=== PATIENT | female | born 1960 | race Caucasian/White ===

== ENCOUNTER → 2016-05-17 | Outpatient (REF) | payer OTHER | LOC: M SFHCWAGY 09:39 | PROVIDERS: ATTEND Nurse Practitioner Women's Health | DX: Z12.4 Encounter for screening for malignant neoplasm of cervix (principal) ==

== ENCOUNTER → 2016-05-17 | Outpatient (CLI) | payer OTHER ==
--- NOTE | 2016-05-17 10:35 | REPMRS ---
Patient History The patient states she had a clinical breast exam in Patient is postmenopausal. Family history of colorectal cancer in father at age 50 or over and breast cancer in paternal aunt at age 50 or over. Digital Woman Screen Mammo: May 17, 2016 - Exam #: [id number] Bilateral CC and MLO view(s) were taken. Technologist: Cara Luong, Technologist Prior study comparison: November 07, 2013, digital woman screen mammo performed at [facility]. August 11, 2011, digital woman screen mammo performed at [facility]. February 06, 2009, bilateral bilat screen digital mammo performed at [facility] to [facility]. FINDINGS: There are scattered fibroglandular densities. There has been no change in the appearance of the mammogram from the prior studies. There is a mild amount of scattered fibroglandular density which is fairly symmetric. There is no interval development of dominant mass, architectural distortion, or clustered microcalcification suggestive of malignancy. ASSESSMENT: BI-RADS/ACR category 1 mammogram. Negative. Recommendation Routine screening mammogram in 1 year (for women over age 40). This mammogram was interpreted with the aid of an FDA-approved computer-aided dectection system. Electronically Signed By: Félix Mas MD 05/17/16 1037
== END ==
LOC: M WHC 09:24
PROVIDERS: ATTEND Nurse Practitioner Women's Health
DX: Z12.31 Encounter for screening mammogram for malignant neoplasm of breast (principal); Z78.0 Asymptomatic menopausal state; Z80.0 Family history of malignant neoplasm of digestive organs

== ENCOUNTER → 2016-07-02 | Outpatient (CLI) | payer OTHER ==
[~2016-07-02] VITALS: Ht 162.6 cm; Wt 88.5 kg
[~2016-07-02] MED LIST: ACET650T2 PO; ACYC400T PO; ALBU17IN INH; ASPI1TAB PO; ATOR1TAB19 PO; CALC600T21 PO; DICL1GEL3 TD; FISH100049 PO; FLUT22IN INH; LIDOCAINE 2% INJ 100 MG/5 ML SDV (FOR ANES.) As Ordered ONE; LISI-538 PO; MAGN400C2 PO; METO50TA2 PO; MOBI7.5T10 PO; MULT1CHW39 PO; NS 1,000 ML IV SCH; OSTETAB3 PO; PROBCAP4 PO; PROPOFOL 200 MG/20 ML VIAL As Ordered ONE; PROPOFOL 500 MG/50 ML VIAL As Ordered ONE; VITA100054 PO; VITA500C24 PO
--- NOTE | 2016-07-02 12:22 | ROOR ---
Patient Name: Jolanta Fair Procedure Date: 07/02/2016 12:06 PM Date of : 1960 Age: 56 Room: [facility] Gender: Female Note Status: Finalized Procedure: Colonoscopy Indications: High risk colon cancer surveillance: Personal history of colonic polyps, Last colonoscopy: October 2013, Family history of colon cancer in a first-degree relative, (Father <60) Providers: Matthew PATTEN MD Referring MD: Harry Correa MD Requesting Provider: Medicines: Monitored Anesthesia Care Complications: No immediate complications. Procedure: Pre-Anesthesia Assessment: - The heart rate, respiratory rate, oxygen saturations, blood pressure, adequacy of pulmonary ventilation, and response to care were monitored throughout the procedure. The Colonoscope was introduced through the anus and advanced to the cecum, identified by appendiceal orifice and ileocecal valve. The colonoscopy was performed without difficulty. The patient tolerated the procedure well. The quality of the bowel preparation was excellent. Findings: The perianal and digital rectal examinations were normal. (Exam: Complete, Prep: Good or Excellent.) Internal hemorrhoids were found during retroflexion. The hemorrhoids were medium-sized. The entire examined colon appeared normal on direct and retroflexion views. Impression: - Small Internal hemorrhoids. - The entire examined colon is normal on direct and retroflexion views. - No specimens collected. Recommendation: - Repeat colonoscopy in 5 years for screening purposes. Matthew Patten MD Matthew PATTEN MD 07/02/2016 12:22:15 PM This report has been signed electronically. Number of Addenda: 0 Note Initiated On: 07/02/2016 12:06 PM Estimated Blood Loss: Estimated blood loss: none.
[2016-07-02 12:40] VITALS: BP 123/59
== END | disposition home or self-care (01) ==
LOC: M OPP 09:24
PROVIDERS: ATTEND Internal Medicine Gastroenterology
DX: Z12.11 Encounter for screening for malignant neoplasm of colon (principal); K64.8 Other hemorrhoids; Z86.010 Personal history of colon polyps; Z80.0 Family history of malignant neoplasm of digestive organs; I10 Essential (primary) hypertension; E78.5 Hyperlipidemia, unspecified; R00.8 Other abnormalities of heart beat; M19.90 Unspecified osteoarthritis, unspecified site; Z78.0 Asymptomatic menopausal state; J45.909 Unspecified asthma, uncomplicated; R06.83 Snoring; Z88.0 Allergy status to penicillin; Z79.82 Long term (current) use of aspirin; Z79.899 Other long term (current) drug therapy

== ENCOUNTER → 2017-09-19 | Outpatient (REF) | payer OTHER ==
[2017-09-19 13:09] LABS: ALBUMIN 3.6 GM/DL (3.2-5.2); ALBUMIN/GLOBULIN RATIO 0.92 (1.00-1.93); ALKALINE PHOSPHATASE 70 U/L (45-117); ALT/SGPT 33 U/L (12-78); ANION GAP 7 MEQ/L (8-16); AST/SGOT 18 U/L (7-37); BILIRUBIN,TOTAL 0.6 MG/DL (0.2-1.0); BLOOD UREA NITROGEN 20 MG/DL (7-18); CALCIUM LEVEL 8.5 MG/DL (8.5-10.1); CARBON DIOXIDE LEVEL 28 MEQ/L (21-32); CHLORIDE LEVEL 103 MEQ/L (98-107); CHOLESTEROL LEVEL 216 MG/DL (<200); FREE T4 0.95 NG/DL (0.76-1.46); GLOMERULAR FILTRATION RATE > 60.0 (>51); GLUCOSE, FASTING 94 MG/DL (70-100); HDL CHOLESTEROL 50 MG/DL (>40); LDL CHOLESTEROL 123.2 MG/DL (<100); NON-HDL-C 166 MG/DL; POTASSIUM SERUM 4.7 MEQ/L (3.5-5.1); SODIUM LEVEL 138 MEQ/L (136-145); TOTAL PROTEIN 7.5 GM/DL (6.4-8.2); TRIGLYCERIDES LEVEL 214 MG/DL (<150)
== END ==
LOC: M SFHCADAM 09:17
DX: E04.0 Nontoxic diffuse goiter (principal); E78.00 Pure hypercholesterolemia, unspecified; I10 Essential (primary) hypertension
CPT/HCPCS: 84443

== ENCOUNTER → 2018-02-13 | Outpatient (REF) | payer OTHER ==
[2018-02-13 13:43] LABS: TOTAL 25(OH) VITAMIN D 32.1 NG/ML (30.0-100.0)
== END ==
LOC: M SFHCADAM 10:50
DX: E55.9 Vitamin D deficiency, unspecified (principal)

== ENCOUNTER → 2018-02-22 | Outpatient (REF) | payer OTHER ==
[2018-02-22 19:39] LABS: HEMATOCRIT 43.6 % (36.0-47.0); HEMOGLOBIN 14.1 g/dl (12.0-15.5); MEAN CORPUSCULAR HEMOGLOBIN 31.3 pg (27.0-33.0); MEAN CORPUSCULAR HGB CONC 32.3 g/dl (32.0-36.5); MEAN CORPUSCULAR VOLUME 96.7 fl (80.0-96.0); PLATELET COUNT, AUTOMATED 285 10^3/uL (150-450); RED BLOOD COUNT 4.51 10^6/uL (4.00-5.40); RED CELL DISTRIBUTION WIDTH 12.7 % (11.5-14.5); WHITE BLOOD COUNT 7.2 10^3/uL (4.0-10.0)
[2018-02-22 19:42] LABS: RHEUMATOID FACTOR QUANT < 10.0 IU/ML (<15.0)
[2018-02-22 20:05] LABS: ERYTHROCYTE SEDIMENTATION RATE 6 mm/hr (0-30)
[2018-02-25 00:29] LABS: ANA (HEP2) Negative (.)
[2018-02-25 00:29] LABS: CYCLIC CITRULLINATED PEPTIDE 8 units (0-19)
== END ==
LOC: M SFHCADAM 15:00
DX: M06.4 Inflammatory polyarthropathy (principal); F32.9 Major depressive disorder, single episode, unspecified

== ENCOUNTER → 2018-08-16 | Outpatient (CLI) | payer OTHER ==
[~2018-08-16] MED LIST changes: -ACET650T2 PO; +ACET650T3 PO; -ASPI1TAB PO; +ASPI81TA26 PO; -CALC600T21 PO; +CALC600T60 PO; -LIDOCAINE 2% INJ 100 MG/5 ML SDV (FOR ANES.) As Ordered ONE; -METO50TA2 PO; +METO50TA7 PO; +MOBI4TAB PO; -MOBI7.5T10 PO; -MULT1CHW39 PO; +MULT200T7 PO; -NS 1,000 ML IV SCH; -PROPOFOL 200 MG/20 ML VIAL As Ordered ONE; -PROPOFOL 500 MG/50 ML VIAL As Ordered ONE
--- NOTE | 2018-08-16 14:09 | REPMRS ---
Patient History The patient states she had a clinical breast exam in 08/2018. Family history of colorectal cancer at age 50 or over in father, breast cancer at age 50 or over in paternal aunt. 3D TOMOSYNTHESIS WAS PERFORMED. Digital Woman Screen Mammo: August 16, 2018 - Exam #: [id number] Bilateral CC and MLO view(s) were taken. Technologist: Adele Urrutia, Technologist Prior study comparison: May 17, 2016, digital woman screen mammo performed at [facility] [employer] [facility]. November 07, 2013, digital woman screen mammo performed at [facility] [employer] [facility] [employer] [facility]. FINDINGS: There are scattered fibroglandular densities. There has been no change in the appearance of the mammogram from the prior studies. There is a mild amount of residual fibroglandular tissue which is fairly symmetric. There is no interval development of dominant mass, architectural distortion, or clustered microcalcification suggestive of malignancy. Assessment: BI-RADS/ACR category 1 mammogram. Negative Mammogram. Recommendation Routine screening mammogram in 1 year (for women over age 40). This mammogram was interpreted with the aid of an FDA-approved computer-aided dectection system. Electronically Signed By: Corona Chiang MD 08/16/18 [id number]
== END ==
LOC: M WHC 13:27
PROVIDERS: ATTEND Nurse Practitioner Women's Health
DX: Z12.31 Encounter for screening mammogram for malignant neoplasm of breast (principal); Z80.0 Family history of malignant neoplasm of digestive organs

== ENCOUNTER → 2019-01-16 | Outpatient (CLI) | payer OTHER ==
--- NOTE | 2019-01-16 15:30 | REP ---
Left knee five views : There is no fracture or dislocation. Mineralization and joint spaces are normal. There are no calcifications or foreign bodies. Impression: Negative left knee . Electronically Signed by Corona Syed MD 01/16/2019 03:21 P
== END ==
LOC: M ADAMS 15:01
PROVIDERS: ATTEND Family Medicine
DX: M25.562 Pain in left knee (principal)

== ENCOUNTER → 2019-01-16 | Outpatient (REF) | payer OTHER ==
[2019-01-16 19:40] LABS: HEMOGLOBIN 14.3 g/dl (12.0-15.5); MEAN CORPUSCULAR HEMOGLOBIN 31.1 pg (27.0-33.0); MEAN CORPUSCULAR HGB CONC 31.8 g/dl (32.0-36.5); MEAN CORPUSCULAR VOLUME 97.8 fl (80.0-96.0); PLATELET COUNT, AUTOMATED 295 10^3/uL (150-450); WHITE BLOOD COUNT 6.7 10^3/uL (4.0-10.0)
[2019-01-16 19:45] LABS: ALBUMIN 3.6 GM/DL (3.2-5.2); ALT/SGPT 60 U/L (12-78); BILIRUBIN,TOTAL 0.3 MG/DL (0.2-1.0); BLOOD UREA NITROGEN 20 MG/DL (7-18); CARBON DIOXIDE LEVEL 31 MEQ/L (21-32); CHLORIDE LEVEL 102 MEQ/L (98-107); CHOLESTEROL LEVEL 184 MG/DL (<200); CREATININE FOR GFR 0.57 MG/DL (0.55-1.30); GLOMERULAR FILTRATION RATE > 60.0 (>51); GLUCOSE, FASTING 144 MG/DL (70-100); HDL CHOLESTEROL 42 MG/DL (>40); LDL CHOLESTEROL 68 MG/DL (<100); NON-HDL-C 142 MG/DL; POTASSIUM SERUM 4.4 MEQ/L (3.5-5.1); SODIUM LEVEL 139 MEQ/L (136-145); TOTAL PROTEIN 7.2 GM/DL (6.4-8.2); TRIGLYCERIDES LEVEL 371 MG/DL (<150)
[2019-01-16 19:50] LABS: FOLATE 21.1 NG/ML (>5.4); TOTAL 25(OH) VITAMIN D 28.2 NG/ML (30.0-100.0)
== END ==
LOC: M SFHCADAM 14:56
PROVIDERS: ATTEND Family Medicine
DX: F32.9 Major depressive disorder, single episode, unspecified (principal); E78.5 Hyperlipidemia, unspecified; E55.9 Vitamin D deficiency, unspecified; R61 Generalized hyperhidrosis

== ENCOUNTER → 2019-04-26 | Outpatient (REF) | payer OTHER ==
[2019-04-26 13:10] LABS: HEMOGLOBIN A1c 7.2 %
[2019-04-26 13:17] LABS: BLOOD UREA NITROGEN 19 MG/DL (7-18); CALCIUM LEVEL 8.6 MG/DL (8.5-10.1); CARBON DIOXIDE LEVEL 25 MEQ/L (21-32); CHLORIDE LEVEL 103 MEQ/L (98-107); GLOMERULAR FILTRATION RATE > 60.0 (>51); GLUCOSE, FASTING 233 MG/DL (70-100); SODIUM LEVEL 137 MEQ/L (136-145)
== END ==
LOC: M SFHCADAM 09:00
PROVIDERS: ATTEND Family Medicine
DX: R73.03 Prediabetes (principal)

== ENCOUNTER → 2019-06-06 | Outpatient (REF) | payer OTHER ==
[2019-06-06 16:27] LABS: HEMATOCRIT 45.8 % (36.0-47.0); HEMOGLOBIN 14.6 g/dl (12.0-15.5); MEAN CORPUSCULAR HGB CONC 31.9 g/dl (32.0-36.5); MEAN CORPUSCULAR VOLUME 97.2 fl (80.0-96.0); PLATELET COUNT, AUTOMATED 326 10^3/uL (150-450); RED BLOOD COUNT 4.71 10^6/uL (4.00-5.40); WHITE BLOOD COUNT 6.9 10^3/uL (4.0-10.0)
[2019-06-06 16:33] LABS: ALBUMIN 3.9 GM/DL (3.2-5.2); ALT/SGPT 46 U/L (12-78); BILIRUBIN,TOTAL 0.6 MG/DL (0.2-1.0); BLOOD UREA NITROGEN 15 MG/DL (7-18); CALCIUM LEVEL 9.3 MG/DL (8.5-10.1); CARBON DIOXIDE LEVEL 31 MEQ/L (21-32); CHLORIDE LEVEL 104 MEQ/L (98-107); CREATININE FOR GFR 0.65 MG/DL (0.55-1.30); GLOMERULAR FILTRATION RATE > 60.0 (>51); GLUCOSE, FASTING 102 MG/DL (70-100); POTASSIUM SERUM 4.6 MEQ/L (3.5-5.1); SODIUM LEVEL 140 MEQ/L (136-145); TOTAL PROTEIN 7.4 GM/DL (6.4-8.2)
== END ==
LOC: M SFHCADAM 12:07
PROVIDERS: ATTEND Family Medicine
DX: R10.9 Unspecified abdominal pain (principal)

== ENCOUNTER → 2019-06-18 | Outpatient (CLI) | payer OTHER ==
--- NOTE | 2019-06-19 08:18 | REP ---
Clinical: Pelvic pain. Technique: Transabdominal pelvic ultrasound followed by transvaginal examination for better evaluation of the endometrium and adnexa. Findings: Fluid-filled bladder appears normal and measures approximately 8.4 x 11.7 x 3.8 cm. Heterogeneous anteverted uterus measures 9.6 x 2.8 x 4.3 cm. Endometrial complex measures 1.2 mm thickness. A 12 x 8 x 8 mm posterior intramural fibroid cannot be excluded. Ovaries are not identified. No adnexal mass or fluid. Impression: Possible small 12 mm posterior intramural fibroid. Limited examination. Ovaries not visualized. Electronically Signed by Rock Landeros MD 06/19/2019 08:10 A
== END ==
LOC: M RAD 12:19
PROVIDERS: ATTEND Family Medicine
DX: R93.89 Abnormal findings on diagnostic imaging of other specified body structures (principal); R10.2 Pelvic and perineal pain

== ENCOUNTER → 2019-07-31 | Outpatient (CLI) | payer OTHER ==
--- NOTE | 2019-08-01 04:53 | REP ---
Clinical: Left flank pain. Technique: Real time holt scale and color evaluation using curved array transducer. Findings: Bilateral kidneys are normal in contour, size, echogenicity without hydronephrosis, nephrolithiasis, cystic or renal mass lesion. No perinephric fluid collection. Right kidney measures 10.8 x 6.3 x 4.4 cm. Left kidney measures 12.2 x 5.5 x 5.9 cm. Bladder is incompletely distended but grossly normal in appearance. Left ureteral jet noted. Impression: Normal renal ultrasound. No hydronephrosis or nephrolithiasis. Electronically Signed by Rock Landeros MD 08/01/2019 04:44 A
== END ==
LOC: M RAD 12:52
PROVIDERS: ATTEND Family Medicine
DX: R10.9 Unspecified abdominal pain (principal)

== ENCOUNTER → 2019-08-20 | Outpatient (CLI) | payer OTHER ==
--- NOTE | 2019-08-20 11:17 | REPMRS ---
Patient History The patient states she had a clinical breast exam in August 2019.Family history of colorectal cancer at age 50 or over in father, breast cancer at age 50 or over in paternal aunt. Digital Woman Screen Mammo: August 20, 2019 - Exam #: [id number] Bilateral CC and MLO view(s) were taken. Technologist: Vira Garcia, Technologist Prior study comparison: August 16, 2018, bilateral digital woman screen [place] [facility] May 17, 2016, digital woman screen mamm[place] [facility]. November 07, 2013, digital woman screen mammo [place] [facility] FINDINGS: There are scattered fibroglandular densities. The Volpara volumetric breast density category is:B. There has been no change in the appearance of the mammogram from the prior studies. There is a mild amount of scattered fibroglandular density which is fairly symmetric. There is no interval development of dominant mass, architectural distortion, or grouped microcalcification suggestive of malignancy. 3-D tomosynthesis shows no additional findings. Assessment: BI-RADS/ACR category 1 mammogram. Negative Mammogram. Recommendation Routine screening mammogram of both breasts in 1 year (for women over age 40). This patient's Lifetime Breast Cancer Risk is estimated at 12.9 %. This mammogram was interpreted with the aid of an FDA-approved computer-aided dectection system. Electronically Signed By: Félix Mas MD 08/20/19 [id number]
--- NOTE | 2019-08-22 14:21 | DEXA ---
AP SPINE L1 - L4 1.137 -0.5 0.6 LT FEMUR TOTAL 0.989 -0.1 0.7 LT NECK 0.868 -1.2 -0.1 RT FEMUR TOTAL 0.995 -0.1 0.7 RT NECK 0.919 -0.9 0.3 TOTAL BODY TOTAL OTHER COMMENTS: Normal bone densitometry of the spine. Normal bone densitometry of the right hip. There is low bone density of the left hip. FOLLOW-UP: Recommendation for the next bone density exam: 2 years. LAUREN
== END ==
LOC: M WHC 08:49
PROVIDERS: ATTEND Nurse Practitioner Women's Health
DX: Z12.31 Encounter for screening mammogram for malignant neoplasm of breast (principal); Z78.0 Asymptomatic menopausal state; Z13.820 Encounter for screening for osteoporosis; Z80.0 Family history of malignant neoplasm of digestive organs; Z80.3 Family history of malignant neoplasm of breast; M85.852 Other specified disorders of bone density and structure, left thigh

== ENCOUNTER → 2019-08-20 | Outpatient (REF) | payer OTHER | LOC: M SFHCWAGY 17:53 | PROVIDERS: ATTEND Nurse Practitioner Women's Health | DX: Z12.4 Encounter for screening for malignant neoplasm of cervix (principal) ==

== ENCOUNTER → 2019-09-06 | Outpatient (REF) | payer OTHER ==
[2019-09-06 14:58] LABS: HEMOGLOBIN A1c 6.9 %
[2019-09-06 15:02] LABS: ALBUMIN 3.6 GM/DL (3.2-5.2); ALT/SGPT 44 U/L (12-78); BILIRUBIN,TOTAL 0.5 MG/DL (0.2-1.0); BLOOD UREA NITROGEN 21 MG/DL (7-18); CALCIUM LEVEL 8.6 MG/DL (8.5-10.1); CARBON DIOXIDE LEVEL 28 MEQ/L (21-32); CHLORIDE LEVEL 104 MEQ/L (98-107); CHOLESTEROL LEVEL 189 MG/DL (<200); CHOLESTEROL RISK RATIO 4.725 (<5); CREATININE FOR GFR 0.76 MG/DL (0.55-1.30); FREE T4 0.91 NG/DL (0.76-1.46); GLOMERULAR FILTRATION RATE > 60.0 (>51); GLUCOSE, FASTING 120 MG/DL (70-100); HDL CHOLESTEROL 40 MG/DL (>40); LDL CHOLESTEROL 112 MG/DL (<100); NON-HDL-C 149 MG/DL; POTASSIUM SERUM 4.8 MEQ/L (3.5-5.1); SODIUM LEVEL 137 MEQ/L (136-145); TOTAL 25(OH) VITAMIN D 51.9 NG/ML (30.0-100.0); TOTAL PROTEIN 7.1 GM/DL (6.4-8.2); TRIGLYCERIDES LEVEL 185 MG/DL (<150)
[2019-09-06 15:17] LABS: MALB URINE SIEMENS 13.2 MG/L; MAU/CREAT RATIO 9.7 MCG/MG (0.0-30.0)
== END ==
LOC: M SFHCADAM 08:55
PROVIDERS: ATTEND Family Medicine
DX: E11.9 Type 2 diabetes mellitus without complications (principal); E04.0 Nontoxic diffuse goiter; E78.5 Hyperlipidemia, unspecified; E55.9 Vitamin D deficiency, unspecified

== ENCOUNTER → 2019-10-18 | Outpatient (CLI) | payer OTHER ==
--- NOTE | 2019-10-19 02:50 | REPPI ---
SHOULDER: REASON: Shoulder contusion. COMPARISON: No priors. FINDINGS: Three views of the right shoulder were performed. The acromioclavicular and glenohumeral relationships are within normal limits. There is no acute fracture or destructive osseous lesions. Mild degenerative change is seen involving the acromioclavicular joint. There is a unicameral cyst in the humeral head. Electronically Signed by Parish Quezada DO 10/19/2019 09:13 A
== END ==
LOC: M PLAIMG 14:15
PROVIDERS: ATTEND Physician Assistant Medical
DX: M85.421 Solitary bone cyst, right humerus (principal)

== ENCOUNTER → 2020-04-08 | Outpatient (REF) | payer MEDICAID, OTHER ==
[~2020-04-08] MED LIST changes: -LISI-538 PO; +LISI20TA33 PO
[2020-04-08 16:36] LABS: HEMOGLOBIN 15.6 g/dl (12.0-15.5); MEAN CORPUSCULAR HEMOGLOBIN 30.1 pg (27.0-33.0); MEAN CORPUSCULAR HGB CONC 31.8 g/dl (32.0-36.5); MEAN CORPUSCULAR VOLUME 94.4 fl (80.0-96.0); PLATELET COUNT, AUTOMATED 301 10^3/uL (150-450); RED BLOOD COUNT 5.19 10^6/uL (4.00-5.40); WHITE BLOOD COUNT 6.8 10^3/uL (4.0-10.0)
[2020-04-08 16:52] LABS: HEMOGLOBIN A1c 9.4 %
[2020-04-08 17:10] LABS: ALBUMIN 4.1 GM/DL (3.2-5.2); ALT/SGPT 66 U/L (12-78); BILIRUBIN,TOTAL 0.6 MG/DL (0.2-1.0); BLOOD UREA NITROGEN 17 MG/DL (7-18); CALCIUM LEVEL 9.8 MG/DL (8.5-10.1); CARBON DIOXIDE LEVEL 30 MEQ/L (21-32); CHLORIDE LEVEL 98 MEQ/L (98-107); CHOLESTEROL LEVEL 207 MG/DL (<200); CHOLESTEROL RISK RATIO 4.813 (<5); CREATININE FOR GFR 0.79 MG/DL (0.55-1.30); FREE T4 1.04 NG/DL (0.76-1.46); GLOMERULAR FILTRATION RATE > 60.0 (>51); GLUCOSE, FASTING 194 MG/DL (70-100); HDL CHOLESTEROL 43 MG/DL (>40); LDL CHOLESTEROL 103 MG/DL (<100); NON-HDL-C 164 MG/DL; POTASSIUM SERUM 5.2 MEQ/L (3.5-5.1); SODIUM LEVEL 134 MEQ/L (136-145); TOTAL PROTEIN 8.1 GM/DL (6.4-8.2); TRIGLYCERIDES LEVEL 303 MG/DL (<150)
== END ==
LOC: M SFHCADAM 11:30
PROVIDERS: ATTEND Family Medicine
DX: G47.33 Obstructive sleep apnea (adult) (pediatric) (principal); E11.9 Type 2 diabetes mellitus without complications; E04.0 Nontoxic diffuse goiter; E78.5 Hyperlipidemia, unspecified

== ENCOUNTER → 2020-05-02 | Outpatient (CLI) | payer OTHER ==
[~2020-05-02] MED LIST changes: +GASTROGRAFIN SOLUTION 30ML (Q9963) As Ordered ONE; +ISOVUE-370 76% 100ML VIAL As Ordered ONE
--- NOTE | 2020-05-04 18:14 | REP ---
INDICATION: DYSPHAGIA, GOITER, FULLNESS. COMPARISON: 01/20/2010 TECHNIQUE: Axial contrast-enhanced images of the abdomen using oral and 100 cc Isovue 370 intravenous contrast material with coronal and sagittal reformations. . This CT examination was performed using the following dose reduction techniques: Automated exposure control, adjustment of mA and/or kv according to the patient's size, and use of iterative reconstruction technique. FINDINGS: Marked diffuse hepatosteatosis is appreciated without focal hepatic lesion. Spleen, pancreas, gallbladder, bilateral adrenal glands and kidneys are normal. Small hiatal hernia noted. Remainder of the visualized enteric system is unremarkable. No ascites. No free air. No adenopathy. Abdominal aorta through the bifurcations common iliac arteries appears normal. Musculoskeletal structures are intact. Lung bases are clear. IMPRESSION: 1. Diffuse hepatosteatosis. 2. Small hiatal hernia. <Electronically signed by Rock Landeros > 05/04/20 0816
--- NOTE | 2020-05-04 18:20 | REP ---
INDICATION: DYSPHAGIA, GOITER, FULLNESS COMPARISON: None. TECHNIQUE: Axial contrast-enhanced images from the skull base to the thoracic inlet with coronal and sagittal reformations using 100 cc Isovue 370 intravenous contrast material. This CT examination was performed using the following dose reduction techniques: Automated exposure control, adjustment of mA and/or kv according to the patient's size, and use of iterative reconstruction technique. FINDINGS: The naso, hector and hypopharynx, larynx and subglottic trachea are normal in appearance. Parapharyngeal and retropharyngeal soft tissues are normal. The salivary and thyroid glands are normal in size and density. Small lymph nodes less than 1 cm in size are present in the internal jugular chains, posterior triangles, submandibular and submental areas. The lung apices are clear. The visualized sinuses are clear. Vascular structures are essentially symmetric and normal. IMPRESSION: Normal contrast-enhanced neck CT. No evidence for mass or acute pathology. <Electronically signed by Rock Landeros > 05/04/20 0938
== END ==
LOC: M RAD 15:19
PROVIDERS: ATTEND Family Medicine
DX: R13.10 Dysphagia, unspecified (principal); K76.0 Fatty (change of) liver, not elsewhere classified; K44.9 Diaphragmatic hernia without obstruction or gangrene
CPT/HCPCS: 70491; 74160; Q9963; Q9967

== ENCOUNTER → 2020-06-12 | Outpatient (CLI) | payer OTHER ==
[~2020-06-12] MED LIST changes: -GASTROGRAFIN SOLUTION 30ML (Q9963) As Ordered ONE; -ISOVUE-370 76% 100ML VIAL As Ordered ONE
--- NOTE | 2020-06-12 10:55 | REP ---
INDICATION: EARLY SATIETY, NAUSEA/VOMITING, EPIGASTRIC PAIN. COMPARISON: None. TECHNIQUE/RADIOTRACER AND DOSE: Following the intravenous administration of 1.05 mCi technetium 99 M sulfur colloid in 2 scrambled eggs and 6 oz of water, multiple images of the upper abdomen are performed in the anterior and posterior projections. FINDINGS: The gastric activity is measured. At the end of 90 minutes 40% of the ingested activity has emptied from the stomach. This yields T1/2 of 111 minutes. A normal T1/2 is 90 minutes. Therefore there is mildly delayed gastric emptying. IMPRESSION: Mildly delayed gastric emptying as discussed above. <Electronically signed by Corona Chiang > 06/12/20 [id number]
== END ==
LOC: M RAD 08:13
PROVIDERS: ATTEND Physician Assistant Medical
DX: R68.81 Early satiety (principal); R11.2 Nausea with vomiting, unspecified; R10.13 Epigastric pain
CPT/HCPCS: 78264; A9541

== ENCOUNTER → 2020-06-25 | Outpatient (CLI) | payer OTHER ==
[~2020-06-25] MED LIST changes: +DULO1CAP5 PO; +FLUO40CA PO; +GABA-282 PO; +GAVICHW3 PO; +HYDR-643 PO; +METF500T13 PO; +PANT40TA29 PO; +ROPI2TAB3 PO; +TRAZ-257 PO; +TRUL10IN SC; +TUMS500C PO; +VENTAER INH
== END ==
LOC: M LABSMTC 11:08
PROVIDERS: ATTEND Anesthesiology
DX: Z01.812 Encounter for preprocedural laboratory examination (principal); Z20.822 Contact with and (suspected) exposure to COVID-19

== ENCOUNTER 2020-06-30 07:01 | Day surgery (SDC) | payer OTHER ==
[~2020-06-30] VITALS: Ht 162.6 cm; Wt 109.3 kg
[~2020-06-30 07:01] MED LIST changes: +NS 1,000 ML IV ONE
--- NOTE | 2020-06-30 08:03 | ROOR ---
Patient Name: Jolanta Fair Procedure Date: 06/30/2020 7:50 AM Date of : 1960 Age: 60 Room: [facility] Gender: Female Note Status: Finalized Procedure: Upper GI endoscopy Indications: Epigastric abdominal pain, Heartburn, Gastroparesis Providers: Matthew PATTEN MD Referring MD: Harry Correa MD Requesting Provider: Medicines: Monitored Anesthesia Care Complications: No immediate complications. Procedure: Pre-Anesthesia Assessment: - The heart rate, respiratory rate, oxygen saturations, blood pressure, adequacy of pulmonary ventilation, and response to care were monitored throughout the procedure. The Endoscope was introduced through the mouth, and advanced to the second part of duodenum. The upper GI endoscopy was accomplished without difficulty. The patient tolerated the procedure well. Findings: The esophagus was normal. The stomach was normal. (compliant/large volume) The examined duodenum was normal. Impression: - Normal esophagus. - Normal stomach. - Normal examined duodenum. - No specimens collected. Recommendation: - Gastroparesis diet: - Eat smaller, more frequent meals throughout the day. - Low fat diet. - Liquid/soft foods are tolerated better than solid foods. - Low fiber/well cooked vegetables are tolerated better than high fiber/fibrous foods/raw vegetables. - Avoid medications that inhibit gastric/intestinal motility such as narcotic medications. Procedure Code(s): --- Professional --- 94361, Esophagogastroduodenoscopy, flexible, transoral; diagnostic, including collection of specimen(s) by brushing or washing, when performed (separate procedure) Diagnosis Code(s): --- Professional --- K31.84, Gastroparesis R12, Heartburn R10.13, Epigastric pain CPT copyright 2019 [employer]. All rights reserved. The codes documented in this report are preliminary and upon certified medical records coder review may be revised to meet current compliance requirements. Matthew Patten MD Matthew PATTEN MD 06/30/2020 8:03:44 AM Electronically signed by Matthew PATTEN MD Number of Addenda: 0 Note Initiated On: 06/30/2020 7:50 AM Estimated Blood Loss: Estimated blood loss: none.
[2020-06-30] MEDS ORDERED: fentaNYL 100 MCG/2 ML INJECTION (J3010) As Ordered ONE (08:35)
[2020-06-30] MEDS ORDERED: propofoL 200 MG/20 ML VIAL As Ordered ONE (08:35)
[2020-06-30] MEDS ORDERED: LIDOCAINE 2% 100MG/5ML SDV (FOR ANES.) As Ordered ONE (08:35)
[2020-06-30 08:40] VITALS: BP 115/56
== END 2020-06-30 09:02 | disposition home or self-care (01) ==
LOC: M OPP 07:01
PROVIDERS: ATTEND Internal Medicine Gastroenterology
DX: R10.13 Epigastric pain (principal); K31.84 Gastroparesis; I10 Essential (primary) hypertension; E78.5 Hyperlipidemia, unspecified; E11.9 Type 2 diabetes mellitus without complications; M19.90 Unspecified osteoarthritis, unspecified site; F41.9 Anxiety disorder, unspecified; F32.9 Major depressive disorder, single episode, unspecified; F43.10 Post-traumatic stress disorder, unspecified; J45.909 Unspecified asthma, uncomplicated; G25.81 Restless legs syndrome; G62.9 Polyneuropathy, unspecified; Z88.0 Allergy status to penicillin; Z79.82 Long term (current) use of aspirin; Z79.84 Long term (current) use of oral hypoglycemic drugs; Z79.899 Other long term (current) drug therapy; Z83.3 Family history of diabetes mellitus; Z80.0 Family history of malignant neoplasm of digestive organs; Z80.52 Family history of malignant neoplasm of bladder; Z82.49 Family history of ischemic heart disease and other diseases of the circulatory system; Z82.3 Family history of stroke; Z80.3 Family history of malignant neoplasm of breast
CPT/HCPCS: 43235; J3010

== ENCOUNTER → 2020-10-27 | Outpatient (REF) | payer OTHER ==
[~2020-10-27] MED LIST changes: +ACYC1TAB PO; -ACYC400T PO; -NS 1,000 ML IV ONE
[2020-10-27 13:32] LABS: HEMOGLOBIN A1c 9.8 %
[2020-10-27 13:39] LABS: ALBUMIN 3.8 GM/DL (3.2-5.2); ALT/SGPT 77 U/L (12-78); BILIRUBIN,TOTAL 0.6 MG/DL (0.2-1.0); BLOOD UREA NITROGEN 20 MG/DL (7-18); CALCIUM LEVEL 9.4 MG/DL (8.5-10.1); CARBON DIOXIDE LEVEL 28 MEQ/L (21-32); CHLORIDE LEVEL 99 MEQ/L (98-107); CHOLESTEROL LEVEL 184 MG/DL (<200); CHOLESTEROL RISK RATIO 4.842 (<5); GLOMERULAR FILTRATION RATE > 60.0 (>51); GLUCOSE, FASTING 203 MG/DL (70-100); HDL CHOLESTEROL 38 MG/DL (>40); LDL CHOLESTEROL 84 MG/DL (<100); NON-HDL-C 146 MG/DL; POTASSIUM SERUM 5.2 MEQ/L (3.5-5.1); SODIUM LEVEL 135 MEQ/L (136-145); TOTAL PROTEIN 7.4 GM/DL (6.4-8.2); TRIGLYCERIDES LEVEL 310 MG/DL (<150)
== END ==
LOC: M SFHCADAM 10:24
PROVIDERS: ATTEND Family Medicine
DX: E78.5 Hyperlipidemia, unspecified (principal); E11.9 Type 2 diabetes mellitus without complications

== ENCOUNTER 2020-11-01 10:54 | Emergency (ER) | payer OTHER ==
[~2020-11-01] VITALS: Ht 162.6 cm; Wt 106.8 kg
[2020-11-01] MEDS ORDERED: ACETAMINOPHEN 500 MG TAB PO ONE (11:50)
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
[2020-11-01 12:58] VITALS: BP 141/82
== END 2020-11-01 12:59 | disposition home or self-care (01) ==
LOC: M ED 10:54
DX: S00.83XA Contusion of other part of head, initial encounter (principal); R22.0 Localized swelling, mass and lump, head; Y04.8XXA Assault by other bodily force, initial encounter; Y07.499 Other family member, perpetrator of maltreatment and neglect; Y92.018 Other place in single-family (private) house as the place of occurrence of the external cause; E11.9 Type 2 diabetes mellitus without complications; I10 Essential (primary) hypertension; J45.909 Unspecified asthma, uncomplicated; Z79.899 Other long term (current) drug therapy; Z79.82 Long term (current) use of aspirin; Z79.84 Long term (current) use of oral hypoglycemic drugs; Z88.0 Allergy status to penicillin

== ENCOUNTER → 2020-12-04 | Outpatient (REF) | payer OTHER ==
[2020-12-04 11:29] LABS: BASO % 0.4 % (0.0-1.0); EOS # 0.2 10^3/uL (0.0-0.5); EOS % 2.5 % (0.0-3.0); HEMATOCRIT 43.6 % (36.0-47.0); HEMOGLOBIN 14.1 g/dl (12.0-15.5); LYMPH # 2.5 10^3/uL (1.5-5.0); LYMPH % 33.1 % (24.0-44.0); MEAN CORPUSCULAR HEMOGLOBIN 31.4 pg (27.0-33.0); MEAN CORPUSCULAR HGB CONC 32.3 g/dl (32.0-36.5); MEAN CORPUSCULAR VOLUME 97.1 fl (80.0-96.0); MONO # 0.6 10^3/uL (0.0-0.8); NEUTROPHILS # 4.2 10^3/uL (1.5-8.5); NEUTROPHILS % 55.5 % (36.0-66.0); PLATELET COUNT, AUTOMATED 310 10^3/uL (150-450); RED BLOOD COUNT 4.49 10^6/uL (4.00-5.40); WHITE BLOOD COUNT 7.5 10^3/uL (4.0-10.0)
[2020-12-04 11:41] LABS: ALT/SGPT 68 U/L (12-78); BLOOD UREA NITROGEN 21 MG/DL (7-18); CALCIUM LEVEL 8.9 MG/DL (8.5-10.1); CARBON DIOXIDE LEVEL 26 MEQ/L (21-32); CHLORIDE LEVEL 106 MEQ/L (98-107); CREATININE FOR GFR 0.66 MG/DL (0.55-1.30); GLOMERULAR FILTRATION RATE > 60.0 (>51); GLUCOSE, FASTING 170 MG/DL (70-100); POTASSIUM SERUM 4.4 MEQ/L (3.5-5.1); SODIUM LEVEL 138 MEQ/L (136-145)
[2020-12-04 11:42] LABS: ALBUMIN 3.5 GM/DL (3.2-5.2); BILIRUBIN,TOTAL 0.5 MG/DL (0.2-1.0); C REACTIVE PROTEIN QUANTITATIV 0.74 MG/DL (0.00-0.30); RHEUMATOID FACTOR QUANT < 10.0 IU/ML (<15.0)
[2020-12-04 12:07] LABS: ERYTHROCYTE SEDIMENTATION RATE 15 mm/hr (0-30)
== END ==
LOC: M SFHCRHEU 08:55
PROVIDERS: ATTEND Internal Medicine Rheumatology
DX: M35.3 Polymyalgia rheumatica (principal)

== ENCOUNTER → 2021-01-13 | Outpatient (CLI) | payer OTHER ==
--- NOTE | 2021-01-13 14:19 | REP ---
INDICATION: POLYMYALGIA COMPARISON: None. TECHNIQUE: AP, lateral, and swimmers views. FINDINGS: Alignment and kyphosis is maintained. Vertebral bodies intact. No acute fracture / compression injury or subluxation. Moderate multilevel degenerative changes include endplate sclerosis, osteophytosis, and minimal disc space narrowing. Paravertebral soft tissues are normal. IMPRESSION: Moderate multilevel degenerative spondylosis. <Electronically signed by Rock Landeros > 01/13/21 [id number]
--- NOTE | 2021-01-13 14:20 | REP ---
INDICATION: POLYMYALGIA COMPARISON: None. TECHNIQUE: AP, lateral, flexion/extension, bilateral oblique, and coned-down views. FINDINGS: Alignment and lordosis is maintained. The vertebral bodies including transverse process and spinous processes are intact and normal. There is no evidence for acute fracture / compression injury or subluxation. No evidence for spondylolysis or spondylolisthesis. Moderate multilevel degenerative changes include endplate sclerosis, marginal spurring and hypertrophic facet changes. Minimal disc space narrowing is also identified at L5-S1 and to a lesser extent L2-3. IMPRESSION: Moderate multilevel degenerative spondylosis. <Electronically signed by Rock Landeros > 01/13/21 2551
--- NOTE | 2021-01-13 14:21 | REP ---
INDICATION: POLYMYALGIA. COMPARISON: None. TECHNIQUE: AP, lateral, flexion/extension, open mouth and bilateral oblique views of the cervical spine FINDINGS: Alignment and lordosis maintained without acute fracture/compression injury or subluxation. Osteopenia and advanced multilevel degenerative changes include endplate sclerosis, marginal spurring and disc space narrowing. Findings most pronounced at C5-6. IMPRESSION: Advanced multilevel degenerative spondylosis. <Electronically signed by Rock Landeros > 01/13/21 2613
--- NOTE | 2021-01-13 14:22 | REP ---
INDICATION: POLYMYALGIA. COMPARISON: None. TECHNIQUE: Four views of the sacroiliac joints FINDINGS: Bilateral sacroiliac joints are symmetric and demonstrate age-related periarticular sclerosis. Small spurs along the inferior margin are suggested. IMPRESSION: Symmetric age-related changes to the bilateral sacroiliac joints. <Electronically signed by Rock Landeros > 01/13/21 [id number]
--- NOTE | 2021-01-13 14:24 | REP ---
INDICATION: POLYMYALGIA COMPARISON: None. TECHNIQUE: AP, lateral, bilateral oblique views right and left hand. FINDINGS: Right hand demonstrates moderate osteoarthritic degenerative changes including subchondral sclerosis, joint space narrowing, and marginal osteophytosis primarily involving the 1st metacarpophalangeal and 1st through 5th interphalangeal joints. No acute fracture or dislocation.. Left hand demonstrates moderate to advanced osteoarthritic degenerative changes including subchondral sclerosis, joint space narrowing, and osteophytosis primarily involving the 1st through 3rd interphalangeal joints. No acute fracture or dislocation. IMPRESSION: Osteoarthritic degenerative changes. <Electronically signed by Rock Landeros > 01/13/21 [id number]
--- NOTE | 2021-01-13 14:26 | REP ---
INDICATION: POLYMYALGIA COMPARISON: None. TECHNIQUE: AP, lateral, bilateral oblique views right and left foot. FINDINGS: Right foot demonstrates moderate osteoarthritic degenerative changes primarily involving the tarsometatarsal and interphalangeal joints. No evidence for acute fracture or dislocation. Lateral view demonstrates moderate calcaneal heel spur. Left foot demonstrates moderate osteoarthritic degenerative changes primarily involving the tarsometatarsal and interphalangeal joints as well as the 1st metatarsophalangeal joint. No acute fracture or dislocation. Lateral view demonstrates moderate calcaneal heel spur. IMPRESSION: Moderate arthritic degenerative changes. No acute fracture or dislocation. <Electronically signed by Rock Landeros > 01/13/21 [id number]
== END ==
LOC: M ADAMS 13:18
PROVIDERS: ATTEND Internal Medicine Rheumatology
DX: M35.3 Polymyalgia rheumatica (principal); M43.03 Spondylolysis, cervicothoracic region; M85.80 Other specified disorders of bone density and structure, unspecified site; M19.041 Primary osteoarthritis, right hand; M19.042 Primary osteoarthritis, left hand; M19.071 Primary osteoarthritis, right ankle and foot; M19.072 Primary osteoarthritis, left ankle and foot

== ENCOUNTER → 2021-02-02 | Outpatient (CLI) | payer OTHER ==
[2021-02-02 10:58] LABS: HEMOGLOBIN A1c 9.5 %
[2021-02-02 11:00] LABS: BLOOD UREA NITROGEN 21 MG/DL (7-18); CALCIUM LEVEL 8.9 MG/DL (8.8-10.2); CARBON DIOXIDE LEVEL 27 MEQ/L (21-32); CHLORIDE LEVEL 102 MEQ/L (98-107); CREATININE FOR GFR 0.65 MG/DL (0.55-1.30); GLOMERULAR FILTRATION RATE > 60.0 (>45); GLUCOSE, FASTING 239 MG/DL (70-100); POTASSIUM SERUM 4.3 MEQ/L (3.5-5.1); SODIUM LEVEL 137 MEQ/L (136-145)
== END ==
LOC: M WUC 09:00
PROVIDERS: ATTEND Family Medicine
DX: E11.9 Type 2 diabetes mellitus without complications (principal)

== ENCOUNTER 2021-02-20 09:08 | Inpatient (IN) | payer OTHER ==
[~2021-02-20] VITALS: Ht 162.6 cm; Wt 102.8 kg
[2021-02-20] MEDS: ACYCLOVIR 200 MG CAPSULE PO SCH (09:00)
--- OUTSIDE RECORDS SUMMARY | 2021-02-20 09:20 | CCD ---
Author Author [facility] Organization [facility] Address Unknown Phone Unavailable Care Team Providers Care Telephone Order Supervisor Name Role Phone Harry Correa Unavailable PROBLEMS Type Condition ICD9-CM Code [id number] Code Onset Dates Condition S tatus W/U Status Risk SNOMED Code Notes Problem Essential (primary) hypertension I10 Active conf irmed 20857157 Problem Other asthma J45.998 Active confirmed 302780 001 Problem Vitamin D deficiency, unspecified E55.9 Active con firmed 00145658 Problem Major depressive disorder, single episode, unspecified F32.9 Active confirmed 56040576 Problem Breast cancer screening by mammogram Z12.31 Act [place] confirmed 341922335 Problem Postmenopausal status Z78.0 Active confirmed 59489484 Problem Adjustment disorder with depressed mood F43.21 Active confirmed 98970989 Problem Asthma, unspecified, unspecified status 493.90 Active confirmed 28565314 Problem 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 Active confirmed 498185058 Problem Primary osteoarthritis, right hand M19.041 Activ e confirmed 5084858100145892 Problem Post traumatic stress disorder F43.10 Active confir med 40903935 Problem Post traumatic stress disorder (PTSD) F43.10 Ac tive confirmed 79512027 Problem Routine gynecological examination Z01.419 Active confirmed 104772797 Problem Borderline personality disorder F60.3 Active confi rmed 01432652 Problem Esophageal dysphagia R13.10 Active confirmed 08520843 Problem Restless leg syndrome G25.81 Active confirmed 34937864 Problem Acquired hyperlipoproteinemia E78.5 Active confirm ed 1684571 Problem Polymyalgia M35.3 Active confirmed 63036069 Problem Goiter diffuse, 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 Active confirmed 943715035 Problem Encounter for immunization Z23 Active confirmed 218124056 Problem Herpesviral infection of urogenital system, unspecified A60.00 Active confirmed 33217964 Problem Paresthesia of both feet R20.2 Active confirmed 884423787 Problem Type 2 diabetes mellitus wit hout complication, without long-term current use of insulin E11.9 Active confirmed 303214054 Problem ELISABETH (obstructive sleep apnea) G47.33 Active confirm ed 30594019 Problem Goiter E04.9 Active confirmed 2141422 Problem Primary osteoarthritis involving multiple joints M 89.49 Active confirmed 934335418 ALLERGIES Allergen (clinical drug ingredient) Drug/Non Drug Allergy do cumented on EMR Reaction Allergy Type Onset Date Status gabapentin Gabapentin([facility] Code:[address]-78) no benefit Drug Allergy Active lisinopril Lisinopril cough Drug Allergy Active dulaglutide Trulicity([facility] Code:[address]-35) intractable nausea Drug Allergy Active penicillin G Penicillin G Sodium([facility] Code:[address]-11) rash D rug Allergy Active metformin Metformin GI Drug Allergy Active ENCOUNTERS from 1961 to 2021-02-05 Encounter Location Date Provider Diagnosis [facility] [address] [place] [address] Jan, Harry Correa Type 2 diabetes mellitus without complic ation, without long-term current use of insulin E11.9 IMMUNIZATIONS Vaccine Route Administration Date Status Influenza 18 yrs & older Flublok IM Intramuscular Feb 04, 2021 Administered Influenza 18 yrs & older Flublok IM Intramuscular May 08, 2020 Administered Influenza 18 yrs & older Flublok IM Intramuscular Jan 16, 2019 Administered Influenza 18 yrs & older Flublok IM Intramuscular Feb 22, 2018 Administered Influenza 6mo & up Fluzone IM Intramuscular Jan 23, 2014 Admi nistered Influenza 6mo & up Fluzone IM Intramuscular Feb 28, 2013 Admi nistered SOCIAL HISTORY Tobacco Use: Social History Observation Description Date Details (start date - stop date) Never Smoker Sex Assigned At : Social History Observation Description Sex Assigned At Unknown Audit Question Answer Notes Total Score: 1 Interpretation: Alcohol Education Language: Question Answer Notes Languages spoken: Tongan Sexual Hx: Question Answer Notes Had sex in the last 12 months (vaginal, oral, or anal)? No LMP: post menopause Have you ever had an STD? Yes Other? No Herpes? Yes Syphilis? No GC? No Chlamydia? No Drug and Alcohol Question Answer Notes Total Score: 0 Interpretation: No problems reported Alcohol Screening: Question Answer Notes Did you have a drink containing alcohol in the past year? Ye s Points 1 Interpretation Negative How often did you have six or more drinks on one occas ion in the past year? Never (0 points) How many drinks did you have on a typica l day when you were drinking in the past year? 1 or 2 (0 points) How often did you have a drink containing alcohol in t he past year? Monthly or less (1 point) BMI Care Goal Follow-Up Question Answer Notes Above Normal BMI Follow-Up Giving encouragement to exercise Tobacco Use: Question Answer Notes Are you a: never smoker never smoker REASON FOR REFERRAL No Information VITAL SIGNS No information MEDICATIONS Medication SIG (Take, Route, Frequency, Duration) Notes Start Da te End Date Status OneTouch Verio - as directed In Vitro Daily for 30 days Sep, Active hydrOXYzine HCl 10 MG TAKE 1 TABLET BY MOUTH THREE TIMES DAILY NEEDED Oral for 30 Active Blood Glucose System Tono - as directed Daily E11.9 for 30 days Sep, Active Vitamin D (Ergocalciferol) 1.25 MG (92691 UT) TAKE 1 C APSULE BY MOUTH ONCE A WEEK Oral for 28 Not-Taking FreeStyle Lancets - as directed Daily E11.9 for 30 Days Sep, Active Acyclovir 400 MG TAKE 1 TABLET BY MOUTH TWICE DAILY for 30 Days Active Lancets - as directed _ Daily for 30 days Sep, Active rOPINIRole HCl 2 MG 1 tablet 1 to 3 hours before bedtime Orally Once a day for 30 days Not-Taking Fluticasone Propionate 50 MCG/ACT 1 spray in each nost ril Nasally Once a day for 30 day(s) August, Active Irbesartan 150 MG 1 tablet Orally Once a day for 30 Days 2 7 Jan, 2021 Active Diclofenac Sodium 3 % 1 application Externally Twice a day for 30 Day s Unknown Pepcid AC 10 MG 1 tablet as needed Orally Daily Not-Taking metFORMIN HCl 500 MG 1 tab Oral bid Active Naproxen Sodium 550 MG 1 tablet with food or milk a s needed Orally every 12 hrs for 30 Days Nov, Active Trazodone HCl 100 MG TAKE 1 TABLET BY MOUTH AT BEDTIME Oral for 30 Active Atorvastatin Calcium 10 MG 1 tablet Oral Daily for 30 days Active hydroCHLOROthiazide 12.5 MG 1 capsule in the morning O rally Once a day for 30 day(s) Jan, Active Arnuity Ellipta 100 MCG/ACT 1 puff Inhalation Once a day for 90 day(s) Nov, Active Albuterol Sulfate HFA 108 (90 Base) MCG/ACT INHALE 2 P UFFS BY MOUTH EVERY 4 HOURS NEEDED Inhalation for 25 Active FreeStyle Test - as directed In Vitro Daily E11.9 for 30 Days Sep, Active Pantoprazole Sodium 40 MG 1 tablet Orally bid Mar, Active Glimepiride 1 MG 1 tab Orally bid Oct, Active BD Pen Needle Micro U/F 32G X 6 MM as directed subling ually before bedtime for 90 day(s) Jan, Active Fluoxetine HCl 40 MG TAKE 1 CAPSULE BY MOUTH ONCE DAILY Oral for 30 Not-Taking Semglee 100 UNIT/ML 10 units Subcutaneous before bedtime for 30 Days Jan, Active Gabapentin 100 MG 3 capsules Orally bid for 30 Not-Taking DULoxetine HCl 30 MG TAKE 1 CAPSULE BY MOUTH ONCE DAILY Oral for 30 Not-Taking Metoprolol Tartrate 50 MG TAKE 1 TABLET BY MOUTH TWICE DAILY FOR 30 DAYS Oral Active Gabapentin 300 MG 1 capsule Orally tid for 30 Days Apr, Not-Taking PROCEDURES No Information RESULTS No Results [facility] MEDICAL (GENERAL) HISTORY Type Description Date Medical History hypertension Medical History hyperlipidemia Medical History metabolic syndrome Medical History Type 2 DM--dx 07/29--had + OG TT in past, in remission until 2019; intolerant of higher doses metformin Medical History asthma Medical History restless leg syndrome Medical History Herpes Type 2 Medical History Osteoarthritis Medical History Vit D defic Medical History euthyroid goiter Medical History numbness in feet, had NCS in past (not available), NCS repeated 10/26: moderate tibial nerve compression across forelegs and mild-moderate bilateral plantar nerve compression; no sustained response to gabapentin or duloxetine; insurance will not cover Lyrica Medical History OCD/PTSD, saw counsellor 2017 Medical History fatty liver CT 05/01 Surgical History cardiac cath - normal 09/2002 Surgical History colonoscopy (adenomatous polyp 2013) 5/ 006, 10/24/13 & 07/02/16 Surgical History C section x 3 Surgical History left foot tendon 11/28/15 Hospitalization History No Hospitalization history informati on Goals Section No Information Health Concerns No Information MEDICAL EQUIPMENT No Information MENTAL STATUS No Information FUNCTIONAL STATUS No Information ASSESSMENTS Encounter Date Diagnosis Assessment Notes Treatment Notes Treatm ent Clinical Notes Jan, Type 2 diabetes mellitus wit hout complication, without long-term current use of insulin (ICD-10 - E11.9) PLAN OF TREATMENT Medication Medication Name Sig Start Date Stop Date Semglee 100 UNIT/ML 10 units Subcutaneous before bedtime for 30 Days Jan, Metoprolol Tartrate 50 MG TAKE 1 TABLET BY MOUTH TWICE DAILY FOR 30 DAYS Oral metFORMIN HCl 500 MG 1 tab Oral bid Glimepiride 1 MG 1 tab Orally bid Oct, Irbesartan 150 MG 1 tablet Orally Once a day for 30 Days Jan, BD Pen Needle Micro U/F 32G X 6 MM as directed subling ually before bedtime for 90 day(s) Jan, hydroCHLOROthiazide 12.5 MG 1 capsule in the morning O rally Once a day for 30 day(s) Jan, Next Appt Details Provider Name:Eileen Zavaleta, 2021-02-19 10:00:00 AM, [address] [place] [address], , [place], [address], Provider Name:Becky Barry, 12:00:00 AM, [address] [place] [address], , [place], [address], Provider Name:Harry Correa, 2021-02 11:45:00 AM, [address], , [place], [address], Insurance Providers Payer Name Payer Address Payer Phone Insured Name Patient Relati onship to Insured Coverage Start Date Coverage End Date [place] ([place] MEDICAID MANAGED CARE) CORPORATE CLAIMS DEPT [address] [facility] [address] CARINA RAY self
--- OUTSIDE RECORDS SUMMARY | 2021-02-20 09:20 | CCD ---
Author Author [facility] Organization [facility] Address Unknown Phone Unavailable Care Team Providers Care Gasoline Dragline Operator Name Role Phone Harry Correa Unavailable PROBLEMS Type Condition ICD9-CM Code [id number] Code Onset Dates Condition S tatus W/U Status Risk SNOMED Code Notes Problem Essential (primary) hypertension I10 Active conf irmed 20681275 Problem Other asthma J45.998 Active confirmed 205420 001 Problem Vitamin D deficiency, unspecified E55.9 Active con firmed 34990630 Problem Major depressive disorder, single episode, unspecified F32.9 Active confirmed 84659374 Problem Breast cancer screening by mammogram Z12.31 Act [place] confirmed 670148749 Problem Postmenopausal status Z78.0 Active confirmed 53334138 Problem Adjustment disorder with depressed mood F43.21 Active confirmed 03745255 Problem Asthma, unspecified, unspecified status 493.90 Active confirmed 82888125 Problem 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 Active confirmed 762608687 Problem Primary osteoarthritis, right hand M19.041 Activ e confirmed 4678153431952722 Problem Post traumatic stress disorder F43.10 Active confir med 68012522 Problem Post traumatic stress disorder (PTSD) F43.10 Ac tive confirmed 57369986 Problem Routine gynecological examination Z01.419 Active confirmed 883175442 Problem Borderline personality disorder F60.3 Active confi rmed 07609650 Problem Esophageal dysphagia R13.10 Active confirmed 35119739 Problem Restless leg syndrome G25.81 Active confirmed 86883546 Problem Acquired hyperlipoproteinemia E78.5 Active confirm ed 2440189 Problem Polymyalgia M35.3 Active confirmed 31450625 Problem Goiter diffuse, 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 Active confirmed 485974385 Problem Encounter for immunization Z23 Active confirmed 899103342 Problem Herpesviral infection of urogenital system, unspecified 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 Active confirmed 00862248 Problem Paresthesia of both feet R20.2 Active confirmed 427620451 Problem Type 2 diabetes mellitus wit hout complication, without long-term current use of insulin E11.9 Active confirmed 673000526 Problem ELISABETH (obstructive sleep apnea) G47.33 Active confirm ed 04195090 Problem Goiter E04.9 Active confirmed 5904610 Problem Primary osteoarthritis involving multiple joints M 89.49 Active confirmed 982180860 ALLERGIES Allergen (clinical drug ingredient) Drug/Non Drug Allergy do cumented on EMR Reaction Allergy Type Onset Date Status gabapentin Gabapentin([facility] Code:[address]-15) no benefit Drug Allergy Active lisinopril Lisinopril cough Drug Allergy Active dulaglutide Trulicity([facility] Code:[address]-83) intractable nausea Drug Allergy Active penicillin G Penicillin G Sodium([facility] Code:[address]-43) rash D rug Allergy Active metformin Metformin GI Drug Allergy Active ENCOUNTERS from 1961 to 2021-02-05 Encounter Location Date Provider Diagnosis [facility] [address] [place] [address] Jan, Harry Correa Essential (primary) hypertension I10 IMMUNIZATIONS Vaccine Route Administration Date Status Influenza [...] Education Language: Question Answer Notes Languages spoken: Gibraltarian Sexual Hx: Question Answer Notes Had sex [...] Sep, Active Vitamin D (Ergocalciferol) 1.25 MG (50634 UT) TAKE 1 C APSULE BY MOUTH [...] Information RESULTS No Results REASON FOR VISIT needs new scripts MEDICAL (GENERAL) HISTORY Type Description Date Medical [...] 09/2002 Surgical History colonoscopy (adenomatous polyp 2013) / 006, 10/24/13 & 07/02/16 Surgical History C section x 3 Surgical History left foot tendon 11/28/15 Hospitalization History No Hospitalization history informati on Goals Section No Information Health Concerns No Information MEDICAL EQUIPMENT No Information MENTAL STATUS No Information FUNCTIONAL STATUS No Information ASSESSMENTS Encounter Date Diagnosis Assessment Notes Treatment Notes Treatm ent Clinical Notes Jan, Essential (primary) hypertension (ICD-10 - I10) PLAN OF TREATMENT Medication Medication Name Sig [...] Details Provider Name:Eileen Zavaleta, 2021-02-19 10:00:00 AM, [address] [place] [address], , [place], [address], Provider Name:Becky Barry, 12:00:00 AM, [address] [place] [address], , [place], [address], Provider Name:Harry Correa, 2021-02 11:45:00 AM, [address] [facility] , , [place], [address], Insurance Providers Payer Name Payer Address Payer Phone Insured Name Patient Relati onship to Insured Coverage Start Date Coverage End Date [place] ([place] MEDICAID MANAGED CARE) CORPORATE CLAIMS DEPT [address] [facility] [address] CARINA RAY self
--- OUTSIDE RECORDS SUMMARY | 2021-02-20 09:20 | CCD ---
Author Author [facility] Organization [facility] Address Unknown Phone Unavailable Care Team Providers Care Intensive Care Nurse Name Role Phone Harry Correa Unavailable PROBLEMS Type Condition ICD9-CM Code FDH85-AO Code Onset Dates Condition S tatus W/U Status Risk SNOMED Code Notes Problem Essential (primary) hypertension I10 Active conf irmed 33462269 Problem Other asthma J45.998 Active confirmed 142152 001 Problem Vitamin D deficiency, unspecified E55.9 Active con firmed 13093568 Problem Major depressive disorder, single episode, unspecified F32.9 Active confirmed 14777239 Problem Breast cancer screening by mammogram Z12.31 Act [place] confirmed 046641270 Problem Postmenopausal status Z78.0 Active confirmed 72473019 Problem Adjustment disorder with depressed mood F43.21 Active confirmed 13822865 Problem Asthma, unspecified, unspecified status 493.90 Active confirmed 44139042 Problem 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 Active confirmed 608546746 Problem Primary osteoarthritis, right hand M19.041 Activ e confirmed 4623339642397690 Problem Post traumatic stress disorder F43.10 Active confir med 28022730 Problem Post traumatic stress disorder (PTSD) F43.10 Ac tive confirmed 62434410 Problem Routine gynecological examination Z01.419 Active confirmed 086204004 Problem Borderline personality disorder F60.3 Active confi rmed 99549038 Problem Esophageal dysphagia R13.10 Active confirmed 01018691 Problem Restless leg syndrome G25.81 Active confirmed 97420223 Problem Acquired hyperlipoproteinemia E78.5 Active confirm ed 8564519 Problem Polymyalgia M35.3 Active confirmed 67499417 Problem Goiter diffuse, 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 Active confirmed 116205021 Problem Encounter for immunization Z23 Active confirmed 116715533 Problem Herpesviral infection of urogenital system, unspecified A60.00 Active confirmed 43394764 Problem Paresthesia of both feet R20.2 Active confirmed 646699799 Problem Type 2 diabetes mellitus wit hout complication, without long-term current use of insulin E11.9 Active confirmed 147095147 Problem ELISABETH (obstructive sleep apnea) G47.33 Active confirm ed 02366938 Problem Goiter E04.9 Active confirmed 5765005 Problem Primary osteoarthritis involving multiple joints M 89.49 Active confirmed 936712448 ALLERGIES Allergen (clinical drug ingredient) Drug/Non Drug Allergy do cumented on EMR Reaction Allergy Type Onset Date Status gabapentin Gabapentin([facility] Code:[address]-56) no benefit Drug Allergy Active lisinopril Lisinopril cough Drug Allergy Active dulaglutide Trulicity([facility] Code:[address]-73) intractable nausea Drug Allergy Active penicillin G Penicillin G Sodium([facility] Code:[address]-06) rash D rug Allergy Active metformin Metformin GI Drug Allergy Active ENCOUNTERS from 1960 to 2021-02-12 Encounter Location Date Provider Diagnosis [facility] [address] [place] [address] Jan, Harry Correa Encounter for immunization Z23 ; Type 2 diabetes mellitus without complication, without long-term current use of insulin E11.9 ; Paresthesia of both feet R20.2 ; Essential (primary) hypertension I10 ; Restless leg syndrome G25.81 ; Acquired hyperlipoproteinemia E78.5 ; Other specified cough R05.8 and Adverse effect of jgeeeubqpif-aabkqkvwge-nbkdil inhibitors, initial encounter T46.4X5A IMMUNIZATIONS Vaccine Route Administration Date Status Influenza [...] Education Language: Question Answer Notes Languages spoken: Kyrgyz Sexual Hx: Question Answer Notes Had sex [...] never smoker never smoker REASON FOR REFERRAL from 1961 to 2021-02-[address] Champagne, pt of his; abnl N CS, has compressed nerves in feet Diagnosis 1 Paresthesia of both feet (R2 0.2) Referral Organization [facility] Apolinar Referring Provider First Name Harry Referring Provider Last Name Madeline Referring Provider Specialty Family Medicine Referred Provider [facility] Rasheeda desir Referred Provider Specialty Orthopedic Surgery Referral Priority Routine General Notes Sayda Gauthier 02/04/2021 4 :25:15 PM > faxed VITAL SIGNS Weight 236 lbs Jan, Height 64 in Jan, BMI 40.50 kg/m2 Jan, Heart Rate 91 /min Jan, Respiratory Rate 18 /min Jan, Temperature 96.6 degrees Fahrenheit Jan, Oximetry 95 Jan, Blood pressure systolic 168 mm Hg Jan, Blood pressure diastolic 90 mm Hg Jan, MEDICATIONS Medication SIG (Take, Route, Frequency, Duration) Notes Start Da te End Date Status OneTouch Verio - as directed In Vitro Daily for 30 days Sep, Active hydrOXYzine HCl 10 MG TAKE 1 TABLET BY MOUTH THREE TIMES DAILY NEEDED Oral for 30 Active Blood Glucose System Tono - as directed Daily E11.9 for 30 days Sep, Active Vitamin D (Ergocalciferol) 1.25 MG (27182 UT) TAKE 1 C APSULE BY MOUTH [...] tid for 30 Days Apr, Not-Taking PROCEDURES from 1960 to 2021-02-12 Procedure Date Ordered Result Body Site Imm: Flublok Quadrivalent 18 years & older 0.5mL IM Influenza 29-01-27 N/A RESULTS No Results REASON FOR VISIT 03 MONTHS FOLLOW UP MEDICAL (GENERAL) HISTORY Type Description Date Medical [...] 09/2002 Surgical History colonoscopy (adenomatous polyp 2013) 08/10 006, 10/24/13 & 07/02/16 Surgical History C section x 3 Surgical History left foot tendon 11/28/15 Hospitalization History No Hospitalization history informati on Goals Section No Information Health Concerns No Information MEDICAL EQUIPMENT No Information MENTAL STATUS No Information FUNCTIONAL STATUS No Information ASSESSMENTS Encounter Date Diagnosis Assessment Notes Treatment Notes Treatm ent Clinical Notes Jan, Encounter for immunization (ICD-10 - Z23) Jan, Type 2 diabetes mellitus wit hout complication, without long-term current use of insulin (ICD-10 - E11.9) poor control. Today finally consents to starting insulin. Has appt CCM in 2 weeks. Risks reviewed, again Jan, Paresthesia of both feet (ICD-10 - R20.2) Jan, Essential (primary) hypertension (ICD-10 - I10) Jan, Restless leg syndrome (ICD-10 - G25.81) Jan, Acquired hyperlipoproteinemia (ICD-10 - E78.5) Jan, Other specified cough (ICD-10 - R05.8) Jan, Adverse effect of angiotensi c-ykxvwiogwz-cedmxm inhibitors, initial encounter (ICD-10 - T46.4X5A) PLAN OF TREATMENT Medication Medication Name Sig [...] Once a day for 30 day(s) Jan, Treatment Notes Assessment Notes Clinical Notes Type 2 diabetes mellitus without complic ation, without long-term current use of insulin poor control. Today finally consents to starting insulin. Has appt CCM in 2 weeks. Risks reviewed, again Referrals Referral Date Details Dr Champagne, pt of his; abnl N CS, has compressed nerves in feet, [facility] Next Appt Details 4 Weeks Reason: Provider Name:Eileen Zavaleta, 2021-02-19 10:00:00 AM, [address] [place] [address], , [place], [address], Provider Name:Becky Barry, 12:00:00 AM, [address] [place] [address], , [place], [address], Provider Name:Harry Correa, 2021-02 11:45:00 AM, [address] [address], , [place], [address], Insurance Providers Payer Name Payer Address Payer Phone Insured Name Patient Relati onship to Insured Coverage Start Date Coverage End Date [place] ([place] MEDICAID MANAGED CARE) CORPORATE CLAIMS DEPT [address] [facility] [phone] CARINA RAY self
--- OUTSIDE RECORDS SUMMARY | 2021-02-20 09:21 | CCD ---
Author Author [facility] Organization [facility] Address Unknown Phone Unavailable Care Team Providers Care Cement Mason Apprentice Name Role Phone DINORAH VAZQUEZ MD Unavailable Unavailable DINORAH VAZQUEZ MD Unavailable Unavailable DINORAH VAZQUEZ MD Unavailable Unavailable DINORAH VAZQUEZ MD Unavailable Unavailable DINORAH VAZQUEZ MD Unavailable Unavailable DINORAH VAZQUEZ MD Unavailable Unavailable DINORAH VAZQUEZ MD Unavailable Unavailable DINORAH VAZQUEZ MD Unavailable Unavailable DINORAH VAZQUEZ MD Unavailable Unavailable DINORAH VAZQUEZ MD Unavailable Unavailable DINORAH VAZQUEZ MD Unavailable Unavailable DINORAH VAZQUEZ MD Unavailable Unavailable DINORAH VAZQUEZ MD Unavailable Unavailable DINORAH VAZQUEZ MD Unavailable Unavailable DINORAH VAZQUEZ MD Unavailable Unavailable DINORAH VAZQUEZ MD Unavailable Unavailable DINORAH VAZQUEZ MD Unavailable Unavailable DINORAH VAZQUEZ MD Unavailable Unavailable DINORAH VAZQUEZ MD Unavailable Unavailable DINORAH VAZQUEZ MD Unavailable Unavailable DINORAH VAZQUEZ MD Unavailable Unavailable DINORAH VAZQUEZ MD Unavailable Unavailable DINORAH VAZQUEZ MD Unavailable Unavailable DINORAH VAZQUEZ MD Unavailable Unavailable DINORAH VAZQUEZ MD Unavailable Unavailable DINORAH VAZQUEZ MD Unavailable Unavailable DINORAH VAZQUEZ MD Unavailable Unavailable DINORAH VAZQUEZ MD Unavailable Unavailable DINORAH VAZQUEZ MD Unavailable Unavailable DINORAH VAZQUEZ MD Unavailable Unavailable DINORAH VAZQUEZ MD Unavailable Unavailable DINORAH VAZQUEZ MD Unavailable Unavailable DINORAH VAZQUEZ MD Unavailable Unavailable DINORAH VAZQUEZ MD Unavailable Unavailable DINORAH VAZQUEZ MD Unavailable Unavailable DINORAH VAZQUEZ MD Unavailable Unavailable DINORAH VAZQUEZ MD Unavailable Unavailable DINORAH VAZQUEZ MD Unavailable Unavailable DINORAH VAZQUEZ MD Unavailable Unavailable DINORAH VAZQUEZ MD Unavailable Unavailable DINORAH VAZQUEZ MD Unavailable Unavailable DINORAH VAZQUEZ MD Unavailable Unavailable DINORAH VAZQUEZ MD Unavailable Unavailable DINORAH VAZQUEZ MD Unavailable Unavailable DINORAH VAZQUEZ MD Unavailable Unavailable DINORAH VAZQUEZ MD Unavailable Unavailable DINORAH VAZQUEZ MD Unavailable Unavailable DINORAH VAZQUEZ MD Unavailable Unavailable DINORAH VAZQUEZ MD Unavailable Unavailable DINORAH VAZQUEZ MD Unavailable Unavailable DINORAH VAZQUEZ MD Unavailable Unavailable DINORAH VAZQUEZ MD Unavailable Unavailable DINORAH VAZQUEZ MD Unavailable Unavailable DINORAH VAZQUEZ MD Unavailable Unavailable DINORAH VAZQUEZ MD Unavailable Unavailable DINORAH VAZQUEZ MD Unavailable Unavailable DINORAH VAZQUEZ MD Unavailable Unavailable DINORAH VAZQUEZ MD Unavailable Unavailable DINORAH VAZQUEZ MD Unavailable Unavailable DINORAH VAZQUEZ MD Unavailable Unavailable DINORAH VAZQUEZ MD Unavailable Unavailable DINORAH VAZQUEZ MD Unavailable Unavailable DINORAH VAZQUEZ MD Unavailable Unavailable DINORAH VAZQUEZ MD Unavailable Unavailable DINORAH VAZQUEZ MD Unavailable Unavailable DINORAH VAZQUEZ MD Unavailable Unavailable DINORAH VAZQUEZ MD Unavailable Unavailable DINORAH VAZQUEZ MD Unavailable Unavailable DINORAH VAZQUEZ MD Unavailable Unavailable DINORAH VAZQUEZ MD Unavailable Unavailable DINORAH VAZQUEZ MD Unavailable Unavailable DINORAH VAZQUEZ MD Unavailable Unavailable DINORAH VAZQUEZ MD Unavailable Unavailable GEORGEDINORAH MD Unavailable Unavailable GEORGEDINORAH MD Unavailable Unavailable GEORGEDINORAH MD Unavailable Unavailable GOERGEDINORAH MD Unavailable Unavailable Charlebois, A Bailee RPA C Unavailable Unavailable Charlebois, A Bailee RPA C Unavailable Unavailable Charlebois, A Bailee RPA C Unavailable Unavailable Charlebois, A Bailee RPA C Unavailable Unavailable Charlebois, A Bailee RPA C Unavailable Unavailable Charlebois, A Bailee RPA C Unavailable Unavailable Charlebois, A Bailee RPA C Unavailable Unavailable Charlebois, A Bailee RPA C Unavailable Unavailable Charlebois, A Bailee RPA C Unavailable Unavailable Charlebois, A Bailee RPA C Unavailable Unavailable Charlebois, A Bailee RPA C Unavailable Unavailable Charlebois, A Bailee RPA C Unavailable Unavailable Charlebois, A Bailee RPA C Unavailable Unavailable Charlebois, A Bailee RPA C Unavailable Unavailable Charlebois, A Bailee RPA C Unavailable Unavailable Charlebois, A Bailee RPA C Unavailable Unavailable Charlebois, A Bailee RPA C Unavailable Unavailable Charlebois, A Bailee RPA C Unavailable Unavailable Charlebois, A Bailee RPA C Unavailable Unavailable Charlebois, A Bailee RPA C Unavailable Unavailable Charlebois, A Bailee RPA C Unavailable Unavailable Charlebois, A Bailee RPA C Unavailable Unavailable Charlebois, A Bailee RPA C Unavailable Unavailable Charlebois, A Bailee RPA C Unavailable Unavailable Charlebois, A Bailee RPA C Unavailable Unavailable Charlebois, A Bailee RPA C Unavailable Unavailable Charlebois, A Bailee RPA C Unavailable Unavailable Charlebois, A Bailee RPA C Unavailable Unavailable Charlebois, A Bailee RPA C Unavailable Unavailable Charlebois, A Bailee RPA C Unavailable Unavailable Charlebois, A Bailee RPA C Unavailable Unavailable Charlebois, A Bailee RPA C Unavailable Unavailable Charlebois, A Bailee RPA C Unavailable Unavailable WetterHarry lorenzana MD Unavailable Unavailable WetterHarry lorenzana MD Unavailable Unavailable WetterHarry lorenzana MD Unavailable Unavailable WetterHarry lorenzana MD Unavailable Unavailable WetterHarry lorenzana MD Unavailable Unavailable WetterHarry lorenzana MD Unavailable Unavailable WetterHarry lorenzana MD Unavailable Unavailable Wetterhahn, Harry GAMINO Unavailable Unavailable Wetterhahn, Harry GAMINO Unavailable Unavailable Wetterhahn, Harry GAMINO Unavailable Unavailable Wetterhahn, Harry GAMINO Unavailable Unavailable Wetterhahn, Harry GAMINO Unavailable Unavailable Wetterhahn, Harry GAMINO Unavailable Unavailable Wetterhahn, Harry GAMINO Unavailable Unavailable Wetterhahn, Harry GAMINO Unavailable Unavailable Wetterhahn, Harry GAMINO Unavailable Unavailable Wetterhahn, Harry GAMINO Unavailable Unavailable Wetterhahn, Harry GAMINO Unavailable Unavailable Wetterhahn, Harry GAMINO Unavailable Unavailable Wetterhahn, Harry GAMINO Unavailable Unavailable Wetterhahn, Harry GAMINO Unavailable Unavailable Wetterhahn, Harry GAMINO Unavailable Unavailable Wetterhahn, Harry GAMINO Unavailable Unavailable Wetterhahn, Harry GAMINO Unavailable Unavailable Wetterhahn, Harry GAMINO Unavailable Unavailable Wetterhahn, Harry GAMINO Unavailable Unavailable Wetterhahn, Harry GAMINO Unavailable Unavailable Wetterhahn, Harry GAMINO Unavailable Unavailable WetterhahnHarry MD Unavailable Unavailable WetterhahnHarry MD Unavailable Unavailable WetterhahnHarry MD Unavailable Unavailable Wetterhahn, Harry GAMINO Unavailable Unavailable Wetterhahn, Harry GAMINO Unavailable Unavailable Wetterhahn, Harry GAMINO Unavailable Unavailable Wetterhahn, Harry GAMINO Unavailable Unavailable Wetterhahn, Harry GAMINO Unavailable Unavailable Wetterhahn, Harry GAMINO Unavailable Unavailable Wetterhahn, Harry GAMINO Unavailable Unavailable Wetterhahn, Harry GAMINO Unavailable Unavailable Wetterhahn, Harry GAMINO Unavailable Unavailable Wetterhahn, Harry GAMINO Unavailable Unavailable WetterhahnHarry MD Unavailable Unavailable WetterhahnHarry MD Unavailable Unavailable WetterhahnHarry MD Unavailable Unavailable WetterhahnHarry MD Unavailable Unavailable Wetterhahn, Harry GAMINO Unavailable Unavailable Wetterhahn, Harry GAMINO Unavailable Unavailable Wetterhahn, Harry GAMINO Unavailable Unavailable WetterhahnHarry MD Unavailable Unavailable WetterhahnHarry MD Unavailable Unavailable WetterhahnHarry MD Unavailable Unavailable Wetterhahn, Harry GAMINO Unavailable Unavailable Wetterhahn, Harry GAMINO Unavailable Unavailable Wetterhahn, Harry GAMINO Unavailable Unavailable Wetterhahn, Harry GAMINO Unavailable Unavailable WetterhahnHarry MD Unavailable Unavailable WetterhahnHarry MD Unavailable Unavailable WetterhahnHarry MD Unavailable Unavailable WetterhahnHarry MD Unavailable Unavailable WetterhahnHarry MD Unavailable Unavailable WetterhahnHarry MD Unavailable Unavailable WetterhahnHarry MD Unavailable Unavailable WetterhahnHarry MD Unavailable Unavailable WetterhahnHarry MD Unavailable Unavailable WetterhahnHarry MD Unavailable Unavailable WetterhahnHarry MD Unavailable Unavailable WetterhahnHarry MD Unavailable Unavailable WetterhahnHarry MD Unavailable Unavailable WetterhahnHarry MD Unavailable Unavailable WetterhahnHarry MD Unavailable Unavailable WetterhahnHarry MD Unavailable Unavailable WetterHarry lorenzana MD Unavailable Unavailable Re-disclosure Warning The records that you are about to access may contain information from federally-assisted alcohol or drug abuse programs. If such information is present, then the following federally mandated warning applies: This information has been disclosed to you from records protected by federal confidentiality rules (42 CFR part 2). The federal rules prohibit you from making any further disclosure of this information unless further disclosure is expressly permitted by the written consent of the person to whom it pertains or as otherwise permitted by 42 CFR part 2. A general authorization for the release of medical or other information is NOT sufficient for this purpose. The Federal rules restrict any use of the information to criminally investigate or prosecute any alcohol or drug abuse patient.The records that you are about to access may contain highly sensitive health information, the redisclosure of which is protected by Article 27-F of the [facility] Public Health law. If you continue you may have access to information: Regarding HIV / AIDS; Provided by facilities licensed or operated by the [facility] Office of Mental Health; or Provided by the [facility] Office for People With Developmental Disabilities. If such information is present, then the following [facility] mandated warning applies: This information has been disclosed to you from confidential records which are protected by state law. State law prohibits you from making any further disclosure of this information without the specific written consent of the person to whom it pertains, or as otherwise permitted by law. Any unauthorized further disclosure in violation of state law may result in a fine or correction sentence or both. A general authorization for the release of medical or other information is NOT sufficient authorization for further disc losure. Family History Family Member Name Family Member Gender Family Member Status Date o f Status Description Data Source(s) Unknown Male Problem MEDENT ([facility] Unknown Unknown Problem MEDENT ([facility], ) Encounters Encounter Providers Location Date Indications Data Source(s ) Recurring Patient Attender: DINORAH GEORGE MDReferrer: Harry gutierrez MD 02/05/2021 01:16:31 PM EDT [facility] [address] [facility] [address] 02/04/2021 12:00:00 AM EDT eCW1 ([facility]) [place] [address] [facility] [address] 02/04/2021 12:00:00 AM EDT eCW1 ([facility]) [place] [address] [facility] [place] [address] 02/04/2021 12:00:00 AM EDT eCW1 ([facility]) [place] [address] [facility] [address] 01/19/2021 12:00:00 AM EDT eCW1 ([facility]) [place] [address] [facility] [address] 12/04/2020 12:00:00 AM EDT eCW1 ([facility]) [place] [address] [facility] [place] [address] 11/21/2020 12:00:00 AM EDT eCW1 ([facility]) [place] [address] [facility] [place] [address] 11/05/2020 12:00:00 AM EDT eCW1 ([facility]) [place] [address] [facility] [place] [address] 11/04/2020 12:00:00 AM EDT eCW1 ([facility]) [place] [address] [facility] [place] [address] 10/30/2020 12:00:00 AM EDT eCW1 ([facility]) [place] [address] [facility] [place] [address] 10/28/2020 12:00:00 AM EDT eCW1 ([facility]) [place] [address] [facility] [place] [address] 10/21/2020 12:00:00 AM EDT eCW1 ([facility]) [place] [address] [facility] [address] 09/24/2020 12:00:00 AM EDT eCW1 ([facility]) [place] [address] [facility] [address] 09/24/2020 12:00:00 AM EDT eCW1 ([facility]) Outpatient Attender: Bailee Tobin/[place]/A ngel/[place]l 09/04/2020 10:30:00 AM EDT [facility] ([facility]) [place] [address] [facility] [address] 08/26/2020 12:00:00 AM EDT eCW1 ([facility]) [place] [address] [facility] [address] 08/21/2020 12:00:00 AM EDT eCW1 ([facility]) [place] [address] [facility] [address] 05/27/2020 12:00:00 AM EST [facility]CW1 [facility] Outpatient Attender: Bailee Wells RPA C Crista/[place]/A ngel/Reindl 05/22/2020 01:00:00 PM EST [facility] ([facility]) [place] [address] [facility] [address] 05/08/2020 12:00:00 AM EST eCW1 ([facility]) Unknown [address] [facility] [address] 04/14/2020 12:00:00 AM EST eCW1 ([facility]) [place] [address] [facility] [address] 04/08/2020 12:00:00 AM EST eCW1 ([facility]) [place] [address] [facility] [address] 03/31/2020 12:00:00 AM EST eCW1 ([facility]) [place] [address] [facility] [address] 03/28/2020 12:00:00 AM EST eCW1 ([facility]) Unknown [address] [facility] [address] 03/20/2020 12:00:00 AM EST eCW1 ([facility]) Unknown [address] [facility] [address] 03/20/2020 12:00:00 AM EST eCW1 ([facility]) Unknown [address] [facility] [address] 01/28/2020 12:00:00 AM EDT eCW1 ([facility]) Immunizations Vaccine Date Status Description Data Source(s) influenza, recombinant, quadrIvalent,injectable, prese rvative free 02/04/2021 11:51:00 AM EDT completed eCW1 ([facility]) influenza, recombinant, quadrIvalent,injectable, prese rvative free 02/04/2021 11:51:00 AM EDT completed eCW1 ([facility]) influenza, recombinant, quadrIvalent,injectable, prese rvative free 02/04/2021 11:51:00 AM EDT completed eCW1 ([facility]) COVID-19 VACCINE Pfizer 07/09/2020 12:00:00 AM EDT completed [facility] Vaccine Series Complete: YESThis Data wa s Submitted to [facility] Via [employer]. COVID-19 VACCINE Pfizer 06/18/2020 12:00:00 AM EST completed [facility]IS Vaccine Series Complete: NOThis Data was Submitted to [facility] [employer]. influenza, recombinant, quadrIvalent,injectable, prese rvative free 05/08/2020 11:12:00 AM EST completed eCW1 ([facility]) influenza, recombinant, quadrIvalent,injectable, prese rvative free 05/08/2020 11:12:00 AM EST completed eCW1 ([facility]) influenza, recombinant, quadrIvalent,injectable, prese rvative free 05/08/2020 11:12:00 AM EST completed eCW1 ([facility]) influenza, recombinant, quadrIvalent,injectable, prese rvative free 05/08/2020 11:12:00 AM EST completed eCW1 ([facility]) influenza, recombinant, quadrIvalent,injectable, prese rvative free 05/08/2020 11:12:00 AM EST completed eCW1 ([facility]) influenza, recombinant, quadrIvalent,injectable, prese rvative free 05/08/2020 11:12:00 AM EST completed eCW1 ([facility]) influenza, recombinant, quadrIvalent,injectable, prese rvative free 05/08/2020 11:12:00 AM EST completed eCW1 ([facility]) influenza, recombinant, quadrIvalent,injectable, prese rvative free 05/08/2020 11:12:00 AM EST completed eCW1 ([facility]) influenza, recombinant, quadrIvalent,injectable, prese rvative free 05/08/2020 11:12:00 AM EST completed eCW1 ([facility]) influenza, recombinant, quadrIvalent,injectable, prese rvative free 05/08/2020 11:12:00 AM EST completed eCW1 ([facility]) influenza, recombinant, quadrIvalent,injectable, prese rvative free 05/08/2020 11:12:00 AM EST completed eCW1 ([facility]) influenza, recombinant, quadrIvalent,injectable, prese rvative free 05/08/2020 11:12:00 AM EST completed eCW1 ([facility]) influenza, recombinant, quadrIvalent,injectable, prese rvative free 05/08/2020 11:12:00 AM EST completed eCW1 ([facility]) influenza, recombinant, quadrIvalent,injectable, prese rvative free 05/08/2020 11:12:00 AM EST completed eCW1 ([facility]) influenza, recombinant, quadrIvalent,injectable, prese rvative free 05/08/2020 11:12:00 AM EST completed eCW1 ([facility]) influenza, recombinant, quadrIvalent,injectable, prese rvative free 05/08/2020 11:12:00 AM EST completed eCW1 ([facility]) influenza, recombinant, quadrIvalent,injectable, prese rvative free 05/08/2020 11:12:00 AM EST completed eCW1 ([facility]) Medications Medication Brand Name Start Date Product Form Dose Route Admi nistrative Instructions Pharmacy Instructions Status Indications Reaction Description Data Source(s) Semglee 100 UNIT/ML Semglee 100 UNIT/ML 02/04/2021 12:00:00 AM EDT active Semglee 100 UNIT/ML eCW1 ([facility]) BD Pen Needle Micro U/F 32G X 6 MM BD Pen Needle Micro U/F 3 2G X 6 MM 02/04/2021 12:00:00 AM EDT active BD Pen N eedle Micro U/F 32G X 6 MM eCW1 (Counts Include [facility]) irbesartan 150 MG Oral Tablet Irbesartan 150 MG Irbesartan 1 50 MG 02/04/2021 12:00:00 AM EDT 1.0 {tablet} active Ir besartan 150 MG eCW1 (Counts Include [facility]) BD Pen Needle Micro U/F 32G X 6 MM BD Pen Needle Micro U/F 3 2G X 6 MM 02/04/2021 12:00:00 AM EDT active BD Pen N eedle Micro U/F 32G X 6 MM eCW1 (Counts Include [facility]) irbesartan 150 MG Oral Tablet Irbesartan 150 MG Irbesartan 1 50 MG 02/04/2021 12:00:00 AM EDT 1.0 {tablet} active Ir besartan 150 MG eCW1 (Counts Include [facility]) Semglee 100 UNIT/ML Semglee 100 UNIT/ML 02/04/2021 12:00:00 AM EDT active Semglee 100 UNIT/ML eCW1 ([facility]) BD Pen Needle Micro U/F 32G X 6 MM BD Pen Needle Micro U/F 3 2G X 6 MM 02/04/2021 12:00:00 AM EDT active BD Pen N eedle Micro U/F 32G X 6 MM eCW1 (Counts Include [facility]) Semglee 100 UNIT/ML Semglee 100 UNIT/ML 02/04/2021 12:00:00 AM EDT active Semglee 100 UNIT/ML eCW1 ([facility]) Hydrochlorothiazide 12.5 MG Oral Capsule hydroCHLOROth iazide 12.5 MG hydroCHLOROthiazide 12.5 MG 02/04/2021 12:00:00 AM EDT 1.0 {capsule_in_the_morning} active hydroCH LOROthiazide 12.5 MG eCW1 (Counts Include [facility]) irbesartan 150 MG Oral Tablet Irbesartan 150 MG Irbesartan 1 50 MG 02/04/2021 12:00:00 AM EDT 1.0 {tablet} active Ir besartan 150 MG eCW1 (Counts Include [facility]) Hydrochlorothiazide 12.5 MG Oral Capsule hydroCHLOROth iazide 12.5 MG hydroCHLOROthiazide 12.5 MG 02/04/2021 12:00:00 AM EDT 1.0 {capsule_in_the_morning} active hydroCH LOROthiazide 12.5 MG eCW1 (Counts Include [facility]) Hydrochlorothiazide 12.5 MG Oral Capsule hydroCHLOROth iazide 12.5 MG hydroCHLOROthiazide 12.5 MG 02/04/2021 12:00:00 AM EDT 1.0 {capsule_in_the_morning} active hydroCH LOROthiazide 12.5 MG eCW1 (Counts Include [facility]) Naproxen sodium 550 MG Oral Tablet Naproxen Sodium 550 MG Naproxen Sodium 550 MG 12/04/2020 12:00:00 AM EDT active Naproxen Sodium 550 MG eCW1 (Counts Include [facility]) Naproxen sodium 550 MG Oral Tablet Naproxen Sodium 550 MG Naproxen Sodium 550 MG 12/04/2020 12:00:00 AM EDT active Naproxen Sodium 550 MG eCW1 (Counts Include [facility]) Naproxen sodium 550 MG Oral Tablet Naproxen Sodium 550 MG Naproxen Sodium 550 MG 12/04/2020 12:00:00 AM EDT active Naproxen Sodium 550 MG eCW1 (Counts Include [facility]) Naproxen sodium 550 MG Oral Tablet Naproxen Sodium 550 MG Naproxen Sodium 550 MG 12/04/2020 12:00:00 AM EDT active Naproxen Sodium 550 MG eCW1 (Counts Include [facility]) Naproxen sodium 550 MG Oral Tablet Naproxen Sodium 550 MG Naproxen Sodium 550 MG 12/04/2020 12:00:00 AM EDT active Naproxen Sodium 550 MG eCW1 (Counts Include [facility]) 30 ACTUAT fluticasone furoate 0.1 MG/ACT UAT Dry Powder Inhaler [Arnuity] Arnuity Ellipta 100 MCG/ACT Arnuity Ellipta 100 MCG/ACT 11/25/2020 12:00:00 AM EDT 1.0 {puff} active Arnuity Ellipta 100 M CG/ACT eCW1 (Counts Include [facility]) 30 ACTUAT fluticasone furoate 0.1 MG/ACT UAT Dry Powder Inhaler [Arnuity] Arnuity Ellipta 100 MCG/ACT Arnuity Ellipta 100 MCG/ACT 11/25/2020 12:00:00 AM EDT 1.0 {puff} active Arnuity Ellipta 100 M CG/ACT eCW1 (Counts Include [facility]) 30 ACTUAT fluticasone furoate 0.1 MG/ACT UAT Dry Powder Inhaler [Arnuity] Arnuity Ellipta 100 MCG/ACT Arnuity Ellipta 100 MCG/ACT 11/25/2020 12:00:00 AM EDT 1.0 {puff} active Arnuity Ellipta 100 M CG/ACT eCW1 (Counts Include [facility]) 30 ACTUAT fluticasone furoate 0.1 MG/ACT UAT Dry Powder Inhaler [Arnuity] Arnuity Ellipta 100 MCG/ACT Arnuity Ellipta 100 MCG/ACT 11/25/2020 12:00:00 AM EDT 1.0 {puff} active Arnuity Ellipta 100 M CG/ACT eCW1 (Counts Include [facility]) 30 ACTUAT fluticasone furoate 0.1 MG/ACT UAT Dry Powder Inhaler [Arnuity] Arnuity Ellipta 100 MCG/ACT Arnuity Ellipta 100 MCG/ACT 11/25/2020 12:00:00 AM EDT 1.0 {puff} active Arnuity Ellipta 100 M CG/ACT eCW1 (Counts Include [address] [facility]) 30 ACTUAT fluticasone furoate 0.1 MG/ACT UAT Dry Powder Inhaler [Arnuity] Arnuity Ellipta 100 MCG/ACT Arnuity Ellipta 100 MCG/ACT 11/25/2020 12:00:00 AM EDT 1.0 {puff} active Arnuity Ellipta 100 M CG/ACT eCW1 (Counts Include [address] [facility]) 30 ACTUAT fluticasone furoate 0.1 MG/ACT UAT Dry Powder Inhaler [Arnuity] Arnuity Ellipta 100 MCG/ACT Arnuity Ellipta 100 MCG/ACT 11/25/2020 12:00:00 AM EDT 1.0 {puff} active Arnuity Ellipta 100 M CG/ACT eCW1 (Counts Include [facility]) glimepiride 1 MG Oral Tablet Glimepiride 1 MG Glimepiride 1 MG 10/30/2020 12:00:00 AM EDT active Glimepir deepika 1 MG eCW1 (Counts Include [facility]) glimepiride 1 MG Oral Tablet Glimepiride 1 MG Glimepiride 1 MG 10/30/2020 12:00:00 AM EDT active Glimepir deepika 1 MG eCW1 (Counts Include [facility]) glimepiride 1 MG Oral Tablet Glimepiride 1 MG Glimepiride 1 MG 10/30/2020 12:00:00 AM EDT active Glimepir deepika 1 MG eCW1 (Counts Include [facility]) glimepiride 1 MG Oral Tablet Glimepiride 1 MG Glimepiride 1 MG 10/30/2020 12:00:00 AM EDT active Glimepir deepika 1 MG eCW1 (Counts Include [facility]) glimepiride 1 MG Oral Tablet Glimepiride 1 MG Glimepiride 1 MG 10/30/2020 12:00:00 AM EDT active Glimepir deepika 1 MG eCW1 (Counts Include [facility]) glimepiride 1 MG Oral Tablet Glimepiride 1 MG Glimepiride 1 MG 10/30/2020 12:00:00 AM EDT active Glimepir deepika 1 MG eCW1 (Counts Include [facility]) glimepiride 1 MG Oral Tablet Glimepiride 1 MG Glimepiride 1 MG 10/30/2020 12:00:00 AM EDT active Glimepir deepika 1 MG eCW1 (Counts Include [facility]) glimepiride 1 MG Oral Tablet Glimepiride 1 MG Glimepiride 1 MG 10/30/2020 12:00:00 AM EDT active Glimepir deepika 1 MG eCW1 (Counts Include [facility]) glimepiride 1 MG Oral Tablet Glimepiride 1 MG Glimepiride 1 MG 10/30/2020 12:00:00 AM EDT active Glimepir deepika 1 MG eCW1 (Counts Include [facility]) FreeStyle Lancets - FreeStyle Lancets - 09/25/2020 12:00:00 AM EDT active FreeStyle Lancets - eCW1 ([facility]) Blood Glucose System Tono - Blood Glucose System Tono - 2020 12:00:00 AM EDT active Blood Glucose Sys tem Tono - eCW1 (Counts Include [address] [facility] At [facility]) FreeStyle Test - FreeStyle Test - 09/25/2020 12:00:00 AM EDT active FreeStyle Test - eCW1 ([facility]) FreeStyle Test - FreeStyle Test - 09/25/2020 12:00:00 AM EDT active FreeStyle Test - eCW1 ([facility]) FreeStyle Test - FreeStyle Test - 09/25/2020 12:00:00 AM EDT active FreeStyle Test - eCW1 ([facility]) Blood Glucose System Tono - Blood Glucose System Tono - 2020 12:00:00 AM EDT active Blood Glucose Sys tem Tono - eCW1 (Counts Include [address] [facility]) FreeStyle Test - FreeStyle Test - 09/25/2020 12:00:00 AM EDT active FreeStyle Test - eCW1 ([facility]) FreeStyle Test - FreeStyle Test - 09/25/2020 12:00:00 AM EDT active FreeStyle Test - eCW1 ([facility]) FreeStyle Test - FreeStyle Test - 09/25/2020 12:00:00 AM EDT active FreeStyle Test - eCW1 ([facility]) FreeStyle Lancets - FreeStyle Lancets - 09/25/2020 12:00:00 AM EDT active FreeStyle Lancets - eCW1 ([facility]) Blood Glucose System Tono - Blood Glucose System Tono - 2020 12:00:00 AM EDT active Blood Glucose Sys tem Tono - eCW1 (Counts Include [address] [facility]) FreeStyle Lancets - FreeStyle Lancets - 09/25/2020 12:00:00 AM EDT active FreeStyle Lancets - eCW1 ([facility]) Blood Glucose System Tono - Blood Glucose System Tono - 2020 12:00:00 AM EDT active Blood Glucose Sys tem Tono - eCW1 (Counts Include [address] [facility] At [facility]) Blood Glucose System Tono - Blood Glucose System Tono - 2020 12:00:00 AM EDT active Blood Glucose Sys tem Tono - eCW1 (Counts Include [address] [facility]) FreeStyle Test - FreeStyle Test - 09/25/2020 12:00:00 AM EDT active FreeStyle Test - eCW1 ([facility]) FreeStyle Test - FreeStyle Test - 09/25/2020 12:00:00 AM EDT active FreeStyle Test - eCW1 ([facility]) FreeStyle Lancets - FreeStyle Lancets - 09/25/2020 12:00:00 AM EDT active FreeStyle Lancets - eCW1 ([facility]) FreeStyle Lancets - FreeStyle Lancets - 09/25/2020 12:00:00 AM EDT active FreeStyle Lancets - eCW1 ([facility]) FreeStyle Lancets - FreeStyle Lancets - 09/25/2020 12:00:00 AM EDT active FreeStyle Lancets - eCW1 ([facility]) Blood Glucose System Tono - Blood Glucose System Tono - 2020 12:00:00 AM EDT active Blood Glucose Sys tem Tono - eCW1 (Counts Include [address] [facility]) FreeStyle Test - FreeStyle Test - 09/25/2020 12:00:00 AM EDT active FreeStyle Test - eCW1 ([facility]) FreeStyle Lancets - FreeStyle Lancets - 09/25/2020 12:00:00 AM EDT active FreeStyle Lancets - eCW1 ([facility]) FreeStyle Lancets - FreeStyle Lancets - 09/25/2020 12:00:00 AM EDT active FreeStyle Lancets - eCW1 ([facility]) Blood Glucose System Tono - Blood Glucose System Tono - 2020 12:00:00 AM EDT active Blood Glucose Sys tem Tono - eCW1 (Counts Include [address] [facility]) FreeStyle Lancets - FreeStyle Lancets - 09/25/2020 12:00:00 AM EDT active FreeStyle Lancets - eCW1 ([facility]) Blood Glucose System Tono - Blood Glucose System Tono - 2020 12:00:00 AM EDT active Blood Glucose Sys tem Tono - eCW1 (Counts Include [address] [facility]) Blood Glucose System Tono - Blood Glucose System Tono - 2020 12:00:00 AM EDT active Blood Glucose Sys tem Tono - eCW1 (Counts Include [address] [facility]) FreeStyle Lancets - FreeStyle Lancets - 09/25/2020 12:00:00 AM EDT active FreeStyle Lancets - eCW1 ([facility]) Blood Glucose System Tono - Blood Glucose System Tono - 2020 12:00:00 AM EDT active Blood Glucose Sys tem Tono - eCW1 (Counts Include [address] [facility]) FreeStyle Lancets - FreeStyle Lancets - 09/25/2020 12:00:00 AM EDT active FreeStyle Lancets - eCW1 ([facility]) FreeStyle Test - FreeStyle Test - 09/25/2020 12:00:00 AM EDT active FreeStyle Test - eCW1 ([facility]) Blood Glucose System Tono - Blood Glucose System Tono - 2020 12:00:00 AM EDT active Blood Glucose Sys tem Tono - eCW1 (Counts Include [address] [facility]) FreeStyle Lancets - FreeStyle Lancets - 09/25/2020 12:00:00 AM EDT active FreeStyle Lancets - eCW1 ([facility]) Blood Glucose System Tono - Blood Glucose System Tono - 2020 12:00:00 AM EDT active Blood Glucose Sys tem Tono - eCW1 (Counts Include [address] [facility]) FreeStyle Test - FreeStyle Test - 09/25/2020 12:00:00 AM EDT active FreeStyle Test - eCW1 ([facility]) FreeStyle Test - FreeStyle Test - 09/25/2020 12:00:00 AM EDT active FreeStyle Test - eCW1 ([facility]) Lancets - Lancets - 09/24/2020 12:00:00 AM EDT act [place] Lancets - eCW1 (Counts Include [address] [facility]) Lancets - Lancets - 09/24/2020 12:00:00 AM EDT act [place] Lancets - eCW1 (Counts Include [address] [facility]) Lancets - Lancets - 09/24/2020 12:00:00 AM EDT act [place] Lancets - eCW1 (Counts Include [address] [facility]) OneTouch Verio - OneTouch Verio - 09/24/2020 12:00:00 AM EDT active OneTouch Verio - eCW1 ([facility]) OneTouch Verio - OneTouch Verio - 09/24/2020 12:00:00 AM EDT active OneTouch Verio - eCW1 ([facility]) OneTouch Verio - OneTouch Verio - 09/24/2020 12:00:00 AM EDT active OneTouch Verio - eCW1 ([facility]) OneTouch Verio - OneTouch Verio - 09/24/2020 12:00:00 AM EDT active OneTouch Verio - eCW1 ([facility]) Lancets - Lancets - 09/24/2020 12:00:00 AM EDT act [place] Lancets - eCW1 (Counts Include [address] [facility]) Lancets - Lancets - 09/24/2020 12:00:00 AM EDT act [place] Lancets - eCW1 (Counts Include [address] [facility]) Lancets - Lancets - 09/24/2020 12:00:00 AM EDT act [place] Lancets - eCW1 (Counts Include [address] [facility]) OneTouch Verio - OneTouch Verio - 09/24/2020 12:00:00 AM EDT active OneTouch Verio - eCW1 ([facility]) OneTouch Verio - OneTouch Verio - 09/24/2020 12:00:00 AM EDT active OneTouch Verio - eCW1 ([facility]) Lancets - Lancets - 09/24/2020 12:00:00 AM EDT act [place] Lancets - eCW1 (Counts Include [address] [facility]) OneTouch Verio - OneTouch Verio - 09/24/2020 12:00:00 AM EDT active OneTouch Verio - eCW1 ([facility]) OneTouch Verio - OneTouch Verio - 09/24/2020 12:00:00 AM EDT active OneTouch Verio - eCW1 ([facility]) Lancets - Lancets - 09/24/2020 12:00:00 AM EDT act [place] Lancets - eCW1 (Counts Include [address] [facility]) OneTouch Verio - OneTouch Verio - 09/24/2020 12:00:00 AM EDT active OneTouch Verio - eCW1 ([facility]) Lancets - Lancets - 09/24/2020 12:00:00 AM EDT act [place] Lancets - eCW1 (Counts Include [address] [facility]) OneTouch Verio - OneTouch Verio - 09/24/2020 12:00:00 AM EDT active OneTouch Verio - eCW1 ([facility]) Lancets - Lancets - 09/24/2020 12:00:00 AM EDT act [place] Lancets - eCW1 (Counts Include [address] [facility]) Lancets - Lancets - 09/24/2020 12:00:00 AM EDT act [place] Lancets - eCW1 (Counts Include [address] [facility]) Lancets - Lancets - 09/24/2020 12:00:00 AM EDT act [place] Lancets - eCW1 (Counts Include [address] [facility]) Lancets - Lancets - 09/24/2020 12:00:00 AM EDT act [place] Lancets - eCW1 (Counts Include [address] [facility]) OneTouch Verio - OneTouch Verio - 09/24/2020 12:00:00 AM EDT active OneTouch Verio - eCW1 ([facility]) OneTouch Verio - OneTouch Verio - 09/24/2020 12:00:00 AM EDT active OneTouch Verio - eCW1 ([facility]) OneTouch Verio - OneTouch Verio - 09/24/2020 12:00:00 AM EDT active OneTouch Verio - eCW1 ([facility]) Ondansetron 4 MG Oral Tablet [Zofran] Zofran 09/04/2020 12:00:00 AM EDT active [facility] Fluticasone Propionate 50 MCG/ACT Fluticasone Propionate 50 MCG/ACT 08/21/2020 12:00:00 AM EDT 1.0 {spray_in_each_nostril} acti ve Fluticasone Propionate 50 MCG/ACT eCW1 (Counts Include [address] [facility]eds At [facility]) Fluticasone Propionate 50 MCG/ACT Fluticasone Propionate 50 MCG/ACT 08/21/2020 12:00:00 AM EDT 1.0 {spray_in_each_nostril} acti ve Fluticasone Propionate 50 MCG/ACT eCW1 (Counts Include [address] [facility] At [facility]) Fluticasone Propionate 50 MCG/ACT Fluticasone Propionate 50 MCG/ACT 08/21/2020 12:00:00 AM EDT 1.0 {spray_in_each_nostril} acti ve Fluticasone Propionate 50 MCG/ACT eCW1 (Counts Include [address] [facility]eds At [facility]) Fluticasone Propionate 50 MCG/ACT Fluticasone Propionate 50 MCG/ACT 08/21/2020 12:00:00 AM EDT 1.0 {spray_in_each_nostril} acti ve Fluticasone Propionate 50 MCG/ACT eCW1 (Counts Include [address] [facility] At [facility]) Fluticasone Propionate 50 MCG/ACT Fluticasone Propionate 50 MCG/ACT 08/21/2020 12:00:00 AM EDT 1.0 {spray_in_each_nostril} acti ve Fluticasone Propionate 50 MCG/ACT eCW1 (Counts Include 234 [facility] At [facility]) Fluticasone Propionate 50 MCG/ACT Fluticasone Propionate 50 MCG/ACT 08/21/2020 12:00:00 AM EDT 1.0 {spray_in_each_nostril} acti ve Fluticasone Propionate 50 MCG/ACT eCW1 (Counts Include 234 [facility]eds At [facility]) Fluticasone Propionate 50 MCG/ACT Fluticasone Propionate 50 MCG/ACT 08/21/2020 12:00:00 AM EDT 1.0 {spray_in_each_nostril} acti ve Fluticasone Propionate 50 MCG/ACT eCW1 (Counts Include 234 [facility] At [facility]) Fluticasone Propionate 50 MCG/ACT Fluticasone Propionate 50 MCG/ACT 08/21/2020 12:00:00 AM EDT 1.0 {spray_in_each_nostril} acti ve Fluticasone Propionate 50 MCG/ACT eCW1 (Counts Include [address] [facility]) Fluticasone Propionate 50 MCG/ACT Fluticasone Propionate 50 MCG/ACT 08/21/2020 12:00:00 AM EDT 1.0 {spray_in_each_nostril} acti ve Fluticasone Propionate 50 MCG/ACT eCW1 (Counts Include [address] [facility]) Fluticasone Propionate 50 MCG/ACT Fluticasone Propionate 50 MCG/ACT 08/21/2020 12:00:00 AM EDT 1.0 {spray_in_each_nostril} acti ve Fluticasone Propionate 50 MCG/ACT eCW1 (Counts Include 234 [facility]) Fluticasone Propionate 50 MCG/ACT Fluticasone Propionate 50 MCG/ACT 08/21/2020 12:00:00 AM EDT 1.0 {spray_in_each_nostril} acti ve Fluticasone Propionate 50 MCG/ACT eCW1 (Counts Include 234 [facility]eds At [facility]) Fluticasone Propionate 50 MCG/ACT Fluticasone Propionate 50 MCG/ACT 08/21/2020 12:00:00 AM EDT 1.0 {spray_in_each_nostril} acti ve Fluticasone Propionate 50 MCG/ACT eCW1 (Counts Include 234 [facility] At [facility]) Fluticasone Propionate 50 MCG/ACT Fluticasone Propionate 50 MCG/ACT 08/21/2020 12:00:00 AM EDT 1.0 {spray_in_each_nostril} acti ve Fluticasone Propionate 50 MCG/ACT eCW1 (Counts Include 234 [facility] At [facility]) Fluticasone Propionate 50 MCG/ACT Fluticasone Propionate 50 MCG/ACT 08/21/2020 12:00:00 AM EDT 1.0 {spray_in_each_nostril} acti ve Fluticasone Propionate 50 MCG/ACT eCW1 (Counts Include 234 [facility]eds At [facility]) Fluticasone Propionate 50 MCG/ACT Fluticasone Propionate 50 MCG/ACT 08/21/2020 12:00:00 AM EDT 1.0 {spray_in_each_nostril} acti ve Fluticasone Propionate 50 MCG/ACT eCW1 (Counts Include 234 [facility]eds At [facility]) gabapentin 300 MG Oral Capsule Gabapentin 300 MG Gabapentin 300 MG 05/08/2020 12:00:00 AM EST 1.0 {capsule} active G abapentin 300 MG eCW1 (Counts Include 234 Beds At [facility]) gabapentin 300 MG Oral Capsule Gabapentin 300 MG Gabapentin 300 MG 05/08/2020 12:00:00 AM EST 1.0 {capsule} active G abapentin 300 MG eCW1 (Counts Include 234 [facility]eds At [facility]) gabapentin 300 MG Oral Capsule Gabapentin 300 MG Gabapentin 300 MG 05/08/2020 12:00:00 AM EST 1.0 {capsule} active G abapentin 300 MG eCW1 (Counts Include 234 [facility]eds At [facility]) 0.5 ML dulaglutide 3 MG/ML Auto-Injector [Trulicity] T rulicity 1.5 MG/0.5ML Trulicity 1.5 MG/0.5ML 05/08/2020 12:00:00 AM EST active Trulicity 1.5 MG/0.5ML eCW1 (Counts Include 234 Beds At [facility]) gabapentin 300 MG Oral Capsule Gabapentin 300 MG Gabapentin 300 MG 05/08/2020 12:00:00 AM EST 1.0 {capsule} active G abapentin 300 MG eCW1 (Counts Include 234 Beds At [facility]) gabapentin 300 MG Oral Capsule Gabapentin 300 MG Gabapentin 300 MG 05/08/2020 12:00:00 AM EST 1.0 {capsule} suspended Gabapentin 300 MG eCW1 (Counts Include 234 Beds At [facility]) 0.5 ML dulaglutide 3 MG/ML Auto-Injector [Trulicity] T rulicity 1.5 MG/0.5ML Trulicity 1.5 MG/0.5ML 05/08/2020 12:00:00 AM EST active Trulicity 1.5 MG/0.5ML eCW1 (Counts Include 234 [facility]eds At [facility]) gabapentin 300 MG Oral Capsule Gabapentin 300 MG Gabapentin 300 MG 05/08/2020 12:00:00 AM EST 1.0 {capsule} active G abapentin 300 MG eCW1 (Counts Include 234 Beds At [facility]) gabapentin 300 MG Oral Capsule Gabapentin 300 MG Gabapentin 300 MG 05/08/2020 12:00:00 AM EST 1.0 {capsule} suspended Gabapentin 300 MG eCW1 (Counts Include 234 Beds At [facility]) gabapentin 300 MG Oral Capsule Gabapentin 300 MG Gabapentin 300 MG 05/08/2020 12:00:00 AM EST 1.0 {capsule} suspended Gabapentin 300 MG eCW1 (Counts Include 234 Beds At [facility]) gabapentin 300 MG Oral Capsule Gabapentin 300 MG Gabapentin 300 MG 05/08/2020 12:00:00 AM EST 1.0 {capsule} suspended Gabapentin 300 MG eCW1 (Counts Include 234 [facility]eds At [facility]) Trulicity 3 MG/0.5ML Trulicity 3 MG/0.5ML 05/08/2020 12:00:00 AM EST active Trulicity 3 MG/0.5ML eCW1 ([facility]) 0.5 ML dulaglutide 3 MG/ML Auto-Injector [Trulicity] T rulicity 1.5 MG/0.5ML Trulicity 1.5 MG/0.5ML 05/08/2020 12:00:00 AM EST active Trulicity 1.5 MG/0.5ML eCW1 (Counts Include 234 Beds At [facility]) gabapentin 300 MG Oral Capsule Gabapentin 300 MG Gabapentin 300 MG 05/08/2020 12:00:00 AM EST 1.0 {capsule} suspended Gabapentin 300 MG eCW1 (Counts Include 234 Beds At [facility]) 0.5 ML dulaglutide 3 MG/ML Auto-Injector [Trulicity] T rulicity 1.5 MG/0.5ML Trulicity 1.5 MG/0.5ML 05/08/2020 12:00:00 AM EST active Trulicity 1.5 MG/0.5ML eCW1 (Counts Include [address] [facility]eds At [facility]) 0.5 ML dulaglutide 3 MG/ML Auto-Injector [Trulicity] T rulicity 1.5 MG/0.5ML Trulicity 1.5 MG/0.5ML 05/08/2020 12:00:00 AM EST active Trulicity 1.5 MG/0.5ML eCW1 (Counts Include 234 [facility]eds At [facility]) gabapentin 300 MG Oral Capsule Gabapentin 300 MG Gabapentin 300 MG 05/08/2020 12:00:00 AM EST 1.0 {capsule} suspended Gabapentin 300 MG eCW1 (Counts Include 234 [facility]eds At [facility]) gabapentin 300 MG Oral Capsule Gabapentin 300 MG Gabapentin 300 MG 05/08/2020 12:00:00 AM EST 1.0 {capsule} suspended Gabapentin 300 MG eCW1 (Counts Include [address] [facility]eds At [facility]) gabapentin 300 MG Oral Capsule Gabapentin 300 MG Gabapentin 300 MG 05/08/2020 12:00:00 AM EST 1.0 {capsule} active G abapentin 300 MG eCW1 (Counts Include 234 [facility]eds At [facility]) gabapentin 300 MG Oral Capsule Gabapentin 300 MG Gabapentin 300 MG 05/08/2020 12:00:00 AM EST 1.0 {capsule} suspended Gabapentin 300 MG eCW1 (Counts Include 234 [facility]eds At [facility]) gabapentin 300 MG Oral Capsule Gabapentin 300 MG Gabapentin 300 MG 05/08/2020 12:00:00 AM EST 1.0 {capsule} active G abapentin 300 MG eCW1 (Counts Include 234 Beds At [facility]) gabapentin 300 MG Oral Capsule Gabapentin 300 MG Gabapentin 300 MG 05/08/2020 12:00:00 AM EST 1.0 {capsule} active G abapentin 300 MG eCW1 (Counts Include 234 [facility]eds At [facility]) 0.5 ML dulaglutide 3 MG/ML Auto-Injector [Trulicity] T rulicity 1.5 MG/0.5ML Trulicity 1.5 MG/0.5ML 05/08/2020 12:00:00 AM EST active Trulicity 1.5 MG/0.5ML eCW1 (Counts Include 234 [facility]eds At [facility]) gabapentin 300 MG Oral Capsule Gabapentin 300 MG Gabapentin 300 MG 05/08/2020 12:00:00 AM EST 1.0 {capsule} suspended Gabapentin 300 MG eCW1 (Counts Include 234 [facility]eds At [facility]) 0.5 ML dulaglutide 3 MG/ML Auto-Injector [Trulicity] T rulicity 1.5 MG/0.5ML Trulicity 1.5 MG/0.5ML 05/08/2020 12:00:00 AM EST active Trulicity 1.5 MG/0.5ML eCW1 (Counts Include 234 [facility]eds At [facility]) Diclofenac Sodium 0.03 MG/MG Topical Gel Diclofenac So dium 3 % Diclofenac Sodium 3 % 04/08/2020 12:00:00 AM EST 1.0 {application} active Diclofenac Sodium 3 % eCW1 (Counts Include 234 [facility]eds At [facility]) pantoprazole 40 MG Delayed Release Oral Tablet Pantopr azole Sodium 40 MG Pantoprazole Sodium 40 MG 04/08/2020 12:00:00 AM EST 1.0 {tablet} active Pantoprazole Sodium 40 MG eCW1 ( Counts Include 234 Beds At [facility]) pantoprazole 40 MG Delayed Release Oral Tablet Pantopr azole Sodium 40 MG Pantoprazole Sodium 40 MG 04/08/2020 12:00:00 AM EST 1.0 {tablet} active Pantoprazole Sodium 40 MG eCW1 ( Counts Include 234 Beds At [facility]) pantoprazole 40 MG Delayed Release Oral Tablet Pantopr azole Sodium 40 MG Pantoprazole Sodium 40 MG 04/08/2020 12:00:00 AM EST 1.0 {tablet} active Pantoprazole Sodium 40 MG eCW1 ( Counts Include 234 Beds At [facility]) pantoprazole 40 MG Delayed Release Oral Tablet Pantopr azole Sodium 40 MG Pantoprazole Sodium 40 MG 04/08/2020 12:00:00 AM EST 1.0 {tablet} active Pantoprazole Sodium 40 MG eCW1 ( Counts Include 234 Beds At [facility]) pantoprazole 40 MG Delayed Release Oral Tablet Pantopr azole Sodium 40 MG Pantoprazole Sodium 40 MG 04/08/2020 12:00:00 AM EST 1.0 {tablet} active Pantoprazole Sodium 40 MG eCW1 ( Counts Include 234 Beds At [facility]) pantoprazole 40 MG Delayed Release Oral Tablet Pantopr azole Sodium 40 MG Pantoprazole Sodium 40 MG 04/08/2020 12:00:00 AM EST 1.0 {tablet} active Pantoprazole Sodium 40 MG eCW1 ( Counts Include 234 Beds At [facility]) pantoprazole 40 MG Delayed Release Oral Tablet Pantopr azole Sodium 40 MG Pantoprazole Sodium 40 MG 04/08/2020 12:00:00 AM EST 1.0 {tablet} active Pantoprazole Sodium 40 MG eCW1 ( Counts Include 234 Beds At [facility]) pantoprazole 40 MG Delayed Release Oral Tablet Pantopr azole Sodium 40 MG Pantoprazole Sodium 40 MG 04/08/2020 12:00:00 AM EST 1.0 {tablet} active Pantoprazole Sodium 40 MG eCW1 ( Counts Include 234 Beds At [facility]) pantoprazole 40 MG Delayed Release Oral Tablet Pantopr azole Sodium 40 MG Pantoprazole Sodium 40 MG 04/08/2020 12:00:00 AM EST 1.0 {tablet} active Pantoprazole Sodium 40 MG eCW1 ( Counts Include 234 Beds At [facility]) pantoprazole 40 MG Delayed Release Oral Tablet Pantopr azole Sodium 40 MG Pantoprazole Sodium 40 MG 04/08/2020 12:00:00 AM EST 1.0 {tablet} active Pantoprazole Sodium 40 MG eCW1 ( Counts Include 234 Beds At [facility]) pantoprazole 40 MG Delayed Release Oral Tablet Pantopr azole Sodium 40 MG Pantoprazole Sodium 40 MG 04/08/2020 12:00:00 AM EST 1.0 {tablet} active Pantoprazole Sodium 40 MG eCW1 ( Counts Include 234 Beds At [facility]) pantoprazole 40 MG Delayed Release Oral Tablet Pantopr azole Sodium 40 MG Pantoprazole Sodium 40 MG 04/08/2020 12:00:00 AM EST 1.0 {tablet} active Pantoprazole Sodium 40 MG eCW1 ( Counts Include 234 Beds At [facility]) pantoprazole 40 MG Delayed Release Oral Tablet Pantopr azole Sodium 40 MG Pantoprazole Sodium 40 MG 04/08/2020 12:00:00 AM EST 1.0 {tablet} active Pantoprazole Sodium 40 MG eCW1 ( Counts Include 234 [facility]eds At [facility]) Diclofenac Sodium 0.03 MG/MG Topical Gel Diclofenac So dium 3 % Diclofenac Sodium 3 % 04/08/2020 12:00:00 AM EST 1.0 {application} active Diclofenac Sodium 3 % eCW1 (Counts Include 234 Beds At [facility]) pantoprazole 40 MG Delayed Release Oral Tablet Pantopr azole Sodium 40 MG Pantoprazole Sodium 40 MG 04/08/2020 12:00:00 AM EST 1.0 {tablet} active Pantoprazole Sodium 40 MG eCW1 ( Counts Include 234 Beds At [facility]) pantoprazole 40 MG Delayed Release Oral Tablet Pantopr azole Sodium 40 MG Pantoprazole Sodium 40 MG 04/08/2020 12:00:00 AM EST 1.0 {tablet} active Pantoprazole Sodium 40 MG eCW1 ( Counts Include 234 Beds At [facility]) pantoprazole 40 MG Delayed Release Oral Tablet Pantopr azole Sodium 40 MG Pantoprazole Sodium 40 MG 04/08/2020 12:00:00 AM EST 1.0 {tablet} active Pantoprazole Sodium 40 MG eCW1 ( Counts Include 234 Beds At [facility]) pantoprazole 40 MG Delayed Release Oral Tablet Pantopr azole Sodium 40 MG Pantoprazole Sodium 40 MG 04/08/2020 12:00:00 AM EST 1.0 {tablet} active Pantoprazole Sodium 40 MG eCW1 ( Counts Include 234 Beds At [facility]) pantoprazole 40 MG Delayed Release Oral Tablet Pantopr azole Sodium 40 MG Pantoprazole Sodium 40 MG 04/08/2020 12:00:00 AM EST 1.0 {tablet} active Pantoprazole Sodium 40 MG eCW1 ( Counts Include 234 Beds At [facility]) pantoprazole 40 MG Delayed Release Oral Tablet Pantopr azole Sodium 40 MG Pantoprazole Sodium 40 MG 04/08/2020 12:00:00 AM EST 1.0 {tablet} active Pantoprazole Sodium 40 MG eCW1 ( Counts Include [facility]) Insurance Providers Payer name Policy type / Coverage type Policy ID Covered libertarian ID Covered libertarian's relationship to whipple Policy Whipple Plan Information [facility] Comm Plan Medicaid F [id number] SELF [id number] Medicaid [facility] S D [id number] SELF [id number] Medicaid [facility] [employer] S D [id number] SELF [id number] MISHA [id number] SP [id number] [place] Medicaid F [id number] SELF [id number] [place] Medicaid F [id number] SELF [id number] [place] Medicaid F [id number] SELF [id number] Misha Purchase Plan F [id number] SELF [id number] ANSI-Not a Secondary Insurance [id number] ANSI-Not a Secondary Insurance [id number] ANSI-Not a Secondary Insurance [id number] ANSI-Not a Secondary Insurance [id number] ANSI-Not a Secondary Insurance [id number] ANSI-Not a Secondary Insurance [id number] ANSI-Not a Secondary Insurance [id number] ANSI-Commercial [id number] ANSI-Commercial [id number] ANSI-Commercial [id number] ANSI-Commercial [id number] ANSI-Commercial [id number] ANSI-Commercial [id number] ANSI-Commercial [id number] ANSI-Commercial [id number] ANSI-Commercial [id number] ANSI-Commercial [id number] ANSI-Commercial [id number] ANSI-Commercial [id number] ANSI-Commercial [id number] ANSI-Commercial [id number] ANSI-Commercial [id number] ANSI-Commercial [id number] ANSI-Commercial [id number] ANSI-Commercial [id number] ANSI-Commercial [id number] [facility] [place] Medicaid [id number] Self [id number] [facility]HA CARE MEDICAID [facility] [id number] S [id number] MEDICAID [id number] SP [id number] SELF PAY ONLY [facility]ABLE [facility] O [id number] S [id number] SELF PAY ONLY [id number] SP [id number] SELF PAY UNAVAILABLE SP [facility] [id number] SP [id number] Misha Medicaid [id number] SELF 7 [id number] [place] [id number] SP [id number] MISHA [id number] SP [id number] [place] [id number] S [id number] [place] [id number] SP [id number] ANSI-Not a Secondary Insurance [id number] ANSI-Not a Secondary Insurance [id number] ANSI-Not a Secondary Insurance [id number] Problems, Conditions, and Diagnoses Code Display Name Description Problem Type Effective Dates Data Source(s) Z23 [id number] Encounter for immunization Problem 12:00:00 AM EDT eCW1 ([facility]) M89.49 [id number] Primary osteoarthritis involving multiple joints Problem 12/04/2020 12:00:00 AM EDT eCW1 ([facility]) M35.3 [id number] Polymyalgia Problem 12/04/2020 12:00:00 AM E DT eCW1 ([facility]) E04.9 [id number] Goiter Problem 04/08/2020 12:00:00 AM ES T eCW1 ([facility]) Surgeries/Procedures Procedure Description Date Indications Data Source(s) Imm: Flublok Quadrivalent 18 years & older 0.5mL IM Influenz a 02/04/2021 12:00:00 AM EDT eCW1 ([facility]) Endoscopy Upper GI Complex Diagnostic 06/30/2020 12:00 :00 AM EDT MEDENT ([facility], ) Immunization: Flublok Quadrivalent (18 years & older) 0.5mL IM (Influenza) 05/08/2020 12:00:00 AM EST eCW1 ([facility]) Results ID Date Data Source RHEUMATOID FACTOR QUANT 12/04/2020 12:00:00 AM EDT eCW1 ([facility]) Name Value Range Interpretation Code Description Data Emeli rce(s) Supporting Document(s) < 10.0 <15.0 RHEUMATOID FACTOR QUANT eCW1 ( [facility]) ID Date Data Source ERYTHROCYTE SEDIMENTATION RATE 12/04/2020 12:00:00 AM EDT eC W1 ([facility]) Name Value Range Interpretation Code Description Data Emeli rce(s) Supporting Document(s) 15 0-30 ERYTHROCYTE SEDIMENTATION RATE eCW1 ([facility]) ID Date Data Source C REACTIVE PROTEIN QUANTITATIV (At [facility]) 12/04/2020 12:00 :00 AM EDT eCW1 ([facility]) Name Value Range Interpretation Code Description Data Emeli rce(s) Supporting Document(s) 0.74 0.00-0.30 C REACTIVE PROTEIN QUANTI TATIV eCW1 ([facility]) ID Date Data Source Comprehensive Metabolic Profile (CMP) 12/04/2020 12:00:00 AM EDT eCW1 ([facility]) Name Value Range Interpretation Code Description Data Emeli rce(s) Supporting Document(s) 170 70-100 GLUCOSE, FASTING eCW1 ([facility]) 21 7-18 BLOOD UREA NITROGEN eCW1 ([facility]) 0.66 0.55-1.30 CREATININE FOR GFR eCW1 ([facility]) > 60.0 >51 GLOMERULAR FILTRATION RATE eCW 1 ([facility]) 106 98-107 CHLORIDE LEVEL eCW1 ([facility]) 4.4 3.5-5.1 POTASSIUM SERUM eCW1 ([facility]) 26 21-32 CARBON DIOXIDE LEVEL eCW1 ([facility]) 138 136-145 SODIUM LEVEL eCW1 ([facility]) 8.9 8.5-10.1 CALCIUM LEVEL eCW1 ([facility]) 68 12-78 ALT/SGPT eCW1 ([facility]) 42 7-37 AST/SGOT eCW1 ([facility]) 0.5 0.2-1.0 BILIRUBIN,TOTAL eCW1 ([facility]) 61 45-117 ALKALINE PHOSPHATASE eCW1 ([facility]) 7.0 6.4-8.2 TOTAL PROTEIN eCW1 ([facility]) 1.0 1.2-2.2 ALBUMIN/GLOBULIN RATIO eCW1 ([facility]) 3.5 3.2-5.2 ALBUMIN eCW1 ([facility]) ID Date Data Source CBC with Differential 12/04/2020 12:00:00 AM EDT eCW1 ([facility]) Name Value Range Interpretation Code Description Data Emeli rce(s) Supporting Document(s) 7.5 4.0-10.0 WHITE BLOOD COUNT eCW1 ([facility]) 43.6 36.0-47.0 HEMATOCRIT eCW1 ([facility]) 4.49 4.00-5.40 RED BLOOD COUNT eCW1 ([facility]) 14.1 12.0-15.5 HEMOGLOBIN eCW1 ([facility]) 97.1 80.0-96.0 MEAN CORPUSCULAR VOLUME e CW1 ([facility]) 31.4 27.0-33.0 MEAN CORPUSCULAR HEMOGLOB IN eCW1 ([facility]) 32.3 32.0-36.5 MEAN CORPUSCULAR HGB CONC eCW1 ([facility]) 310 150-450 PLATELET COUNT, AUTOMATED eCW1 ([facility]) 55.5 36.0-66.0 NEUTROPHILS % eCW1 ([facility]) 12.2 11.5-14.5 RED CELL DISTRIBUTION WID TH eCW1 ([facility]) 33.1 24.0-44.0 LYMPH % eCW1 ([facility]) 2.5 0.0-3.0 EOS % eCW1 ([facility]) 8.0 2.0-8.0 MONO % eCW1 ([facility]) 0.4 0.0-1.0 BASO % eCW1 ([facility]) 4.2 1.5-8.5 NEUTROPHILS # eCW1 ([facility]) 2.5 1.5-5.0 LYMPH # eCW1 ([facility]) 0.2 0.0-0.5 EOS # eCW1 ([facility]) 0.0 0.0-0.2 BASO # eCW1 ([facility]) 0.6 0.0-0.8 MONO # eCW1 ([facility]) ID Date Data Source [id number] 06/25/2020 10:30:00 AM EDT [facility] Name Value Range Interpretation Code Description Data Emeli rce(s) Supporting Document(s) SARS coronavirus 2 RNA Not Detected [facility] This lab was ordered by [facility] and reported by [facility]. ID Date Data Source LIPID PANEL (CARDIAC RISK) 04/08/2020 12:00:00 AM EST eCW1 ( [facility]) Name Value Range Interpretation Code Description Data Emeli rce(s) Supporting Document(s) Triglyceride [Mass/volume] in Serum or Plasma by calculation 303 <150 TRIGLYCERIDES LEVEL [facility] (Counts [facility]) Cholesterol [Moles/volume] in Serum or Plasma 207 <200 CHOLESTEROL LEVEL [facility] ([facility]s [facility]) 4.813 <5 CHOLESTEROL RISK RATIO eCW1 ([facility]) 164 NON-HDL-C eCW1 ([facility]) Cholesterol in LDL [Mass/volume] in Serum or Plasma by calculation 103 <100 LDL CHOLESTEROL eCW1 ([facility]) Cholesterol in HDL [Moles/volume] in Serum or Plasma 43 >40 HDL CHOLESTEROL eCW1 ([facility]) ID Date Data Source [id number] 04/08/2020 12:00:00 AM EST eCW1 ([facility]) Name Value Range Interpretation Code Description Data Emeli rce(s) Supporting Document(s) Hemoglobin A1c/Hemoglobin.total in Blood 9.4 HEMOGLOBIN A1c eCW1 ([facility]) ID Date Data Source FREE T4 & TSH PANEL 04/08/2020 12:00:00 AM EST eCW1 ([facility]) Name Value Range Interpretation Code Description Data Emeli rce(s) Supporting Document(s) 1.04 0.76-1.46 eCW1 ([facility]) 2.320 0.358-3.740 eCW1 ([facility]) ID Date Data Source CBC - Complete Blood Count 04/08/2020 12:00:00 AM EST eCW1 ( Counts Include [facility]) Name Value Range Interpretation Code Description Data Emeli rce(s) Supporting Document(s) 6.8 4.0-10.0 WHITE BLOOD COUNT eCW1 ([facility]) 94.4 80.0-96.0 MEAN CORPUSCULAR VOLUME e CW1 (Counts [facility]) 15.6 12.0-15.5 HEMOGLOBIN eCW1 ([facility]) 5.19 4.00-5.40 RED BLOOD COUNT eCW1 ([facility]) 49.0 36.0-47.0 HEMATOCRIT eCW1 ([facility]) 30.1 27.0-33.0 MEAN CORPUSCULAR HEMOGLOB IN eCW1 (Counts Include [facility]) 31.8 32.0-36.5 MEAN CORPUSCULAR HGB CONC eCW1 (Counts Include [facility]) 12.1 11.5-14.5 RED CELL DISTRIBUTION WID TH eCW1 (Counts Include [facility]) 301 150-450 PLATELET COUNT, AUTOMATED eCW1 (Counts [facility]) Procedure Social History Code Duration Value Status Description Data Source(s ) Smoking 02/04/2021 12:00:00 AM EDT Never Smoker completed Never S moker eCW1 ([facility]) Smoking 02/04/2021 12:00:00 AM EDT Never Smoker completed Never S moker eCW1 ([facility]) Smoking 02/04/2021 12:00:00 AM EDT Never Smoker completed Never S moker eCW1 ([facility]) Smoking 12/04/2020 12:00:00 AM EDT Never Smoker completed Never S moker eCW1 ([facility]) Smoking 12/04/2020 12:00:00 AM EDT Never Smoker completed Never S moker eCW1 (Count[facility]) Smoking 10/30/2020 12:00:00 AM EDT Never Smoker completed Never S moker eCW1 (Counts Include [facility]) Smoking 10/30/2020 12:00:00 AM EDT Never Smoker completed Never S moker eCW1 (Counts [facility]) Smoking 10/30/2020 12:00:00 AM EDT Never Smoker completed Never S moker eCW1 (Counts Include [facility]) Smoking 10/30/2020 12:00:00 AM EDT Never Smoker completed Never S moker eCW1 (Counts Include [facility]) Smoking 05/08/2020 12:00:00 AM EST Never Smoker completed Never S moker eCW1 (Counts Include [facility]) Smoking 05/08/2020 12:00:00 AM EST Never Smoker completed Never S moker eCW1 (Counts Include [facility]) Smoking 05/08/2020 12:00:00 AM EST Never Smoker completed Never S moker eCW1 (Counts Include [facility]) Smoking 05/08/2020 12:00:00 AM EST Never Smoker completed Never S moker eCW1 (Counts Include [facility]) Smoking 05/08/2020 12:00:00 AM EST Never Smoker completed Never S moker eCW1 (Counts Include [facility]) Smoking 05/08/2020 12:00:00 AM EST Never Smoker completed Never S moker eCW1 (Counts Include [facility]) Smoking 05/08/2020 12:00:00 AM EST Never Smoker completed Never S moker eCW1 (Counts Include [facility]) Smoking 05/08/2020 12:00:00 AM EST Never Smoker completed Never S moker eCW1 (Counts Include [facility]) Smoking 04/08/2020 12:00:00 AM EST Never Smoker completed Never S moker eCW1 (Counts Include [facility]) Smoking 04/08/2020 12:00:00 AM EST Never Smoker completed Never S moker eCW1 (Counts Include [facility]) Vital Signs ID Date Data Source UNK Name Value Range Interpretation Code Description Data Source(s) Body height 64 [in_i] 64 [in_i] eCW1 ([facility]) Body weight 236 [lb_av] 236 [lb_av] eCW1 ([facility]) Diastolic blood pressure 90 mm[Hg] 90 mm[Hg] eCW1 ([facility]) Body mass index (BMI) [Ratio] 40.50 kg/m2 40.50 kg/m2 eCW1 ([facility]) Heart rate 91 /min 91 /min eCW1 ([facility]) Respiratory rate 18 /min 18 /min eCW1 ([facility]) Body temperature 96.6 [degF] 96.6 [degF] eCW1 ( Counts Include [facility]) Systolic blood pressure 168 mm[Hg] 168 mm[Hg] e CW1 (Counts Include [facility]) Body weight 234.4 [lb_av] 234.4 [lb_av] eCW1 ([facility]) Body weight 106.32 kg 106.32 kg eCW1 ([facility]) Body height 64 [in_i] 64 [in_i] eCW1 ([facility]) Body mass index (BMI) [Ratio] 40.23 kg/m2 40.23 kg/m2 eCW1 ([facility]) Heart rate 87 /min 87 /min eCW1 ([facility]) Respiratory rate 18 /min 18 /min eCW1 ([facility]) Body temperature 98.0 [degF] 98.0 [degF] eCW1 ( Counts Include [facility]) Systolic blood pressure 142 mm[Hg] 142 mm[Hg] e CW1 (Counts Include [facility]) Diastolic blood pressure 78 mm[Hg] 78 mm[Hg] eCW1 (Counts Include [facility]) Body weight 234 [lb_av] 234 [lb_av] eCW1 ([facility]) Body height 64 [in_i] 64 [in_i] eCW1 ([facility]) Body mass index (BMI) [Ratio] 40.16 kg/m2 40.16 kg/m2 eCW1 ([facility] Include [facility]) Heart rate 129 /min 129 /min eCW1 ([facility]) Respiratory rate 18 /min 18 /min eCW1 ([facility]) Body temperature 97.1 [degF] 97.1 [degF] eCW1 ( Counts Include [facility]) Systolic blood pressure 144 mm[Hg] 144 mm[Hg] e CW1 (Counts Include [facility]) Diastolic blood pressure 82 mm[Hg] 82 mm[Hg] eCW1 (Counts Include [facility]) Systolic blood pressure 112 mm[Hg] 112 mm[Hg] M EDENT ([facility], ) Diastolic blood pressure 72 mm[Hg] 72 mm[Hg] MEDENT ([facility], ) Body height 64 [in_i] 64 [in_i] [facility] 5'4" Body weight 236.00 [lb_av] 236.00 [lb_av] MEDEN T ([facility], ) Body mass index (BMI) [Ratio] 40.5 kg/m2 40.5 k g/m2 [facility] ([facility], ) [place] body weight 120 [lb_av] 120 [lb_av] MEDEN T ([facility], ) Body weight 107.050 kg 107.050 kg [facility] ([facility], ) Body surface area Derived from formula 2.10 m2 2.10 m2 [facility] Systolic blood pressure 122 mm[Hg] 122 mm[Hg] M EDENT ([facility]) Diastolic blood pressure 78 mm[Hg] 78 mm[Hg] [facility] ([facility]) Body height 64 [in_i] 64 [in_i] [facility] ([facility]) 5'4" Body weight 243.00 [lb_av] 243.00 [lb_av] MEDEN T ([facility]) Body mass index (BMI) [Ratio] 41.7 kg/m2 41.7 k g/m2 [facility] ([facility]) [place] body weight 120 [lb_av] 120 [lb_av] MEDEN T ([facility]) Body weight 110.225 kg 110.225 kg [facility] ([facility]) Body surface area Derived from formula 2.13 m2 2.13 m2 [facility] ([facility]) Body weight 246 [lb_av] 246 [lb_av] eCW1 ([facility]) Body height 64 [in_i] 64 [in_i] eCW1 ([facility]) Body mass index (BMI) [Ratio] 42.22 kg/m2 42.22 kg/m2 eCW1 ([facility]) Heart rate 90 /min 90 /min eCW1 ([facility]) Respiratory rate 18 /min 18 /min eCW1 ([facility]) Body temperature 96.3 [degF] 96.3 [degF] eCW1 ( Counts Include [facility]) Systolic blood pressure 138 mm[Hg] 138 mm[Hg] e CW1 (Counts Include [facility]) Diastolic blood pressure 76 mm[Hg] 76 mm[Hg] eCW1 (Counts Include [facility]) Heart rate 114 /min 114 /min eCW1 ([facility]) Body weight 244.4 [lb_av] 244.4 [lb_av] eCW1 ([facility]) Respiratory rate 18 /min 18 /min eCW1 ([facility]) Body height 64 [in_i] 64 [in_i] eCW1 ([facility]) Body mass index (BMI) [Ratio] 41.95 kg/m2 41.95 kg/m2 eCW1 ([facility]) Body temperature 97.9 [degF] 97.9 [degF] eCW1 ( Counts Include [facility]) Systolic blood pressure 142 mm[Hg] 142 mm[Hg] e CW1 (Count[facility]) Diastolic blood pressure 82 mm[Hg] 82 mm[Hg] eCW1 ([facility]) Patient Treatment Plan of Care Planned Activity Planned Date Details Description Data Source (s) Semglee 100 UNIT/ML 02/04/2021 12:00:00 AM EDT eCW1 ([facility]) BD Pen Needle Micro U/F 32G X 6 MM 02/04/2021 12:00:00 AM EDT eCW1 ([facility]) Hydrochlorothiazide 12.5 MG Oral Capsule 02/04/2021 12:00:00 AM EDT eCW1 (Counts Include [facility]) irbesartan 150 MG Oral Tablet 02/04/2021 12:00:00 AM EDT eCW1 (Counts Include [facility]) Semglee 100 UNIT/ML 02/04/2021 12:00:00 AM EDT eCW1 (Count[facility]) BD Pen Needle Micro U/F 32G X 6 MM 02/04/2021 12:00:00 AM EDT eCW1 (Counts Include [facility]) Hydrochlorothiazide 12.5 MG Oral Capsule 02/04/2021 12:00:00 AM EDT eCW1 (Counts Include [facility]) irbesartan 150 MG Oral Tablet 02/04/2021 12:00:00 AM EDT eCW1 (Counts Include [facility]) Semglee 100 UNIT/ML 02/04/2021 12:00:00 AM EDT eCW1 (Counts Include [facility]) BD Pen Needle Micro U/F 32G X 6 MM 02/04/2021 12:00:00 AM EDT eCW1 (Counts Include [facility]) Hydrochlorothiazide 12.5 MG Oral Capsule 02/04/2021 12:00:00 AM EDT eCW1 (Counts Include [facility]) irbesartan 150 MG Oral Tablet 02/04/2021 12:00:00 AM EDT eCW1 (Counts Include [facility]) Naproxen sodium 550 MG Oral Tablet 12/04/2020 12:00:00 AM EDT eCW1 (Counts Include [facility]) Naproxen sodium 550 MG Oral Tablet 12/04/2020 12:00:00 AM EDT eCW1 ([facility]) 30 ACTUAT fluticasone furoate 0.1 MG/ACTUAT Dry Powder Inhaler [Arnuity] 11/25/2020 12:00:00 AM EDT eCW1 ([facility]) 30 ACTUAT fluticasone furoate 0.1 MG/ACTUAT Dry Powder Inhaler [Arnuity] 11/25/2020 12:00:00 AM EDT eCW1 ([facility]) glimepiride 1 MG Oral Tablet 10/30/2020 12:00:00 AM EDT eCW1 (Counts Include [facility]) glimepiride 1 MG Oral Tablet 10/30/2020 12:00:00 AM EDT eCW1 (Counts Include [facility]) glimepiride 1 MG Oral Tablet 10/30/2020 12:00:00 AM EDT eCW1 (Counts Include [facility]) FreeStyle Lancets - 09/25/2020 12:00:00 AM EDT eCW1 (Counts Include [facility]) FreeStyle Test - 09/25/2020 12:00:00 AM EDT eCW1 (Counts Include [facility]) Blood Glucose System Tono - 09/25/2020 12:00:00 AM EDT eCW1 (Counts Include [facility]) FreeStyle Lancets - 09/25/2020 12:00:00 AM EDT eCW1 (Counts Include [facility]) FreeStyle Test - 09/25/2020 12:00:00 AM EDT eCW1 (Counts Include [facility]) Blood Glucose System Tono - 09/25/2020 12:00:00 AM EDT eCW1 (Counts Include [facility]) FreeStyle Lancets - 09/25/2020 12:00:00 AM EDT eCW1 (Counts Include [facility]) FreeStyle Test - 09/25/2020 12:00:00 AM EDT eCW1 (Counts Include [facility]) Blood Glucose System Tono - 09/25/2020 12:00:00 AM EDT eCW1 (Counts Include [facility]) Lancets - 09/24/2020 12:00:00 AM EDT e CW1 (Counts Include [facility]) [facility] - 09/24/2020 12:00:00 AM EDT eCW1 (Counts Include [facility]) Lancets - 09/24/2020 12:00:00 AM EDT e CW1 (Counts Include [facility]) [facility] - 09/24/2020 12:00:00 AM EDT eCW1 (Counts Include [facility]) [facility] - 09/24/2020 12:00:00 AM EDT eCW1 (Counts Include [facility]) Lancets - 09/24/2020 12:00:00 AM EDT e CW1 (Counts Include [facility]) [facility] - 09/24/2020 12:00:00 AM EDT eCW1 (Counts Include [facility]) Lancets - 09/24/2020 12:00:00 AM EDT e CW1 (Counts Include [facility]) Fluticasone Propionate 50 MCG/ACT 08/21/2020 12:00:00 AM EDT eCW1 (Count[facility]) Fluticasone Propionate 50 MCG/ACT 08/21/2020 12:00:00 AM EDT eCW1 (Counts Include [facility]) Fluticasone Propionate 50 MCG/ACT 08/21/2020 12:00:00 AM EDT eCW1 (Counts Include 234 Beds At The [facility]) Fluticasone Propionate 50 MCG/ACT 08/21/2020 12:00:00 AM EDT eCW1 (Counts Include 234 Beds At The [facility]) Fluticasone Propionate 50 MCG/ACT 08/21/2020 12:00:00 AM EDT eCW1 (Counts Include 234 Beds At The [facility]) Fluticasone Propionate 50 MCG/ACT 08/21/2020 12:00:00 AM EDT eCW1 (Counts Include 234 Beds At The [facility]) gabapentin 300 MG Oral Capsule 05/08/2020 12:00:00 AM EST eCW1 (Counts Include 234 Beds At The [facility]) 0.5 ML dulaglutide 3 MG/ML Auto-Injector [Trulicity] 021 12:00:00 AM EST eCW1 ([facility]) gabapentin 300 MG Oral Capsule 05/08/2020 12:00:00 AM EST eCW1 (Counts Include 234 Beds At The [facility]) gabapentin 300 MG Oral Capsule 05/08/2020 12:00:00 AM EST eCW1 (Counts Include 234 Beds At The [facility]) 0.5 ML dulaglutide 3 MG/ML Auto-Injector [Trulicity] 021 12:00:00 AM EST eCW1 ([facility]) gabapentin 300 MG Oral Capsule 05/08/2020 12:00:00 AM EST eCW1 (Counts Include 234 Beds At The [facility]) 0.5 ML dulaglutide 3 MG/ML Auto-Injector [Trulicity] 021 12:00:00 AM EST eCW1 ([facility]) gabapentin 300 MG Oral Capsule 05/08/2020 12:00:00 AM EST eCW1 ([facility]) 0.5 ML dulaglutide 3 MG/ML Auto-Injector [Trulicity] 021 12:00:00 AM EST eCW1 ([facility]) gabapentin 300 MG Oral Capsule 05/08/2020 12:00:00 AM EST eCW1 (Counts Include [facility] At [facility]) 0.5 ML dulaglutide 3 MG/ML Auto-Injector [Trulicity] 021 12:00:00 AM EST eCW1 ([facility]) Trulicity 3 MG/0.5ML 05/08/2020 12:00:00 AM EST eCW1 (Counts Include [facility] At [facility]) gabapentin 300 MG Oral Capsule 05/08/2020 12:00:00 AM EST eCW1 (Counts Include [facility] At [facility]) 0.5 ML dulaglutide 3 MG/ML Auto-Injector [Trulicity] 12:00:00 AM EST eCW1 ([facility]) gabapentin 300 MG Oral Capsule 05/08/2020 12:00:00 AM EST eCW1 (Counts Include [facility] At [facility]) 0.5 ML dulaglutide 3 MG/ML Auto-Injector [Trulicity] 12:00:00 AM EST eCW1 ([facility]) pantoprazole 40 MG Delayed Release Oral Tablet 04/08/2020 12:00:00 AM EST eCW1 (Counts Include [facility] At [facility]) Diclofenac Sodium 0.03 MG/MG Topical Gel 04/08/2020 12:00:00 AM EST eCW1 (Counts Include [facility] At [facility]) pantoprazole 40 MG Delayed Release Oral Tablet 04/08/2020 12:00:00 AM EST eCW1 (Counts Include [facility] At [facility]) Diclofenac Sodium 0.03 MG/MG Topical Gel 04/08/2020 12:00:00 AM EST eCW1 ([facility] Include [facility])
--- OUTSIDE RECORDS SUMMARY | 2021-02-20 09:21 | CCD ---
Author Author [facility] Organization [facility] Address Unknown Phone Unavailable Care Team Providers Care Ware Dresser Name Role Phone Harry Correa Unavailable PROBLEMS Type Condition ICD9-CM Code JHR56-RN Code Onset Dates Condition S tatus W/U Status Risk SNOMED Code Notes Problem Other asthma J45.998 Active confirmed 597581 001 Problem Major depressive disorder, single episode, unspecified F32.9 Active confirmed 53186153 Problem Essential (primary) hypertension I10 Active conf irmed 76374930 Problem Breast cancer screening by mammogram Z12.31 Act [place] confirmed 515813539 Problem Postmenopausal status Z78.0 Active confirmed 28902798 Problem Asthma, unspecified, unspecified status 493.90 Active confirmed 29557429 Problem Paresthesia of both feet R20.2 Active confirmed 254144204 Problem 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 Active confirmed 215605472 Problem Adjustment disorder with depressed mood F43.21 Active confirmed 83639649 Problem Post traumatic stress disorder (PTSD) F43.10 Ac tive confirmed 43054463 Problem Primary osteoarthritis, right hand M19.041 Activ e confirmed [id number] Problem Borderline personality disorder F60.3 Active confi rmed 23516657 Problem Post traumatic stress disorder F43.10 Active confir med 43717026 Problem Routine gynecological examination Z01.419 Active confirmed 764252683 Problem Esophageal dysphagia R13.10 Active confirmed 12923776 Problem Restless leg syndrome G25.81 Active confirmed 04956666 Problem Primary osteoarthritis involving multiple joints M 89.49 Active confirmed 276633131 Problem Herpesviral infection of urogenital system, unspecified A60.00 Active confirmed 50593732 Problem Polymyalgia M35.3 Active confirmed 86551976 Problem Vitamin D deficiency, unspecified E55.9 Active con firmed 60764463 Problem Goiter diffuse, 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 Active confirmed 189093298 Problem Acquired hyperlipoproteinemia E78.5 Active confirm ed 1094023 Problem Type 2 diabetes mellitus wit hout complication, without long-term current use of insulin E11.9 Active confirmed 573924850 Problem ELISABETH (obstructive sleep apnea) G47.33 Active confirm ed 95293814 Problem Goiter E04.9 Active confirmed 1424042 ALLERGIES Allergen (clinical drug ingredient) Drug/Non Drug Allergy do cumented on EMR Reaction Allergy Type Onset Date Status Trulicity intractable nausea Non Drug Allergy Active penicillin G Penicillin G Sodium([facility] Code:[address]-70) rash D rug Allergy Active metformin (at higher doses) GI Non Drug Allergy Active ENCOUNTERS from 1960 to 2021-01-22 Encounter Location Date Provider Diagnosis [facility] [address] [place] [address] Jan, 2021 Harry Correa IMMUNIZATIONS Vaccine Route Administration Date Status Influenza [...] Education Language: Question Answer Notes Languages spoken: Croatian Sexual Hx: Question Answer Notes Had sex [...] Notes Start Da te End Date Status metFORMIN HCl 500 MG 1 tab Oral bid Active Pantoprazole Sodium 40 MG 1 tablet Orally bid Mar, Active Blood Glucose System Tono - as directed Daily E11.9 for 30 days Sep, Active Lancets - as directed _ Daily for 30 days Sep, Active OneTouch Verio - as directed In Vitro Daily for 30 days Sep, Active Fluticasone Propionate 50 MCG/ACT 1 spray in each nost ril Nasally Once a day for 30 day(s) August, Active FreeStyle Lancets - as directed Daily E11.9 for 30 Days Sep, Active Pepcid AC 10 MG 1 tablet as needed Orally Daily Not-Taking Naproxen Sodium 550 MG 1 tablet with food or milk a s needed Orally every 12 hrs for 30 Days Nov, Active Lisinopril 20 MG TAKE 1 TABLET BY MOUTH ONCE DAILY Oral for 30 days Active Arnuity Ellipta 100 MCG/ACT 1 puff Inhalation Once a day for 90 day(s) Nov, Active DULoxetine HCl 30 MG TAKE 1 CAPSULE BY MOUTH ONCE DAILY Oral for 30 Not-Taking Glimepiride 1 MG 1 tab Orally bid for 30 day(s) Oct, Active Acyclovir 400 MG TAKE 1 TABLET BY MOUTH TWICE DAILY for 30 Days Active Fluoxetine HCl 40 MG TAKE 1 CAPSULE BY MOUTH ONCE DAILY Oral for 30 Not-Taking Atorvastatin Calcium 10 MG 1 tablet Oral Daily for 30 days Active FreeStyle Test - as directed In Vitro Daily E11.9 for 30 Days Sep, Active Diclofenac Sodium 3 % 1 application Externally Twice a day for 30 Day s Unknown Trazodone HCl 100 MG TAKE 1 TABLET BY MOUTH AT BEDTIME Oral for 30 Active Metoprolol Tartrate 50 MG TAKE 1 TABLET BY MOUTH TWICE DAILY FOR 30 DAYS Oral for 30 Active Albuterol Sulfate HFA 108 (90 Base) MCG/ACT INHALE 2 P UFFS BY MOUTH EVERY 4 HOURS NEEDED Inhalation for 25 Active Gabapentin 300 MG 1 capsule Orally tid for 30 Days Apr, Not-Taking Vitamin D (Ergocalciferol) 1.25 MG (40911 UT) TAKE 1 C APSULE BY MOUTH ONCE A WEEK Oral for 28 Not-Taking Gabapentin 100 MG 3 capsules Orally bid for 30 Not-Taking hydrOXYzine HCl 10 MG TAKE 1 TABLET BY MOUTH THREE TIMES DAILY NEEDED Oral for 30 Active rOPINIRole HCl 2 MG 1 tablet 1 to 3 hours before bedtime Orally Once a day for 30 days Not-Taking PROCEDURES No Information RESULTS No Results REASON FOR VISIT referral MEDICAL (GENERAL) HISTORY Type Description Date Medical [...] feet, had NCS in past (not available), responded to gabapentin, NCS repeated 10/26: moderate tibial nerve compression across forelegs and mild-moderate bilateral plantar nerve compression Medical History OCD/PTSD, saw counsellor 2017 Medical [...] No Information FUNCTIONAL STATUS No Information ASSESSMENTS No Information PLAN OF TREATMENT Medication Medication Name Sig Start Date Stop Date Naproxen Sodium 550 MG 1 tablet with food or milk a s needed Orally every 12 hrs for 30 Days Nov, Next Appt Details Provider Name:Harry Correa, 2021-01 09:45:00 AM, [address] [facility], , [place], [address], Provider Name:Becky Barry, 12:00:00 AM, [address] [place] [address], , [place], [address], Insurance Providers Payer Name Payer Address Payer Phone Insured Name Patient Relati onship to Insured Coverage Start Date Coverage End Date [place] (NON MEDICAID MANAGED CARE) CORPORATE CLAIMS DEPT [address] [facility] [address] CARINA RAY self
--- OUTSIDE RECORDS SUMMARY | 2021-02-20 09:21 | CCD ---
Author Author [facility] Organization [facility] Address Unknown Phone Unavailable Care Team Providers Care Planer Operator / Grader Name Role Phone Becky Barry Unavailable PROBLEMS Type Condition ICD9-CM Code SIM18-SM Code Onset Dates Condition S tatus W/U Status Risk SNOMED Code Notes Problem Other asthma J45.998 Active confirmed 721911 001 Problem Major depressive disorder, single episode, unspecified F32.9 Active confirmed 60369478 Problem Essential (primary) hypertension I10 Active conf irmed 24758787 Problem Breast cancer screening by mammogram Z12.31 Act [place] confirmed 585257542 Problem Postmenopausal status Z78.0 Active confirmed 33915023 Problem Asthma, unspecified, unspecified status 493.90 Active confirmed 47260036 Problem Paresthesia of both feet R20.2 Active confirmed 674409827 Problem 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 Active confirmed 685767280 Problem Adjustment disorder with depressed mood F43.21 Active confirmed 81057859 Problem Post traumatic stress disorder (PTSD) F43.10 Ac tive confirmed 09929885 Problem Primary osteoarthritis, right hand M19.041 Activ e confirmed [id number] Problem Borderline personality disorder F60.3 Active confi rmed 38514736 Problem Post traumatic stress disorder F43.10 Active confir med 67597006 Problem Routine gynecological examination Z01.419 Active confirmed 659393785 Problem Esophageal dysphagia R13.10 Active confirmed 98710381 Problem Restless leg syndrome G25.81 Active confirmed 83401003 Problem Primary osteoarthritis involving multiple joints M 89.49 Active confirmed 958191334 Problem Herpesviral infection of urogenital system, unspecified A60.00 Active confirmed 79387259 Problem Polymyalgia M35.3 Active confirmed 51005616 Problem Vitamin D deficiency, unspecified E55.9 Active con firmed 19061498 Problem Goiter diffuse, 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 Active confirmed 379945979 Problem Acquired hyperlipoproteinemia E78.5 Active confirm ed 2452014 Problem Type 2 diabetes mellitus wit hout complication, without long-term current use of insulin E11.9 Active confirmed 117037282 Problem ELISABETH (obstructive sleep apnea) G47.33 Active confirm ed 15931413 Problem Goiter E04.9 Active confirmed 8475799 ALLERGIES Allergen (clinical drug ingredient) Drug/Non Drug Allergy do cumented on EMR Reaction Allergy Type Onset Date Status Trulicity intractable nausea Non Drug Allergy Active penicillin G Penicillin G Sodium([facility] Code:[address]-52) rash D rug Allergy Active metformin (at higher doses) GI Non Drug Allergy Active ENCOUNTERS from 1960 to 2020-12-05 Encounter Location Date Provider Diagnosis [facility] Rheumatology [address] [place] [address] [place] [address] Nov, Becky Barry Polymyalgia M35.3 and Primar y osteoarthritis involving multiple joints M89.49 IMMUNIZATIONS Vaccine Route Administration Date Status Influenza [...] Education Language: Question Answer Notes Languages spoken: Czech Sexual Hx: Question Answer Notes Had sex [...] REASON FOR REFERRAL No Information VITAL SIGNS Weight 234.4 lbs Nov, Weight-kg 106.32 kg Nov, Height 64 in Nov, BMI 40.23 kg/m2 Nov, Heart Rate 87 /min Nov, Respiratory Rate 18 /min Nov, Temperature 98.0 degrees Fahrenheit Nov, Oximetry 96% Nov, Blood pressure systolic 142 mm Hg Nov, Blood pressure diastolic 78 mm Hg Nov, MEDICATIONS Medication SIG (Take, Route, Frequency, Duration) [...] Apr, Not-Taking Vitamin D (Ergocalciferol) 1.25 MG (06690 UT) TAKE 1 C APSULE BY MOUTH [...] 30 days Not-Taking PROCEDURES No Information RESULTS Component Value Reference Range CBC with Differential Reviewed date:12/04/2020 14:00:01 Interpretation: Performing Lab:[facility], [facility] [address] [address] , ,[facility] WHITE BLOOD COUNT 7.5 4.0-10.0 RED BLOOD COUNT 4.49 4.00-5.40 HEMOGLOBIN 14.1 12.0-15.5 HEMATOCRIT 43.6 36.0-47.0 MEAN CORPUSCULAR VOLUME 97.1 80.0-96.0 MEAN CORPUSCULAR HEMOGLOBIN 31.4 27.0-33.0 MEAN CORPUSCULAR HGB CONC 32.3 32.0-36.5 RED CELL DISTRIBUTION WIDTH 12.2 11.5-14.5 PLATELET COUNT, AUTOMATED 310 150-450 NEUTROPHILS % 55.5 36.0-66.0 LYMPH % 33.1 24.0-44.0 MONO % 8.0 2.0-8.0 EOS % 2.5 0.0-3.0 BASO % 0.4 0.0-1.0 NEUTROPHILS # 4.2 1.5-8.5 LYMPH # 2.5 1.5-5.0 MONO # 0.6 0.0-0.8 EOS # 0.2 0.0-0.5 BASO # 0.0 0.0-0.2 Comprehensive Metabolic Profile (CMP) Reviewed date:12/04/2020 14:00:01 Interpretation: Performing Lab:[facility] [address] [facility] [address] , ,[place] [address] GLUCOSE, FASTING 170 70-100 BLOOD UREA NITROGEN 21 7-18 CREATININE FOR GFR 0.66 0.55-1.30 GLOMERULAR FILTRATION RATE > 60.0 >51 SODIUM LEVEL 138 136-145 POTASSIUM SERUM 4.4 3.5-5.1 CHLORIDE LEVEL 106 98-107 CARBON DIOXIDE LEVEL 26 21-32 CALCIUM LEVEL 8.9 8.5-10.1 AST/SGOT 42 7-37 ALT/SGPT 68 12-78 ALKALINE PHOSPHATASE 61 45-117 BILIRUBIN,TOTAL 0.5 0.2-1.0 TOTAL PROTEIN 7.0 6.4-8.2 ALBUMIN 3.5 3.2-5.2 ALBUMIN/GLOBULIN RATIO 1.0 1.2-2.2 C REACTIVE PROTEIN QUANTITATIV (At [facility]) Reviewed date:12/04/2020 14:00:01 Interpretation: Performing Lab:[facility] [address] [facility] [address] , ,[place] [address] C REACTIVE PROTEIN QUANTITATIV 0.74 0.00-0.30 ERYTHROCYTE SEDIMENTATION RATE Reviewed date:12/04/2020 14:00:01 Interpretation: Performing Lab:[facility] [address] [facility] [address] , ,[place] [address] ERYTHROCYTE SEDIMENTATION RATE 15 0-30 RHEUMATOID FACTOR QUANT Reviewed date:12/04/2020 14:00:01 Interpretation: Performing Lab:[facility] [address] [facility] [address] , ,[place] [address] RHEUMATOID FACTOR QUANT < 10.0 <15.0 REASON FOR VISIT Patient is here for a new patient appointment. She has never seen rheumatology b efore. States that she was referred for generalized joint pain. MEDICAL (GENERAL) HISTORY Type Description Date Medical [...] Notes Treatment Notes Treatm ent Clinical Notes Nov, Polymyalgia (ICD-10 - M35.3) hands mainly DIP, PIP and MCP, left shoulder pain radiation down the arm , left knee , left ankle ( h/o surgery for posterior tibial tendon tear ) , left elbow No evidence of inflammatory arthritis on exam Extensive evidence of osteoarthritis Daughter with history of psoriatic arthritis Hence we will do detailed evaluation with labs and x-rays Start naproxen 550 mg twice daily as needed Avoid all other NSAIDs with naproxen Return in 2-month Nov, Primary osteoarthritis involving multipl e joints (ICD-10 - M89.49) Heberden's and Anderson's nodes X-rays ordered to evaluate for erosive OA Continue follow-up with orthopedics at [facility] Nov, Other PATIENT INSTRUCTIONS : Labs today here Xrays ordered start naproxen 550 mg twice a day as needed with food and plenty of water avoid other NSAIDs with it , can take tylenol return in 6- 8 weeks More than 50% of the 55 minute visit was spent in patient education, counseling, and coordination of care. I reviewed her symptoms, imaging findings, laboratory results, physical findings, and treatment to date. I have answered patient's questions, and they stated satisfaction regarding the treatment plan and recommendations. PLAN OF TREATMENT Medication Medication Name Sig Start Date Stop Date Naproxen Sodium 550 MG 1 tablet with food or milk a s needed Orally every 12 hrs for 30 Days Nov, Treatment Notes Assessment Notes Clinical Notes Polymyalgia hands mainly DIP, PI P and MCP, left shoulder pain radiation down the arm , left knee , left ankle ( h/o surgery for posterior tibial tendon tear ) , left elbowNo evidence of inflammatory arthritis on examExtensive evidence of osteoarthritisDaughter with history of psoriatic arthritisHence we will do detailed evaluation with labs and x-raysStart naproxen 550 mg twice daily as neededAvoid all other NSAIDs with naproxenReturn in 2-month Primary osteoarthritis involving multiple joints Heberden's and Anderson's nodesX-rays ordered to evaluate for erosive OAContinue follow-up with orthopedics at [facility] Treatment Notes Test Name Order Date CYCLIC CITRULLINATED PEPTIDE 2020-12-04 HLA-B27 2020-12-04 FRANNY TITER & PATTERN 2020-12-04 [facility] SI Joints 2020-12-04 [facility] Spine, Thoracic 3 VIEWS 2020-12-04 [facility] Hand, complete 2020-12-04 [facility] Spine, Lumbosacral w/flex-ext 2020-12-04 [facility] Foot, complete 2020-12-04 [facility] SPINE CERVICAL W/AP/FLEX/EXT 2020-12-04 Next Appt Details 6 Weeks Reason:F/U POLYMYALGIA Provider Name:Harry Correa, 2021-01 02:15:00 PM, [address] , , [place], [address], Provider Name:Becky Barry, 12:00:00 AM, [address] [place] [address], , [place], [address], Follow Up:6 WeeksF/U POLYMYALGIA Insurance Providers Payer Name Payer Address Payer Phone Insured Name Patient Relati onship to Insured Coverage Start Date Coverage End Date [place] (NON MEDICAID MANAGED CARE) CORPORATE CLAIMS DEPT [address] [facility] [phone] CARINA RAY self
--- OUTSIDE RECORDS SUMMARY | 2021-02-20 09:21 | CCD ---
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 Active confirmed 073008573 Problem Herpesviral infection of urogenital system, unspecified A60.00 Active confirmed 81693458 Problem Asthma, unspecified, unspecified status 493.90 Active confirmed 18428811 Problem Paresthesia of both feet R20.2 Active confirmed 535222839 Problem 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 Active confirmed 581642721 Problem Adjustment disorder with depressed mood F43.21 Active confirmed 21030466 Problem Post traumatic stress disorder F43.10 Active confir med 48870869 Problem Other asthma J45.998 Active confirmed 704548 001 Problem Primary osteoarthritis, right hand M19.041 Activ e confirmed 9731405175926693 Problem Routine gynecological examination Z01.419 Active confirmed 683506991 Problem Postmenopausal status Z78.0 Active confirmed 22724183 Problem Breast cancer screening by mammogram Z12.31 Act [place] confirmed 562021566 Problem ELISABETH (obstructive sleep apnea) G47.33 Active confirm ed 45007853 Problem Borderline personality disorder F60.3 Active confi rmed 56558050 Problem Major depressive disorder, single episode, unspecified F32.9 Active confirmed 66478400 Problem Goiter E04.9 Active confirmed 0133169 Problem Post traumatic stress disorder (PTSD) F43.10 Ac tive confirmed 69376224 Problem Essential (primary) hypertension I10 Active conf irmed 66349141 Problem Vitamin D deficiency, unspecified E55.9 Active con firmed 26658036 Problem Esophageal dysphagia R13.10 Active confirmed 51330336 Problem Restless leg syndrome G25.81 Active confirmed 78039860 Problem Acquired hyperlipoproteinemia E78.5 Active confirm ed 6329060 Problem Type 2 diabetes mellitus wit hout complication, without long-term current use of insulin E11.9 Active confirmed 890265435 ALLERGIES Allergen (clinical drug ingredient) Drug/Non Drug Allergy do cumented on EMR Reaction Allergy Type Onset Date Status Trulicity intractable nausea Non Drug Allergy Active penicillin G Penicillin G Sodium([facility] Code:[address]-14) rash D rug Allergy Active metformin (at higher doses) GI Non Drug Allergy Active ENCOUNTERS from 1960 to 2020-11-27 Encounter Location Date Provider Diagnosis [facility] [address] [place] [address] Nov, 2020 Harry Correa IMMUNIZATIONS Vaccine Route Administration Date [...] Education Language: Question Answer Notes Languages spoken: Armenian Sexual Hx: Question Answer Notes Had sex [...] Notes Start Da te End Date Status Atorvastatin Calcium 10 MG 1 tablet Oral Daily for 30 days Active Fluticasone Propionate 50 MCG/ACT 1 spray in each nost ril Nasally Once a day for 30 day(s) August, Active Lisinopril 20 MG TAKE 1 TABLET BY MOUTH ONCE DAILY Oral for 30 days Active Diclofenac Sodium 3 % 1 application Externally Twice a day for 30 Day s Active OneTouch Verio - as directed In Vitro Daily for 30 days Sep, Active Lancets - as directed _ Daily for 30 days Sep, Active Acyclovir 400 MG TAKE 1 TABLET BY MOUTH TWICE DAILY for 30 Days Active FreeStyle Test - as directed In Vitro Daily E11.9 for 30 Days Sep, Active Pantoprazole Sodium 40 MG 1 tablet Orally Once a day for 30 day( s) Mar, Active hydrOXYzine HCl 10 MG TAKE 1 TABLET BY MOUTH THREE TIMES DAILY NEEDED Oral for 30 Active Gabapentin 300 MG 1 capsule Orally tid for 30 Days Apr, Not-Taking Fluoxetine HCl 40 MG TAKE 1 CAPSULE BY MOUTH ONCE DAILY Oral for 30 Not-Taking Blood Glucose System Tono - as directed Daily E11.9 for 30 days Sep, Active Vitamin D (Ergocalciferol) 1.25 MG (20181 UT) TAKE 1 C APSULE BY MOUTH ONCE A WEEK Oral for 28 Not-Taking Glimepiride 1 MG 1 tab Orally bid for 30 day(s) Oct, Active FreeStyle Lancets - as directed Daily E11.9 for 30 Days Sep, Active metFORMIN HCl 500 MG 1 tab Oral bid Active rOPINIRole HCl 2 MG 1 tablet 1 to 3 hours before bedtime Orally Once a day for 30 days Not-Taking Metoprolol Tartrate 50 MG TAKE 1 TABLET BY MOUTH TWICE DAILY FOR 30 DAYS Oral for 30 Active Pepcid AC 10 MG 1 tablet as needed Orally Daily Not-Taking Gabapentin 100 MG 3 capsules Orally bid for 30 Not-Taking Flovent HFA 220 MCG/ACT 1 puff Inhalation Twice a day as needed for 30 Days Jan, Active DULoxetine HCl 30 MG TAKE 1 CAPSULE BY MOUTH ONCE DAILY Oral for 30 Not-Taking Albuterol Sulfate HFA 108 (90 Base) MCG/ACT INHALE 2 P UFFS BY MOUTH EVERY 4 HOURS NEEDED Inhalation for 25 Active Arnuity Ellipta 100 MCG/ACT 1 puff Inhalation Once a day for 90 day(s) Nov, Active PROCEDURES No Information RESULTS No Results REASON FOR VISIT PA Flovent HFA 220mcg/act MEDICAL (GENERAL) HISTORY Type Description Date Medical [...] Medication Name Sig Start Date Stop Date Albuterol Sulfate HFA 108 (90 Base) MCG/ACT INHALE 2 P UFFS BY MOUTH EVERY 4 HOURS NEEDED Inhalation for 25 Arnuity Ellipta 100 MCG/ACT 1 puff Inhalation Once a day for 90 day(s) Nov, Flovent HFA 220 MCG/ACT 1 puff Inhalation Twice a day as nee ded for 30 Days Jan, Next Appt Details Provider Name:Becky Barry, 07:15:00 AM, [address] [place] [address], , [place], [address], Provider Name:Harry Correa, 2021-10 -22 02:15:00 PM, [address], , [place], [address], Insurance Providers Payer Name Payer Address Payer Phone Insured Name Patient Relati onship to Insured Coverage Start Date Coverage End Date [place] (NON MEDICAID MANAGED CARE) CORPORATE CLAIMS DEPT [address] [facility] [phone] CARINA RAY self
--- OUTSIDE RECORDS SUMMARY | 2021-02-20 09:21 | CCD ---
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 Active confirmed 746608126 Problem Herpesviral infection of urogenital system, unspecified A60.00 Active confirmed 14647159 Problem Asthma, unspecified, unspecified status 493.90 Active confirmed 90042552 Problem Paresthesia of both feet R20.2 Active confirmed 145919123 Problem 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 Active confirmed 195362835 Problem Adjustment disorder with depressed mood F43.21 Active confirmed 00626553 Problem Post traumatic stress disorder F43.10 Active confir med 00142660 Problem Other asthma J45.998 Active confirmed 018263 001 Problem Primary osteoarthritis, right hand M19.041 Activ e confirmed [id number] Problem Routine gynecological examination Z01.419 Active confirmed 209754641 Problem Postmenopausal status Z78.0 Active confirmed 51806300 Problem Breast cancer screening by mammogram Z12.31 Act [place] confirmed 639964091 Problem ELISABETH (obstructive sleep apnea) G47.33 Active confirm ed 50012961 Problem Borderline personality disorder F60.3 Active confi rmed 58525747 Problem Major depressive disorder, single episode, unspecified F32.9 Active confirmed 98877009 Problem Goiter E04.9 Active confirmed 9515889 Problem Post traumatic stress disorder (PTSD) F43.10 Ac tive confirmed 06653599 Problem Essential (primary) hypertension I10 Active conf irmed 92338764 Problem Vitamin D deficiency, unspecified E55.9 Active con firmed 83224869 Problem Esophageal dysphagia R13.10 Active confirmed 26214033 Problem Restless leg syndrome G25.81 Active confirmed 91407889 Problem Acquired hyperlipoproteinemia E78.5 Active confirm ed 5322550 Problem Type 2 diabetes mellitus wit hout complication, without long-term current use of insulin E11.9 Active confirmed 992419788 ALLERGIES Allergen (clinical drug ingredient) Drug/Non Drug Allergy do cumented on EMR Reaction Allergy Type Onset Date Status Trulicity intractable nausea Non Drug Allergy Active penicillin G Penicillin G Sodium([facility] Code:[address]-75) rash D rug Allergy Active metformin (at higher doses) GI Non Drug Allergy Active ENCOUNTERS from 1961 to 2020-11-26 Encounter Location Date Provider Diagnosis [facility] [address] [place] [id number] Oct, Harry Correa Type 2 diabetes mellitus without complic ation, without long-term current use of insulin E11.9 ; Paresthesia of both feet R20.2 ; Essential (primary) hypertension I10 ; Restless leg syndrome G25.81 and Acquired hyperlipoproteinemia E78.5 IMMUNIZATIONS Vaccine Route Administration Date Status Influenza [...] Education Language: Question Answer Notes Languages spoken: [place] Sexual Hx: Question Answer Notes Had sex [...] FOR REFERRAL No Information VITAL SIGNS Weight 234 lbs Oct, Height 64 in Oct, BMI 40.16 kg/m2 Oct, Heart Rate 129 /min Oct, Respiratory Rate 18 /min Oct, Temperature 97.1 degrees Fahrenheit Oct, Oximetry 99 Oct, Blood pressure systolic 144 mm Hg Oct, Blood pressure diastolic 82 mm Hg Oct, MEDICATIONS Medication SIG (Take, Route, Frequency, Duration) [...] Daily E11.9 for 30 Days Sep, Active Glimepiride 1 MG 1 tab Orally bid for 30 day(s) Oct, Active Pantoprazole Sodium 40 MG 1 tablet Orally Once a day for 30 day( s) Mar, Active rOPINIRole HCl 2 MG 1 tablet 1 to 3 hours before bedtime Orally Once a day for 30 days Not-Taking Arnuity Ellipta 100 MCG/ACT 1 puff Inhalation Once a day for 90 day(s) Nov, Active Blood Glucose System Tono - as directed Daily E11.9 for 30 days Sep, Active Pepcid AC 10 MG 1 tablet as needed Orally Daily Not-Taking Fluoxetine HCl 40 MG TAKE 1 CAPSULE BY MOUTH ONCE DAILY Oral for 30 Not-Taking FreeStyle Lancets - as directed Daily E11.9 for 30 Days Sep, Active metFORMIN HCl 500 MG 1 tab Oral bid Active Vitamin D (Ergocalciferol) 1.25 MG (71272 UT) TAKE 1 C APSULE BY MOUTH ONCE A WEEK Oral for 28 Not-Taking Metoprolol Tartrate 50 MG TAKE 1 TABLET BY MOUTH TWICE DAILY FOR 30 DAYS Oral for 30 Active hydrOXYzine HCl 10 MG TAKE 1 TABLET BY MOUTH THREE TIMES DAILY NEEDED Oral for 30 Active Gabapentin 300 MG 1 capsule Orally tid for 30 Days Apr, Not-Taking DULoxetine HCl 30 MG TAKE 1 CAPSULE BY MOUTH ONCE DAILY Oral for 30 Not-Taking Gabapentin 100 MG 3 capsules Orally bid for 30 Not-Taking Flovent HFA 220 MCG/ACT 1 puff Inhalation Twice a day as needed for 30 Days Jan, Active Albuterol Sulfate HFA 108 (90 Base) MCG/ACT INHALE 2 P UFFS BY MOUTH EVERY 4 HOURS NEEDED Inhalation for 25 Active PROCEDURES No Information RESULTS No Results REASON FOR VISIT 3 month MEDICAL (GENERAL) HISTORY Type Description Date Medical [...] Notes Treatment Notes Treatm ent Clinical Notes Oct, Type 2 diabetes mellitus wit hout complication, without long-term current use of insulin (ICD-10 - E11.9) Oct, Paresthesia of both feet (ICD-10 - R20.2) Oct, Essential (primary) hypertension (ICD-10 - I10) Oct, Restless leg syndrome (ICD-10 - G25.81) Oct, Acquired hyperlipoproteinemia (ICD-10 - E78.5) PLAN OF TREATMENT Medication Medication Name Sig Start Date Stop Date Flovent HFA 220 MCG/ACT 1 puff Inhalation Twice a day as nee ded for 30 Days Jan, Albuterol Sulfate HFA 108 (90 Base) MCG/ACT INHALE 2 P UFFS BY MOUTH EVERY 4 HOURS NEEDED Inhalation for 25 Arnuity Ellipta 100 MCG/ACT 1 puff Inhalation Once a day for 90 day(s) Nov, Future Test Test Name Order Date Basic Metabolic Profile (BMP) [id number] HEMOGLOBIN A1c [id number] Next Appt Details 3 Months Reason: Provider Name:Becky Barry, 07:15:00 AM, [address] [place] [address], , [place], [address], Provider Name:Harry Correa, 2021-01 02:15:00 PM, [id number] [facility], , [place], [address], Insurance Providers Payer Name Payer Address Payer Phone Insured Name Patient Relati onship to Insured Coverage Start Date Coverage End Date [place] ([employer] MEDICAID [employer]NAGED C[employer]) CORPORATE CLAIMS DEPT [address] [facility] [phone] CARINA RAY self
[2021-02-20] MEDS ORDERED: dexameTHASONE 4 MG/ML 1ML VIAL (J1100 PER 1MG) IV ONE (10:45)
[2021-02-20] MEDS: COMBIVENT RESPIMAT 100-20MCG INHALER 4GM INH SCH ×2 (11:04→11:18)
[2021-02-20 11:16] LABS: VENOUS BASE EXCESS 0.1 (-2.0-2.0); VENOUS HCO3 25.2 MEQ/L (23.0-27.0); VENOUS O2 SATURATION 45.5 % (60.0-80.0); VENOUS PARTIAL PRESSURE CO2 42.5 mmHg (38.0-50.0); VENOUS PARTIAL PRESSURE O2 23.5 mmHg (30.0-50.0); VENOUS PH 7.391 UNITS (7.330-7.430); VENOUS STANDARD HCO3 23.3 MEQ/L; VENOUS TOTAL CO2 26.5 MEQ/L (24.0-28.0)
--- NOTE | 2021-02-20 11:16 | REP ---
INDICATION: DYSPNEA/COUGH. COMPARISON: None. TECHNIQUE: Portable FINDINGS: The technique utilized in obtaining the radiograph has magnified the cardiac silhouette and accentuated the interstitial markings. The cardiomediastinal silhouette is within normal limits. Diffuse bilateral patchy interstitial and airspace opacities are present. The pleural angles are sharp. The osseous structures are within normal limits. IMPRESSION: Lung space opacities consistent with pneumonia. <Electronically signed by Parish Quezada > 02/20/21 [id number]
[2021-02-20 11:20] LABS: BASO # 0.1 10^3/uL (0.0-0.2); BASO % 0.6 % (0.0-1.0); EOS # 0.3 10^3/uL (0.0-0.5); EOS % 2.5 % (0.0-3.0); HEMATOCRIT 43.2 % (36.0-47.0); HEMOGLOBIN 13.7 g/dl (12.0-15.5); LYMPH # 2.3 10^3/uL (1.5-5.0); LYMPH % 22.2 % (24.0-44.0); MEAN CORPUSCULAR HGB CONC 31.7 g/dl (32.0-36.5); MEAN CORPUSCULAR VOLUME 94.7 fl (80.0-96.0); MONO # 0.6 10^3/uL (0.0-0.8); MONO % 5.9 % (2.0-8.0); NEUTROPHILS # 6.6 10^3/uL (1.5-8.5); NEUTROPHILS % 64.6 % (36.0-66.0); PLATELET COUNT, AUTOMATED 217 10^3/uL (150-450); RED BLOOD COUNT 4.56 10^6/uL (4.00-5.40); WHITE BLOOD COUNT 10.2 10^3/uL (4.0-10.0)
[2021-02-20] MEDS ORDERED: GLIM1TAB4 PO (11:43)
[2021-02-20] MEDS ORDERED: IRBE150T7 PO (11:43)
[2021-02-20] MEDS ORDERED: TRAZ1TAB14 PO (11:43)
[2021-02-20] MEDS ORDERED: HOME MED LIST COMPLETE! XX SCH (11:45)
[2021-02-20] MEDS ORDERED: INSU100V8 SC (11:45)
[2021-02-20 11:58] LABS: ALBUMIN 2.2 GM/DL (3.2-5.2); ALT/SGPT 73 U/L (12-78); BILIRUBIN,DIRECT 0.2 MG/DL (0.0-0.2); BILIRUBIN,TOTAL 0.4 MG/DL (0.2-1.0); BLOOD UREA NITROGEN 13 MG/DL (7-18); CALCIUM LEVEL 8.5 MG/DL (8.8-10.2); CARBON DIOXIDE LEVEL 26 MEQ/L (21-32); CHLORIDE LEVEL 102 MEQ/L (98-107); CK-MB VALUE MASS 1.3 NG/ML (<3.6); CPK CREATINE PHOSPHOKINASE 67 U/L (26-192); GLOMERULAR FILTRATION RATE > 60.0 (>45); GLUCOSE, FASTING 202 MG/DL (70-100); MB/CK RELATIVE INDEX 1.94 (< OR =4); NT-PRO BNP 55 PG/ML (<125); POTASSIUM SERUM 4.8 MEQ/L (3.5-5.1); SODIUM LEVEL 136 MEQ/L (136-145); THYROXINE (T4) 13.5 UG/DL (4.5-12.0); TOTAL PROTEIN 7.1 GM/DL (6.4-8.2); TROPONIN I < 0.02 NG/ML (< 0.10)
--- OUTSIDE RECORDS SUMMARY | 2021-02-20 12:27 | CCD ---
Author Author [facility] Organization [facility] Address Unknown Phone Unavailable Care Team Providers Care Certifed Refrigeration Operator Name Role Phone DINORAH VAZQUEZ MD Unavailable [...] MD Unavailable Unavailable GEORGEDINORAH MD Unavailable Unavailable Charlebois, A Bailee RPA [...] is protected by Article 27-F of the [facility] Public Health law. If you continue you may have access to information: Regarding HIV / AIDS; Provided by facilities licensed or operated by the [facility] Office of Mental Health; or Provided by the [facility] Office for People With Developmental Disabilities. If such information is present, then the following [facility] mandated warning applies: This information has [...] law may result in a fine or fci sentence or both. A general authorization for the release of medical or other information is NOT sufficient authorization for further disc losure. Family History Family Member Name Family Member Gender Family Member Status Date o f Status Description Data Source(s) Unknown Male Problem MEDENT ([facility] Unknown Unknown Problem MEDENT ([facility] ) Encounters Encounter Providers Location Date Indications Data Source(s ) Recurring Patient Attender: DINORAH GEORGE MDReferrer: Harry gutierrez MD 02/05/2021 01:16:31 PM EDT [facility] Outpatient [address] [facility] [address] 02/04/2021 12:00:00 AM EDT eCW1 ([facility]) Unknown [address] [facility] [address] 02/04/2021 12:00:00 AM EDT eCW1 ([facility]) [place] [address] [facility] [place] [address] 02/04/2021 12:00:00 AM EDT eCW1 ([facility]) Unknown [address] [facility] [address] 01/19/2021 12:00:00 AM EDT eCW1 ([facility]) Outpatient [address] [facility] [address] 12/04/2020 12:00:00 AM EDT eCW1 ([facility]) [place] [address] [facility] [place] [address] 11/21/2020 12:00:00 AM EDT eCW1 ([facility]) [place] [address] [facility] [place] [address] 11/05/2020 12:00:00 AM EDT eCW1 ([facility]) [place] [address] [facility] [place] [address] 11/04/2020 12:00:00 AM EDT eCW1 ([facility]) [place]patient [address] [facility] [place] [address] 10/30/2020 12:00:00 AM EDT eCW1 ([facility]) [place] [address] [facility] [place] [address] 10/28/2020 12:00:00 AM EDT eCW1 ([facility]) Unknown [address] [facility] [place] [address] 10/21/2020 12:00:00 AM EDT eCW1 ([facility]) Unknown [address] [facility] [address] 09/24/2020 12:00:00 AM EDT eCW1 ([facility]) Unknown [address] [facility] [address] 09/24/2020 12:00:00 AM EDT eCW1 ([facility]) Outpatient Attender: Bailee Tobin/[place]/A ngel/Reindl 09/04/2020 10:30:00 AM EDT MEDENT ([facility]) Unknown [address] [facility] [address] 08/26/2020 12:00:00 AM EDT eCW1 ([facility]) Unknown [address] [facility] [address] 08/21/2020 12:00:00 AM EDT eCW1 ([facility]) Unknown [address] [facility] [address] 05/27/2020 12:00:00 AM EST eCW1 [facility] Outpatient Attender: Bailee Wells RPA C Crista/[place]/A ngel/Reindl 05/22/2020 01:00:00 PM EST MEDENT ([facility]) Outpatient [address] [facility] [address] 05/08/2020 12:00:00 AM EST eCW1 ([facility]) Unknown [address] [facility] [address] 04/14/2020 12:00:00 AM EST eCW1 ([facility]) Outpatient [address] [facility] [address] 04/08/2020 12:00:00 AM EST eCW1 ([facility]) Unknown [address] [facility] [address] 03/31/2020 12:00:00 AM EST eCW1 ([facility]) Unknown [address] [facility] [address] 03/28/2020 12:00:00 AM EST eCW1 ([facility]) Unknown [address] [facility] [address] 03/20/2020 12:00:00 AM EST eCW1 ([facility]) Unknown [address] [facility] [address] 03/20/2020 12:00:00 AM EST eCW1 ([facility]) Unknown [address] [facility] [address] 01/28/2020 12:00:00 AM EDT eCW1 ([facility]) Immunizations Vaccine Date Status Description Data Source(s) influenza, recombinant, quadrIvalent,injectable, prese rvative free 02/04/2021 11:51:00 AM EDT completed eCW1 ([facility]) influenza, recombinant, quadrIvalent,injectable, prese rvative free 02/04/2021 11:51:00 AM EDT completed eCW1 ([facility]) influenza, recombinant, quadrIvalent,injectable, prese rvative free 02/04/2021 11:51:00 AM EDT completed eCW1 ([facility]) COVID-19 VACCINE Pfizer 07/09/2020 12:00:00 AM EDT completed [facility] Vaccine Series Complete: YESThis Data wa s Submitted to [facility] Via [employer]. COVID-19 VACCINE Pfizer 06/18/2020 12:00:00 AM EST completed [facility]IS Vaccine Series Complete: NOThis Data was Submitted to [facility] [employer]. influenza, recombinant, quadrIvalent,injectable, prese rvative free 05/08/2020 11:12:00 AM EST completed eCW1 ([facility]) influenza, recombinant, quadrIvalent,injectable, prese rvative free 05/08/2020 11:12:00 AM EST completed eCW1 ([facility]) influenza, recombinant, quadrIvalent,injectable, prese rvative free 05/08/2020 11:12:00 AM EST completed eCW1 ([facility]) influenza, recombinant, quadrIvalent,injectable, prese rvative free 05/08/2020 11:12:00 AM EST completed eCW1 ([facility]) influenza, recombinant, quadrIvalent,injectable, prese rvative free 05/08/2020 11:12:00 AM EST completed eCW1 ([facility]) influenza, recombinant, quadrIvalent,injectable, prese rvative free 05/08/2020 11:12:00 AM EST completed eCW1 ([facility]) influenza, recombinant, quadrIvalent,injectable, prese rvative free 05/08/2020 11:12:00 AM EST completed eCW1 ([facility]) influenza, recombinant, quadrIvalent,injectable, prese rvative free 05/08/2020 11:12:00 AM EST completed eCW1 ([facility]) influenza, recombinant, quadrIvalent,injectable, prese rvative free 05/08/2020 11:12:00 AM EST completed eCW1 ([facility]) influenza, recombinant, quadrIvalent,injectable, prese rvative free 05/08/2020 11:12:00 AM EST completed eCW1 ([facility]) influenza, recombinant, quadrIvalent,injectable, prese rvative free 05/08/2020 11:12:00 AM EST completed eCW1 ([facility]) influenza, recombinant, quadrIvalent,injectable, prese rvative free 05/08/2020 11:12:00 AM EST completed eCW1 ([facility]) influenza, recombinant, quadrIvalent,injectable, prese rvative free 05/08/2020 11:12:00 AM EST completed eCW1 ([facility]) influenza, recombinant, quadrIvalent,injectable, prese rvative free 05/08/2020 11:12:00 AM EST completed eCW1 ([facility]) influenza, recombinant, quadrIvalent,injectable, prese rvative free 05/08/2020 11:12:00 AM EST completed eCW1 ([facility]) influenza, recombinant, quadrIvalent,injectable, prese rvative free 05/08/2020 11:12:00 AM EST completed eCW1 ([facility]) influenza, recombinant, quadrIvalent,injectable, prese rvative free 05/08/2020 11:12:00 AM EST completed eCW1 ([facility]) Medications Medication Brand Name Start Date Product Form Dose Route Admi nistrative Instructions Pharmacy Instructions Status Indications Reaction Description Data Source(s) Semglee 100 UNIT/ML Semglee 100 UNIT/ML 02/04/2021 12:00:00 AM EDT active Semglee 100 UNIT/ML eCW1 ([facility]) BD Pen Needle Micro U/F 32G X 6 MM BD Pen Needle Micro U/F 3 2G X 6 MM 02/04/2021 12:00:00 AM EDT active BD Pen N eedle Micro U/F 32G X 6 MM eCW1 ([facility]) irbesartan 150 MG Oral Tablet Irbesartan 150 MG Irbesartan 1 50 MG 02/04/2021 12:00:00 AM EDT 1.0 {tablet} active Ir besartan 150 MG eCW1 ([facility]) BD Pen Needle Micro U/F 32G X 6 MM BD Pen Needle Micro U/F 3 2G X 6 MM 02/04/2021 12:00:00 AM EDT active BD Pen N eedle Micro U/F 32G X 6 MM eCW1 ([facility]) irbesartan 150 MG Oral Tablet Irbesartan 150 MG Irbesartan 1 50 MG 02/04/2021 12:00:00 AM EDT 1.0 {tablet} active Ir besartan 150 MG eCW1 ([facility]) Semglee 100 UNIT/ML Semglee 100 UNIT/ML 02/04/2021 12:00:00 AM EDT active Semglee 100 UNIT/ML eCW1 ([facility]) BD Pen Needle Micro U/F 32G X 6 MM BD Pen Needle Micro U/F 3 2G X 6 MM 02/04/2021 12:00:00 AM EDT active BD Pen N eedle Micro U/F 32G X 6 MM eCW1 ([facility]) Semglee 100 UNIT/ML Semglee 100 UNIT/ML 02/04/2021 12:00:00 AM EDT active Semglee 100 UNIT/ML eCW1 ([facility]) Hydrochlorothiazide 12.5 MG Oral Capsule hydroCHLOROth iazide 12.5 MG hydroCHLOROthiazide 12.5 MG 02/04/2021 12:00:00 AM EDT 1.0 {capsule_in_the_morning} active hydroCH LOROthiazide 12.5 MG eCW1 ([facility]) irbesartan 150 MG Oral Tablet Irbesartan 150 MG Irbesartan 1 50 MG 02/04/2021 12:00:00 AM EDT 1.0 {tablet} active Ir besartan 150 MG eCW1 ([facility]) Hydrochlorothiazide 12.5 MG Oral Capsule hydroCHLOROth iazide 12.5 MG hydroCHLOROthiazide 12.5 MG 02/04/2021 12:00:00 AM EDT 1.0 {capsule_in_the_morning} active hydroCH LOROthiazide 12.5 MG eCW1 ([facility]) Hydrochlorothiazide 12.5 MG Oral Capsule hydroCHLOROth iazide 12.5 MG hydroCHLOROthiazide 12.5 MG 02/04/2021 12:00:00 AM EDT 1.0 {capsule_in_the_morning} active hydroCH LOROthiazide 12.5 MG eCW1 ([facility]) Naproxen sodium 550 MG Oral Tablet Naproxen Sodium 550 MG Naproxen Sodium 550 MG 12/04/2020 12:00:00 AM EDT active Naproxen Sodium 550 MG eCW1 ([facility]) Naproxen sodium 550 MG Oral Tablet Naproxen Sodium 550 MG Naproxen Sodium 550 MG 12/04/2020 12:00:00 AM EDT active Naproxen Sodium 550 MG eCW1 ([facility]) Naproxen sodium 550 MG Oral Tablet Naproxen Sodium 550 MG Naproxen Sodium 550 MG 12/04/2020 12:00:00 AM EDT active Naproxen Sodium 550 MG eCW1 ([facility]) Naproxen sodium 550 MG Oral Tablet Naproxen Sodium 550 MG Naproxen Sodium 550 MG 12/04/2020 12:00:00 AM EDT active Naproxen Sodium 550 MG eCW1 ([facility]) Naproxen sodium 550 MG Oral Tablet Naproxen Sodium 550 MG Naproxen Sodium 550 MG 12/04/2020 12:00:00 AM EDT active Naproxen Sodium 550 MG eCW1 ([facility]) 30 ACTUAT fluticasone furoate 0.1 MG/ACT UAT Dry Powder Inhaler [Arnuity] Arnuity Ellipta 100 MCG/ACT Arnuity Ellipta 100 MCG/ACT 11/25/2020 12:00:00 AM EDT 1.0 {puff} active Arnuity Ellipta 100 M CG/ACT eCW1 ([facility]) 30 ACTUAT fluticasone furoate 0.1 MG/ACT UAT Dry Powder Inhaler [Arnuity] Arnuity Ellipta 100 MCG/ACT Arnuity Ellipta 100 MCG/ACT 11/25/2020 12:00:00 AM EDT 1.0 {puff} active Arnuity Ellipta 100 M CG/ACT eCW1 ([facility]) 30 ACTUAT fluticasone furoate 0.1 MG/ACT UAT Dry Powder Inhaler [Arnuity] Arnuity Ellipta 100 MCG/ACT Arnuity Ellipta 100 MCG/ACT 11/25/2020 12:00:00 AM EDT 1.0 {puff} active Arnuity Ellipta 100 M CG/ACT eCW1 ([facility]) 30 ACTUAT fluticasone furoate 0.1 MG/ACT UAT Dry Powder Inhaler [Arnuity] Arnuity Ellipta 100 MCG/ACT Arnuity Ellipta 100 MCG/ACT 11/25/2020 12:00:00 AM EDT 1.0 {puff} active Arnuity Ellipta 100 M CG/ACT eCW1 ([facility]) 30 ACTUAT fluticasone furoate 0.1 MG/ACT UAT Dry Powder Inhaler [Arnuity] Arnuity Ellipta 100 MCG/ACT Arnuity Ellipta 100 MCG/ACT 11/25/2020 12:00:00 AM EDT 1.0 {puff} active Arnuity Ellipta 100 M CG/ACT eCW1 ([facility]) 30 ACTUAT fluticasone furoate 0.1 MG/ACT UAT Dry Powder Inhaler [Arnuity] Arnuity Ellipta 100 MCG/ACT Arnuity Ellipta 100 MCG/ACT 11/25/2020 12:00:00 AM EDT 1.0 {puff} active Arnuity Ellipta 100 M CG/ACT eCW1 ([facility]) 30 ACTUAT fluticasone furoate 0.1 MG/ACT UAT Dry Powder Inhaler [Arnuity] Arnuity Ellipta 100 MCG/ACT Arnuity Ellipta 100 MCG/ACT 11/25/2020 12:00:00 AM EDT 1.0 {puff} active Arnuity Ellipta 100 M CG/ACT eCW1 ([facility]) glimepiride 1 MG Oral Tablet Glimepiride 1 MG Glimepiride 1 MG 10/30/2020 12:00:00 AM EDT active Glimepir deepika 1 MG eCW1 ([facility]) glimepiride 1 MG Oral Tablet Glimepiride 1 MG Glimepiride 1 MG 10/30/2020 12:00:00 AM EDT active Glimepir deepika 1 MG eCW1 ([facility]) glimepiride 1 MG Oral Tablet Glimepiride 1 MG Glimepiride 1 MG 10/30/2020 12:00:00 AM EDT active Glimepir deepika 1 MG eCW1 ([facility]) glimepiride 1 MG Oral Tablet Glimepiride 1 MG Glimepiride 1 MG 10/30/2020 12:00:00 AM EDT active Glimepir deepika 1 MG eCW1 ([facility]) glimepiride 1 MG Oral Tablet Glimepiride 1 MG Glimepiride 1 MG 10/30/2020 12:00:00 AM EDT active Glimepir deepika 1 MG eCW1 ([facility]) glimepiride 1 MG Oral Tablet Glimepiride 1 MG Glimepiride 1 MG 10/30/2020 12:00:00 AM EDT active Glimepir deepika 1 MG eCW1 ([facility]) glimepiride 1 MG Oral Tablet Glimepiride 1 MG Glimepiride 1 MG 10/30/2020 12:00:00 AM EDT active Glimepir deepika 1 MG eCW1 ([facility]) glimepiride 1 MG Oral Tablet Glimepiride 1 MG Glimepiride 1 MG 10/30/2020 12:00:00 AM EDT active Glimepir deepika 1 MG eCW1 ([facility]) glimepiride 1 MG Oral Tablet Glimepiride 1 MG Glimepiride 1 MG 10/30/2020 12:00:00 AM EDT active Glimepir deepika 1 MG eCW1 ([facility]) FreeStyle Lancets - FreeStyle Lancets - 09/25/2020 12:00:00 AM EDT active FreeStyle Lancets - eCW1 ([facility]) Blood Glucose System Tono - Blood Glucose System Tono - 2020 12:00:00 AM EDT active Blood Glucose Sys tem Tono - eCW1 ([facility]) FreeStyle Test - FreeStyle Test - 09/25/2020 12:00:00 AM EDT active FreeStyle Test - eCW1 ([facility]) FreeStyle Test - FreeStyle Test - 09/25/2020 12:00:00 AM EDT active FreeStyle Test - eCW1 ([facility]) FreeStyle Test - FreeStyle Test - 09/25/2020 12:00:00 AM EDT active FreeStyle Test - eCW1 ([facility]) Blood Glucose System Tono - Blood Glucose System Tono - 2020 12:00:00 AM EDT active Blood Glucose Sys tem Tono - eCW1 ([facility]) FreeStyle Test - FreeStyle Test - 09/25/2020 12:00:00 AM EDT active FreeStyle Test - eCW1 ([facility]) FreeStyle Test - FreeStyle Test - 09/25/2020 12:00:00 AM EDT active FreeStyle Test - eCW1 ([facility]) FreeStyle Test - FreeStyle Test - 09/25/2020 12:00:00 AM EDT active FreeStyle Test - eCW1 ([facility]) FreeStyle Lancets - FreeStyle Lancets - 09/25/2020 12:00:00 AM EDT active FreeStyle Lancets - eCW1 ([facility]) Blood Glucose System Tono - Blood Glucose System Tono - 2020 12:00:00 AM EDT active Blood Glucose Sys tem Tono - eCW1 ([facility]) FreeStyle Lancets - FreeStyle Lancets - 09/25/2020 12:00:00 AM EDT active FreeStyle Lancets - eCW1 ([facility]) Blood Glucose System Tono - Blood Glucose System Tono - 2020 12:00:00 AM EDT active Blood Glucose Sys tem Tono - eCW1 ([facility]) Blood Glucose System Tono - Blood Glucose System Tono - 2020 12:00:00 AM EDT active Blood Glucose Sys tem Tono - eCW1 ([facility]) FreeStyle Test - FreeStyle Test - 09/25/2020 12:00:00 AM EDT active FreeStyle Test - eCW1 ([facility]) FreeStyle Test - FreeStyle Test - 09/25/2020 12:00:00 AM EDT active FreeStyle Test - eCW1 ([facility]) FreeStyle Lancets - FreeStyle Lancets - 09/25/2020 12:00:00 AM EDT active FreeStyle Lancets - eCW1 ([facility]) FreeStyle Lancets - FreeStyle Lancets - 09/25/2020 12:00:00 AM EDT active FreeStyle Lancets - eCW1 ([facility]) FreeStyle Lancets - FreeStyle Lancets - 09/25/2020 12:00:00 AM EDT active FreeStyle Lancets - eCW1 ([facility]) Blood Glucose System Tono - Blood Glucose System Tono - 2020 12:00:00 AM EDT active Blood Glucose Sys tem Tono - eCW1 ([facility]) FreeStyle Test - FreeStyle Test - 09/25/2020 12:00:00 AM EDT active FreeStyle Test - eCW1 ([facility]) FreeStyle Lancets - FreeStyle Lancets - 09/25/2020 12:00:00 AM EDT active FreeStyle Lancets - eCW1 ([facility]) FreeStyle Lancets - FreeStyle Lancets - 09/25/2020 12:00:00 AM EDT active FreeStyle Lancets - eCW1 ([facility]) Blood Glucose System Tono - Blood Glucose System Tono - 2020 12:00:00 AM EDT active Blood Glucose Sys tem Tono - eCW1 ([facility]) FreeStyle Lancets - FreeStyle Lancets - 09/25/2020 12:00:00 AM EDT active FreeStyle Lancets - eCW1 ([facility]) Blood Glucose System Tono - Blood Glucose System Tono - 2020 12:00:00 AM EDT active Blood Glucose Sys tem Tono - eCW1 ([facility]) Blood Glucose System Tono - Blood Glucose System Tono - 2020 12:00:00 AM EDT active Blood Glucose Sys tem Tono - eCW1 ([facility]) FreeStyle Lancets - FreeStyle Lancets - 09/25/2020 12:00:00 AM EDT active FreeStyle Lancets - eCW1 ([facility]) Blood Glucose System Tono - Blood Glucose System Tono - 2020 12:00:00 AM EDT active Blood Glucose Sys tem Tono - eCW1 ([facility]) FreeStyle Lancets - FreeStyle Lancets - 09/25/2020 12:00:00 AM EDT active FreeStyle Lancets - eCW1 ([facility]) FreeStyle Test - FreeStyle Test - 09/25/2020 12:00:00 AM EDT active FreeStyle Test - eCW1 ([facility]) Blood Glucose System Tono - Blood Glucose System Tono - 2020 12:00:00 AM EDT active Blood Glucose Sys tem Tono - eCW1 ([facility]) FreeStyle Lancets - FreeStyle Lancets - 09/25/2020 12:00:00 AM EDT active FreeStyle Lancets - eCW1 ([facility]) Blood Glucose System Tono - Blood Glucose System Tono - 2020 12:00:00 AM EDT active Blood Glucose Sys tem Tono - eCW1 ([facility]) FreeStyle Test - FreeStyle Test - 09/25/2020 12:00:00 AM EDT active FreeStyle Test - eCW1 ([facility]) FreeStyle Test - FreeStyle Test - 09/25/2020 12:00:00 AM EDT active FreeStyle Test - eCW1 ([facility]) Lancets - Lancets - 09/24/2020 12:00:00 AM EDT act [place] Lancets - eCW1 ([facility]) Lancets - Lancets - 09/24/2020 12:00:00 AM EDT act [place] Lancets - eCW1 ([facility]) Lancets - Lancets - 09/24/2020 12:00:00 AM EDT act [place] Lancets - eCW1 ([facility]) OneTouch Verio - OneTouch Verio - 09/24/2020 12:00:00 AM EDT active OneTouch Verio - eCW1 ([facility]) OneTouch Verio - OneTouch Verio - 09/24/2020 12:00:00 AM EDT active OneTouch Verio - eCW1 ([facility]) OneTouch Verio - OneTouch Verio - 09/24/2020 12:00:00 AM EDT active OneTouch Verio - eCW1 ([facility]) OneTouch Verio - OneTouch Verio - 09/24/2020 12:00:00 AM EDT active OneTouch Verio - eCW1 ([facility]) Lancets - Lancets - 09/24/2020 12:00:00 AM EDT act [place] Lancets - eCW1 ([facility]) Lancets - Lancets - 09/24/2020 12:00:00 AM EDT act [place] Lancets - eCW1 ([facility]) Lancets - Lancets - 09/24/2020 12:00:00 AM EDT act [place] Lancets - eCW1 ([facility]) OneTouch Verio - OneTouch Verio - 09/24/2020 12:00:00 AM EDT active OneTouch Verio - eCW1 ([facility]) OneTouch Verio - OneTouch Verio - 09/24/2020 12:00:00 AM EDT active OneTouch Verio - eCW1 ([facility]) Lancets - Lancets - 09/24/2020 12:00:00 AM EDT act [place] Lancets - eCW1 ([facility]) OneTouch Verio - OneTouch Verio - 09/24/2020 12:00:00 AM EDT active OneTouch Verio - eCW1 ([facility]) OneTouch Verio - OneTouch Verio - 09/24/2020 12:00:00 AM EDT active OneTouch Verio - eCW1 ([facility]) Lancets - Lancets - 09/24/2020 12:00:00 AM EDT act [place] Lancets - eCW1 ([facility]) OneTouch Verio - OneTouch Verio - 09/24/2020 12:00:00 AM EDT active OneTouch Verio - eCW1 ([facility]) Lancets - Lancets - 09/24/2020 12:00:00 AM EDT act [place] Lancets - eCW1 ([facility]) OneTouch Verio - OneTouch Verio - 09/24/2020 12:00:00 AM EDT active OneTouch Verio - eCW1 ([facility]) Lancets - Lancets - 09/24/2020 12:00:00 AM EDT act [place] Lancets - eCW1 ([facility]) Lancets - Lancets - 09/24/2020 12:00:00 AM EDT act [place] Lancets - eCW1 ([facility]) Lancets - Lancets - 09/24/2020 12:00:00 AM EDT act [place] Lancets - eCW1 ([facility]) Lancets - Lancets - 09/24/2020 12:00:00 AM EDT act [place] Lancets - eCW1 ([facility]) OneTouch Verio - OneTouch Verio - 09/24/2020 12:00:00 AM EDT active OneTouch Verio - eCW1 ([facility]) OneTouch Verio - OneTouch Verio - 09/24/2020 12:00:00 AM EDT active OneTouch Verio - eCW1 ([facility]) OneTouch Verio - OneTouch Verio - 09/24/2020 12:00:00 AM EDT active OneTouch Verio - eCW1 ([facility]) Ondansetron 4 MG Oral Tablet [Zofran] Zofran 09/04/2020 12:00:00 AM EDT active [facility] Fluticasone Propionate 50 MCG/ACT Fluticasone Propionate 50 MCG/ACT 08/21/2020 12:00:00 AM EDT 1.0 {spray_in_each_nostril} acti ve Fluticasone Propionate 50 MCG/ACT eCW1 ([facility]) Fluticasone Propionate 50 MCG/ACT Fluticasone Propionate 50 MCG/ACT 08/21/2020 12:00:00 AM EDT 1.0 {spray_in_each_nostril} acti ve Fluticasone Propionate 50 MCG/ACT eCW1 ([facility]) Fluticasone Propionate 50 MCG/ACT Fluticasone Propionate 50 MCG/ACT 08/21/2020 12:00:00 AM EDT 1.0 {spray_in_each_nostril} acti ve Fluticasone Propionate 50 MCG/ACT eCW1 ([facility]) Fluticasone Propionate 50 MCG/ACT Fluticasone Propionate 50 MCG/ACT 08/21/2020 12:00:00 AM EDT 1.0 {spray_in_each_nostril} acti ve Fluticasone Propionate 50 MCG/ACT eCW1 ([facility]) Fluticasone Propionate 50 MCG/ACT Fluticasone Propionate 50 MCG/ACT 08/21/2020 12:00:00 AM EDT 1.0 {spray_in_each_nostril} acti ve Fluticasone Propionate 50 MCG/ACT eCW1 ([facility]) Fluticasone Propionate 50 MCG/ACT Fluticasone Propionate 50 MCG/ACT 08/21/2020 12:00:00 AM EDT 1.0 {spray_in_each_nostril} acti ve Fluticasone Propionate 50 MCG/ACT eCW1 ([facility]) Fluticasone Propionate 50 MCG/ACT Fluticasone Propionate 50 MCG/ACT 08/21/2020 12:00:00 AM EDT 1.0 {spray_in_each_nostril} acti ve Fluticasone Propionate 50 MCG/ACT eCW1 ([facility]) Fluticasone Propionate 50 MCG/ACT Fluticasone Propionate 50 MCG/ACT 08/21/2020 12:00:00 AM EDT 1.0 {spray_in_each_nostril} acti ve Fluticasone Propionate 50 MCG/ACT eCW1 ([facility]) Fluticasone Propionate 50 MCG/ACT Fluticasone Propionate 50 MCG/ACT 08/21/2020 12:00:00 AM EDT 1.0 {spray_in_each_nostril} acti ve Fluticasone Propionate 50 MCG/ACT eCW1 ([facility]) Fluticasone Propionate 50 MCG/ACT Fluticasone Propionate 50 MCG/ACT 08/21/2020 12:00:00 AM EDT 1.0 {spray_in_each_nostril} acti ve Fluticasone Propionate 50 MCG/ACT eCW1 ([facility]) Fluticasone Propionate 50 MCG/ACT Fluticasone Propionate 50 MCG/ACT 08/21/2020 12:00:00 AM EDT 1.0 {spray_in_each_nostril} acti ve Fluticasone Propionate 50 MCG/ACT eCW1 ([facility]) Fluticasone Propionate 50 MCG/ACT Fluticasone Propionate 50 MCG/ACT 08/21/2020 12:00:00 AM EDT 1.0 {spray_in_each_nostril} acti ve Fluticasone Propionate 50 MCG/ACT eCW1 ([facility]) Fluticasone Propionate 50 MCG/ACT Fluticasone Propionate 50 MCG/ACT 08/21/2020 12:00:00 AM EDT 1.0 {spray_in_each_nostril} acti ve Fluticasone Propionate 50 MCG/ACT eCW1 ([facility]) Fluticasone Propionate 50 MCG/ACT Fluticasone Propionate 50 MCG/ACT 08/21/2020 12:00:00 AM EDT 1.0 {spray_in_each_nostril} acti ve Fluticasone Propionate 50 MCG/ACT eCW1 ([facility]) Fluticasone Propionate 50 MCG/ACT Fluticasone Propionate 50 MCG/ACT 08/21/2020 12:00:00 AM EDT 1.0 {spray_in_each_nostril} acti ve Fluticasone Propionate 50 MCG/ACT eCW1 ([facility]) gabapentin 300 MG Oral Capsule Gabapentin 300 MG Gabapentin 300 MG 05/08/2020 12:00:00 AM EST 1.0 {capsule} active G abapentin 300 MG eCW1 ([facility]) gabapentin 300 MG Oral Capsule Gabapentin 300 MG Gabapentin 300 MG 05/08/2020 12:00:00 AM EST 1.0 {capsule} active G abapentin 300 MG eCW1 ([facility]) gabapentin 300 MG Oral Capsule Gabapentin 300 MG Gabapentin 300 MG 05/08/2020 12:00:00 AM EST 1.0 {capsule} active G abapentin 300 MG eCW1 ([facility]) 0.5 ML dulaglutide 3 MG/ML Auto-Injector [Trulicity] T rulicity 1.5 MG/0.5ML Trulicity 1.5 MG/0.5ML 05/08/2020 12:00:00 AM EST active Trulicity 1.5 MG/0.5ML eCW1 ([facility]) gabapentin 300 MG Oral Capsule Gabapentin 300 MG Gabapentin 300 MG 05/08/2020 12:00:00 AM EST 1.0 {capsule} active G abapentin 300 MG eCW1 ([facility]) gabapentin 300 MG Oral Capsule Gabapentin 300 MG Gabapentin 300 MG 05/08/2020 12:00:00 AM EST 1.0 {capsule} suspended Gabapentin 300 MG eCW1 ([facility]) 0.5 ML dulaglutide 3 MG/ML Auto-Injector [Trulicity] T rulicity 1.5 MG/0.5ML Trulicity 1.5 MG/0.5ML 05/08/2020 12:00:00 AM EST active Trulicity 1.5 MG/0.5ML eCW1 ([facility]) gabapentin 300 MG Oral Capsule Gabapentin 300 MG Gabapentin 300 MG 05/08/2020 12:00:00 AM EST 1.0 {capsule} active G abapentin 300 MG eCW1 ([facility]) gabapentin 300 MG Oral Capsule Gabapentin 300 MG Gabapentin 300 MG 05/08/2020 12:00:00 AM EST 1.0 {capsule} suspended Gabapentin 300 MG eCW1 ([facility]) gabapentin 300 MG Oral Capsule Gabapentin 300 MG Gabapentin 300 MG 05/08/2020 12:00:00 AM EST 1.0 {capsule} suspended Gabapentin 300 MG eCW1 ([facility]) gabapentin 300 MG Oral Capsule Gabapentin 300 MG Gabapentin 300 MG 05/08/2020 12:00:00 AM EST 1.0 {capsule} suspended Gabapentin 300 MG eCW1 ([facility]) Trulicity 3 MG/0.5ML Trulicity 3 MG/0.5ML 05/08/2020 12:00:00 AM EST active Trulicity 3 MG/0.5ML eCW1 ([facility]) 0.5 ML dulaglutide 3 MG/ML Auto-Injector [Trulicity] T rulicity 1.5 MG/0.5ML Trulicity 1.5 MG/0.5ML 05/08/2020 12:00:00 AM EST active Trulicity 1.5 MG/0.5ML eCW1 ([facility]) gabapentin 300 MG Oral Capsule Gabapentin 300 MG Gabapentin 300 MG 05/08/2020 12:00:00 AM EST 1.0 {capsule} suspended Gabapentin 300 MG eCW1 ([facility]) 0.5 ML dulaglutide 3 MG/ML Auto-Injector [Trulicity] T rulicity 1.5 MG/0.5ML Trulicity 1.5 MG/0.5ML 05/08/2020 12:00:00 AM EST active Trulicity 1.5 MG/0.5ML eCW1 ([facility]) 0.5 ML dulaglutide 3 MG/ML Auto-Injector [Trulicity] T rulicity 1.5 MG/0.5ML Trulicity 1.5 MG/0.5ML 05/08/2020 12:00:00 AM EST active Trulicity 1.5 MG/0.5ML eCW1 ([facility]) gabapentin 300 MG Oral Capsule Gabapentin 300 MG Gabapentin 300 MG 05/08/2020 12:00:00 AM EST 1.0 {capsule} suspended Gabapentin 300 MG eCW1 ([facility]) gabapentin 300 MG Oral Capsule Gabapentin 300 MG Gabapentin 300 MG 05/08/2020 12:00:00 AM EST 1.0 {capsule} suspended Gabapentin 300 MG eCW1 ([facility]) gabapentin 300 MG Oral Capsule Gabapentin 300 MG Gabapentin 300 MG 05/08/2020 12:00:00 AM EST 1.0 {capsule} active G abapentin 300 MG eCW1 ([facility]) gabapentin 300 MG Oral Capsule Gabapentin 300 MG Gabapentin 300 MG 05/08/2020 12:00:00 AM EST 1.0 {capsule} suspended Gabapentin 300 MG eCW1 ([facility]) gabapentin 300 MG Oral Capsule Gabapentin 300 MG Gabapentin 300 MG 05/08/2020 12:00:00 AM EST 1.0 {capsule} active G abapentin 300 MG eCW1 ([facility]) gabapentin 300 MG Oral Capsule Gabapentin 300 MG Gabapentin 300 MG 05/08/2020 12:00:00 AM EST 1.0 {capsule} active G abapentin 300 MG eCW1 ([facility]) 0.5 ML dulaglutide 3 MG/ML Auto-Injector [Trulicity] T rulicity 1.5 MG/0.5ML Trulicity 1.5 MG/0.5ML 05/08/2020 12:00:00 AM EST active Trulicity 1.5 MG/0.5ML eCW1 ([facility]) gabapentin 300 MG Oral Capsule Gabapentin 300 MG Gabapentin 300 MG 05/08/2020 12:00:00 AM EST 1.0 {capsule} suspended Gabapentin 300 MG eCW1 ([facility]) 0.5 ML dulaglutide 3 MG/ML Auto-Injector [Trulicity] T rulicity 1.5 MG/0.5ML Trulicity 1.5 MG/0.5ML 05/08/2020 12:00:00 AM EST active Trulicity 1.5 MG/0.5ML eCW1 ([facility]) Diclofenac Sodium 0.03 MG/MG Topical Gel Diclofenac So dium 3 % Diclofenac Sodium 3 % 04/08/2020 12:00:00 AM EST 1.0 {application} active Diclofenac Sodium 3 % eCW1 ([facility]) pantoprazole 40 MG Delayed Release Oral Tablet Pantopr azole Sodium 40 MG Pantoprazole Sodium 40 MG 04/08/2020 12:00:00 AM EST 1.0 {tablet} active Pantoprazole Sodium 40 MG eCW1 ( [facility]) pantoprazole 40 MG Delayed Release Oral Tablet Pantopr azole Sodium 40 MG Pantoprazole Sodium 40 MG 04/08/2020 12:00:00 AM EST 1.0 {tablet} active Pantoprazole Sodium 40 MG eCW1 ( [facility]) pantoprazole 40 MG Delayed Release Oral Tablet Pantopr azole Sodium 40 MG Pantoprazole Sodium 40 MG 04/08/2020 12:00:00 AM EST 1.0 {tablet} active Pantoprazole Sodium 40 MG eCW1 ( [facility]) pantoprazole 40 MG Delayed Release Oral Tablet Pantopr azole Sodium 40 MG Pantoprazole Sodium 40 MG 04/08/2020 12:00:00 AM EST 1.0 {tablet} active Pantoprazole Sodium 40 MG eCW1 ( [facility]) pantoprazole 40 MG Delayed Release Oral Tablet Pantopr azole Sodium 40 MG Pantoprazole Sodium 40 MG 04/08/2020 12:00:00 AM EST 1.0 {tablet} active Pantoprazole Sodium 40 MG eCW1 ( [facility]) pantoprazole 40 MG Delayed Release Oral Tablet Pantopr azole Sodium 40 MG Pantoprazole Sodium 40 MG 04/08/2020 12:00:00 AM EST 1.0 {tablet} active Pantoprazole Sodium 40 MG eCW1 ( [facility]) pantoprazole 40 MG Delayed Release Oral Tablet Pantopr azole Sodium 40 MG Pantoprazole Sodium 40 MG 04/08/2020 12:00:00 AM EST 1.0 {tablet} active Pantoprazole Sodium 40 MG eCW1 ( [facility]) pantoprazole 40 MG Delayed Release Oral Tablet Pantopr azole Sodium 40 MG Pantoprazole Sodium 40 MG 04/08/2020 12:00:00 AM EST 1.0 {tablet} active Pantoprazole Sodium 40 MG eCW1 ( [facility]) pantoprazole 40 MG Delayed Release Oral Tablet Pantopr azole Sodium 40 MG Pantoprazole Sodium 40 MG 04/08/2020 12:00:00 AM EST 1.0 {tablet} active Pantoprazole Sodium 40 MG eCW1 ( [facility]) pantoprazole 40 MG Delayed Release Oral Tablet Pantopr azole Sodium 40 MG Pantoprazole Sodium 40 MG 04/08/2020 12:00:00 AM EST 1.0 {tablet} active Pantoprazole Sodium 40 MG eCW1 ( [facility]) pantoprazole 40 MG Delayed Release Oral Tablet Pantopr azole Sodium 40 MG Pantoprazole Sodium 40 MG 04/08/2020 12:00:00 AM EST 1.0 {tablet} active Pantoprazole Sodium 40 MG eCW1 ( [facility]) pantoprazole 40 MG Delayed Release Oral Tablet Pantopr azole Sodium 40 MG Pantoprazole Sodium 40 MG 04/08/2020 12:00:00 AM EST 1.0 {tablet} active Pantoprazole Sodium 40 MG eCW1 ( [facility]) pantoprazole 40 MG Delayed Release Oral Tablet Pantopr azole Sodium 40 MG Pantoprazole Sodium 40 MG 04/08/2020 12:00:00 AM EST 1.0 {tablet} active Pantoprazole Sodium 40 MG eCW1 ( [facility]) Diclofenac Sodium 0.03 MG/MG Topical Gel Diclofenac So dium 3 % Diclofenac Sodium 3 % 04/08/2020 12:00:00 AM EST 1.0 {application} active Diclofenac Sodium 3 % eCW1 ([facility]) pantoprazole 40 MG Delayed Release Oral Tablet Pantopr azole Sodium 40 MG Pantoprazole Sodium 40 MG 04/08/2020 12:00:00 AM EST 1.0 {tablet} active Pantoprazole Sodium 40 MG eCW1 ( [facility]) pantoprazole 40 MG Delayed Release Oral Tablet Pantopr azole Sodium 40 MG Pantoprazole Sodium 40 MG 04/08/2020 12:00:00 AM EST 1.0 {tablet} active Pantoprazole Sodium 40 MG eCW1 ( [facility]) pantoprazole 40 MG Delayed Release Oral Tablet Pantopr azole Sodium 40 MG Pantoprazole Sodium 40 MG 04/08/2020 12:00:00 AM EST 1.0 {tablet} active Pantoprazole Sodium 40 MG eCW1 ( [facility]) pantoprazole 40 MG Delayed Release Oral Tablet Pantopr azole Sodium 40 MG Pantoprazole Sodium 40 MG 04/08/2020 12:00:00 AM EST 1.0 {tablet} active Pantoprazole Sodium 40 MG eCW1 ( [facility]) pantoprazole 40 MG Delayed Release Oral Tablet Pantopr azole Sodium 40 MG Pantoprazole Sodium 40 MG 04/08/2020 12:00:00 AM EST 1.0 {tablet} active Pantoprazole Sodium 40 MG eCW1 ( [facility]) pantoprazole 40 MG Delayed Release Oral Tablet Pantopr azole Sodium 40 MG Pantoprazole Sodium 40 MG 04/08/2020 12:00:00 AM EST 1.0 {tablet} active Pantoprazole Sodium 40 MG eCW1 ( [facility]) Insurance Providers Payer name Policy type / Coverage type Policy ID Covered alliance party ID Covered alliance party's relationship to hwipple Policy Whipple Plan Information [facility] Comm Plan Medicaid F [id number] SELF [id number] Medicaid [facility] Healthcare S D [id number] SELF [id number] Medicaid [facility] Healthcare S D [id number] SELF [id number] MISHA [id number] SP [id number] [place] Medicaid F [id number] SELF 7 [id number] [place] F [id number] SELF 7 [id number] [place] Medicaid F [id number] SELF 7 [id number] Misha Purchase Plan F [id number] SELF [id number] ANSI-Not a Secondary Insurance [id number] ANSI-Not a Secondary Insurance [id number] ANSI-Not a Secondary Insurance [id number] ANSI-Not a Secondary Insurance [id number] ANSI-Not a Secondary Insurance [id number] ANSI-Not a Secondary Insurance [id number] ANSI-Not a Secondary Insurance [id number] ANSI-Commercial [id number] ANSI-Commercial [id number] ANSI-Commercial [id number] ANSI-Commercial [id number] ANSI-Commercial [id number] ANSI-Commercial [id number] ANSI-Commercial [id number] ANSI-Commercial [id number] ANSI-Commercial [id number] ANSI-Commercial [id number] ANSI-Commercial [id number] ANSI-Commercial [id number] ANSI-Commercial [id number] ANSI-Commercial [id number] ANSI-Commercial [id number] ANSI-Commercial [id number] ANSI-Commercial [id number] ANSI-Commercial [id number] ANSI-Commercial [id number] [facility] [place] Medicaid [id number] Self [id number] MISHA CARE [facility]ICA[facility] [id number] S [id number] MEDICAID [id number] SP [id number] SELF PAY ONLY UNAVAILABLE [facility] O [id number] S [id number] SELF PAY ONLY [id number] SP [id number] SELF PAY UNAVAILABLE SP [facility] [id number] SP [id number] Misha Medicaid [id number] SELF 7 [id number] [place] [id number] SP [id number] MISHA [id number] SP [id number] [place]ARE [place] O [id number] S [id number] [place] [id number] SP [id number] ANSI-Not a Secondary Insurance [id number] ANSI-Not a Secondary Insurance [id number] ANSI-Not a Secondary Insurance [id number] Problems, Conditions, and Diagnoses Code Display Name Description Problem Type Effective Dates Data Source(s) Z23 [id number] Encounter for immunization Problem 12:00:00 AM EDT eCW1 ([facility]) M89.49 [id number] Primary osteoarthritis involving multiple joints Problem 12/04/2020 12:00:00 AM EDT eCW1 ([facility]) M35.3 [id number] Polymyalgia Problem 12/04/2020 12:00:00 AM E DT eCW1 ([facility]) E04.9 [id number] Goiter Problem 04/08/2020 12:00:00 AM ES T eCW1 ([facility]) Surgeries/Procedures Procedure Description Date Indications Data Source(s) Imm: Flublok Quadrivalent 18 years & older 0.5mL IM Influenz a 02/04/2021 12:00:00 AM EDT eCW1 ([facility]) Endoscopy Upper GI Complex Diagnostic 06/30/2020 12:00 :00 AM EDT MEDENT ([facility], ) Immunization: Flublok Quadrivalent (18 years & older) 0.5mL IM (Influenza) 05/08/2020 12:00:00 AM EST eCW1 ([facility]) Results ID Date Data Source RHEUMATOID FACTOR QUANT 12/04/2020 12:00:00 AM EDT eCW1 ([facility]) Name Value Range Interpretation Code Description Data Emeli rce(s) Supporting Document(s) < 10.0 <15.0 RHEUMATOID FACTOR QUANT eCW1 ( [facility]) ID Date Data Source ERYTHROCYTE SEDIMENTATION RATE 12/04/2020 12:00:00 AM EDT eC W1 ([facility]) Name Value Range Interpretation Code Description Data Emeli rce(s) Supporting Document(s) 15 0-30 ERYTHROCYTE SEDIMENTATION RATE eCW1 ([facility]) ID Date Data Source C REACTIVE PROTEIN QUANTITATIV ([facility]) 12/04/2020 12:00 :00 AM EDT eCW1 ([facility]) Name Value Range Interpretation Code Description Data Emeli rce(s) Supporting Document(s) 0.74 0.00-0.30 C REACTIVE PROTEIN QUANTI TATIV eCW1 ([facility]) ID Date Data Source Comprehensive Metabolic Profile (CMP) 12/04/2020 12:00:00 AM EDT eCW1 ([facility]) Name Value Range Interpretation Code Description Data Emeli rce(s) Supporting Document(s) 170 70-100 GLUCOSE, FASTING eCW1 ([facility]) 21 7-18 BLOOD UREA NITROGEN eCW1 ([facility]) 0.66 0.55-1.30 CREATININE FOR GFR eCW1 ([facility]) > 60.0 >51 GLOMERULAR FILTRATION RATE eCW 1 ([facility]) 106 98-107 CHLORIDE LEVEL eCW1 ([facility]) 4.4 3.5-5.1 POTASSIUM SERUM eCW1 ([facility]) 26 21-32 CARBON DIOXIDE LEVEL eCW1 ([facility]) 138 136-145 SODIUM LEVEL eCW1 ([facility]) 8.9 8.5-10.1 CALCIUM LEVEL eCW1 ([facility]) 68 12-78 ALT/SGPT eCW1 ([facility]) 42 7-37 AST/SGOT eCW1 ([facility]) 0.5 0.2-1.0 BILIRUBIN,TOTAL eCW1 ([facility]) 61 45-117 ALKALINE PHOSPHATASE eCW1 ([facility]) 7.0 6.4-8.2 TOTAL PROTEIN eCW1 ([facility]) 1.0 1.2-2.2 ALBUMIN/GLOBULIN RATIO eCW1 ([facility]) 3.5 3.2-5.2 ALBUMIN eCW1 ([facility]) ID Date Data Source CBC with Differential 12/04/2020 12:00:00 AM EDT eCW1 ([facility]) Name Value Range Interpretation Code Description Data Emeli rce(s) Supporting Document(s) 7.5 4.0-10.0 WHITE BLOOD COUNT eCW1 ([facility]) 43.6 36.0-47.0 HEMATOCRIT eCW1 ([facility]) 4.49 4.00-5.40 RED BLOOD COUNT eCW1 ([facility]) 14.1 12.0-15.5 HEMOGLOBIN eCW1 ([facility]) 97.1 80.0-96.0 MEAN CORPUSCULAR VOLUME e CW1 ([facility]) 31.4 27.0-33.0 MEAN CORPUSCULAR HEMOGLOB IN eCW1 ([facility]) 32.3 32.0-36.5 MEAN CORPUSCULAR HGB CONC eCW1 ([facility]) 310 150-450 PLATELET COUNT, AUTOMATED eCW1 ([facility]) 55.5 36.0-66.0 NEUTROPHILS % eCW1 ([facility]) 12.2 11.5-14.5 RED CELL DISTRIBUTION WID TH eCW1 ([facility]) 33.1 24.0-44.0 LYMPH % eCW1 ([facility]) 2.5 0.0-3.0 EOS % eCW1 ([facility]) 8.0 2.0-8.0 MONO % eCW1 ([facility]) 0.4 0.0-1.0 BASO % eCW1 ([facility]) 4.2 1.5-8.5 NEUTROPHILS # eCW1 ([facility]) 2.5 1.5-5.0 LYMPH # eCW1 ([facility]) 0.2 0.0-0.5 EOS # eCW1 ([facility]) 0.0 0.0-0.2 BASO # eCW1 ([facility]) 0.6 0.0-0.8 MONO # eCW1 ([facility]) ID Date Data Source [id number] 06/25/2020 10:30:00 AM EDT [facility] Name Value Range Interpretation Code Description Data Emeli rce(s) Supporting Document(s) SARS coronavirus 2 RNA Not Detected [facility] This lab was ordered by [facility] and reported by [facility]. ID Date Data Source LIPID PANEL (CARDIAC RISK) 04/08/2020 12:00:00 AM EST eCW1 ( [facility]) Name Value Range Interpretation Code Description Data Emeli rce(s) Supporting Document(s) Triglyceride [Mass/volume] in Serum or Plasma by calculation 303 <150 TRIGLYCERIDES LEVEL [facility] ([facility]) Cholesterol [Moles/volume] in Serum or Plasma 207 <200 CHOLESTEROL LEVEL [facility] ([facility]) 4.813 <5 CHOLESTEROL RISK RATIO eCW1 ([facility]) 164 NON-HDL-C eCW1 ([facility]) Cholesterol in LDL [Mass/volume] in Serum or Plasma by calculation 103 <100 LDL CHOLESTEROL eCW1 ([facility]) Cholesterol in HDL [Moles/volume] in Serum or Plasma 43 >40 HDL CHOLESTEROL eCW1 ([facility]) ID Date Data Source [id number] 04/08/2020 12:00:00 AM EST eCW1 ([facility]) Name Value Range Interpretation Code Description Data Emeli rce(s) Supporting Document(s) Hemoglobin A1c/Hemoglobin.total in Blood 9.4 HEMOGLOBIN A1c eCW1 ([facility]) ID Date Data Source FREE T4 & TSH PANEL 04/08/2020 12:00:00 AM EST eCW1 ([facility]) Name Value Range Interpretation Code Description Data Emeli rce(s) Supporting Document(s) 1.04 0.76-1.46 eCW1 ([facility]) 2.320 0.358-3.740 eCW1 ([facility]) ID Date Data Source CBC - Complete Blood Count 04/08/2020 12:00:00 AM EST eCW1 ( [facility]) Name Value Range Interpretation Code Description Data Emeli rce(s) Supporting Document(s) 6.8 4.0-10.0 WHITE BLOOD COUNT eCW1 ([facility]) 94.4 80.0-96.0 MEAN CORPUSCULAR VOLUME e CW1 ([facility]) 15.6 12.0-15.5 HEMOGLOBIN eCW1 ([facility]) 5.19 4.00-5.40 RED BLOOD COUNT eCW1 ([facility]) 49.0 36.0-47.0 HEMATOCRIT eCW1 ([facility]) 30.1 27.0-33.0 MEAN CORPUSCULAR HEMOGLOB IN eCW1 ([facility]) 31.8 32.0-36.5 MEAN CORPUSCULAR HGB CONC eCW1 ([facility]) 12.1 11.5-14.5 RED CELL DISTRIBUTION WID TH eCW1 ([facility]) 301 150-450 PLATELET COUNT, AUTOMATED eCW1 ([facility]) Procedure Social History Code Duration Value Status Description Data Source(s ) Smoking 02/04/2021 12:00:00 AM EDT Never Smoker completed Never S moker eCW1 ([facility]) Smoking 02/04/2021 12:00:00 AM EDT Never Smoker completed Never S moker eCW1 ([facility]) Smoking 02/04/2021 12:00:00 AM EDT Never Smoker completed Never S moker eCW1 ([facility]) Smoking 12/04/2020 12:00:00 AM EDT Never Smoker completed Never S moker eCW1 ([facility]) Smoking 12/04/2020 12:00:00 AM EDT Never Smoker completed Never S moker eCW1 ([facility]) Smoking 10/30/2020 12:00:00 AM EDT Never Smoker completed Never S moker eCW1 ([facility]) Smoking 10/30/2020 12:00:00 AM EDT Never Smoker completed Never S moker eCW1 ([facility]) Smoking 10/30/2020 12:00:00 AM EDT Never Smoker completed Never S moker eCW1 ([facility]) Smoking 10/30/2020 12:00:00 AM EDT Never Smoker completed Never S moker eCW1 ([facility]) Smoking 05/08/2020 12:00:00 AM EST Never Smoker completed Never S moker eCW1 ([facility]) Smoking 05/08/2020 12:00:00 AM EST Never Smoker completed Never S moker eCW1 ([facility]) Smoking 05/08/2020 12:00:00 AM EST Never Smoker completed Never S moker eCW1 ([facility]) Smoking 05/08/2020 12:00:00 AM EST Never Smoker completed Never S moker eCW1 ([facility]) Smoking 05/08/2020 12:00:00 AM EST Never Smoker completed Never S moker eCW1 ([facility]) Smoking 05/08/2020 12:00:00 AM EST Never Smoker completed Never S moker eCW1 ([facility]) Smoking 05/08/2020 12:00:00 AM EST Never Smoker completed Never S moker eCW1 ([facility]) Smoking 05/08/2020 12:00:00 AM EST Never Smoker completed Never S moker eCW1 ([facility]) Smoking 04/08/2020 12:00:00 AM EST Never Smoker completed Never S moker eCW1 ([facility]) Smoking 04/08/2020 12:00:00 AM EST Never Smoker completed Never S moker eCW1 ([facility]) Vital Signs ID Date Data Source UNK Name Value Range Interpretation Code Description Data Source(s) Body weight 236 [lb_av] 236 [lb_av] eCW1 ([facility]) Body height 64 [in_i] 64 [in_i] eCW1 ([facility]) Body mass index (BMI) [Ratio] 40.50 kg/m2 40.50 kg/m2 eCW1 ([facility]) Heart rate 91 /min 91 /min eCW1 ([facility]) Respiratory rate 18 /min 18 /min eCW1 ([facility]) Body temperature 96.6 [degF] 96.6 [degF] eCW1 ( [facility]) Systolic blood pressure 168 mm[Hg] 168 mm[Hg] e CW1 ([facility]) Diastolic blood pressure 90 mm[Hg] 90 mm[Hg] eCW1 ([facility]) Body weight 234.4 [lb_av] 234.4 [lb_av] eCW1 ([facility]) Body weight 106.32 kg 106.32 kg eCW1 ([facility]) Body height 64 [in_i] 64 [in_i] eCW1 ([facility]) Body mass index (BMI) [Ratio] 40.23 kg/m2 40.23 kg/m2 eCW1 ([facility]) Heart rate 87 /min 87 /min eCW1 ([facility]) Respiratory rate 18 /min 18 /min eCW1 ([facility]) Body temperature 98.0 [degF] 98.0 [degF] eCW1 ( [facility]) Systolic blood pressure 142 mm[Hg] 142 mm[Hg] e CW1 ([facility]) Diastolic blood pressure 78 mm[Hg] 78 mm[Hg] eCW1 ([facility]) Body weight 234 [lb_av] 234 [lb_av] eCW1 ([facility]) Body height 64 [in_i] 64 [in_i] eCW1 ([facility]) Body mass index (BMI) [Ratio] 40.16 kg/m2 40.16 kg/m2 eCW1 ([facility]) Heart rate 129 /min 129 /min eCW1 ([facility]) Respiratory rate 18 /min 18 /min eCW1 ([facility]) Body temperature 97.1 [degF] 97.1 [degF] eCW1 ( [facility]) Systolic blood pressure 144 mm[Hg] 144 mm[Hg] e CW1 ([facility]) Diastolic blood pressure 82 mm[Hg] 82 mm[Hg] eCW1 ([facility]) Diastolic blood pressure 72 mm[Hg] 72 mm[Hg] MEDANGELA ([facility], ) Body height 64 [in_i] 64 [in_i] [facility] ([facility], ) 5'4" Body weight 236.00 [lb_av] 236.00 [lb_av] MEDEN T ([facility], ) Body mass index (BMI) [Ratio] 40.5 kg/m2 40.5 k g/m2 [facility] ([facility], ) Systolic blood pressure 112 mm[Hg] 112 mm[Hg] M EDANGELA ([facility], ) [place] body weight 120 [lb_av] 120 [lb_av] MEDEN T ([facility], ) Body weight 107.050 kg 107.050 kg [facility] ([facility], ) Body surface area Derived from formula 2.10 m2 2.10 m2 [facility] [facility] Systolic blood pressure 122 mm[Hg] 122 mm[Hg] M EDENT ([facility]) Diastolic blood pressure 78 mm[Hg] 78 mm[Hg] [facility] ([facility]) Body height 64 [in_i] 64 [in_i] [facility] ([facility]) 5'4" Body weight 243.00 [lb_av] 243.00 [lb_av] MEDEN T ([facility]) Body mass index (BMI) [Ratio] 41.7 kg/m2 41.7 k g/m2 [facility] ([facility]) [place] body weight 120 [lb_av] 120 [lb_av] MEDEN T ([facility]) Body weight 110.225 kg 110.225 kg [facility] ([facility]) Body surface area Derived from formula 2.13 m2 2.13 m2 [facility] ([facility]) Body weight 246 [lb_av] 246 [lb_av] eCW1 ([facility]) Body height 64 [in_i] 64 [in_i] eCW1 ([facility]) Body mass index (BMI) [Ratio] 42.22 kg/m2 42.22 kg/m2 W1 ([facility]) Heart rate 90 /min 90 /min W1 ([facility]) Respiratory rate 18 /min 18 /min W1 ([facility]) Body temperature 96.3 [degF] 96.3 [degF] eCW1 ( [facility]) Systolic blood pressure 138 mm[Hg] 138 mm[Hg] e CW1 ([facility]) Diastolic blood pressure 76 mm[Hg] 76 mm[Hg] eCW1 ([facility]) Body weight 244.4 [lb_av] 244.4 [lb_av] eCW1 ([facility]) Body height 64 [in_i] 64 [in_i] eCW1 ([facility]) Body mass index (BMI) [Ratio] 41.95 kg/m2 41.95 kg/m2 [facility] ([facility]) Heart rate 114 /min 114 /min eCW1 ([facility]) Respiratory rate 18 /min 18 /min eCW1 ([facility]) Body temperature 97.9 [degF] 97.9 [degF] eCW1 ( [facility]) Systolic blood pressure 142 mm[Hg] 142 mm[Hg] e CW1 ([facility]) Diastolic blood pressure 82 mm[Hg] 82 mm[Hg] eCW1 ([facility]) Patient Treatment Plan of Care Planned Activity Planned Date Details Description Data Source (s) Semglee 100 UNIT/ML 02/04/2021 12:00:00 AM EDT eCW1 ([facility]) BD Pen Needle Micro U/F 32G X 6 MM 02/04/2021 12:00:00 AM EDT eCW1 ([facility]) Hydrochlorothiazide 12.5 MG Oral Capsule 02/04/2021 12:00:00 AM EDT eCW1 ([facility]) irbesartan 150 MG Oral Tablet 02/04/2021 12:00:00 AM EDT eCW1 ([facility]) Semglee 100 UNIT/ML 02/04/2021 12:00:00 AM EDT eCW1 ([facility]) BD Pen Needle Micro U/F 32G X 6 MM 02/04/2021 12:00:00 AM EDT eCW1 ([facility]) Hydrochlorothiazide 12.5 MG Oral Capsule 02/04/2021 12:00:00 AM EDT eCW1 ([facility]) irbesartan 150 MG Oral Tablet 02/04/2021 12:00:00 AM EDT eCW1 ([facility]) Semglee 100 UNIT/ML 02/04/2021 12:00:00 AM EDT eCW1 ([facility]) BD Pen Needle Micro U/F 32G X 6 MM 02/04/2021 12:00:00 AM EDT eCW1 ([facility]) Hydrochlorothiazide 12.5 MG Oral Capsule 02/04/2021 12:00:00 AM EDT eCW1 ([facility]) irbesartan 150 MG Oral Tablet 02/04/2021 12:00:00 AM EDT eCW1 ([facility]) Naproxen sodium 550 MG Oral Tablet 12/04/2020 12:00:00 AM EDT eCW1 ([facility]) Naproxen sodium 550 MG Oral Tablet 12/04/2020 12:00:00 AM EDT eCW1 ([facility]) 30 ACTUAT fluticasone furoate 0.1 MG/ACTUAT Dry Powder Inhaler [Arnuity] 11/25/2020 12:00:00 AM EDT eCW1 ([facility]) 30 ACTUAT fluticasone furoate 0.1 MG/ACTUAT Dry Powder Inhaler [Arnuity] 11/25/2020 12:00:00 AM EDT eCW1 ([facility]) glimepiride 1 MG Oral Tablet 10/30/2020 12:00:00 AM EDT eCW1 ([facility]) glimepiride 1 MG Oral Tablet 10/30/2020 12:00:00 AM EDT eCW1 ([facility]) glimepiride 1 MG Oral Tablet 10/30/2020 12:00:00 AM EDT eCW1 ([facility]) FreeStyle Lancets - 09/25/2020 12:00:00 AM EDT eCW1 ([facility]) FreeStyle Test - 09/25/2020 12:00:00 AM EDT eCW1 ([facility]) Blood Glucose System Tono - 09/25/2020 12:00:00 AM EDT eCW1 ([facility]) FreeStyle Lancets - 09/25/2020 12:00:00 AM EDT eCW1 ([facility]) FreeStyle Test - 09/25/2020 12:00:00 AM EDT eCW1 ([facility]) Blood Glucose System Tono - 09/25/2020 12:00:00 AM EDT eCW1 ([facility]) FreeStyle Lancets - 09/25/2020 12:00:00 AM EDT eCW1 ([facility]) FreeStyle Test - 09/25/2020 12:00:00 AM EDT eCW1 ([facility]) Blood Glucose System Tono - 09/25/2020 12:00:00 AM EDT eCW1 ([facility]) Lancets - 09/24/2020 12:00:00 AM EDT e CW1 ([facility]) [facility] Ver - 09/24/2020 12:00:00 AM EDT eCW1 ([facility]) Lancets - 09/24/2020 12:00:00 AM EDT e CW1 ([facility]) RUST - 09/24/2020 12:00:00 AM EDT eCW1 ([facility]) RUST - 09/24/2020 12:00:00 AM EDT eCW1 ([facility]) Lancets - 09/24/2020 12:00:00 AM EDT e CW1 ([facility]) RUST - 09/24/2020 12:00:00 AM EDT eCW1 ([facility]) Lancets - 09/24/2020 12:00:00 AM EDT e CW1 ([facility]) Fluticasone Propionate 50 MCG/ACT 08/21/2020 12:00:00 AM EDT eCW1 ([facility]) Fluticasone Propionate 50 MCG/ACT 08/21/2020 12:00:00 AM EDT eCW1 ([facility]) Fluticasone Propionate 50 MCG/ACT 08/21/2020 12:00:00 AM EDT eCW1 ([facility]) Fluticasone Propionate 50 MCG/ACT 08/21/2020 12:00:00 AM EDT eCW1 ([facility]) Fluticasone Propionate 50 MCG/ACT 08/21/2020 12:00:00 AM EDT eCW1 ([facility]) Fluticasone Propionate 50 MCG/ACT 08/21/2020 12:00:00 AM EDT eCW1 ([facility]) gabapentin 300 MG Oral Capsule 05/08/2020 12:00:00 AM EST eCW1 ([facility]) 0.5 ML dulaglutide 3 MG/ML Auto-Injector [Trulicity] 021 12:00:00 AM EST eCW1 ([facility]) gabapentin 300 MG Oral Capsule 05/08/2020 12:00:00 AM EST eCW1 ([facility]) gabapentin 300 MG Oral Capsule 05/08/2020 12:00:00 AM EST eCW1 ([facility]) 0.5 ML dulaglutide 3 MG/ML Auto-Injector [Trulicity] 021 12:00:00 AM EST eCW1 ([facility]) gabapentin 300 MG Oral Capsule 05/08/2020 12:00:00 AM EST eCW1 ([facility]) 0.5 ML dulaglutide 3 MG/ML Auto-Injector [Trulicity] 021 12:00:00 AM EST eCW1 ([facility]) gabapentin 300 MG Oral Capsule 05/08/2020 12:00:00 AM EST eCW1 ([facility]) 0.5 ML dulaglutide 3 MG/ML Auto-Injector [Trulicity] 021 12:00:00 AM EST eCW1 ([facility]) gabapentin 300 MG Oral Capsule 05/08/2020 12:00:00 AM EST eCW1 ([facility]) 0.5 ML dulaglutide 3 MG/ML Auto-Injector [Trulicity] 021 12:00:00 AM EST eCW1 ([facility]) Trulicity 3 MG/0.5ML 05/08/2020 12:00:00 AM EST eCW1 ([facility]) gabapentin 300 MG Oral Capsule 05/08/2020 12:00:00 AM EST eCW1 ([facility]) 0.5 ML dulaglutide 3 MG/ML Auto-Injector [Trulicity] 12:00:00 AM EST eCW1 ([facility]) gabapentin 300 MG Oral Capsule 05/08/2020 12:00:00 AM EST eCW1 ([facility]) 0.5 ML dulaglutide 3 MG/ML Auto-Injector [Trulicity] 12:00:00 AM EST eCW1 ([facility]) pantoprazole 40 MG Delayed Release Oral Tablet 04/08/2020 12:00:00 AM EST eCW1 ([facility]) Diclofenac Sodium 0.03 MG/MG Topical Gel 04/08/2020 12:00:00 AM EST eCW1 ([facility]) pantoprazole 40 MG Delayed Release Oral Tablet 04/08/2020 12:00:00 AM EST eCW1 ([facility]) Diclofenac Sodium 0.03 MG/MG Topical Gel 04/08/2020 12:00:00 AM EST eCW1 ([facility])
[2021-02-20] MEDS ORDERED: ISOVUE-370 76% 100ML VIAL As Ordered ONE (12:30)
--- NOTE | 2021-02-20 13:15 | REP ---
INDICATION: hypoxia COMPARISON: None. TECHNIQUE: CT angiography of the chest after the intravenous administration of 75 cc Isovue 370 attention pulmonary arteries. FINDINGS: There is excellent visualization of the pulmonary arterial vasculature. No definite abnormal focal filling defects are present that would be considered consistent with acute pulmonary emboli. Limited evaluation of the thoracic aorta shows no abnormality. There is mediastinal and hilar adenopathy. There are no pleural or pericardial effusions. The imaged upper abdomen and imaged osseous structures appear to be within normal limits. Evaluation of the lung dorsey shows diffuse patchy bilateral interstitial and airspace opacities. IMPRESSION: 1. There is no evidence of a pulmonary embolism. 2. Diffuse bilateral opacities consistent with pneumonia as described above. Does this patient have COVID-19? <Electronically signed by Parish Quezada > 02/20/21 [id number]
[2021-02-20 14:00] LABS: INR 1.04; PROTHROMBIN TIME 14.1 SECONDS (12.7-14.5)
[2021-02-20] MEDS ORDERED: LevoFLOXacin IV 750 MG in IV 1 EA IV ONE (14:00)
[2021-02-20 14:01] LABS: FIBRINOGEN 445 MG/DL (268-480); PARTIAL THROMBOPLASTIN TIME 25.9 SECONDS (25.9-37.0)
[2021-02-20 14:08] LABS: FERRITIN 243 NG/ML (8-252); LDH LACTATE DEHYDROGENASE 391 U/L (84-246)
[2021-02-20 14:29] LABS: D-DIMER QUANT > 4000 ng/ml (<500)
[2021-02-20 14:32] LABS: ERYTHROCYTE SEDIMENTATION RATE 63 mm/hr (0-30)
[2021-02-20] MEDS ORDERED: ACETAMINOPHEN TAB 650MG DOSE (2X325MG) PO PRN (14:50)
[2021-02-20] MEDS ORDERED: ALBUTEROL 90 MCG/ACT 8GM HFA INHALER INH PRN (14:50)
[2021-02-20 14:55] LABS: HIV 1&2 SCREEN CENTAUR NEGATIVE (NEGATIVE)
[2021-02-20] MEDS ORDERED: NS 1,000 ML IV SCH (15:05)
--- OUTSIDE RECORDS SUMMARY | 2021-02-20 15:14 | CCD ---
Author Author [facility] Organization [facility] Address Unknown Phone Unavailable Care Team Providers Care Librarian Name Role Phone DINORAH VAZQUEZ MD Unavailable [...] is protected by Article 27-F of the [facility] Public Health law. If you continue you may have access to information: Regarding HIV / AIDS; Provided by facilities licensed or operated by the [facility] Office of Mental Health; or Provided by the [facility] Office for People With Developmental Disabilities. If such information is present, then the following [facility] mandated warning applies: This information has been [...] law may result in a fine or alf sentence or both. A general authorization for the release of medical or other information is NOT sufficient authorization for further disc losure. Family History Family Member Name Family Member Gender Family Member Status Date o f Status Description Data Source(s) Unknown Male Problem MEDENT ([facility] Unknown Unknown Problem MEDENT ([facility], ) Encounters Encounter Providers Location Date Indications Data Source(s ) Recurring Patient Attender: DINORAH GEORGE MDReferrer: Harry gutierrez MD 02/05/2021 01:16:31 PM EDT [facility] [address] [facility] [address] 02/04/2021 12:00:00 AM EDT eCW1 ([facility]) [place] [address] [address] 02/04/2021 12:00:00 AM EDT eCW1 ([facility]) [place] [address] [facility] [place] [address] 02/04/2021 12:00:00 AM EDT eCW1 ([facility]) [place] [address] [address] 01/19/2021 12:00:00 AM EDT eCW1 ([facility]) [place] [address] [address] 12/04/2020 12:00:00 AM EDT eCW1 ([facility]) Unknown [address] [facility] [place] [address] 11/21/2020 12:00:00 AM EDT eCW1 ([facility]) Unknown [address] [facility] [place] [address] 11/05/2020 12:00:00 AM EDT eCW1 ([facility]) Unknown [address] [facility] [place] [address] 11/04/2020 12:00:00 AM EDT eCW1 ([facility]) [place] [address] [facility] [place] [address] 10/30/2020 12:00:00 AM EDT eCW1 ([facility]) Unknown [address] [facility] [place] [address] 10/28/2020 12:00:00 AM EDT eCW1 ([facility]) Unknown [address] [facility] [place] [address] 10/21/2020 12:00:00 AM EDT eCW1 ([facility]) [place] [address] [facility] [address] 09/24/2020 12:00:00 AM EDT eCW1 ([facility]) [place] [address] [facility] [address] 09/24/2020 12:00:00 AM EDT eCW1 ([facility]) Outpatient Attender: Bailee Tobin/[place] ngel/[place] 09/04/2020 10:30:00 AM EDT MEDENT ([facility]) [place] [address] [facility] [address] 08/26/2020 12:00:00 AM EDT eCW1 ([facility]) [place] [address] [facility] [address] 08/21/2020 12:00:00 AM EDT eCW1 ([facility]) [place] [address] [facility] [address] [address] 05/27/2020 12:00:00 AM EST [facility]CW1 [facility] Outpatient Attender: Bailee Wells RPA C Crista/[place]/A ngel/[place]l 05/22/2020 01:00:00 PM EST MEDENT ([facility]) [place] [address] [facility] [address] 05/08/2020 12:00:00 AM EST eCW1 ([facility]) [place] [address] [facility] [address] [address] 04/14/2020 12:00:00 AM EST eCW1 ([facility]) [place] [address] [facility] [address] 04/08/2020 12:00:00 AM EST eCW1 ([facility]) [place] [address] [facility] [address] [address] 03/31/2020 12:00:00 AM EST eCW1 ([facility]) [place] [address] [facility] [address] 03/28/2020 12:00:00 AM EST eCW1 ([facility]) [place] [address] [facility] [address] 03/20/2020 12:00:00 AM EST eCW1 ([facility]) [place] [address] [address] 03/20/2020 12:00:00 AM EST eCW1 ([facility]) [place] [address] [address] 01/28/2020 12:00:00 AM EDT eCW1 ([facility]) Immunizations Vaccine Date Status Description Data Source(s) influenza, recombinant, quadrIvalent,injectable, prese rvative free 02/04/2021 11:51:00 AM EDT completed eCW1 ([facility]) influenza, recombinant, quadrIvalent,injectable, prese rvative free 02/04/2021 11:51:00 AM EDT completed eCW1 ([facility]) influenza, recombinant, quadrIvalent,injectable, prese rvative free 02/04/2021 11:51:00 AM EDT completed eCW1 ([facility]) COVID-19 VACCINE Pfizer 07/09/2020 12:00:00 AM EDT completed [facility]IS Vaccine Series Complete: YESThis Data wa s Submitted to [facility] Via Preen[employer]Me. COVID-19 VACCINE Pfizer 06/18/2020 12:00:00 AM EST completed [facility]IS Vaccine Series Complete: NOThis Data was Submitted to [facility] Via [employer]. influenza, recombinant, quadrIvalent,injectable, prese rvative free 05/08/2020 11:12:00 AM EST completed eCW1 ([facility]) influenza, recombinant, quadrIvalent,injectable, prese rvative free 05/08/2020 11:12:00 AM EST completed eCW1 ([facility]) influenza, recombinant, quadrIvalent,injectable, prese rvative free 05/08/2020 11:12:00 AM EST completed eCW1 ([facility]) influenza, recombinant, quadrIvalent,injectable, prese rvative free 05/08/2020 11:12:00 AM EST completed eCW1 ([facility]) influenza, recombinant, quadrIvalent,injectable, prese rvative free 05/08/2020 11:12:00 AM EST completed eCW1 ([facility]) influenza, recombinant, quadrIvalent,injectable, prese rvative free 05/08/2020 11:12:00 AM EST completed eCW1 ([facility]) influenza, recombinant, quadrIvalent,injectable, prese rvative free 05/08/2020 11:12:00 AM EST completed eCW1 ([facility]) influenza, recombinant, quadrIvalent,injectable, prese rvative free 05/08/2020 11:12:00 AM EST completed eCW1 ([facility]) influenza, recombinant, quadrIvalent,injectable, prese rvative free 05/08/2020 11:12:00 AM EST completed eCW1 ([facility]) influenza, recombinant, quadrIvalent,injectable, prese rvative free 05/08/2020 11:12:00 AM EST completed eCW1 ([facility]) influenza, recombinant, quadrIvalent,injectable, prese rvative free 05/08/2020 11:12:00 AM EST completed eCW1 ([facility]) influenza, recombinant, quadrIvalent,injectable, prese rvative free 05/08/2020 11:12:00 AM EST completed eCW1 ([facility]) influenza, recombinant, quadrIvalent,injectable, prese rvative free 05/08/2020 11:12:00 AM EST completed eCW1 ([facility]) influenza, recombinant, quadrIvalent,injectable, prese rvative free 05/08/2020 11:12:00 AM EST completed eCW1 ([facility]) influenza, recombinant, quadrIvalent,injectable, prese rvative free 05/08/2020 11:12:00 AM EST completed eCW1 ([facility]) influenza, recombinant, quadrIvalent,injectable, prese rvative free 05/08/2020 11:12:00 AM EST completed eCW1 ([facility]) influenza, recombinant, quadrIvalent,injectable, prese rvative free 05/08/2020 11:12:00 AM EST completed eCW1 ([facility]) Medications Medication Brand Name Start Date Product Form Dose Route Admi nistrative Instructions Pharmacy Instructions Status Indications Reaction Description Data Source(s) Semglee 100 UNIT/ML Semglee 100 UNIT/ML 02/04/2021 12:00:00 AM EDT active Semglee 100 UNIT/ML eCW1 ([facility]) BD Pen Needle Micro U/F 32G X 6 MM BD Pen Needle Micro U/F 3 2G X 6 MM 02/04/2021 12:00:00 AM EDT active BD Pen N eedle Micro U/F 32G X 6 MM eCW1 ([facility]) irbesartan 150 MG Oral Tablet Irbesartan 150 MG Irbesartan 1 50 MG 02/04/2021 12:00:00 AM EDT 1.0 {tablet} active Ir besartan 150 MG eCW1 ([facility]) BD Pen Needle Micro U/F 32G X 6 MM BD Pen Needle Micro U/F 3 2G X 6 MM 02/04/2021 12:00:00 AM EDT active BD Pen N eedle Micro U/F 32G X 6 MM eCW1 ([facility]) irbesartan 150 MG Oral Tablet Irbesartan 150 MG Irbesartan 1 50 MG 02/04/2021 12:00:00 AM EDT 1.0 {tablet} active Ir besartan 150 MG eCW1 ([facility]) Semglee 100 UNIT/ML Semglee 100 UNIT/ML 02/04/2021 12:00:00 AM EDT active Semglee 100 UNIT/ML eCW1 ([facility]) BD Pen Needle Micro U/F 32G X 6 MM BD Pen Needle Micro U/F 3 2G X 6 MM 02/04/2021 12:00:00 AM EDT active BD Pen N eedle Micro U/F 32G X 6 MM eCW1 ([facility]) Semglee 100 UNIT/ML Semglee 100 UNIT/ML 02/04/2021 12:00:00 AM EDT active Semglee 100 UNIT/ML eCW1 ([facility]) Hydrochlorothiazide 12.5 MG Oral Capsule hydroCHLOROth iazide 12.5 MG hydroCHLOROthiazide 12.5 MG 02/04/2021 12:00:00 AM EDT 1.0 {capsule_in_the_morning} active hydroCH LOROthiazide 12.5 MG eCW1 ([facility]) irbesartan 150 MG Oral Tablet Irbesartan 150 MG Irbesartan 1 50 MG 02/04/2021 12:00:00 AM EDT 1.0 {tablet} active Ir besartan 150 MG eCW1 ([facility]) Hydrochlorothiazide 12.5 MG Oral Capsule hydroCHLOROth iazide 12.5 MG hydroCHLOROthiazide 12.5 MG 02/04/2021 12:00:00 AM EDT 1.0 {capsule_in_the_morning} active hydroCH LOROthiazide 12.5 MG eCW1 ([facility]) Hydrochlorothiazide 12.5 MG Oral Capsule hydroCHLOROth iazide 12.5 MG hydroCHLOROthiazide 12.5 MG 02/04/2021 12:00:00 AM EDT 1.0 {capsule_in_the_morning} active hydroCH LOROthiazide 12.5 MG eCW1 ([facility]) Naproxen sodium 550 MG Oral Tablet Naproxen Sodium 550 MG Naproxen Sodium 550 MG 12/04/2020 12:00:00 AM EDT active Naproxen Sodium 550 MG eCW1 ([facility]) Naproxen sodium 550 MG Oral Tablet Naproxen Sodium 550 MG Naproxen Sodium 550 MG 12/04/2020 12:00:00 AM EDT active Naproxen Sodium 550 MG eCW1 ([facility]) Naproxen sodium 550 MG Oral Tablet Naproxen Sodium 550 MG Naproxen Sodium 550 MG 12/04/2020 12:00:00 AM EDT active Naproxen Sodium 550 MG eCW1 ([facility]) Naproxen sodium 550 MG Oral Tablet Naproxen Sodium 550 MG Naproxen Sodium 550 MG 12/04/2020 12:00:00 AM EDT active Naproxen Sodium 550 MG eCW1 ([facility]) Naproxen sodium 550 MG Oral Tablet Naproxen Sodium 550 MG Naproxen Sodium 550 MG 12/04/2020 12:00:00 AM EDT active Naproxen Sodium 550 MG eCW1 ([facility]) 30 ACTUAT fluticasone furoate 0.1 MG/ACT UAT Dry Powder Inhaler [Arnuity] Arnuity Ellipta 100 MCG/ACT Arnuity Ellipta 100 MCG/ACT 11/25/2020 12:00:00 AM EDT 1.0 {puff} active Arnuity Ellipta 100 M CG/ACT eCW1 ([facility]) 30 ACTUAT fluticasone furoate 0.1 MG/ACT UAT Dry Powder Inhaler [Arnuity] Arnuity Ellipta 100 MCG/ACT Arnuity Ellipta 100 MCG/ACT 11/25/2020 12:00:00 AM EDT 1.0 {puff} active Arnuity Ellipta 100 M CG/ACT eCW1 ([facility]) 30 ACTUAT fluticasone furoate 0.1 MG/ACT UAT Dry Powder Inhaler [Arnuity] Arnuity Ellipta 100 MCG/ACT Arnuity Ellipta 100 MCG/ACT 11/25/2020 12:00:00 AM EDT 1.0 {puff} active Arnuity Ellipta 100 M CG/ACT eCW1 ([facility]) 30 ACTUAT fluticasone furoate 0.1 MG/ACT UAT Dry Powder Inhaler [Arnuity] Arnuity Ellipta 100 MCG/ACT Arnuity Ellipta 100 MCG/ACT 11/25/2020 12:00:00 AM EDT 1.0 {puff} active Arnuity Ellipta 100 M CG/ACT eCW1 ([facility]) 30 ACTUAT fluticasone furoate 0.1 MG/ACT UAT Dry Powder Inhaler [Arnuity] Arnuity Ellipta 100 MCG/ACT Arnuity Ellipta 100 MCG/ACT 11/25/2020 12:00:00 AM EDT 1.0 {puff} active Arnuity Ellipta 100 M CG/ACT eCW1 ([facility]) 30 ACTUAT fluticasone furoate 0.1 MG/ACT UAT Dry Powder Inhaler [Arnuity] Arnuity Ellipta 100 MCG/ACT Arnuity Ellipta 100 MCG/ACT 11/25/2020 12:00:00 AM EDT 1.0 {puff} active Arnuity Ellipta 100 M CG/ACT eCW1 ([facility]) 30 ACTUAT fluticasone furoate 0.1 MG/ACT UAT Dry Powder Inhaler [Arnuity] Arnuity Ellipta 100 MCG/ACT Arnuity Ellipta 100 MCG/ACT 11/25/2020 12:00:00 AM EDT 1.0 {puff} active Arnuity Ellipta 100 M CG/ACT eCW1 ([facility]) glimepiride 1 MG Oral Tablet Glimepiride 1 MG Glimepiride 1 MG 10/30/2020 12:00:00 AM EDT active Glimepir deepika 1 MG eCW1 ([facility]) glimepiride 1 MG Oral Tablet Glimepiride 1 MG Glimepiride 1 MG 10/30/2020 12:00:00 AM EDT active Glimepir deepika 1 MG eCW1 ([facility]) glimepiride 1 MG Oral Tablet Glimepiride 1 MG Glimepiride 1 MG 10/30/2020 12:00:00 AM EDT active Glimepir deepika 1 MG eCW1 ([facility]) glimepiride 1 MG Oral Tablet Glimepiride 1 MG Glimepiride 1 MG 10/30/2020 12:00:00 AM EDT active Glimepir deepika 1 MG eCW1 ([facility]) glimepiride 1 MG Oral Tablet Glimepiride 1 MG Glimepiride 1 MG 10/30/2020 12:00:00 AM EDT active Glimepir deepika 1 MG eCW1 ([facility]) glimepiride 1 MG Oral Tablet Glimepiride 1 MG Glimepiride 1 MG 10/30/2020 12:00:00 AM EDT active Glimepir deepika 1 MG eCW1 ([facility]) glimepiride 1 MG Oral Tablet Glimepiride 1 MG Glimepiride 1 MG 10/30/2020 12:00:00 AM EDT active Glimepir deepika 1 MG eCW1 ([facility]) glimepiride 1 MG Oral Tablet Glimepiride 1 MG Glimepiride 1 MG 10/30/2020 12:00:00 AM EDT active Glimepir deepika 1 MG eCW1 ([facility]) glimepiride 1 MG Oral Tablet Glimepiride 1 MG Glimepiride 1 MG 10/30/2020 12:00:00 AM EDT active Glimepir deepika 1 MG eCW1 ([facility]) FreeStyle Lancets - FreeStyle Lancets - 09/25/2020 12:00:00 AM EDT active FreeStyle Lancets - eCW1 ([facility]) Blood Glucose System Tono - Blood Glucose System Tono - 2020 12:00:00 AM EDT active Blood Glucose Sys tem Tono - eCW1 ([facility]) FreeStyle Test - FreeStyle Test - 09/25/2020 12:00:00 AM EDT active FreeStyle Test - eCW1 ([facility]) FreeStyle Test - FreeStyle Test - 09/25/2020 12:00:00 AM EDT active FreeStyle Test - eCW1 ([facility]) FreeStyle Test - FreeStyle Test - 09/25/2020 12:00:00 AM EDT active FreeStyle Test - eCW1 ([facility]) Blood Glucose System Tono - Blood Glucose System Tono - 2020 12:00:00 AM EDT active Blood Glucose Sys tem Tono - eCW1 ([facility]) FreeStyle Test - FreeStyle Test - 09/25/2020 12:00:00 AM EDT active FreeStyle Test - eCW1 ([facility]) FreeStyle Test - FreeStyle Test - 09/25/2020 12:00:00 AM EDT active FreeStyle Test - eCW1 ([facility]) FreeStyle Test - FreeStyle Test - 09/25/2020 12:00:00 AM EDT active FreeStyle Test - eCW1 ([facility]) FreeStyle Lancets - FreeStyle Lancets - 09/25/2020 12:00:00 AM EDT active FreeStyle Lancets - eCW1 ([facility]) Blood Glucose System Tono - Blood Glucose System Tono - 2020 12:00:00 AM EDT active Blood Glucose Sys tem Tono - eCW1 ([facility]) FreeStyle Lancets - FreeStyle Lancets - 09/25/2020 12:00:00 AM EDT active FreeStyle Lancets - eCW1 ([facility]) Blood Glucose System Tono - Blood Glucose System Tono - 2020 12:00:00 AM EDT active Blood Glucose Sys tem Tono - eCW1 ([facility]) Blood Glucose System Tono - Blood Glucose System Tono - 2020 12:00:00 AM EDT active Blood Glucose Sys tem Tono - eCW1 ([facility]) FreeStyle Test - FreeStyle Test - 09/25/2020 12:00:00 AM EDT active FreeStyle Test - eCW1 ([facility]) FreeStyle Test - FreeStyle Test - 09/25/2020 12:00:00 AM EDT active FreeStyle Test - eCW1 ([facility]) FreeStyle Lancets - FreeStyle Lancets - 09/25/2020 12:00:00 AM EDT active FreeStyle Lancets - eCW1 ([facility]) FreeStyle Lancets - FreeStyle Lancets - 09/25/2020 12:00:00 AM EDT active FreeStyle Lancets - eCW1 ([facility]) FreeStyle Lancets - FreeStyle Lancets - 09/25/2020 12:00:00 AM EDT active FreeStyle Lancets - eCW1 ([facility]) Blood Glucose System Tono - Blood Glucose System Tono - 2020 12:00:00 AM EDT active Blood Glucose Sys tem Tono - eCW1 ([facility]) FreeStyle Test - FreeStyle Test - 09/25/2020 12:00:00 AM EDT active FreeStyle Test - eCW1 ([facility]) FreeStyle Lancets - FreeStyle Lancets - 09/25/2020 12:00:00 AM EDT active FreeStyle Lancets - eCW1 ([facility]) FreeStyle Lancets - FreeStyle Lancets - 09/25/2020 12:00:00 AM EDT active FreeStyle Lancets - eCW1 ([facility]) Blood Glucose System Tono - Blood Glucose System Tono - 2020 12:00:00 AM EDT active Blood Glucose Sys tem Tono - eCW1 ([facility]) FreeStyle Lancets - FreeStyle Lancets - 09/25/2020 12:00:00 AM EDT active FreeStyle Lancets - eCW1 ([facility]) Blood Glucose System Tono - Blood Glucose System Tono - 2020 12:00:00 AM EDT active Blood Glucose Sys tem Tono - eCW1 ([facility]) Blood Glucose System Tono - Blood Glucose System Tono - 2020 12:00:00 AM EDT active Blood Glucose Sys tem Tono - eCW1 ([facility]) FreeStyle Lancets - FreeStyle Lancets - 09/25/2020 12:00:00 AM EDT active FreeStyle Lancets - eCW1 ([facility]) Blood Glucose System Tono - Blood Glucose System Tono - 2020 12:00:00 AM EDT active Blood Glucose Sys tem Tono - eCW1 ([facility]) FreeStyle Lancets - FreeStyle Lancets - 09/25/2020 12:00:00 AM EDT active FreeStyle Lancets - eCW1 ([facility]) FreeStyle Test - FreeStyle Test - 09/25/2020 12:00:00 AM EDT active FreeStyle Test - eCW1 ([facility]) Blood Glucose System Tono - Blood Glucose System Tono - 2020 12:00:00 AM EDT active Blood Glucose Sys tem Tono - eCW1 ([facility]) FreeStyle Lancets - FreeStyle Lancets - 09/25/2020 12:00:00 AM EDT active FreeStyle Lancets - eCW1 ([facility]) Blood Glucose System Tono - Blood Glucose System Tono - 2020 12:00:00 AM EDT active Blood Glucose Sys tem Tono - eCW1 ([facility]) FreeStyle Test - FreeStyle Test - 09/25/2020 12:00:00 AM EDT active FreeStyle Test - eCW1 ([facility]) FreeStyle Test - FreeStyle Test - 09/25/2020 12:00:00 AM EDT active FreeStyle Test - eCW1 ([facility]) Lancets - Lancets - 09/24/2020 12:00:00 AM EDT act [place] Lancets - eCW1 ([facility]) Lancets - Lancets - 09/24/2020 12:00:00 AM EDT act [place] Lancets - eCW1 ([facility]) Lancets - Lancets - 09/24/2020 12:00:00 AM EDT act [place] Lancets - eCW1 ([facility]) OneTouch Verio - OneTouch Verio - 09/24/2020 12:00:00 AM EDT active OneTouch Verio - eCW1 ([facility]) OneTouch Verio - OneTouch Verio - 09/24/2020 12:00:00 AM EDT active OneTouch Verio - eCW1 ([facility]) OneTouch Verio - OneTouch Verio - 09/24/2020 12:00:00 AM EDT active OneTouch Verio - eCW1 ([facility]) OneTouch Verio - OneTouch Verio - 09/24/2020 12:00:00 AM EDT active OneTouch Verio - eCW1 ([facility]) Lancets - Lancets - 09/24/2020 12:00:00 AM EDT act [place] Lancets - eCW1 ([facility]) Lancets - Lancets - 09/24/2020 12:00:00 AM EDT act [place] Lancets - eCW1 ([facility]) Lancets - Lancets - 09/24/2020 12:00:00 AM EDT act [place] Lancets - eCW1 ([facility]) OneTouch Verio - OneTouch Verio - 09/24/2020 12:00:00 AM EDT active OneTouch Verio - eCW1 ([facility]) OneTouch Verio - OneTouch Verio - 09/24/2020 12:00:00 AM EDT active OneTouch Verio - eCW1 ([facility]) Lancets - Lancets - 09/24/2020 12:00:00 AM EDT act [place] Lancets - eCW1 ([facility]) OneTouch Verio - OneTouch Verio - 09/24/2020 12:00:00 AM EDT active OneTouch Verio - eCW1 ([facility]) OneTouch Verio - OneTouch Verio - 09/24/2020 12:00:00 AM EDT active OneTouch Verio - eCW1 ([facility]) Lancets - Lancets - 09/24/2020 12:00:00 AM EDT act [place] Lancets - eCW1 ([facility]) OneTouch Verio - OneTouch Verio - 09/24/2020 12:00:00 AM EDT active OneTouch Verio - eCW1 ([facility]) Lancets - Lancets - 09/24/2020 12:00:00 AM EDT act [place] Lancets - eCW1 ([facility]) OneTouch Verio - OneTouch Verio - 09/24/2020 12:00:00 AM EDT active OneTouch Verio - eCW1 ([facility]) Lancets - Lancets - 09/24/2020 12:00:00 AM EDT act [place] Lancets - eCW1 ([facility]) Lancets - Lancets - 09/24/2020 12:00:00 AM EDT act [place] Lancets - eCW1 ([facility]) Lancets - Lancets - 09/24/2020 12:00:00 AM EDT act [place] Lancets - eCW1 ([facility]) Lancets - Lancets - 09/24/2020 12:00:00 AM EDT act [place] Lancets - eCW1 ([facility]) OneTouch Verio - OneTouch Verio - 09/24/2020 12:00:00 AM EDT active OneTouch Verio - eCW1 ([facility]) OneTouch Verio - OneTouch Verio - 09/24/2020 12:00:00 AM EDT active OneTouch Verio - eCW1 ([facility]) OneTouch Verio - OneTouch Verio - 09/24/2020 12:00:00 AM EDT active OneTouch Verio - eCW1 ([facility]) Ondansetron 4 MG Oral Tablet [Zofran] Zofran 09/04/2020 12:00:00 AM EDT active [facility]ENT [facility] Fluticasone Propionate 50 MCG/ACT Fluticasone Propionate 50 MCG/ACT 08/21/2020 12:00:00 AM EDT 1.0 {spray_in_each_nostril} acti ve Fluticasone Propionate 50 MCG/ACT eCW1 ([facility]) Fluticasone Propionate 50 MCG/ACT Fluticasone Propionate 50 MCG/ACT 08/21/2020 12:00:00 AM EDT 1.0 {spray_in_each_nostril} acti ve Fluticasone Propionate 50 MCG/ACT eCW1 ([facility]) Fluticasone Propionate 50 MCG/ACT Fluticasone Propionate 50 MCG/ACT 08/21/2020 12:00:00 AM EDT 1.0 {spray_in_each_nostril} acti ve Fluticasone Propionate 50 MCG/ACT eCW1 ([facility]) Fluticasone Propionate 50 MCG/ACT Fluticasone Propionate 50 MCG/ACT 08/21/2020 12:00:00 AM EDT 1.0 {spray_in_each_nostril} acti ve Fluticasone Propionate 50 MCG/ACT eCW1 ([facility]) Fluticasone Propionate 50 MCG/ACT Fluticasone Propionate 50 MCG/ACT 08/21/2020 12:00:00 AM EDT 1.0 {spray_in_each_nostril} acti ve Fluticasone Propionate 50 MCG/ACT eCW1 ([facility]) Fluticasone Propionate 50 MCG/ACT Fluticasone Propionate 50 MCG/ACT 08/21/2020 12:00:00 AM EDT 1.0 {spray_in_each_nostril} acti ve Fluticasone Propionate 50 MCG/ACT eCW1 ([facility]) Fluticasone Propionate 50 MCG/ACT Fluticasone Propionate 50 MCG/ACT 08/21/2020 12:00:00 AM EDT 1.0 {spray_in_each_nostril} acti ve Fluticasone Propionate 50 MCG/ACT eCW1 ([facility]) Fluticasone Propionate 50 MCG/ACT Fluticasone Propionate 50 MCG/ACT 08/21/2020 12:00:00 AM EDT 1.0 {spray_in_each_nostril} acti ve Fluticasone Propionate 50 MCG/ACT eCW1 ([facility]) Fluticasone Propionate 50 MCG/ACT Fluticasone Propionate 50 MCG/ACT 08/21/2020 12:00:00 AM EDT 1.0 {spray_in_each_nostril} acti ve Fluticasone Propionate 50 MCG/ACT eCW1 ([facility]) Fluticasone Propionate 50 MCG/ACT Fluticasone Propionate 50 MCG/ACT 08/21/2020 12:00:00 AM EDT 1.0 {spray_in_each_nostril} acti ve Fluticasone Propionate 50 MCG/ACT eCW1 ([facility]) Fluticasone Propionate 50 MCG/ACT Fluticasone Propionate 50 MCG/ACT 08/21/2020 12:00:00 AM EDT 1.0 {spray_in_each_nostril} acti ve Fluticasone Propionate 50 MCG/ACT eCW1 ([facility]) Fluticasone Propionate 50 MCG/ACT Fluticasone Propionate 50 MCG/ACT 08/21/2020 12:00:00 AM EDT 1.0 {spray_in_each_nostril} acti ve Fluticasone Propionate 50 MCG/ACT eCW1 ([facility]) Fluticasone Propionate 50 MCG/ACT Fluticasone Propionate 50 MCG/ACT 08/21/2020 12:00:00 AM EDT 1.0 {spray_in_each_nostril} acti ve Fluticasone Propionate 50 MCG/ACT eCW1 ([facility]) Fluticasone Propionate 50 MCG/ACT Fluticasone Propionate 50 MCG/ACT 08/21/2020 12:00:00 AM EDT 1.0 {spray_in_each_nostril} acti ve Fluticasone Propionate 50 MCG/ACT eCW1 ([facility]) Fluticasone Propionate 50 MCG/ACT Fluticasone Propionate 50 MCG/ACT 08/21/2020 12:00:00 AM EDT 1.0 {spray_in_each_nostril} acti ve Fluticasone Propionate 50 MCG/ACT eCW1 ([facility]) gabapentin 300 MG Oral Capsule Gabapentin 300 MG Gabapentin 300 MG 05/08/2020 12:00:00 AM EST 1.0 {capsule} active G abapentin 300 MG eCW1 ([facility]) gabapentin 300 MG Oral Capsule Gabapentin 300 MG Gabapentin 300 MG 05/08/2020 12:00:00 AM EST 1.0 {capsule} active G abapentin 300 MG eCW1 ([facility]) gabapentin 300 MG Oral Capsule Gabapentin 300 MG Gabapentin 300 MG 05/08/2020 12:00:00 AM EST 1.0 {capsule} active G abapentin 300 MG eCW1 ([facility]) 0.5 ML dulaglutide 3 MG/ML Auto-Injector [Trulicity] T rulicity 1.5 MG/0.5ML Trulicity 1.5 MG/0.5ML 05/08/2020 12:00:00 AM EST active Trulicity 1.5 MG/0.5ML eCW1 ([facility]) gabapentin 300 MG Oral Capsule Gabapentin 300 MG Gabapentin 300 MG 05/08/2020 12:00:00 AM EST 1.0 {capsule} active G abapentin 300 MG eCW1 ([facility]) gabapentin 300 MG Oral Capsule Gabapentin 300 MG Gabapentin 300 MG 05/08/2020 12:00:00 AM EST 1.0 {capsule} suspended Gabapentin 300 MG eCW1 ([facility]) 0.5 ML dulaglutide 3 MG/ML Auto-Injector [Trulicity] T rulicity 1.5 MG/0.5ML Trulicity 1.5 MG/0.5ML 05/08/2020 12:00:00 AM EST active Trulicity 1.5 MG/0.5ML eCW1 ([facility]) gabapentin 300 MG Oral Capsule Gabapentin 300 MG Gabapentin 300 MG 05/08/2020 12:00:00 AM EST 1.0 {capsule} active G abapentin 300 MG eCW1 ([facility]) gabapentin 300 MG Oral Capsule Gabapentin 300 MG Gabapentin 300 MG 05/08/2020 12:00:00 AM EST 1.0 {capsule} suspended Gabapentin 300 MG eCW1 ([facility]) gabapentin 300 MG Oral Capsule Gabapentin 300 MG Gabapentin 300 MG 05/08/2020 12:00:00 AM EST 1.0 {capsule} suspended Gabapentin 300 MG eCW1 ([facility]) gabapentin 300 MG Oral Capsule Gabapentin 300 MG Gabapentin 300 MG 05/08/2020 12:00:00 AM EST 1.0 {capsule} suspended Gabapentin 300 MG eCW1 ([facility]) Trulicity 3 MG/0.5ML Trulicity 3 MG/0.5ML 05/08/2020 12:00:00 AM EST active Trulicity 3 MG/0.5ML eCW1 ([facility]) 0.5 ML dulaglutide 3 MG/ML Auto-Injector [Trulicity] T rulicity 1.5 MG/0.5ML Trulicity 1.5 MG/0.5ML 05/08/2020 12:00:00 AM EST active Trulicity 1.5 MG/0.5ML eCW1 ([facility]) gabapentin 300 MG Oral Capsule Gabapentin 300 MG Gabapentin 300 MG 05/08/2020 12:00:00 AM EST 1.0 {capsule} suspended Gabapentin 300 MG eCW1 ([facility]) 0.5 ML dulaglutide 3 MG/ML Auto-Injector [Trulicity] T rulicity 1.5 MG/0.5ML Trulicity 1.5 MG/0.5ML 05/08/2020 12:00:00 AM EST active Trulicity 1.5 MG/0.5ML eCW1 ([facility]) 0.5 ML dulaglutide 3 MG/ML Auto-Injector [Trulicity] T rulicity 1.5 MG/0.5ML Trulicity 1.5 MG/0.5ML 05/08/2020 12:00:00 AM EST active Trulicity 1.5 MG/0.5ML eCW1 ([facility]) gabapentin 300 MG Oral Capsule Gabapentin 300 MG Gabapentin 300 MG 05/08/2020 12:00:00 AM EST 1.0 {capsule} suspended Gabapentin 300 MG eCW1 ([facility]) gabapentin 300 MG Oral Capsule Gabapentin 300 MG Gabapentin 300 MG 05/08/2020 12:00:00 AM EST 1.0 {capsule} suspended Gabapentin 300 MG eCW1 ([facility]) gabapentin 300 MG Oral Capsule Gabapentin 300 MG Gabapentin 300 MG 05/08/2020 12:00:00 AM EST 1.0 {capsule} active G abapentin 300 MG eCW1 ([facility]) gabapentin 300 MG Oral Capsule Gabapentin 300 MG Gabapentin 300 MG 05/08/2020 12:00:00 AM EST 1.0 {capsule} suspended Gabapentin 300 MG eCW1 ([facility]) gabapentin 300 MG Oral Capsule Gabapentin 300 MG Gabapentin 300 MG 05/08/2020 12:00:00 AM EST 1.0 {capsule} active G abapentin 300 MG eCW1 ([facility]) gabapentin 300 MG Oral Capsule Gabapentin 300 MG Gabapentin 300 MG 05/08/2020 12:00:00 AM EST 1.0 {capsule} active G abapentin 300 MG eCW1 ([facility]) 0.5 ML dulaglutide 3 MG/ML Auto-Injector [Trulicity] T rulicity 1.5 MG/0.5ML Trulicity 1.5 MG/0.5ML 05/08/2020 12:00:00 AM EST active Trulicity 1.5 MG/0.5ML eCW1 ([facility]) gabapentin 300 MG Oral Capsule Gabapentin 300 MG Gabapentin 300 MG 05/08/2020 12:00:00 AM EST 1.0 {capsule} suspended Gabapentin 300 MG eCW1 ([facility]) 0.5 ML dulaglutide 3 MG/ML Auto-Injector [Trulicity] T rulicity 1.5 MG/0.5ML Trulicity 1.5 MG/0.5ML 05/08/2020 12:00:00 AM EST active Trulicity 1.5 MG/0.5ML eCW1 ([facility]) Diclofenac Sodium 0.03 MG/MG Topical Gel Diclofenac So dium 3 % Diclofenac Sodium 3 % 04/08/2020 12:00:00 AM EST 1.0 {application} active Diclofenac Sodium 3 % eCW1 ([facility]) pantoprazole 40 MG Delayed Release Oral Tablet Pantopr azole Sodium 40 MG Pantoprazole Sodium 40 MG 04/08/2020 12:00:00 AM EST 1.0 {tablet} active Pantoprazole Sodium 40 MG eCW1 ( [facility]) pantoprazole 40 MG Delayed Release Oral Tablet Pantopr azole Sodium 40 MG Pantoprazole Sodium 40 MG 04/08/2020 12:00:00 AM EST 1.0 {tablet} active Pantoprazole Sodium 40 MG eCW1 ( [facility]) pantoprazole 40 MG Delayed Release Oral Tablet Pantopr azole Sodium 40 MG Pantoprazole Sodium 40 MG 04/08/2020 12:00:00 AM EST 1.0 {tablet} active Pantoprazole Sodium 40 MG eCW1 ( [facility]) pantoprazole 40 MG Delayed Release Oral Tablet Pantopr azole Sodium 40 MG Pantoprazole Sodium 40 MG 04/08/2020 12:00:00 AM EST 1.0 {tablet} active Pantoprazole Sodium 40 MG eCW1 ( [facility]) pantoprazole 40 MG Delayed Release Oral Tablet Pantopr azole Sodium 40 MG Pantoprazole Sodium 40 MG 04/08/2020 12:00:00 AM EST 1.0 {tablet} active Pantoprazole Sodium 40 MG eCW1 ( [facility]) pantoprazole 40 MG Delayed Release Oral Tablet Pantopr azole Sodium 40 MG Pantoprazole Sodium 40 MG 04/08/2020 12:00:00 AM EST 1.0 {tablet} active Pantoprazole Sodium 40 MG eCW1 ( [facility]) pantoprazole 40 MG Delayed Release Oral Tablet Pantopr azole Sodium 40 MG Pantoprazole Sodium 40 MG 04/08/2020 12:00:00 AM EST 1.0 {tablet} active Pantoprazole Sodium 40 MG eCW1 ( [facility]) pantoprazole 40 MG Delayed Release Oral Tablet Pantopr azole Sodium 40 MG Pantoprazole Sodium 40 MG 04/08/2020 12:00:00 AM EST 1.0 {tablet} active Pantoprazole Sodium 40 MG eCW1 ( [facility]) pantoprazole 40 MG Delayed Release Oral Tablet Pantopr azole Sodium 40 MG Pantoprazole Sodium 40 MG 04/08/2020 12:00:00 AM EST 1.0 {tablet} active Pantoprazole Sodium 40 MG eCW1 ( [facility]) pantoprazole 40 MG Delayed Release Oral Tablet Pantopr azole Sodium 40 MG Pantoprazole Sodium 40 MG 04/08/2020 12:00:00 AM EST 1.0 {tablet} active Pantoprazole Sodium 40 MG eCW1 ( [facility]) pantoprazole 40 MG Delayed Release Oral Tablet Pantopr azole Sodium 40 MG Pantoprazole Sodium 40 MG 04/08/2020 12:00:00 AM EST 1.0 {tablet} active Pantoprazole Sodium 40 MG eCW1 ( [facility]) pantoprazole 40 MG Delayed Release Oral Tablet Pantopr azole Sodium 40 MG Pantoprazole Sodium 40 MG 04/08/2020 12:00:00 AM EST 1.0 {tablet} active Pantoprazole Sodium 40 MG eCW1 ( [facility]) pantoprazole 40 MG Delayed Release Oral Tablet Pantopr azole Sodium 40 MG Pantoprazole Sodium 40 MG 04/08/2020 12:00:00 AM EST 1.0 {tablet} active Pantoprazole Sodium 40 MG eCW1 ( [facility]) Diclofenac Sodium 0.03 MG/MG Topical Gel Diclofenac So dium 3 % Diclofenac Sodium 3 % 04/08/2020 12:00:00 AM EST 1.0 {application} active Diclofenac Sodium 3 % eCW1 ([facility]) pantoprazole 40 MG Delayed Release Oral Tablet Pantopr azole Sodium 40 MG Pantoprazole Sodium 40 MG 04/08/2020 12:00:00 AM EST 1.0 {tablet} active Pantoprazole Sodium 40 MG eCW1 ( [facility]) pantoprazole 40 MG Delayed Release Oral Tablet Pantopr azole Sodium 40 MG Pantoprazole Sodium 40 MG 04/08/2020 12:00:00 AM EST 1.0 {tablet} active Pantoprazole Sodium 40 MG eCW1 ( [facility]) pantoprazole 40 MG Delayed Release Oral Tablet Pantopr azole Sodium 40 MG Pantoprazole Sodium 40 MG 04/08/2020 12:00:00 AM EST 1.0 {tablet} active Pantoprazole Sodium 40 MG eCW1 ( [facility]) pantoprazole 40 MG Delayed Release Oral Tablet Pantopr azole Sodium 40 MG Pantoprazole Sodium 40 MG 04/08/2020 12:00:00 AM EST 1.0 {tablet} active Pantoprazole Sodium 40 MG eCW1 ( [facility]) pantoprazole 40 MG Delayed Release Oral Tablet Pantopr azole Sodium 40 MG Pantoprazole Sodium 40 MG 04/08/2020 12:00:00 AM EST 1.0 {tablet} active Pantoprazole Sodium 40 MG eCW1 ( [facility]) pantoprazole 40 MG Delayed Release Oral Tablet Pantopr azole Sodium 40 MG Pantoprazole Sodium 40 MG 04/08/2020 12:00:00 AM EST 1.0 {tablet} active Pantoprazole Sodium 40 MG eCW1 ( [facility]) Insurance Providers Payer name Policy type / Coverage type Policy ID Covered green party ID Covered green party's relationship to whipple Policy Whipple Plan Information [facility] Comm Plan Medicaid F [id number] SELF [id number] Medicaid [facility] S D [id number] SELF [id number] Medicaid [facility] [employer] S D [id number] SELF [id number] MISHA [id number] SP [id number] Juncal Medicaid F [id number] SELF 7 [id number] [place] Medicaid F [id number] SELF 7 [id number] [place] Medicaid F [id number] SELF 7 [id number] Misha Purchase Plan F [id number] SELF [id number] ANSI-Not a Secondary Insurance [id number] ANSI-Not a Secondary Insurance [id number] ANSI-Not a Secondary Insurance [id number] ANSI-Not a Secondary Insurance [id number] ANSI-Not a Secondary Insurance [id number] ANSI-Not a Secondary Insurance [id number] ANSI-Not a Secondary Insurance [id number] ANSI-Commercial [id number] ANSI-Commercial [id number] ANSI-Commercial [id number] ANSI-Commercial [id number] ANSI-Commercial [id number] ANSI-Commercial [id number] ANSI-Commercial [id number] ANSI-Commercial [id number] ANSI-Commercial [id number] ANSI-Commercial [id number] ANSI-Commercial [id number] ANSI-Commercial [id number] ANSI-Commercial [id number] ANSI-Commercial [id number] ANSI-Commercial [id number] ANSI-Commercial [id number] ANSI-Commercial [id number] ANSI-Commercial [id number] ANSI-Commercial [id number] [facility] [place] Medicaid [id number] Self [id number] MISHA CARE [facility]ICA[facility] [id number] S [id number] MEDICAID [id number] SP [id number] SELF PAY ONLY UNAVAILABLE [facility] O [id number] S [id number] SELF PAY ONLY [id number] SP [id number] SELF PAY UNAVAILABLE SP [facility] [id number] SP [id number] Misha Medicaid [id number] SELF 7 [id number] [place] [id number] SP [id number] MISHA [id number] SP [id number] MISHA CARE DE O [id number] S [id number] [place] [id number] SP [id number] ANSI-Not a Secondary Insurance [id number] ANSI-Not a Secondary Insurance [id number] ANSI-Not a Secondary Insurance [id number] Problems, Conditions, and Diagnoses Code Display Name Description Problem Type Effective Dates Data Source(s) Z23 [id number] Encounter for immunization Problem 12:00:00 AM EDT eCW1 ([facility]) M89.49 [id number] Primary osteoarthritis involving multiple joints Problem 12/04/2020 12:00:00 AM EDT eCW1 ([facility]) M35.3 [id number] Polymyalgia Problem 12/04/2020 12:00:00 AM E DT eCW1 ([facility]) E04.9 [id number] Goiter Problem 04/08/2020 12:00:00 AM ES T eCW1 ([facility]) Surgeries/Procedures Procedure Description Date Indications Data Source(s) Imm: Flublok Quadrivalent 18 years & older 0.5mL IM Influenz a 02/04/2021 12:00:00 AM EDT eCW1 ([facility]) Endoscopy Upper GI Complex Diagnostic 06/30/2020 12:00 :00 AM EDT MEDENT ([facility], ) Immunization: Flublok Quadrivalent (18 years & older) 0.5mL IM (Influenza) 05/08/2020 12:00:00 AM EST eCW1 ([facility]) Results ID Date Data Source RHEUMATOID FACTOR QUANT 12/04/2020 12:00:00 AM EDT eCW1 ([facility]) Name Value Range Interpretation Code Description Data Emeli rce(s) Supporting Document(s) < 10.0 <15.0 RHEUMATOID FACTOR QUANT eCW1 ( [facility]) ID Date Data Source ERYTHROCYTE SEDIMENTATION RATE 12/04/2020 12:00:00 AM EDT eC W1 ([facility]) Name Value Range Interpretation Code Description Data Emeli rce(s) Supporting Document(s) 15 0-30 ERYTHROCYTE SEDIMENTATION RATE eCW1 ([facility]) ID Date Data Source C REACTIVE PROTEIN QUANTITATIV (At [facility]) 12/04/2020 12:00 :00 AM EDT eCW1 ([facility]) Name Value Range Interpretation Code Description Data Emeli rce(s) Supporting Document(s) 0.74 0.00-0.30 C REACTIVE PROTEIN QUANTI TATIV eCW1 ([facility]) ID Date Data Source Comprehensive Metabolic Profile (CMP) 12/04/2020 12:00:00 AM EDT eCW1 ([facility]) Name Value Range Interpretation Code Description Data Emeli rce(s) Supporting Document(s) 170 70-100 GLUCOSE, FASTING eCW1 ([facility]) 21 7-18 BLOOD UREA NITROGEN eCW1 ([facility]) 0.66 0.55-1.30 CREATININE FOR GFR eCW1 ([facility]) > 60.0 >51 GLOMERULAR FILTRATION RATE eCW 1 ([facility]) 106 98-107 CHLORIDE LEVEL eCW1 ([facility]) 4.4 3.5-5.1 POTASSIUM SERUM eCW1 ([facility]) 26 21-32 CARBON DIOXIDE LEVEL eCW1 ([facility]) 138 136-145 SODIUM LEVEL eCW1 ([facility]) 8.9 8.5-10.1 CALCIUM LEVEL eCW1 ([facility]) 68 12-78 ALT/SGPT eCW1 ([facility]) 42 7-37 AST/SGOT eCW1 ([facility]) 0.5 0.2-1.0 BILIRUBIN,TOTAL eCW1 ([facility]) 61 45-117 ALKALINE PHOSPHATASE eCW1 ([facility]) 7.0 6.4-8.2 TOTAL PROTEIN eCW1 ([facility]) 1.0 1.2-2.2 ALBUMIN/GLOBULIN RATIO eCW1 ([facility]) 3.5 3.2-5.2 ALBUMIN eCW1 ([facility]) ID Date Data Source CBC with Differential 12/04/2020 12:00:00 AM EDT eCW1 ([facility]) Name Value Range Interpretation Code Description Data Emeli rce(s) Supporting Document(s) 7.5 4.0-10.0 WHITE BLOOD COUNT eCW1 ([facility]) 43.6 36.0-47.0 HEMATOCRIT eCW1 ([facility]) 4.49 4.00-5.40 RED BLOOD COUNT eCW1 ([facility]) 14.1 12.0-15.5 HEMOGLOBIN eCW1 ([facility]) 97.1 80.0-96.0 MEAN CORPUSCULAR VOLUME e CW1 ([facility]) 31.4 27.0-33.0 MEAN CORPUSCULAR HEMOGLOB IN eCW1 ([facility]) 32.3 32.0-36.5 MEAN CORPUSCULAR HGB CONC eCW1 ([facility]) 310 150-450 PLATELET COUNT, AUTOMATED eCW1 ([facility]) 55.5 36.0-66.0 NEUTROPHILS % eCW1 ([facility]) 12.2 11.5-14.5 RED CELL DISTRIBUTION WID TH eCW1 ([facility]) 33.1 24.0-44.0 LYMPH % eCW1 ([facility]) 2.5 0.0-3.0 EOS % eCW1 ([facility]) 8.0 2.0-8.0 MONO % eCW1 ([facility]) 0.4 0.0-1.0 BASO % eCW1 ([facility]) 4.2 1.5-8.5 NEUTROPHILS # eCW1 ([facility]) 2.5 1.5-5.0 LYMPH # eCW1 ([facility]) 0.2 0.0-0.5 EOS # eCW1 ([facility]) 0.0 0.0-0.2 BASO # eCW1 ([facility]) 0.6 0.0-0.8 MONO # eCW1 ([facility]) ID Date Data Source [id number] 06/25/2020 10:30:00 AM EDT [facility] Name Value Range Interpretation Code Description Data Emeli rce(s) Supporting Document(s) SARS coronavirus 2 RNA Not Detected [facility] This lab was ordered by [facility] and reported by [facility]. ID Date Data Source LIPID PANEL (CARDIAC RISK) 04/08/2020 12:00:00 AM EST eCW1 ( [facility]) Name Value Range Interpretation Code Description Data Emeli rce(s) Supporting Document(s) Triglyceride [Mass/volume] in Serum or Plasma by calculation 303 <150 TRIGLYCERIDES LEVEL [facility] ([facility]) Cholesterol [Moles/volume] in Serum or Plasma 207 <200 CHOLESTEROL LEVEL [facility] ([facility]) 4.813 <5 CHOLESTEROL RISK RATIO eCW1 ([facility]) 164 NON-HDL-C eCW1 ([facility]) Cholesterol in LDL [Mass/volume] in Serum or Plasma by calculation 103 <100 LDL CHOLESTEROL eCW1 ([facility]) Cholesterol in HDL [Moles/volume] in Serum or Plasma 43 >40 HDL CHOLESTEROL eCW1 ([facility]) ID Date Data Source [id number] 04/08/2020 12:00:00 AM EST eCW1 ([facility]) Name Value Range Interpretation Code Description Data Emeli rce(s) Supporting Document(s) Hemoglobin A1c/Hemoglobin.total in Blood 9.4 HEMOGLOBIN A1c eCW1 ([facility]) ID Date Data Source FREE T4 & TSH PANEL 04/08/2020 12:00:00 AM EST eCW1 ([facility]) Name Value Range Interpretation Code Description Data Emeli rce(s) Supporting Document(s) 1.04 0.76-1.46 eCW1 ([facility]) 2.320 0.358-3.740 eCW1 ([facility]) ID Date Data Source CBC - Complete Blood Count 04/08/2020 12:00:00 AM EST eCW1 ( [facility]) Name Value Range Interpretation Code Description Data Emeli rce(s) Supporting Document(s) 6.8 4.0-10.0 WHITE BLOOD COUNT eCW1 ([facility]) 94.4 80.0-96.0 MEAN CORPUSCULAR VOLUME e CW1 ([facility]) 15.6 12.0-15.5 HEMOGLOBIN eCW1 ([facility]) 5.19 4.00-5.40 RED BLOOD COUNT eCW1 ([facility]) 49.0 36.0-47.0 HEMATOCRIT eCW1 ([facility]) 30.1 27.0-33.0 MEAN CORPUSCULAR HEMOGLOB IN eCW1 ([facility]) 31.8 32.0-36.5 MEAN CORPUSCULAR HGB CONC eCW1 ([facility]) 12.1 11.5-14.5 RED CELL DISTRIBUTION WID TH eCW1 ([facility]) 301 150-450 PLATELET COUNT, AUTOMATED eCW1 ([facility]) Procedure Social History Code Duration Value Status Description Data Source(s ) Smoking 02/04/2021 12:00:00 AM EDT Never Smoker completed Never S moker eCW1 ([facility]) Smoking 02/04/2021 12:00:00 AM EDT Never Smoker completed Never S moker eCW1 ([facility]) Smoking 02/04/2021 12:00:00 AM EDT Never Smoker completed Never S moker eCW1 ([facility]) Smoking 12/04/2020 12:00:00 AM EDT Never Smoker completed Never S moker eCW1 ([facility]) Smoking 12/04/2020 12:00:00 AM EDT Never Smoker completed Never S moker eCW1 ([facility]) Smoking 10/30/2020 12:00:00 AM EDT Never Smoker completed Never S moker eCW1 ([facility]) Smoking 10/30/2020 12:00:00 AM EDT Never Smoker completed Never S moker eCW1 ([facility]) Smoking 10/30/2020 12:00:00 AM EDT Never Smoker completed Never S moker eCW1 ([facility]) Smoking 10/30/2020 12:00:00 AM EDT Never Smoker completed Never S moker eCW1 ([facility]) Smoking 05/08/2020 12:00:00 AM EST Never Smoker completed Never S moker eCW1 ([facility]) Smoking 05/08/2020 12:00:00 AM EST Never Smoker completed Never S moker eCW1 ([facility]) Smoking 05/08/2020 12:00:00 AM EST Never Smoker completed Never S moker eCW1 ([facility]) Smoking 05/08/2020 12:00:00 AM EST Never Smoker completed Never S moker eCW1 ([facility]) Smoking 05/08/2020 12:00:00 AM EST Never Smoker completed Never S moker eCW1 ([facility]) Smoking 05/08/2020 12:00:00 AM EST Never Smoker completed Never S moker eCW1 ([facility]) Smoking 05/08/2020 12:00:00 AM EST Never Smoker completed Never S moker eCW1 ([facility]) Smoking 05/08/2020 12:00:00 AM EST Never Smoker completed Never S moker eCW1 ([facility]) Smoking 04/08/2020 12:00:00 AM EST Never Smoker completed Never S moker eCW1 ([facility]) Smoking 04/08/2020 12:00:00 AM EST Never Smoker completed Never S moker eCW1 ([facility]) Vital Signs ID Date Data Source UNK Name Value Range Interpretation Code Description Data Source(s) Body weight 236 [lb_av] 236 [lb_av] eCW1 ([facility]) Body height 64 [in_i] 64 [in_i] eCW1 ([facility]) Body mass index (BMI) [Ratio] 40.50 kg/m2 40.50 kg/m2 eCW1 ([facility]) Heart rate 91 /min 91 /min eCW1 ([facility]) Respiratory rate 18 /min 18 /min eCW1 ([facility]) Body temperature 96.6 [degF] 96.6 [degF] eCW1 ( [facility]) Systolic blood pressure 168 mm[Hg] 168 mm[Hg] e CW1 ([facility]) Diastolic blood pressure 90 mm[Hg] 90 mm[Hg] eCW1 ([facility]) Body weight 234.4 [lb_av] 234.4 [lb_av] eCW1 ([facility]) Body weight 106.32 kg 106.32 kg eCW1 ([facility]) Body height 64 [in_i] 64 [in_i] eCW1 ([facility]) Body mass index (BMI) [Ratio] 40.23 kg/m2 40.23 kg/m2 eCW1 ([facility]) Heart rate 87 /min 87 /min eCW1 ([facility]) Respiratory rate 18 /min 18 /min eCW1 ([facility]) Body temperature 98.0 [degF] 98.0 [degF] eCW1 ( [facility]) Systolic blood pressure 142 mm[Hg] 142 mm[Hg] e CW1 ([facility]) Diastolic blood pressure 78 mm[Hg] 78 mm[Hg] eCW1 ([facility]) Body weight 234 [lb_av] 234 [lb_av] eCW1 ([facility]) Body height 64 [in_i] 64 [in_i] eCW1 ([facility]) Body mass index (BMI) [Ratio] 40.16 kg/m2 40.16 kg/m2 eCW1 ([facility]) Heart rate 129 /min 129 /min eCW1 ([facility]) Respiratory rate 18 /min 18 /min eCW1 ([facility]) Body temperature 97.1 [degF] 97.1 [degF] eCW1 ( [facility]) Systolic blood pressure 144 mm[Hg] 144 mm[Hg] e CW1 ([facility]) Diastolic blood pressure 82 mm[Hg] 82 mm[Hg] eCW1 ([facility]) Diastolic blood pressure 72 mm[Hg] 72 mm[Hg] MEDANGELA ([facility], ) Body height 64 [in_i] 64 [in_i] [facility] ([facility], ) 5'4" Body weight 236.00 [lb_av] 236.00 [lb_av] MEDEN T ([facility], ) Body mass index (BMI) [Ratio] 40.5 kg/m2 40.5 k g/m2 [facility] ([facility], ) Systolic blood pressure 112 mm[Hg] 112 mm[Hg] M EDANGELA ([facility], ) [place] body weight 120 [lb_av] 120 [lb_av] MEDEN T ([facility], ) Body weight 107.[address] [facility] ([facility], ) Body surface area Derived from formula 2.[address] [facility] Systolic blood pressure 122 mm[Hg] 122 mm[Hg] M EDENT ([facility]) Diastolic blood pressure 78 mm[Hg] 78 mm[Hg] [facility] ([facility]) Body height 64 [in_i] 64 [in_i] [facility] ([facility]) 5'4" Body weight 243.00 [lb_av] 243.00 [lb_av] MEDEN T ([facility]) Body mass index (BMI) [Ratio] 41.7 kg/m2 41.7 k g/m2 [facility] ([facility]) [place] body weight 120 [lb_av] 120 [lb_av] MEDEN T ([facility]) Body weight 110.[address] [facility] ([facility]) Body surface area Derived from formula 2.[address] [facility] ([facility]) Body weight 246 [lb_av] 246 [lb_av] eCW1 ([facility]) Body height 64 [in_i] 64 [in_i] eCW1 ([facility]) Body mass index (BMI) [Ratio] 42.22 kg/m2 42.22 kg/m2 W1 ([facility]) Heart rate 90 /min 90 /min W1 ([facility]) Respiratory rate 18 /min 18 /min W1 ([facility]) Body temperature 96.3 [degF] 96.3 [degF] eCW1 ( [facility]) Systolic blood pressure 138 mm[Hg] 138 mm[Hg] e CW1 ([facility]) Diastolic blood pressure 76 mm[Hg] 76 mm[Hg] eCW1 ([facility]) Body weight 244.4 [lb_av] 244.4 [lb_av] eCW1 ([facility]) Body height 64 [in_i] 64 [in_i] eCW1 ([facility]) Body mass index (BMI) [Ratio] 41.95 kg/m2 41.95 kg/m2 [facility] ([facility]) Heart rate 114 /min 114 /min eCW1 ([facility]) Respiratory rate 18 /min 18 /min eCW1 ([facility]) Body temperature 97.9 [degF] 97.9 [degF] eCW1 ( [facility]) Systolic blood pressure 142 mm[Hg] 142 mm[Hg] e CW1 ([facility]) Diastolic blood pressure 82 mm[Hg] 82 mm[Hg] eCW1 ([facility]) Patient Treatment Plan of Care Planned Activity Planned Date Details Description Data Source (s) Semglee 100 UNIT/ML 02/04/2021 12:00:00 AM EDT eCW1 ([facility]) BD Pen Needle Micro U/F 32G X 6 MM 02/04/2021 12:00:00 AM EDT eCW1 ([facility]) Hydrochlorothiazide 12.5 MG Oral Capsule 02/04/2021 12:00:00 AM EDT eCW1 ([facility]) irbesartan 150 MG Oral Tablet 02/04/2021 12:00:00 AM EDT eCW1 ([facility]) Semglee 100 UNIT/ML 02/04/2021 12:00:00 AM EDT eCW1 ([facility]) BD Pen Needle Micro U/F 32G X 6 MM 02/04/2021 12:00:00 AM EDT eCW1 ([facility]) Hydrochlorothiazide 12.5 MG Oral Capsule 02/04/2021 12:00:00 AM EDT eCW1 ([facility]) irbesartan 150 MG Oral Tablet 02/04/2021 12:00:00 AM EDT eCW1 ([facility]) Semglee 100 UNIT/ML 02/04/2021 12:00:00 AM EDT eCW1 ([facility]) BD Pen Needle Micro U/F 32G X 6 MM 02/04/2021 12:00:00 AM EDT eCW1 ([facility]) Hydrochlorothiazide 12.5 MG Oral Capsule 02/04/2021 12:00:00 AM EDT eCW1 ([facility]) irbesartan 150 MG Oral Tablet 02/04/2021 12:00:00 AM EDT eCW1 ([facility]) Naproxen sodium 550 MG Oral Tablet 12/04/2020 12:00:00 AM EDT eCW1 ([facility]) Naproxen sodium 550 MG Oral Tablet 12/04/2020 12:00:00 AM EDT eCW1 ([facility]) 30 ACTUAT fluticasone furoate 0.1 MG/ACTUAT Dry Powder Inhaler [Arnuity] 11/25/2020 12:00:00 AM EDT eCW1 ([facility]) 30 ACTUAT fluticasone furoate 0.1 MG/ACTUAT Dry Powder Inhaler [Arnuity] 11/25/2020 12:00:00 AM EDT eCW1 ([facility]) glimepiride 1 MG Oral Tablet 10/30/2020 12:00:00 AM EDT eCW1 ([facility]) glimepiride 1 MG Oral Tablet 10/30/2020 12:00:00 AM EDT eCW1 ([facility]) glimepiride 1 MG Oral Tablet 10/30/2020 12:00:00 AM EDT eCW1 ([facility]) FreeStyle Lancets - 09/25/2020 12:00:00 AM EDT eCW1 ([facility]) FreeStyle Test - 09/25/2020 12:00:00 AM EDT eCW1 ([facility]) Blood Glucose System Tono - 09/25/2020 12:00:00 AM EDT eCW1 ([facility]) FreeStyle Lancets - 09/25/2020 12:00:00 AM EDT eCW1 ([facility]) FreeStyle Test - 09/25/2020 12:00:00 AM EDT eCW1 ([facility]) Blood Glucose System Tono - 09/25/2020 12:00:00 AM EDT eCW1 ([facility]) FreeStyle Lancets - 09/25/2020 12:00:00 AM EDT eCW1 ([facility]) FreeStyle Test - 09/25/2020 12:00:00 AM EDT eCW1 ([facility]) Blood Glucose System Tono - 09/25/2020 12:00:00 AM EDT eCW1 ([facility]) Lancets - 09/24/2020 12:00:00 AM EDT e CW1 ([facility]) [facility] Ver - 09/24/2020 12:00:00 AM EDT eCW1 ([facility]) Lancets - 09/24/2020 12:00:00 AM EDT e CW1 ([facility]) [facility] - 09/24/2020 12:00:00 AM EDT eCW1 ([facility]) [facility] - 09/24/2020 12:00:00 AM EDT eCW1 ([facility]) Lancets - 09/24/2020 12:00:00 AM EDT e CW1 ([facility]) [facility] - 09/24/2020 12:00:00 AM EDT eCW1 ([facility]) Lancets - 09/24/2020 12:00:00 AM EDT e CW1 ([facility]) Fluticasone Propionate 50 MCG/ACT 08/21/2020 12:00:00 AM EDT eCW1 ([facility]) Fluticasone Propionate 50 MCG/ACT 08/21/2020 12:00:00 AM EDT eCW1 ([facility]) Fluticasone Propionate 50 MCG/ACT 08/21/2020 12:00:00 AM EDT eCW1 ([facility]) Fluticasone Propionate 50 MCG/ACT 08/21/2020 12:00:00 AM EDT eCW1 ([facility]) Fluticasone Propionate 50 MCG/ACT 08/21/2020 12:00:00 AM EDT eCW1 ([facility]) Fluticasone Propionate 50 MCG/ACT 08/21/2020 12:00:00 AM EDT eCW1 ([facility]) gabapentin 300 MG Oral Capsule 05/08/2020 12:00:00 AM EST eCW1 ([facility]) 0.5 ML dulaglutide 3 MG/ML Auto-Injector [Trulicity] 021 12:00:00 AM EST eCW1 ([facility]) gabapentin 300 MG Oral Capsule 05/08/2020 12:00:00 AM EST eCW1 ([facility]) gabapentin 300 MG Oral Capsule 05/08/2020 12:00:00 AM EST eCW1 ([facility]) 0.5 ML dulaglutide 3 MG/ML Auto-Injector [Trulicity] 021 12:00:00 AM EST eCW1 ([facility]) gabapentin 300 MG Oral Capsule 05/08/2020 12:00:00 AM EST eCW1 ([facility]) 0.5 ML dulaglutide 3 MG/ML Auto-Injector [Trulicity] 021 12:00:00 AM EST eCW1 ([facility]) gabapentin 300 MG Oral Capsule 05/08/2020 12:00:00 AM EST eCW1 ([facility]) 0.5 ML dulaglutide 3 MG/ML Auto-Injector [Trulicity] 021 12:00:00 AM EST eCW1 ([facility]) gabapentin 300 MG Oral Capsule 05/08/2020 12:00:00 AM EST eCW1 ([facility]) 0.5 ML dulaglutide 3 MG/ML Auto-Injector [Trulicity] 021 12:00:00 AM EST eCW1 ([facility]) Trulicity 3 MG/0.5ML 05/08/2020 12:00:00 AM EST eCW1 ([facility]) gabapentin 300 MG Oral Capsule 05/08/2020 12:00:00 AM EST eCW1 ([facility]) 0.5 ML dulaglutide 3 MG/ML Auto-Injector [Trulicity] 12:00:00 AM EST eCW1 ([facility]) gabapentin 300 MG Oral Capsule 05/08/2020 12:00:00 AM EST eCW1 ([facility]) 0.5 ML dulaglutide 3 MG/ML Auto-Injector [Trulicity] 12:00:00 AM EST eCW1 ([facility]) pantoprazole 40 MG Delayed Release Oral Tablet 04/08/2020 12:00:00 AM EST eCW1 ([facility]) Diclofenac Sodium 0.03 MG/MG Topical Gel 04/08/2020 12:00:00 AM EST eCW1 ([facility]) pantoprazole 40 MG Delayed Release Oral Tablet 04/08/2020 12:00:00 AM EST eCW1 ([facility]) Diclofenac Sodium 0.03 MG/MG Topical Gel 04/08/2020 12:00:00 AM EST eCW1 ([facility])
--- NOTE | 2021-02-20 16:03 | REP ---
INDICATION: pain, r/o DVT. COMPARISON: None. TECHNIQUE: Real-time and Doppler imaging of the deep venous systems of the legs bilaterally FINDINGS: The common femoral veins, greater saphenous veins, femoral veins and popliteal veins are normal bilaterally. Thrombus is seen in the peroneal and posterior tibial veins of the right calf. The left calf veins were not delineated due to swelling. IMPRESSION: Thrombus in the right calf veins as above. The proximal veins of the right lower leg are clear of thrombus. 2. The calf veins on the left could not be identified due to extensive swelling. <Electronically signed by Pedro Byrnes > 02/20/21 [id number]
[2021-02-20 16:43] LABS: BLOOD UREA NITROGEN 11 MG/DL (7-18); CALCIUM LEVEL 8.4 MG/DL (8.8-10.2); CARBON DIOXIDE LEVEL 24 MEQ/L (21-32); CHLORIDE LEVEL 102 MEQ/L (98-107); CREATININE FOR GFR 0.66 MG/DL (0.55-1.30); GLOMERULAR FILTRATION RATE > 60.0 (>45); GLUCOSE, FASTING 291 MG/DL (70-100); MAGNESIUM LEVEL 1.8 MG/DL (1.8-2.4); POTASSIUM SERUM 4.6 MEQ/L (3.5-5.1); SODIUM LEVEL 135 MEQ/L (136-145)
--- NOTE | 2021-02-20 16:44 | HPEPDOC ---
[facility] Medical History & Physical Date of Admission Feb 20, 2021 Date of Service: Feb 20, 2021 Attending Physician: RICHELLE CROWLEY MD History and Physical CHIEF COMPLAINT: SOB, flu-like symptoms HISTORY OF PRESENT ILLNESS: Ms. Fair is a 61 yo female with a PMH of DM, HTN, dyslipidemia, asthma non smoker, degenerative disc disease, and arthritis presents on 02/20/2021 to the ED with SOB of 1 month duration that has worsened in the last week. Pt states she has had a scratchy cough for a few weeks and thought it may be due to her Lisinopril medication in which her PCP ended up discontinuing two weeks ago. However, the cough persisted and she recently admits to developing a green productive sputum. Pt states she received her flu vaccine on 02/04 and then a few days later felt really weak and developed increased nasal congestion for which she attributes to "thinking she got a reaction to the flu vaccine". Pt states she stayed at home to rest up and she has "tried everything", but symptoms have worsened. Pt admits to chest pain that is located substernally that radiates straight to the back for which she tried heat packs that did not help help. Pt states is vaccinated for COVID with both doses of the Pfizer vaccine but has not received the booster shot. 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 When asked about her cold sore on her tongue, patient denies any bites or history of recurrent mouth sores and states she developed it two weeks ago. Pt denies any fevers, rashes, or recent travels. Pt admits to diarrhea of one week with a 12 lbs weight loss with stools firming up today. Upon presentation to the ED, pt was found to be hypoxic in 80's and was placed on 6L NC O2. Pt was found to be COVID negative. Imaging of CXR and CTA chest show findings consistent with pneumonia. Pt was started levofloxacin IV. Pt was admitted to PCU for hypoxia secondary to pneumonia and management of symptoms. PAST MEDICAL HISTORY: -DMT2 -HTN -Dyslipidemia. -Asthma non-smoker -Degenerative disc disease -Arthritis -Gastroparesis -Hiatal hernia -Obesity -Depression -Restless leg syndrome PAST SURGICAL HISTORY: - Cardiac cath - section. - Left posterior tibia tendon repair. SOCIAL HISTORY: Children: Daughter who recently had a baby Employment: Retired construction operations manager Tobacco use: Denies ETOH: Denies Illicit drug use: Denies Other relevant social factors: No recent travel, rarely goes out in public, recent flu vaccination FAMILY HISTORY: None relevant ALLERGIES: Please see below. REVIEW OF SYSTEMS: CONSTITUTIONAL: Denies fevers. HEENT: Admits to nasal congestion and cold sores. Denies lymphadenopathy. CARDIOVASCULAR: Admits to chest tightness, chest pain radiating to back. RESPIRATORY: Admits to SOB and cough with productive sputum. GASTROINTESTINAL: Admits to diarrhea. GENITOURINARY: Denies dysuria. SKIN: Denies skin rashes. MUSCULOSKELETAL: Admits to malaise. NEUROLOGICAL: Admits to burning sensation in calves. HOME MEDICATIONS: Please see below. PHYSICAL EXAMINATION: VITAL SIGNS: Temperature 98.3, pulse 88, respiratory rate 21, blood pressure 156/64, pulse oximetry 95% on 6L NC. GENERAL APPEARANCE: Pleasant woman who looks her stated age found sitting in bed in NAD wearing a mask and NC. HEENT: Head NC and AT. EOMI. No lymphadenopathy. Cold sore noted on anterior lateral left side of tongue. CARDIOVASCULAR: RRR. S1S2. LUNGS: Crackles in upper lung dorsey b/l. Tachypneic but able to speak in full complete sentences with no use of accessory respiratory muscles. ABDOMEN: Soft, nontender, nondistended. MUSCULOSKELETAL: Full ROM with muscle strength 5/5 b/l. No pain elicited upon dorsiflexion of feet b/l. EXTREMITIES: No deformities noted. Pedal pulses 2+. NEUROLOGICAL: A&O x3. No focal defect appreciated. PSYCHIATRIC: Mood and affect appropriate. LABORATORY DATA: See below. IMAGING: CXR 02/20 -Lung space opacities consistent with pneumonia. CTA Chest 02/20 1. There is no evidence of a pulmonary embolism. 2. Diffuse bilateral opacities consistent with pneumonia as described in report. Does this patient have COVID-19? Vascular US 02/20 -Thrombus in the right calf veins: peroneal and posterior tibial veins of the right calf. -The proximal veins of the right lower leg are clear of thrombus. -The common femoral veins, greater saphenous veins, femoral veins and popliteal veins are normal bilaterally. -The calf veins on the left could not be identified due to extensive swelling. MICROBIOLOGY: Please see below. ASSESSMENT: Ms. Fair is a 61 yo female with a PMH of DMT2, HTN, dyslipidemia, asthma non-smoker and is fully vaccinated for COVID presents with SOB of one month that has worsened within the past week with flu- like symptoms of malaise, productive cough, nasal congestion, and chest tightness was admitted for hypoxia secondary to pneumonia. PLAN: # Acute hypoxic respiratory failure 2/2 atypical pneumonia vs CAP -Pt sating at 92% on 6L NC O2 -Imaging of CXR and CTA noted above -Inflammatory markers show elevated ESR of 63 and CRP of 4.5 -Procal 0.26, abx recommended for lower resp infection. -D-dimer >4000, CTA negative for PE -Respiratory panel negative, including COVID-19 -Atypical PNA serology including mycoplasma, C. psittaci, C. trachomatis, C. pneumoniae, mycoplasma pending. Urine legionella pending. -HIV serology negative -Ordered sputum Cx. -BCx pending -c/t Levovloxacin 750 mg/IV day #1 -will give dose of IV solumedrol, consider further steroids based on clinical progression # B/L leg pain, possibly 2/2 DVT -US image positive for thrombus in right calf veins, unable to fully visualize left calf veins -Start 10 mg apixaban PO BID x7 day then will start 5mg BID dosing for at least 3 months -Will need to obtain further history to determine if provoked or unprovoked # Asthma -mild wheezing on exam, does not appear to be acutely exacerbated -s/p stress dose steroids -c/t home albuterol HFA PRN # HTN -c/t home med metoprolol 50 mg PO BID, Irbesartan 150 mg PO daily # HLD -Holding home meds for now # DMT2 -hold home medications -consistent carb diet -Start ISS AC/HS with hypoglycemic protocol # GERD -c/t home med pantoprazole 40 mg PO BID # Depression -c/t home med trazodone 150 mg PO daily # Restless leg syndrome -c/t home med ropinirole 2 mg PO daily # Hx Herpes -continue home acyclovir 400 mg PO daily DVT PPx: full anticoagulation on Eliquis as above Diet: Consistent carbs Activity: Activity as tolerated Code: Full code Disposition: Admitted inpatient to PCU, expect at least 2 midnights stay, pending clinical improvement Vital Signs Vital Signs Date Time Temp Pulse Resp B/P (MAP) Pulse Ox O2 Delivery O2 Flow Rate FiO2 02/20/21 14:30 97 20 173/79 (110) 95 Nasal Cannula 02/20/21 13:45 6.0 02/20/21 10:11 97.6 Laboratory Data Labs 24H Laboratory Tests 2 02/20/21 11:01: Prothrombin Time 14.1H, Prothromb Time International Ratio 1.04, Activated Partial Thromboplast Time 25.9, Fibrinogen 445, D-Dimer, Quantitative > 4000H, Procalcitonin 0.26 02/20/21 11:02: Immature Granulocyte % (Auto) 4.2H, Neutrophils (%) (Auto) 64.6, Lymphocytes (%) (Auto) 22.2L, Monocytes (%) (Auto) 5.9, Eosinophils (%) (Auto) 2.5, Basophils (%) (Auto) 0.6, Neutrophils # (Auto) 6.6, Lymphocytes # (Auto) 2.3, Monocytes # (Auto) 0.6, Eosinophils # (Auto) 0.3, Basophils # (Auto) 0.1, Nucleated Red Blood Cells % (auto) 1.5H, Erythrocyte Sedimentation Rate 63H, Blood Gas Bicarbonate Standard 23.3, Venous Blood pH 7.391, Venous Blood Partial Pressure CO2 42.5, Venous Blood Partial Pressure O2 23.5L, Venous Blood Total Carbon Dioxide 26.5, Venous Blood HCO3 25.2, Venous Blood Oxygen Saturation 45.5L, Venous Blood Base Excess 0.1, Anion Gap 8, Glomerular Filtration Rate > 60.0, Lactic Acid Level 2.0, Calcium Level 8.5L, Ferritin 243, Total Bilirubin 0.4, Direct Bilirubin 0.2, Aspartate Amino Transf (AST/SGOT) 59H, Alanine Aminotransferase (ALT/SGPT) 73, Alkaline Phosphatase 162H, Lactate Dehydrogenase 391H, Total Creatine Kinase 67, Creatine Kinase MB 1.3, Creatine Kinase MB Relative Index 1.94, Troponin I < 0.02, C-Reactive Protein, Quantitative 4.50H, CV-Vxi-W-Type Natriuretic Peptide 55, Total Protein 7.1, Albumin 2.2L, Albumin/Globulin Ratio 0.4L, Thyroid Stimulating Hormone (TSH) 1.970, Thyroxine (T4) 13.5H, HIV Antigen/Antibody Combo Qual NEGATIVE CBC/BMP Laboratory Tests 02/20/21 11:02 Microbiology Microbiology 02/20/21 Gram Stain, Received Pending 02/20/21 Sputum Culture, Received Pending 02/20/21 Blood Culture, Received Pending 02/20/21 Respiratory Virus Panel (PCR) (MERYL) - Final, Complete 02/20/21 Blood Culture, Received Pending Home Medications Scheduled Acyclovir (Acyclovir) 400 Mg Tab, 400 MG PO DAILY Atorvastatin Calcium (Atorvastatin Calcium) 10 Mg Tablet, 10 MG PO QHS Glimepiride (Glimepiride) 1 Mg Tablet, 1 MG PO BID Hydroxyzine HCl (Hydroxyzine HCl) 10 Mg Tablet, 10 MG PO BID Insulin Glargine,Hum.rec.anlog (Semglee) 100 Unit/Ml Vial, 10 UNIT SC QHS Irbesartan (Irbesartan) 150 Mg Tablet, 150 MG PO QHS Metformin HCl (Metformin HCl) 500 Mg Tablet, 500 MG PO BID Metoprolol Tartrate (Metoprolol Tartrate) 50 Mg Tab, 50 MG PO BID Pantoprazole Sodium (Pantoprazole Sodium) 40 Mg Tablet.dr, 40 MG PO BID Ropinirole HCl (Ropinirole HCl) 2 Mg Tablet, 2 MG PO QHS Trazodone HCl (Trazodone HCl) 150 Mg Tablet, 150 MG PO QHS Scheduled PRN Albuterol Sulfate (Ventolin Hfa) 18 Gm Hfa.aer.ad, 2 PUFFS INH QID PRN for SHORTNESS OF BREATH Allergies Coded Allergies: Penicillins (Verified Allergy, Intermediate, rash, 06/23/20) dulaglutide (Verified Adverse Reaction, Unknown, RASH AT INJECTION SITE, 02/20/21) A-FIB/CHADSVASC A-FIB History Current/History of A-Fib/PAF?: No KIRA PAT OMS-4 Feb 20, 2021 16:43 BHAKTI GO D.O. Feb 20, 2021 18:41
[2021-02-20] MEDS ORDERED: GLUCAGON INJ 1MG VIAL SC PRN (16:50)
[2021-02-20] MEDS ORDERED: DEXTROSE 50% 50 ML SYRINGE IV PRN (16:50)
[2021-02-20] MEDS ORDERED: GLUCOSE 4GM CHEW TABLET PO PRN (16:50)
[2021-02-20 18:00] VITALS: BP 162/75
[2021-02-20] MEDS: HumaLOG INSULIN (NovoLOG) PER UNIT SC SCH ×2 (18:02→21:38)
[2021-02-20] MEDS ORDERED: methylPREDNISolone 125MG 2ML VIAL IV ONE (18:35)
[2021-02-20 19:56] VITALS: BP 148/65
[2021-02-20] MEDS: IRBESARTAN 150MG TAB PO SCH (21:29)
[2021-02-20] MEDS: PANTOPRAZOLE 40MG TAB (PROTONIX) PO SCH (21:30)
[2021-02-20] MEDS: METOPROLOL TART 50 MG TAB PO SCH (21:30)
[2021-02-20] MEDS: hydrOXYzine 10 MG TAB PO SCH (21:31)
[2021-02-20] MEDS: APIXABAN 5 MG TAB (ELIQUIS) PO SCH (21:31)
[2021-02-20] MEDS: traZODone 50 MG TAB PO SCH (21:31)
[2021-02-20] MEDS: rOPINIRole 1MG TAB PO SCH (21:32)
[2021-02-20 21:33] LABS: BLOOD UREA NITROGEN 12 MG/DL (7-18); CALCIUM LEVEL 8.1 MG/DL (8.8-10.2); CARBON DIOXIDE LEVEL 24 MEQ/L (21-32); CHLORIDE LEVEL 101 MEQ/L (98-107); CREATININE FOR GFR 0.88 MG/DL (0.55-1.30); GLOMERULAR FILTRATION RATE > 60.0 (>45); GLUCOSE, FASTING 348 MG/DL (70-100); POTASSIUM SERUM 4.4 MEQ/L (3.5-5.1); SODIUM LEVEL 136 MEQ/L (136-145)
[2021-02-21] VITALS: BP 141/67
[2021-02-21 03:17] LABS: BLOOD UREA NITROGEN 18 MG/DL (7-18); CALCIUM LEVEL 8.3 MG/DL (8.8-10.2); CARBON DIOXIDE LEVEL 24 MEQ/L (21-32); CHLORIDE LEVEL 103 MEQ/L (98-107); CREATININE FOR GFR 0.64 MG/DL (0.55-1.30); GLOMERULAR FILTRATION RATE > 60.0 (>45); GLUCOSE, FASTING 353 MG/DL (70-100); POTASSIUM SERUM 4.4 MEQ/L (3.5-5.1); SODIUM LEVEL 135 MEQ/L (136-145)
[2021-02-21 04:00] VITALS: BP 138/64
[2021-02-21 06:28] LABS: BASO % 0.4 % (0.0-1.0); HEMATOCRIT 38.6 % (36.0-47.0); HEMOGLOBIN 12.4 g/dl (12.0-15.5); LYMPH # 2.2 10^3/uL (1.5-5.0); LYMPH % 20.7 % (24.0-44.0); MEAN CORPUSCULAR HEMOGLOBIN 30.1 pg (27.0-33.0); MEAN CORPUSCULAR HGB CONC 32.1 g/dl (32.0-36.5); MEAN CORPUSCULAR VOLUME 93.7 fl (80.0-96.0); MONO # 0.5 10^3/uL (0.0-0.8); MONO % 4.8 % (2.0-8.0); NEUTROPHILS # 7.5 10^3/uL (1.5-8.5); PLATELET COUNT, AUTOMATED 239 10^3/uL (150-450); RED BLOOD COUNT 4.12 10^6/uL (4.00-5.40); WHITE BLOOD COUNT 10.5 10^3/uL (4.0-10.0)
[2021-02-21 06:54] LABS: ALBUMIN 2.2 GM/DL (3.2-5.2); ALT/SGPT 56 U/L (12-78); BILIRUBIN,DIRECT 0.2 MG/DL (0.0-0.2); BILIRUBIN,TOTAL 0.5 MG/DL (0.2-1.0); MAGNESIUM LEVEL 1.8 MG/DL (1.8-2.4); TOTAL PROTEIN 6.7 GM/DL (6.4-8.2)
--- NOTE | 2021-02-21 07:02 | ECGEPIP ---
[facility] - ED Test Date: 2021-02-20 Pat Name: CARINA RAY Department: Room: - Gender: Female Line Servicer: ARABELLA : 1960 Requested By: RAMOS Robert Order Number: [id number] Reading MD: Thee Kramer Measurements Intervals [place] Rate: 90 P: 50 OR: 144 QRS: -5 QRSD: 80 T: 42 QT: 376 QTc: 459 Interpretive Statements Normal sinus rhythm Possible Left atrial enlargement POOR R WAVE PROGRESSION POSSIBLE INCOMPLETE RIGHT BUNDLE BRANCH BLOCK NO PRIORS FOR COMPARISON Electronically Signed on 02-21-2021 7:02:01 EST by Thee Kramer
[2021-02-21 08:00] VITALS: BP 138/64
[2021-02-21] MEDS: HumaLOG INSULIN (NovoLOG) PER UNIT SC SCH ×4 (08:29→21:02)
[2021-02-21] MEDS: hydrOXYzine 10 MG TAB PO SCH ×2 (08:29→20:50)
[2021-02-21] MEDS: APIXABAN 5 MG TAB (ELIQUIS) PO SCH (08:29)
[2021-02-21] MEDS: ACYCLOVIR 200 MG CAPSULE PO SCH (08:29)
[2021-02-21] MEDS: METOPROLOL TART 50 MG TAB PO SCH ×2 (08:30→20:52)
[2021-02-21] MEDS: PANTOPRAZOLE 40MG TAB (PROTONIX) PO SCH ×2 (08:30→20:51)
[2021-02-21] MEDS ORDERED: ENOXAPARIN 40MG/0.4ML SYRINGE (J1650 PER 10MG) SC SCH (09:00)
[2021-02-21] MEDS ORDERED: NICOTINE 21MG/24HR 1 EA TRANSDERMAL TD SCH (09:00)
[2021-02-21 09:25] LABS: BLOOD UREA NITROGEN 17 MG/DL (7-18); CALCIUM LEVEL 8.4 MG/DL (8.8-10.2); CARBON DIOXIDE LEVEL 23 MEQ/L (21-32); CHLORIDE LEVEL 103 MEQ/L (98-107); CREATININE FOR GFR 0.55 MG/DL (0.55-1.30); GLOMERULAR FILTRATION RATE > 60.0 (>45); GLUCOSE, FASTING 298 MG/DL (70-100); POTASSIUM SERUM 4.3 MEQ/L (3.5-5.1); SODIUM LEVEL 137 MEQ/L (136-145)
--- NOTE | 2021-02-21 09:56 | IPNPDOC ---
Text Note Date of Service The patient was seen on 02/21/21. NOTE Subjective: Patient seen and examined at bedside. No acute overnight events reported. Patient voices no new medical complaints this morning. Still short of breath. Objective: Vital Signs: reviewed General: NAD, lying comfortably in bed HEENT: NC/AT, EOMI, cold sore left anterior tongue Neck: supple, no masses Chest: diffuse wheezing Heart: +S1S2, RRR Abd: soft, NT, ND, +BS Ext: no edema Skin: no rashes Neuro: no gross focal deficits Psych: AAOx3 A/P: 61F with PMHx including DM, HTN, DLP, asthma non-smoker and is fully vaccinated for COVID presents for 1 month worsening SOB, malaise, productive cough, nasal congestion, and chest tightness was admitted for hypoxia secondary to pneumonia. She also noted diarrhea starting one week ago, and a cold sore on her tongue two weeks ago. # Acute hypoxic respiratory failure - repeat COVID-19 is positive - discussed with pulm - will start remdesivir, baricitinib, decadron - possible superimposed bacterial pneumonia - on levaquin day #2 -CT angio chest with diffuse bilateral opacities -Inflammatory markers show elevated ESR of 63 and CRP of 4.5 -Procal 0.26, abx recommended for lower resp infection. -D-dimer >4000, CTA negative for PE -Respiratory panel negative, including COVID-19 -Atypical PNA serology including mycoplasma, C. psittaci, C. trachomatis, C. pneumoniae, mycoplasma pending. Urine legionella pending. -HIV serology negative -Ordered sputum Cx. -BCx pending # B/L leg pain, possibly 2/2 DVT -US image positive for thrombus in right calf veins, unable to fully visualize left calf veins -Start 10 mg apixaban PO BID x7 day then will start 5mg BID dosing for at least 3 months - appears to be provoked # Asthma -mild wheezing on exam, does not appear to be acutely exacerbated -s/p stress dose steroids -c/t home albuterol HFA PRN # HTN -c/t home med metoprolol 50 mg PO BID, Irbesartan 150 mg PO daily # HLD # DMT2 -hold home medications -consistent carb diet -Start ISS AC/HS with hypoglycemic protocol # GERD -c/t home med pantoprazole 40 mg PO BID # Depression -c/t home med trazodone 150 mg PO daily # Restless leg syndrome -c/t home med ropinirole 2 mg PO daily # Hx Herpes -continue home acyclovir 400 mg PO daily DVT PPx: full anticoagulation on Eliquis as above Code: Full code Disposition: pulm c/s, pending clinical improvement, transfer to [facility] VS,Fishbone, I+O VS, Fishbone, I+O Laboratory Tests 02/20/21 11:02 02/20/21 16:09 02/20/21 20:57 02/21/21 02:43 02/21/21 05:33 Vital Signs Date Time Temp Pulse Resp B/P (MAP) Pulse Ox O2 Delivery O2 Flow Rate FiO2 02/21/21 08:30 104 138/64 02/21/21 08:00 96.5 20 90 High Flow Cannula 12.0 I&O- Last 24 Hours up to 6 AM 02/21/21 06:00 Intake Total 1260 ml Output Total 1250 ml Balance 10 ml JUSTINO GTZ MD Feb 21, 2021 09:56
[2021-02-21 11:41] LABS: FERRITIN 202 NG/ML (8-252)
[2021-02-21 12:01] VITALS: BP 147/74
[2021-02-21] MEDS: ASPIRIN 81MG ENTERIC TABLET PO SCH (12:07)
[2021-02-21] MEDS: dexameTHASONE 4 MG/ML 1ML VIAL (J1100 PER 1MG) IV SCH (12:08)
[2021-02-21] MEDS: ENOXAPARIN 100MG/1ML SYRINGE (J1650 PER 10MG) SC SCH ×2 (12:10→20:49)
--- NOTE | 2021-02-21 12:21 | CR.PDOC ---
General Date of Consultation: Feb 21, 2021 Referring Provider: JUSTINO GTZ MD Primary Care Physician: Harry Correa MD Attending Physician: JUSTINO GTZ MD Consultation REASON FOR CONSULTATION/CHIEF COMPLAINT: Shortness of breath and fatigue. HISTORY OF PRESENT ILLNESS: This is a 61-year-old female with past medical history of diabetes, hypertension, osteoarthritis of the hand and hip, polymyalgia, degenerative cervical disks presented to the hospital with short ness of breath. She has been experiencing shortness of breath for the past 1 month. However, she received a typical flu shot on 02/04/2021. 3 days after, patient started experiencing worsening and progressive shortness of breath. For the past 2 weeks, she is unable to do her house chores due to severe shortness of breath. Associated symptom include dry cough. She also has intermittent 5-6 bouts of nonbloody watery diarrhea for the past 1-1/2-week. She also had sore throat and sinusitis initially but this was better on hospital admission. Upon arrival to the emergency department, patient was found to be hypoxic on room air. She was put on 6 L of oxygen nasal cannula. Laboratory showed slight leukocytosis with no other laboratory derangement. Respiratory viral panel was negative for respiratory virus. She had a CT angiography of the chest done that did not show any evidence of acute pulmonary embolism. However there are bilateral diffuse consolidated and patchy groundglass opacity. She was admitted and started on antibiotic with Levaquin. However, her oxygen requirement has increased to 12 L on high flow nasal cannula. Therefore pulmonary was consulted for further recommendation. We just found out the patient is positive for COVID-19 on reswab. She recently moved to [place] from [facility] in November. She denies of mold or mildew in her new apartment. She denies her only pets at home. She is a retired room service waiter/waitress and denies any history of occupational exposure. She recently saw her immigration officer and she was diagnosed with polymyalgia and osteoarthritis of her fingers and hip. She denies of visual problem and skin rash. PAST MEDICAL HISTORY: -DMT2 -HTN -Dyslipidemia. -Asthma non-smoker -Degenerative disc disease -Arthritis -Gastroparesis -Hiatal hernia -Obesity -Depression -Restless leg syndrome -Polymyalgia PAST SURGICAL HISTORY: - Cardiac cath - section. - Left posterior tibia tendon repair. SOCIAL HISTORY: Children: Daughter who recently had a baby Employment: Retired room service waiter/waitress Tobacco use: Denies ETOH: Denies Illicit drug use: Denies Other relevant social factors: No recent travel, rarely goes out in public, recent flu vaccination FAMILY HISTORY: None relevant ALLERGIES: Please see below. HOME MEDICATIONS: Please see below. REVIEW OF SYSTEMS: CONSTITUTIONAL: Admits to experiencing fatigue and 10 pounds weight loss, denies fever, chills, night sweat. HEENT: Admits to postnasal drip and sore throat. CARDIOVASCULAR: Denies chest pain, orthopnea, PND, palpitation, lower extremity swelling. RESPIRATORY: Admits to shortness of breath and dry cough. Denies hemoptysis GENITOURINARY: Denies dysuria. MUSCULOSKELETAL: Admits to experiencing chronic joint pain. GASTROINTESTINAL: Admits to having watery nonbloody diarrhea. Denies abdominal pain, nausea, vomiting or blood in stool SKIN: Denies rash. NEUROLOGICAL: Denies slurred speech or focal weakness/numbness. PSYCHIATRIC: Denies depression. ENDOCRINE: Denies weight changes, heat/cold intolerance. HEMATOLOGIC/LYMPHATIC: Denies bleeding. ALLERGIC/IMMUNOLOGIC: Denies allergy. PHYSICAL EXAMINATION: VITAL SIGNS: Please see below. GENERAL APPEARANCE: Alert and awake, mild respiratory distress, speaking in full sentences. HEENT: No evidence of JVD or cervical adenopathy. RESPIRATORY: Bilateral coarse crackle in all lung dorsey. CARDIOVASCULAR: Tachycardia with regular S1-S2 with no evidence of murmur. ABDOMEN: Soft nontender with hypoactive bowel sounds. No rebound tenderness EXTREMITIES: Osteoarthritic changes of the DIP and PIP. No evidence of joint effusion or pedal edema NEUROLOGICAL: Nonfocal, cranial nerves are intact. PSYCHIATRIC: Alert and oriented x3. LABORATORY DATA: Please see below. ASSESSMENT/PLAN: This is a 61-year-old female with past medical history of diabetes, hypertension, osteoarthritis of the hand and hip, polymyalgia, degenerative cervical disks presented to the hospital with shortness of breath. She was later found to be COVID-19 positive. 1. Hypoxic respiratory failure secondary to COVID-19 ARDS. 2. COVID-19. 3. Possibility of underlying CTD/ILD Recommendations: -Please initiate baricitinib, remdesivir, Decadron. -Encourage proning when possible. -Lasix as needed to keep net fluid balance as 0. -Hold off empiric antibiotic as I do not suspect any bacterial pneumonia component. -We will further work-up for underlying noninfectious ILD once her Covid-19 is treated. She will most likely need a repeat CT scan of the chest. -Currently on high flow nasal cannula. Can consider Vapotherm if she requires more supplemental oxygen. Keep oxygen saturation above 90%. Vital Signs/I&O Vital Signs Date Time Temp Pulse Resp B/P (MAP) Pulse Ox O2 Delivery O2 Flow Rate FiO2 02/21/21 08:30 104 138/64 02/21/21 08:00 96.5 20 90 High Flow Cannula 12.0 I&O- Last 24 Hours up to 6 AM 02/21/21 06:00 Intake Total 1260 ml Output Total 1250 ml Balance 10 ml Laboratory Data Labs 24H Laboratory Tests 2 02/20/21 16:09: Anion Gap 9, Glomerular Filtration Rate > 60.0, Calcium Level 8.4L, Magnesium Level 1.8, Free Thyroxine 1.59H 02/20/21 18:58: 02/20/21 20:57: Anion Gap 11, Glomerular Filtration Rate > 60.0, Calcium Level 8.1L 02/20/21 21:25: Bedside Glucose (Misc Panel) 364H 02/21/21 02:43: Anion Gap 8, Glomerular Filtration Rate > 60.0, Calcium Level 8.3L 02/21/21 05:33: Anion Gap 11, Glomerular Filtration Rate > 60.0, Calcium Level 8.4L, Immature Granulocyte % (Auto) 3.1H, Neutrophils (%) (Auto) 71.0H, Lymphocytes (%) (Auto) 20.7L, Monocytes (%) (Auto) 4.8, Eosinophils (%) (Auto) 0.0, Basophils (%) (Auto) 0.4, Neutrophils # (Auto) 7.5, Lymphocytes # (Auto) 2.2, Monocytes # (Auto) 0.5, Eosinophils # (Auto) 0.0, Basophils # (Auto) 0.0, Nucleated Red Blood Cells % (auto) 0.6H, Magnesium Level 1.8, Ferritin 202, Total Bilirubin 0.5, Direct Bilirubin 0.2, Aspartate Amino Transf (AST/SGOT) 24, Alanine Aminotransferase (ALT/SGPT) 56, Alkaline Phosphatase 132H, Total Protein 6.7, Albumin 2.2L, Albumin/Globulin Ratio 0.5L 02/21/21 07:59: Bedside Glucose (Misc Panel) 264H 02/21/21 09:12: Coronavirus (COVID-19)(PCR) POSITIVEA CBC/BMP Laboratory Tests 02/20/21 16:09 02/20/21 20:57 02/21/21 02:43 02/21/21 05:33 Microbiology Microbiology 02/20/21 Gram Stain - Final, Resulted 02/20/21 Sputum Culture, Resulted Pending 02/20/21 Blood Culture - Preliminary, Resulted No growth after 24 hours . All specim... 02/20/21 Respiratory Virus Panel (PCR) (MERYL) - Final, Complete 02/20/21 Blood Culture - Preliminary, Resulted No growth after 24 hours . All specim... Allergies Coded Allergies: Penicillins (Verified Allergy, Intermediate, rash, 06/23/20) dulaglutide (Verified Adverse Reaction, Unknown, RASH AT INJECTION SITE, 02/20/21) Home Medications Scheduled Acyclovir (Acyclovir) 400 Mg Tab, 400 MG PO DAILY, (Reported) Atorvastatin Calcium (Atorvastatin Calcium) 10 Mg Tablet, 10 MG PO QHS, (Reported) Glimepiride (Glimepiride) 1 Mg Tablet, 1 MG PO BID, (Reported) Hydroxyzine HCl (Hydroxyzine HCl) 10 Mg Tablet, 10 MG PO BID, (Reported) Insulin Glargine,Hum.rec.anlog (Semglee) 100 Unit/Ml Vial, 10 UNIT SC QHS, (Reported) Irbesartan (Irbesartan) 150 Mg Tablet, 150 MG PO QHS, (Reported) Metformin HCl (Metformin HCl) 500 Mg Tablet, 500 MG PO BID, (Reported) Metoprolol Tartrate (Metoprolol Tartrate) 50 Mg Tab, 50 MG PO BID, (Reported) Pantoprazole Sodium (Pantoprazole Sodium) 40 Mg Tablet.dr, 40 MG PO BID, (Reported) Ropinirole HCl (Ropinirole HCl) 2 Mg Tablet, 2 MG PO QHS, (Reported) Trazodone HCl (Trazodone HCl) 150 Mg Tablet, 150 MG PO QHS, (Reported) Scheduled PRN Albuterol Sulfate (Ventolin Hfa) 18 Gm Hfa.aer.ad, 2 PUFFS INH QID PRN for SHORT NESS OF BREATH, (Reported) JOVANI GRIJALVA MD Feb 21, 2021 12:21
[2021-02-21] MEDS: LevoFLOXacin IV 750 MG in IV 1 EA IV SCH (13:52)
[2021-02-21] MEDS: BARICITINIB 2MG TABLET (OLUMIANT) FOR EUA PO SCH (13:52)
[2021-02-21 15:09] LABS: BLOOD UREA NITROGEN 16 MG/DL (7-18); CALCIUM LEVEL 8.6 MG/DL (8.8-10.2); CARBON DIOXIDE LEVEL 25 MEQ/L (21-32); CHLORIDE LEVEL 102 MEQ/L (98-107); CREATININE FOR GFR 0.87 MG/DL (0.55-1.30); GLOMERULAR FILTRATION RATE > 60.0 (>45); GLUCOSE, FASTING 367 MG/DL (70-100); POTASSIUM SERUM 4.3 MEQ/L (3.5-5.1); SODIUM LEVEL 136 MEQ/L (136-145)
[2021-02-21] MEDS ORDERED: REMDESIVIR 200 MG in NS 250 ML IV ONE (16:00)
[2021-02-21 16:02] VITALS: BP 154/70
[2021-02-21] MEDS ORDERED: SODIUM CHLORIDE 0.9% INJ 10 ML SYR IV ONE (18:00)
[2021-02-21 20:00] VITALS: BP 148/66; O2SAT 93
[2021-02-21] MEDS: rOPINIRole 1MG TAB PO SCH (20:51)
[2021-02-21] MEDS: traZODone 50 MG TAB PO SCH (20:52)
[2021-02-21] MEDS: IRBESARTAN 150MG TAB PO SCH (20:52)
[2021-02-21] MEDS: SODIUM CHLORIDE NASAL 0.65% SPRAY BTL (OCEAN) PRN (20:53)
[2021-02-21 21:44] LABS: BLOOD UREA NITROGEN 19 MG/DL (7-18); CALCIUM LEVEL 8.5 MG/DL (8.8-10.2); CARBON DIOXIDE LEVEL 24 MEQ/L (21-32); CHLORIDE LEVEL 104 MEQ/L (98-107); CREATININE FOR GFR 0.98 MG/DL (0.55-1.30); GLOMERULAR FILTRATION RATE > 60.0 (>45); GLUCOSE, FASTING 341 MG/DL (70-100); POTASSIUM SERUM 4.9 MEQ/L (3.5-5.1); SODIUM LEVEL 137 MEQ/L (136-145)
[2021-02-22] VITALS: BP 147/68; O2SAT 95
[2021-02-22 03:10] LABS: BASO % 0.4 % (0.0-1.0); EOS % 0.2 % (0.0-3.0); LYMPH # 3.6 10^3/uL (1.5-5.0); LYMPH % 34.8 % (24.0-44.0); MEAN CORPUSCULAR HEMOGLOBIN 30.4 pg (27.0-33.0); MEAN CORPUSCULAR HGB CONC 32.4 g/dl (32.0-36.5); MEAN CORPUSCULAR VOLUME 93.7 fl (80.0-96.0); MONO # 0.8 10^3/uL (0.0-0.8); MONO % 7.8 % (2.0-8.0); NEUTROPHILS # 5.8 10^3/uL (1.5-8.5); NEUTROPHILS % 55.4 % (36.0-66.0); PLATELET COUNT, AUTOMATED 262 10^3/uL (150-450); RED BLOOD COUNT 3.95 10^6/uL (4.00-5.40); WHITE BLOOD COUNT 10.4 10^3/uL (4.0-10.0)
[2021-02-22 03:29] LABS: BLOOD UREA NITROGEN 21 MG/DL (7-18); CALCIUM LEVEL 8.5 MG/DL (8.8-10.2); CARBON DIOXIDE LEVEL 25 MEQ/L (21-32); CHLORIDE LEVEL 104 MEQ/L (98-107); CREATININE FOR GFR 0.66 MG/DL (0.55-1.30); GLOMERULAR FILTRATION RATE > 60.0 (>45); GLUCOSE, FASTING 255 MG/DL (70-100); POTASSIUM SERUM 4.3 MEQ/L (3.5-5.1); SODIUM LEVEL 138 MEQ/L (136-145)
[2021-02-22 04:00] VITALS: BP 159/78; O2SAT 93
[2021-02-22] MEDS: BARICITINIB 2MG TABLET (OLUMIANT) FOR EUA PO SCH (07:57)
[2021-02-22] MEDS: ASPIRIN 81MG ENTERIC TABLET PO SCH (07:58)
[2021-02-22] MEDS: hydrOXYzine 10 MG TAB PO SCH ×2 (07:58→21:58)
[2021-02-22] MEDS: METOPROLOL TART 50 MG TAB PO SCH ×2 (07:59→22:02)
[2021-02-22] MEDS: ACYCLOVIR 200 MG CAPSULE PO SCH (07:59)
[2021-02-22 08:00] VITALS: BP 164/77; O2SAT 94
[2021-02-22] MEDS: PANTOPRAZOLE 40MG TAB (PROTONIX) PO SCH ×2 (08:00→22:02)
[2021-02-22] MEDS: ENOXAPARIN 100MG/1ML SYRINGE (J1650 PER 10MG) SC SCH ×2 (08:00→22:05)
[2021-02-22] MEDS: dexameTHASONE 4 MG/ML 1ML VIAL (J1100 PER 1MG) IV SCH (08:00)
[2021-02-22] MEDS: SODIUM CHLORIDE NASAL 0.65% SPRAY BTL (OCEAN) PRN (08:00)
[2021-02-22] MEDS: HumaLOG INSULIN (NovoLOG) PER UNIT SC SCH ×4 (08:01→22:04)
[2021-02-22 10:08] LABS: BLOOD UREA NITROGEN 17 MG/DL (7-18); CALCIUM LEVEL 8.1 MG/DL (8.8-10.2); CARBON DIOXIDE LEVEL 26 MEQ/L (21-32); CHLORIDE LEVEL 104 MEQ/L (98-107); CREATININE FOR GFR 0.72 MG/DL (0.55-1.30); GLOMERULAR FILTRATION RATE > 60.0 (>45); GLUCOSE, FASTING 229 MG/DL (70-100); POTASSIUM SERUM 3.9 MEQ/L (3.5-5.1); SODIUM LEVEL 137 MEQ/L (136-145)
--- NOTE | 2021-02-22 10:29 | IPNPDOC ---
Text Note Date of Service The patient was seen on 02/22/21. NOTE Subjective: Patient seen and examined at bedside. No acute overnight events reported. Patient voices no new medical complaints this morning. She states she is feeling better. Notes a cough, occasionally productive of yellowish sputum. Objective: Vital Signs: reviewed General: NAD, lying comfortably in bed HEENT: NC/AT, EOMI, cold sore left anterior tongue Neck: supple, no masses Chest: diffuse wheezing, improved from yesterday Heart: +S1S2, RRR Abd: soft, NT, ND, +BS Ext: no edema Skin: no rashes Neuro: no gross focal deficits Psych: AAOx3 A/P: 61F with PMHx including DM, HTN, DLP, asthma non-smoker and is fully vaccinated for COVID presents for 1 month worsening SOB, malaise, productive cough, nasal congestion, and chest tightness was admitted for hypoxia secondary to pneumonia. She also noted diarrhea starting one week ago, and a cold sore on her tongue two weeks ago. # Acute hypoxic respiratory failure - repeat COVID-19 is positive - discussed with pulm - will start remdesivir, baricitinib, decadron - possible superimposed bacterial pneumonia - on levaquin day #3 -CT angio chest with diffuse bilateral opacities -Inflammatory markers show elevated ESR of 63 and CRP of 4.5 -Procal 0.26, abx recommended for lower resp infection. -D-dimer >4000, CTA negative for PE -Respiratory panel negative, including COVID-19 -Atypical PNA serology including mycoplasma, C. psittaci, C. trachomatis, C. pneumoniae, mycoplasma pending. Urine legionella pending. -HIV serology negative -Ordered sputum Cx. -BCx pending - negative to date # B/L leg pain, possibly 2/2 DVT -US image positive for thrombus in right calf veins, unable to fully visualize left calf veins - therapeutic lovenox dosing - appears to be provoked # Asthma -mild wheezing on exam, does not appear to be acutely exacerbated -s/p stress dose steroids -c/t home albuterol HFA PRN # HTN -c/t home med metoprolol 50 mg PO BID, Irbesartan 150 mg PO daily # HLD # DMT2 -hold home medications -consistent carb diet -Start ISS AC/HS with hypoglycemic protocol # GERD -c/t home med pantoprazole 40 mg PO BID # Depression -c/t home med trazodone 150 mg PO daily # Restless leg syndrome -c/t home med ropinirole 2 mg PO daily # Hx Herpes -continue home acyclovir 400 mg PO daily DVT PPx: full anticoagulation with lovenox as above Code: Full code Disposition: transfer to [facility], PT VS,Fishbone, I+O VS, Fishbone, I+O Laboratory Tests 02/21/21 14:39 02/21/21 21:07 02/22/21 02:49 02/22/21 09:24 Vital Signs Date Time Temp Pulse Resp B/P (MAP) Pulse Ox O2 Delivery O2 Flow Rate FiO2 02/22/21 08:00 94 High Flow Cannula 3.0 02/22/21 08:00 96.8 85 18 164/77 (106) I&O- Last 24 Hours up to 6 AM 02/22/21 06:00 Intake Total 2610 ml Output Total 3050 ml Balance -440 ml JUSTINO GTZ MD Feb 22, 2021 10:29
[2021-02-22] MEDS: LevoFLOXacin IV 750 MG in IV 1 EA IV SCH (14:41)
--- NOTE | 2021-02-22 14:43 | ECHO ---
ECHOCARDIOGRAM DATE OF PROCEDURE: 02/21/2021 Age: 61 Gender: Female Height: 64 inches Weight: 224 pounds Body surface area: 2.06 m2 PATIENT LOCATION: Inpatient, progressive care unit (PCU), Room 3210. REFERRING PHYSICIAN: William Vanegas M.D. INDICATION: Dyspnea. MEASUREMENTS: 2D Measurements: RV - 3.4 cm LV - 5.1 cm Septum 1.1 cm Posterior wall 1.1 cm Aortic root 3.2 cm LA - 3.6 cm LVEF 75% Doppler Measurements: AV - 1.34 m/sec LVOT - 0.89 m/sec MV-E 95, A 78, EA ratio 1.2 Early mitral deceleration time 187 msec E prime medial 9 A prime medial 14 E prime lateral 9.7 Average E/E prime ratio 10.2/PCWP 14.5 mmHg PV - 0.85 m/sec Pulmonary artery acceleration time 123 msec RVSP - 31 mmHg IVC - 1.8 cm COMMENTS: Normal sinus rhythm without intraventricular conduction disturbance. Technically challenging study in light of the patient's body habitus, but diagnostically useful information was still obtained. M-mode and 2-dimensional cardiography was performed with pulse, continuous wave, color flow and tissue Doppler studies. Normal left ventricular size, wall thickness and hyperkinetic wall motion. Normal left atrial size and Doppler assessment of left ventricular (LV) diastolic function and estimated mean left atrial pressure. Normal right heart chamber sizes and motion with Doppler sign of pulmonary arterial pressure upper limits of normal to borderline increased. Normal inferior vena cava (IVC) size and collapse against an elevated central venous pressure. Normal aortic dimensions. Normal appearing and functioning valvular structures. No apparent intracardiac mass. Miniscule posterior pericardial effusion measuring 2 mm. No sign of cardiac chamber compression.
[2021-02-22] MEDS ORDERED: REMDESIVIR 100 MG in NS 250 ML IV SCH (16:00)
[2021-02-22] MEDS ORDERED: SODIUM CHLORIDE 0.9% INJ 10 ML SYR IV SCH (17:00)
[2021-02-22 20:00] VITALS: BP 150/67; O2SAT 95
[2021-02-22] MEDS: IRBESARTAN 150MG TAB PO SCH (22:01)
[2021-02-22] MEDS: traZODone 50 MG TAB PO SCH (22:01)
[2021-02-22] MEDS: rOPINIRole 1MG TAB PO SCH (22:04)
[2021-02-23] VITALS: O2SAT 89
[2021-02-23 04:00] VITALS: BP 132/58; O2SAT 92
[2021-02-23 07:17] LABS: BASO % 0.5 % (0.0-1.0); EOS # 0.1 10^3/uL (0.0-0.5); EOS % 0.8 % (0.0-3.0); HEMATOCRIT 40.2 % (36.0-47.0); LYMPH # 3.2 10^3/uL (1.5-5.0); LYMPH % 38.1 % (24.0-44.0); MEAN CORPUSCULAR HGB CONC 32.3 g/dl (32.0-36.5); MEAN CORPUSCULAR VOLUME 92.8 fl (80.0-96.0); MONO # 0.8 10^3/uL (0.0-0.8); MONO % 8.8 % (2.0-8.0); NEUTROPHILS # 4.3 10^3/uL (1.5-8.5); NEUTROPHILS % 50.9 % (36.0-66.0); PLATELET COUNT, AUTOMATED 327 10^3/uL (150-450); RED BLOOD COUNT 4.33 10^6/uL (4.00-5.40); WHITE BLOOD COUNT 8.5 10^3/uL (4.0-10.0)
[2021-02-23 07:32] LABS: PARTIAL THROMBOPLASTIN TIME 28.1 SECONDS (25.9-37.0); PROTHROMBIN TIME 15.6 SECONDS (12.7-14.5)
[2021-02-23 07:33] LABS: FIBRINOGEN 308 MG/DL (268-480)
[2021-02-23 07:47] LABS: ALBUMIN 2.4 GM/DL (3.2-5.2); BILIRUBIN,DIRECT 0.2 MG/DL (0.0-0.2); BILIRUBIN,TOTAL 0.7 MG/DL (0.2-1.0); MAGNESIUM LEVEL 1.8 MG/DL (1.8-2.4); TOTAL PROTEIN 6.9 GM/DL (6.4-8.2)
[2021-02-23 07:54] LABS: D-DIMER QUANT > 4000 ng/ml (<500)
[2021-02-23 08:00] VITALS: O2SAT 94
[2021-02-23] MEDS: BARICITINIB 2MG TABLET (OLUMIANT) FOR EUA PO SCH (10:00)
[2021-02-23] MEDS: PANTOPRAZOLE 40MG TAB (PROTONIX) PO SCH (10:00)
[2021-02-23] MEDS: HumaLOG INSULIN (NovoLOG) PER UNIT SC SCH ×2 (10:00→14:01)
[2021-02-23] MEDS: ASPIRIN 81MG ENTERIC TABLET PO SCH (10:01)
[2021-02-23] MEDS: ACYCLOVIR 200 MG CAPSULE PO SCH (10:01)
[2021-02-23] MEDS: ENOXAPARIN 100MG/1ML SYRINGE (J1650 PER 10MG) SC SCH (10:01)
[2021-02-23] MEDS: dexameTHASONE 4 MG/ML 1ML VIAL (J1100 PER 1MG) IV SCH (10:01)
[2021-02-23] MEDS: hydrOXYzine 10 MG TAB PO SCH (10:01)
[2021-02-23 10:03] VITALS: BP 125/90
[2021-02-23] MEDS: METOPROLOL TART 50 MG TAB PO SCH (10:03)
[2021-02-23] MEDS ORDERED: ELIQ5TAB PO (10:31)
[2021-02-23] MEDS ORDERED: LEVO750T13 PO (10:36)
[2021-02-23] MEDS ORDERED: PRED10TA2 PO (10:36)
[2021-02-23 12:00] VITALS: O2SAT 92
--- NOTE | 2021-02-23 12:25 | DS.PDOC ---
Discharge Summary General Date of Admission Feb 20, 2021 at 14:47 Date of Discharge 02/23/21 Discharge Summary PROCEDURES PERFORMED DURING STAY: [None]. DISCHARGE DIAGNOSES: #COVID-19 Pneumonia SECONDARY DIAGNOSES: -DMT2 -HTN -Dyslipidemia. -Asthma non-smoker -Degenerative disc disease -Arthritis -Gastroparesis -Hiatal hernia -Obesity -Depression -Restless leg syndrome COMPLICATIONS/CHIEF COMPLAINT: Acute Respiratory With Hypoxia,Pneumonia. HISTORY OF PRESENT ILLNESS: From H&P: Ms. Fair is a 61 yo female with a PMH of DM, HTN, dyslipidemia, asthma non smoker, degenerative disc disease, and arthritis presents on 02/20/2021 to the ED with SOB of 1 month duration that has worsened in the last week. Pt states she has had a scratchy cough for a few weeks and thought it may be due to her Lisinopril medication in which her PCP ended up discontinuing two weeks ago. However, the cough persisted and she recently admits to developing a green productive sputum. Pt states she received her flu vaccine on 02/04 and then a few days later felt really weak and developed increased nasal congestion for which she attributes to "thinking she got a reaction to the flu vaccine". Pt states she stayed at home to rest up and she has "tried everything", but symptoms have worsened. Pt admits to chest pain that is located substernally that radiates straight to the back for which she tried heat packs that did not help help. Pt states is vaccinated for COVID with both doses of the Pfizer vaccine but has not received the booster shot. Pt states she rarely goes out in public and stays home most of the time since she is a retired intermission coordinator and wants less contact with the public. When asked about her cold sore on her tongue, patient denies any bites or history of recurrent mouth sores and states she dev eloped it two weeks ago. Pt denies any fevers, rashes, or recent travels. Pt admits to diarrhea of one week with a 12 lbs weight loss with stools firming up today. Upon presentation to the ED, pt was found to be hypoxic in 80's and was placed on 6L NC O2. Pt was found to be COVID negative. Imaging of CXR and CTA chest show findings consistent with pneumonia. Pt was started levofloxacin IV. Pt was admitted to PCU for hypoxia secondary to pneumonia and management of symptoms. HOSPITAL COURSE: 61F with PMHx including DM, HTN, DLP, asthma non-smoker and is fully vaccinated for COVID presents for 1 month worsening SOB, malaise, productive cough, nasal congestion, and chest tightness was admitted for hypoxia secondary to pneumonia. She also noted diarrhea starting one week ago, and a cold sore on her tongue two weeks ago. # Acute hypoxic respiratory failure - repeat COVID-19 is positive - discussed with pulm - will start remdesivir, baricitinib, decadron - possible superimposed bacterial pneumonia - treated with levaquin -CT angio chest with diffuse bilateral opacities -Inflammatory markers show elevated ESR of 63 and CRP of 4.5 -Procal 0.26 - abx recommended -D-dimer >4000, CTA negative for PE -Respiratory panel negative (negative for COVID-19) -Atypical PNA serology including mycoplasma, C. psittaci, C. trachomatis, C. pneumoniae, mycoplasma pending. Urine legionella pending. -HIV serology negative - sputum Cx negative -BCx - negative to date # B/L leg pain, possibly 2/2 DVT -US image positive for thrombus in right calf veins, unable to fully visualize left calf veins - therapeutic lovenox dosing - transitioned to Eliquis on discharge - appears to be provoked # Asthma -mild wheezing on exam, does not appear to be acutely exacerbated -s/p stress dose steroids -c/t home albuterol HFA PRN # HTN -c/t home med metoprolol 50 mg PO BID, Irbesartan 150 mg PO daily # HLD # DMT2 # GERD # Depression -c/t home med trazodone 150 mg PO daily # Restless leg syndrome -c/t home med ropinirole 2 mg PO daily # Hx Herpes -continued home acyclovir 400 mg PO daily DISCHARGE MEDICATIONS: Please see below. ALLERGIES: Please see below. PHYSICAL EXAMINATION ON DISCHARGE: Vital Signs: reviewed General: NAD, sitting comfortably at edge of bed HEENT: NC/AT, EOMI, cold sore left anterior tongue Neck: supple, no masses Chest: minimal wheezing Heart: +S1S2, RRR Abd: soft, NT, ND, +BS Ext: no edema Skin: no rashes Neuro: no gross focal deficits Psych: AAOx3 LABORATORY DATA: Please see below. ACTIVITY: [As tolerated]. DISCHARGE PLAN: Discharge home DISCHARGE INSTRUCTIONS: 1. Follow up PCP in 3-5 days. 2. Follow up with PCP regarding anti-coagulation for DVT DISCHARGE CONDITION: [Stable]. TIME SPENT ON DISCHARGE: 35 minutes. Vital Signs/I&Os Vital Signs Date Time Temp Pulse Resp B/P (MAP) Pulse Ox O2 Delivery O2 Flow Rate FiO2 02/23/21 10:03 99 125/90 02/23/21 04:00 92 Nasal Cannula 1.0 02/23/21 04:00 96.8 19 I&O- Last 24 Hours up to 6 AM 02/23/21 06:00 Intake Total 1080 ml Output Total 1450 ml Balance -370 ml Laboratory Data Labs 24H Laboratory Tests 2 02/22/21 16:50: Bedside Glucose (Misc Panel) 351H 02/22/21 21:16: Bedside Glucose (Misc Panel) 338H 02/23/21 06:21: Immature Granulocyte % (Auto) 0.9, Neutrophils (%) (Auto) 50.9, Lymphocytes (%) (Auto) 38.1, Monocytes (%) (Auto) 8.8H, Eosinophils (%) (Auto) 0.8, Basophils (%) (Auto) 0.5, Neutrophils # (Auto) 4.3, Lymphocytes # (Auto) 3.2, Monocytes # (Auto) 0.8, Eosinophils # (Auto) 0.1, Basophils # (Auto) 0.0, Nucleated Red Blood Cells % (auto) 0.0, Prothrombin Time 15.6H, Prothromb Time International Ratio 1.20, Activated Partial Thromboplast Time 28.1, Fibrinogen 308, D-Dimer, Quantitative > 4000H, Magnesium Level 1.8, Ferritin 276H, Total Bilirubin 0.7, Direct Bilirubin 0.2, Aspartate Amino Transf (AST/SGOT) 63H, Alanine Aminotransferase (ALT/SGPT) 77, Alkaline Phosphatase 103, Lactate Dehydrogenase 258H, Total Creatine Kinase 47, PV-Ryo-U-Type Natriuretic Peptide 105, Total P rotein 6.9, Albumin 2.4L, Albumin/Globulin Ratio 0.5L, Procalcitonin 0.11 02/23/21 09:09: Bedside Glucose (Misc Panel) 235H 02/23/21 11:45: Bedside Glucose (Misc Panel) 319H CBC/BMP Laboratory Tests 02/23/21 06:21 FSBS Laboratory Tests Test 02/22/21 16:50 02/22/21 21:16 02/23/21 09:09 02/23/21 11:45 Range/Units Bedside Glucose (Misc Panel) 351 338 235 319 80-115 MG/DL Microbiology Microbiology 02/20/21 Gram Stain - Final, Complete 02/20/21 Sputum Culture - Final, Complete 02/20/21 Blood Culture - Preliminary, Resulted No Growth after 72 hours. All specime... 02/20/21 Respiratory Virus Panel (PCR) (MERYL) - Final, Complete 02/20/21 Blood Culture - Preliminary, Resulted No Growth after 72 hours. All specime... Discharge Medications Scheduled Acyclovir (Acyclovir) 400 Mg Tab, 400 MG PO DAILY, (Reported) Apixaban (Eliquis) 5 Mg Tablet, 5 MG PO ASDIRECTED 10 MG (2 TABS) TWICE PER DAY FOR 7 DAYS THEN 5 MG (1 TAB) TWICE PER DAY Atorvastatin Calcium (Atorvastatin Calcium) 10 Mg Tablet, 10 MG PO QHS, (Reported) Glimepiride (Glimepiride) 1 Mg Tablet, 1 MG PO BID, (Reported) Hydroxyzine HCl (Hydroxyzine HCl) 10 Mg Tablet, 10 MG PO BID, (Reported) Insulin Glargine,Hum.rec.anlog (Semglee) 100 Unit/Ml Vial, 10 UNIT SC QHS, (Reported) Irbesartan (Irbesartan) 150 Mg Tablet, 150 MG PO QHS, (Reported) Levofloxacin (Levofloxacin) 750 Mg Tablet, 750 MG PO DAILY Metformin HCl (Metformin HCl) 500 Mg Tablet, 500 MG PO BID, (Reported) Metoprolol Tartrate (Metoprolol Tartrate) 50 Mg Tab, 50 MG PO BID, (Reported) Pantoprazole Sodium (Pantoprazole Sodium) 40 Mg Tablet.dr, 40 MG PO BID, (Reported) Prednisone (Prednisone) 10 Mg Tablet, 10 MG PO TAPER Take 4 tabs daily x 3 days, then 3 tabs daily x 3 days, then 2 tabs daily x 3 days, then 1 tab daily x 3 days and stop Ropinirole HCl (Ropinirole HCl) 2 Mg Tablet, 2 MG PO QHS, (Reported) Trazodone HCl (Trazodone HCl) 150 Mg Tablet, 150 MG PO QHS, (Reported) Scheduled PRN Albuterol Sulfate (Ventolin Hfa) 18 Gm Hfa.aer.ad, 2 PUFFS INH QID PRN for SHORTNESS OF BREATH, (Reported) Allergies Coded Allergies: Penicillins (Verified Allergy, Intermediate, rash, 06/23/20) dulaglutide (Verified Adverse Reaction, Unknown, RASH AT INJECTION SITE, 02/20/21) JUSTINO GTZ MD Feb 23, 2021 12:25
[2021-02-23 14:00] VITALS: BP 136/75
[2021-02-23] MEDS: LevoFLOXacin IV 750 MG in IV 1 EA IV SCH ×2 (14:00→14:01)
[2021-02-23 16:08] LABS: MYCOPLASMA PNEUMONIAE IgG 571 U/mL (0-99); MYCOPLASMA PNEUMONIAE IgM <770 U/mL (0-769)
[2021-02-25 17:07] LABS: CHLAMYDIA PNEUMONIAE IgM < 1:10 (< 1:10); CHLAMYDIA PSITTACI IgM < 1:10 (< 1:10); CHLAMYDIA TRACHOMATIS IgM < 1:10 (< 1:10)
[2021-02-27] MEDS ORDERED: APIXABAN 5 MG TAB (ELIQUIS) PO SCH (21:00)
== END 2021-02-23 15:15 | disposition home or self-care (01) | DRG 137 ==
LOC: M ED 09:08 → M ED INP 14:47 → ENRESERV 15:47 → M PCU 17:25 → M ICU 02-21 12:06 → M 4MAIN 02-22 14:15
PROVIDERS: ADMIT Internal Medicine; ATTEND Internal Medicine
PROC: XW033E5 Introduction of Remdesivir Anti-infective into Peripheral Vein, Percutaneous Approach, New Technology Group 5 (ICD-10-PCS; principal; 2021-02-20)
PROC: 3E0333Z Introduction of Anti-inflammatory into Peripheral Vein, Percutaneous Approach (ICD-10-PCS; 2021-02-20)
DX: U07.1 COVID-19 (principal); J96.01 Acute respiratory failure with hypoxia; J12.82 Pneumonia due to coronavirus disease 2019; E11.43 Type 2 diabetes mellitus with diabetic autonomic (poly)neuropathy; K31.84 Gastroparesis; I82.441 Acute embolism and thrombosis of right tibial vein; I10 Essential (primary) hypertension; E78.5 Hyperlipidemia, unspecified; J45.909 Unspecified asthma, uncomplicated; M19.90 Unspecified osteoarthritis, unspecified site; E66.9 Obesity, unspecified; G25.81 Restless legs syndrome; K21.9 Gastro-esophageal reflux disease without esophagitis; F32.A Depression, unspecified; Z79.84 Long term (current) use of oral hypoglycemic drugs; Z79.4 Long term (current) use of insulin; Z79.899 Other long term (current) drug therapy; Z88.0 Allergy status to penicillin; Z88.8 Allergy status to other drugs, medicaments and biological substances; Z68.38 Body mass index [BMI] 38.0-38.9, adult

== ENCOUNTER → 2021-08-29 | Outpatient (CLI) | payer OTHER ==
[~2021-08-29] MED LIST changes: +ELIQ5TAB PO; +GLIM1TAB4 PO; +INSU100V8 SC; +IRBE150T7 PO; +LEVO750T13 PO; +PRED10TA2 PO; +TRAZ1TAB14 PO
== END ==
LOC: M LABSMTC 11:19
PROVIDERS: ATTEND Anesthesiology
DX: Z01.812 Encounter for preprocedural laboratory examination (principal); Z20.822 Contact with and (suspected) exposure to COVID-19

== ENCOUNTER → 2021-09-20 | Outpatient (CLI) | payer OTHER ==
[~2021-09-20] MED LIST changes: +ARNU1INH IN; +BASA100I SC; +HYDR12CA PO; +MULT-90 PO; +ROPI2TAB24 PO; +TRAZ150T90 PO; +VITA1CAP25 PO; +VITA500030 PO
== END ==
LOC: M LABSMTC 11:04
PROVIDERS: ATTEND Anesthesiology
DX: Z01.818 Encounter for other preprocedural examination (principal); Z20.822 Contact with and (suspected) exposure to COVID-19

== ENCOUNTER 2021-09-21 07:17 | Day surgery (SDC) | payer OTHER ==
[~2021-09-21] VITALS: Ht 162.6 cm; Wt 105.7 kg
[~2021-09-21 07:17] MED LIST changes: +LIDOCAINE 2% 100MG/5ML SDV (FOR ANES.) As Ordered ONE; +NS 1,000 ML IV ONE; +propofoL 200 MG/20 ML VIAL As Ordered ONE
[2021-09-21] MEDS ORDERED: propofoL 200 MG/20 ML VIAL As Ordered ONE (08:10)
[2021-09-21 08:35] VITALS: BP 108/58
== END 2021-09-21 08:45 | disposition home or self-care (01) ==
LOC: M OPP 07:17
PROVIDERS: ATTEND Internal Medicine Gastroenterology
DX: Z12.11 Encounter for screening for malignant neoplasm of colon (principal); Z86.010 Personal history of colon polyps; Z80.0 Family history of malignant neoplasm of digestive organs; D12.2 Benign neoplasm of ascending colon; D12.4 Benign neoplasm of descending colon; D12.8 Benign neoplasm of rectum; K63.5 Polyp of colon; K57.30 Diverticulosis of large intestine without perforation or abscess without bleeding; K64.8 Other hemorrhoids; Z79.02 Long term (current) use of antithrombotics/antiplatelets; Z79.4 Long term (current) use of insulin; Z79.01 Long term (current) use of anticoagulants; Z79.51 Long term (current) use of inhaled steroids; Z79.52 Long term (current) use of systemic steroids; Z80.52 Family history of malignant neoplasm of bladder

== ENCOUNTER → 2021-11-10 | Outpatient (REF) | payer OTHER ==
[~2021-11-10] MED LIST changes: +LEVO1TAB40 PO; -LEVO750T13 PO; -LIDOCAINE 2% 100MG/5ML SDV (FOR ANES.) As Ordered ONE; -NS 1,000 ML IV ONE; -propofoL 200 MG/20 ML VIAL As Ordered ONE
[2021-11-10 16:40] LABS: HEMATOCRIT 45.3 % (36.0-47.0); HEMOGLOBIN 14.8 g/dl (12.0-15.5); MEAN CORPUSCULAR HEMOGLOBIN 30.5 pg (27.0-33.0); MEAN CORPUSCULAR HGB CONC 32.7 g/dl (32.0-36.5); MEAN CORPUSCULAR VOLUME 93.2 fl (80.0-96.0); PLATELET COUNT, AUTOMATED 276 10^3/uL (150-450); RED BLOOD COUNT 4.86 10^6/uL (4.00-5.40); WHITE BLOOD COUNT 9.8 10^3/uL (4.0-10.0)
[2021-11-10 18:08] LABS: ALBUMIN 3.5 GM/DL (3.2-5.2); ALT/SGPT 79 U/L (12-78); BILIRUBIN,TOTAL 0.5 MG/DL (0.2-1.0); BLOOD UREA NITROGEN 16 MG/DL (7-18); CALCIUM LEVEL 9.1 MG/DL (8.8-10.2); CARBON DIOXIDE LEVEL 23 MEQ/L (21-32); CHLORIDE LEVEL 101 MEQ/L (98-107); CHOLESTEROL LEVEL 196 MG/DL (<200); CHOLESTEROL RISK RATIO 5.157 (<5); CREATININE FOR GFR 0.74 MG/DL (0.55-1.30); GLOMERULAR FILTRATION RATE > 60.0 (>45); GLUCOSE, FASTING 251 MG/DL (70-100); HDL CHOLESTEROL 38 MG/DL (>40); NON-HDL-C 158 MG/DL; POTASSIUM SERUM 4.6 MEQ/L (3.5-5.1); SODIUM LEVEL 136 MEQ/L (136-145); TOTAL PROTEIN 7.1 GM/DL (6.4-8.2); TRIGLYCERIDES LEVEL 482 MG/DL (<150)
== END ==
LOC: M SFHCADAM 13:44
PROVIDERS: ATTEND Family Medicine
DX: J31.2 Chronic pharyngitis (principal); E11.9 Type 2 diabetes mellitus without complications; I82.90 Acute embolism and thrombosis of unspecified vein; I10 Essential (primary) hypertension; E78.5 Hyperlipidemia, unspecified; F32.9 Major depressive disorder, single episode, unspecified

== ENCOUNTER → 2021-12-11 | Outpatient (REF) | payer OTHER | LOC: M LAB REF 16:32 | PROVIDERS: ATTEND Otolaryngology | DX: B37.0 Candidal stomatitis (principal) ==

== ENCOUNTER 2021-12-29 08:39 | Inpatient (IN) | payer OTHER ==
[~2021-12-29] VITALS: Ht 162.6 cm; Wt 110.0 kg
[~2021-12-29 08:39] MED LIST changes: -ARNU1INH IN; +ARNU1INH INH
[2021-12-29] MEDS: MAGNESIUM OXIDE 400MG TAB (MAG-OX) PO SCH (09:00)
[2021-12-29] MEDS: ASCORBIC ACID 500 MG TAB PO SCH (09:00)
[2021-12-29] MEDS ORDERED: COMBIVENT RESPIMAT 100-20MCG INHALER 4GM INH STA (09:42)
[2021-12-29] MEDS ORDERED: methylPREDNISolone 125MG 2ML VIAL IV ONE (09:45)
[2021-12-29] MEDS ORDERED: APIXABAN 5 MG TAB (ELIQUIS) PO ONE (09:50)
[2021-12-29 10:35] LABS: BASO # 0.1 10^3/uL (0.0-0.2); BASO % 0.6 % (0.0-1.0); EOS # 0.3 10^3/uL (0.0-0.5); EOS % 3.2 % (0.0-3.0); HEMATOCRIT 42.3 % (36.0-47.0); HEMOGLOBIN 13.6 g/dl (12.0-15.5); LYMPH # 2.9 10^3/uL (1.5-5.0); LYMPH % 30.6 % (24.0-44.0); MEAN CORPUSCULAR HEMOGLOBIN 30.2 pg (27.0-33.0); MEAN CORPUSCULAR HGB CONC 32.2 g/dl (32.0-36.5); MONO # 0.7 10^3/uL (0.0-0.8); MONO % 7.3 % (2.0-8.0); NEUTROPHILS # 5.5 10^3/uL (1.5-8.5); NEUTROPHILS % 57.9 % (36.0-66.0); PLATELET COUNT, AUTOMATED 265 10^3/uL (150-450); WHITE BLOOD COUNT 9.5 10^3/uL (4.0-10.0)
[2021-12-29 11:51] LABS: ALBUMIN 3.4 GM/DL (3.2-5.2); ALT/SGPT 88 U/L (12-78); BILIRUBIN,DIRECT 0.2 MG/DL (0.0-0.2); BILIRUBIN,TOTAL 0.6 MG/DL (0.2-1.0); BLOOD UREA NITROGEN 13 MG/DL (7-18); CALCIUM LEVEL 8.9 MG/DL (8.8-10.2); CARBON DIOXIDE LEVEL 26 MEQ/L (21-32); CHLORIDE LEVEL 104 MEQ/L (98-107); CREATININE FOR GFR 0.68 MG/DL (0.55-1.30); GLOMERULAR FILTRATION RATE > 60.0 (>45); GLUCOSE, FASTING 179 MG/DL (70-100); NT-PRO BNP 279 PG/ML (<125); POTASSIUM SERUM 4.3 MEQ/L (3.5-5.1); SODIUM LEVEL 135 MEQ/L (136-145); THYROXINE (T4) 11.7 UG/DL (4.5-12.0); TOTAL PROTEIN 7.3 GM/DL (6.4-8.2)
[2021-12-29] MEDS ORDERED: ALBUTEROL SULFATE 2.5 MG/0.5 ML INH NEB SOLN NEB ONE (11:55)
[2021-12-29] MEDS ORDERED: IPRATROPIUM 0.5MG/ALBUTEROL 2.5MG INH SOL UD 3ML (DUONEB) NEB ONE (11:55)
[2021-12-29] MEDS ORDERED: INSULIN LISPRO (NovoLOG) PER UNIT SC SCH (12:00)
[2021-12-29] MEDS ORDERED: MAG SULF 1GM/100ML (MAG RUN) 1 GM in IV 1 EA IV ONE (13:10)
[2021-12-29] MEDS ORDERED: ROPI2TAB3 PO (13:23)
[2021-12-29] MEDS ORDERED: HYDR-3490 PO (13:23)
[2021-12-29] MEDS ORDERED: GLIM2TAB29 PO (13:23)
[2021-12-29] MEDS ORDERED: ELIQ5TAB PO (13:23)
[2021-12-29] MEDS ORDERED: HOME MED LIST COMPLETE! XX SCH (13:25)
[2021-12-29] MEDS ORDERED: GLUCOSE 4GM CHEW TABLET PO PRN (13:40)
[2021-12-29] MEDS ORDERED: DEXTROSE 50% 50 ML SYRINGE IV PRN (13:40)
[2021-12-29] MEDS ORDERED: GLUCAGON INJ 1MG VIAL SC PRN (13:40)
[2021-12-29] MEDS ORDERED: ALBUTEROL 90 MCG/ACT 8GM HFA INHALER INH PRN (14:55)
[2021-12-29] MEDS ORDERED: ISOVUE-370 76% 100ML VIAL As Ordered ONE (15:19)
[2021-12-29 15:56] LABS: CK-MB VALUE MASS 1.6 NG/ML (<3.6); MB/CK RELATIVE INDEX 1.08 (< OR =4)
[2021-12-29] MEDS: methylPREDNISolone 40MG 1ML VIAL IV SCH ×2 (16:00→22:00)
[2021-12-29 16:19] LABS: ABG BASE EXCESS -0.6 (-2.0-2.0); ABG HCO3 23.8 MEQ/L (22.0-26.0); ABG O2 SATURATION 83.9 % (95.0-99.0); ABG PARTIAL PRESSURE CO2 38.5 mmHg (35.0-45.0); ABG STANDARD HCO3 23.7 MEQ/L (22.0-26.0); ABG pH (ARTERIAL) 7.409 UNITS (7.350-7.450)
[2021-12-29 16:20] LABS: ABG PARTIAL PRESSURE O2 45.9 mmHg (75.0-100.0)
[2021-12-29] MEDS: FLUTICASONE HFA 110 MCG 12 GM INHALER (FLOVENT) INH SCH (16:36)
[2021-12-29] MEDS: INSULIN LISPRO (NovoLOG) PER UNIT SC SCH ×2 (17:30→21:59)
[2021-12-29 18:17] LABS: VENOUS HCO3 26.3 MEQ/L (23.0-27.0); VENOUS O2 SATURATION 80.5 % (60.0-80.0); VENOUS PARTIAL PRESSURE CO2 44.3 mmHg (38.0-50.0); VENOUS PARTIAL PRESSURE O2 42.5 mmHg (30.0-50.0); VENOUS PH 7.392 UNITS (7.330-7.430); VENOUS TOTAL CO2 27.7 MEQ/L (24.0-28.0)
[2021-12-29] MEDS: ACETAMINOPHEN TAB 650MG DOSE (2X325MG) PO PRN ×2 (18:38→22:50)
[2021-12-29] MEDS: ALBUTEROL SULFATE 2.5 MG/0.5 ML INH NEB SOLN NEB SCH (19:29)
[2021-12-29] MEDS ORDERED: LEVEMIR (INSULIN DETEMIR) 1 UNITS/0.01ML SC SCH (21:00)
[2021-12-29] MEDS: traZODone 50 MG TAB PO SCH (21:58)
[2021-12-29] MEDS: rOPINIRole 1MG TAB PO SCH (21:58)
[2021-12-29] MEDS: METOPROLOL TART 50 MG TAB PO SCH (21:59)
[2021-12-29] MEDS: APIXABAN 5 MG TAB (ELIQUIS) PO SCH (21:59)
[2021-12-29 22:00] VITALS: BP 134/63
[2021-12-29] MEDS: FLUoxetine 20MG CAP PO SCH (22:00)
[2021-12-29] MEDS: guaiFENesin ER 600 MG TAB PO SCH (22:00)
[2021-12-29] MEDS: PANTOPRAZOLE 40MG TAB (PROTONIX) PO SCH (22:00)
[2021-12-29] MEDS: ATORVASTATIN 10 MG TAB PO SCH (22:00)
[2021-12-29] MEDS: ACYCLOVIR 200 MG CAPSULE PO SCH (22:48)
[2021-12-29] MEDS: IRBESARTAN 150MG TAB PO SCH (22:48)
[2021-12-29] MEDS: NYSTATIN 500,000 U/5 ML SUSP UDC SS SCH (23:59)
[2021-12-30] VITALS (7 sets, daily range): BP systolic 117–146; BP diastolic 56–72
[2021-12-30] MEDS: ALBUTEROL SULFATE 2.5 MG/0.5 ML INH NEB SOLN NEB SCH ×4 (01:12→19:28)
[2021-12-30] MEDS: methylPREDNISolone 40MG 1ML VIAL IV SCH ×3 (04:01→18:48)
[2021-12-30] MEDS: ACETAMINOPHEN TAB 650MG DOSE (2X325MG) PO PRN (04:05)
[2021-12-30 04:15] LABS: BASO % 0.1 % (0.0-1.0); HEMATOCRIT 41.8 % (36.0-47.0); HEMOGLOBIN 13.2 g/dl (12.0-15.5); LYMPH # 1.9 10^3/uL (1.5-5.0); MEAN CORPUSCULAR HEMOGLOBIN 29.5 pg (27.0-33.0); MEAN CORPUSCULAR HGB CONC 31.6 g/dl (32.0-36.5); MEAN CORPUSCULAR VOLUME 93.3 fl (80.0-96.0); MONO # 0.2 10^3/uL (0.0-0.8); MONO % 1.7 % (2.0-8.0); NEUTROPHILS # 7.7 10^3/uL (1.5-8.5); NEUTROPHILS % 78.8 % (36.0-66.0); PLATELET COUNT, AUTOMATED 279 10^3/uL (150-450); RED BLOOD COUNT 4.48 10^6/uL (4.00-5.40); WHITE BLOOD COUNT 9.7 10^3/uL (4.0-10.0)
[2021-12-30 04:48] LABS: BLOOD UREA NITROGEN 15 MG/DL (7-18); CALCIUM LEVEL 9.4 MG/DL (8.8-10.2); CARBON DIOXIDE LEVEL 27 MEQ/L (21-32); CHLORIDE LEVEL 102 MEQ/L (98-107); CREATININE FOR GFR 0.71 MG/DL (0.55-1.30); GLOMERULAR FILTRATION RATE > 60.0 (>45); GLUCOSE, FASTING 342 MG/DL (70-100); MAGNESIUM LEVEL 2.3 MG/DL (1.8-2.4); POTASSIUM SERUM 4.3 MEQ/L (3.5-5.1); SODIUM LEVEL 136 MEQ/L (136-145)
[2021-12-30] MEDS ORDERED: INSULIN LISPRO (NovoLOG) PER UNIT SC ONE (07:45)
[2021-12-30] MEDS: FLUTICASONE HFA 110 MCG 12 GM INHALER (FLOVENT) INH SCH (08:09)
[2021-12-30] MEDS: INSULIN LISPRO (NovoLOG) PER UNIT SC SCH ×4 (08:22→21:26)
[2021-12-30] MEDS: ACYCLOVIR 200 MG CAPSULE PO SCH ×2 (08:23→21:25)
[2021-12-30] MEDS: NYSTATIN 500,000 U/5 ML SUSP UDC SS SCH ×2 (08:23→21:24)
[2021-12-30] MEDS: MAGNESIUM OXIDE 400MG TAB (MAG-OX) PO SCH (08:23)
[2021-12-30] MEDS: guaiFENesin ER 600 MG TAB PO SCH ×2 (08:23→21:25)
[2021-12-30] MEDS: PANTOPRAZOLE 40MG TAB (PROTONIX) PO SCH ×2 (08:23→21:25)
[2021-12-30] MEDS: APIXABAN 5 MG TAB (ELIQUIS) PO SCH ×2 (08:24→21:25)
[2021-12-30] MEDS: ASCORBIC ACID 500 MG TAB PO SCH (08:25)
[2021-12-30] MEDS: METOPROLOL TART 50 MG TAB PO SCH ×2 (08:25→21:24)
[2021-12-30] MEDS ORDERED: LEVEMIR (INSULIN DETEMIR) 1 UNITS/0.01ML SC SCH ×2 (21:00)
[2021-12-30] MEDS: ATORVASTATIN 10 MG TAB PO SCH (21:24)
[2021-12-30] MEDS: rOPINIRole 1MG TAB PO SCH (21:24)
[2021-12-30] MEDS: FLUoxetine 20MG CAP PO SCH (21:24)
[2021-12-30] MEDS: IRBESARTAN 150MG TAB PO SCH (21:24)
[2021-12-30] MEDS: traZODone 50 MG TAB PO SCH (21:25)
[2021-12-31] MEDS: ALBUTEROL SULFATE 2.5 MG/0.5 ML INH NEB SOLN NEB SCH ×2 (00:38→07:59)
[2021-12-31] MEDS: methylPREDNISolone 40MG 1ML VIAL IV SCH (00:49)
[2021-12-31 06:08] LABS: BASO % 0.2 % (0.0-1.0); HEMATOCRIT 41.9 % (36.0-47.0); HEMOGLOBIN 13.5 g/dl (12.0-15.5); LYMPH % 17.9 % (24.0-44.0); MEAN CORPUSCULAR HEMOGLOBIN 30.1 pg (27.0-33.0); MEAN CORPUSCULAR HGB CONC 32.2 g/dl (32.0-36.5); MEAN CORPUSCULAR VOLUME 93.3 fl (80.0-96.0); MONO # 0.5 10^3/uL (0.0-0.8); MONO % 4.3 % (2.0-8.0); NEUTROPHILS # 8.6 10^3/uL (1.5-8.5); NEUTROPHILS % 77.1 % (36.0-66.0); PLATELET COUNT, AUTOMATED 305 10^3/uL (150-450); RED BLOOD COUNT 4.49 10^6/uL (4.00-5.40); WHITE BLOOD COUNT 11.2 10^3/uL (4.0-10.0)
[2021-12-31 06:36] LABS: BLOOD UREA NITROGEN 19 MG/DL (7-18); CALCIUM LEVEL 8.6 MG/DL (8.8-10.2); CARBON DIOXIDE LEVEL 27 MEQ/L (21-32); CHLORIDE LEVEL 102 MEQ/L (98-107); CREATININE FOR GFR 0.76 MG/DL (0.55-1.30); GLOMERULAR FILTRATION RATE > 60.0 (>45); GLUCOSE, FASTING 317 MG/DL (70-100); MAGNESIUM LEVEL 2.4 MG/DL (1.8-2.4); POTASSIUM SERUM 4.6 MEQ/L (3.5-5.1); SODIUM LEVEL 136 MEQ/L (136-145)
[2021-12-31 08:00] VITALS: BP 117/53
[2021-12-31] MEDS ORDERED: FLUTICASONE HFA 110 MCG 12 GM INHALER (FLOVENT) INH SCH (08:00)
[2021-12-31] MEDS ORDERED: MUCI600T31 PO (08:47)
[2021-12-31] MEDS ORDERED: PRED10TA2 PO (08:47)
[2021-12-31] MEDS ORDERED: LEVEMIR (INSULIN DETEMIR) 1 UNITS/0.01ML SC SCH (09:00)
[2021-12-31] MEDS ORDERED: predniSONE 20 MG TAB PO SCH (09:00)
[2021-12-31] MEDS: INSULIN LISPRO (NovoLOG) PER UNIT SC SCH (09:19)
[2021-12-31] MEDS: guaiFENesin ER 600 MG TAB PO SCH (09:19)
[2021-12-31] MEDS: PANTOPRAZOLE 40MG TAB (PROTONIX) PO SCH (09:20)
[2021-12-31] MEDS: APIXABAN 5 MG TAB (ELIQUIS) PO SCH (09:20)
[2021-12-31] MEDS: MAGNESIUM OXIDE 400MG TAB (MAG-OX) PO SCH (09:20)
[2021-12-31] MEDS: ACYCLOVIR 200 MG CAPSULE PO SCH (09:20)
[2021-12-31] MEDS: NYSTATIN 500,000 U/5 ML SUSP UDC SS SCH (09:20)
[2021-12-31 09:21] VITALS: BP 117/53
[2021-12-31] MEDS: METOPROLOL TART 50 MG TAB PO SCH (09:21)
[2021-12-31] MEDS: ASCORBIC ACID 500 MG TAB PO SCH (09:21)
[2021-12-31] MEDS ORDERED: ALBU2.5V10 NEB (09:24)
[2021-12-31] MEDS ORDERED: AIRS1KIT MC (09:24)
== END 2021-12-31 11:48 | disposition home or self-care (01) | DRG 141 ==
LOC: M ED 08:39 → M ED INP 16:32 → ENRESERV 20:30 → M PCU 21:39
PROVIDERS: ADMIT Internal Medicine; ATTEND Internal Medicine
DX: J45.901 Unspecified asthma with (acute) exacerbation (principal); K31.84 Gastroparesis; E11.65 Type 2 diabetes mellitus with hyperglycemia; E11.43 Type 2 diabetes mellitus with diabetic autonomic (poly)neuropathy; Z68.41 Body mass index [BMI] 40.0-44.9, adult; I10 Essential (primary) hypertension; E78.5 Hyperlipidemia, unspecified; M19.90 Unspecified osteoarthritis, unspecified site; K21.9 Gastro-esophageal reflux disease without esophagitis; K44.9 Diaphragmatic hernia without obstruction or gangrene; E66.9 Obesity, unspecified; F41.9 Anxiety disorder, unspecified; F32.A Depression, unspecified; F43.20 Adjustment disorder, unspecified; G25.81 Restless legs syndrome; Z86.718 Personal history of other venous thrombosis and embolism; Z86.16 Personal history of COVID-19; Z79.01 Long term (current) use of anticoagulants; Z79.84 Long term (current) use of oral hypoglycemic drugs; Z79.4 Long term (current) use of insulin; Z79.899 Other long term (current) drug therapy; Z88.0 Allergy status to penicillin; Z88.8 Allergy status to other drugs, medicaments and biological substances; Z20.822 Contact with and (suspected) exposure to COVID-19; B00.9 Herpesviral infection, unspecified; T38.0X5A Adverse effect of glucocorticoids and synthetic analogues, initial encounter

== ENCOUNTER → 2022-02-24 | Outpatient (REF) | payer OTHER ==
[~2022-02-24] MED LIST changes: +AIRS1KIT MC; +ALBU2.5V10 NEB; +GLIM2TAB29 PO; +HYDR-3490 PO; +MUCI600T31 PO
[2022-02-24 17:54] LABS: HEMATOCRIT 43.8 % (36.0-47.0); HEMOGLOBIN 13.7 g/dl (12.0-15.5); MEAN CORPUSCULAR HEMOGLOBIN 30.8 pg (27.0-33.0); MEAN CORPUSCULAR HGB CONC 31.3 g/dl (32.0-36.5); MEAN CORPUSCULAR VOLUME 98.4 fl (80.0-96.0); PLATELET COUNT, AUTOMATED 305 10^3/uL (150-450); RED BLOOD COUNT 4.45 10^6/uL (4.00-5.40); WHITE BLOOD COUNT 6.7 10^3/uL (4.0-10.0)
[2022-02-24 18:30] LABS: ALBUMIN 3.4 G/DL (3.2-5.2); ALT/SGPT 91 U/L (7.0-40); BILIRUBIN,TOTAL 0.5 MG/DL (0.3-1.2); BLOOD UREA NITROGEN 23 MG/DL (9-23); CALCIUM LEVEL 9.4 MG/DL (8.3-10.6); CARBON DIOXIDE LEVEL 24 MMOL/L (20-31); CHLORIDE LEVEL 101 MMOL/L (98-107); CHOLESTEROL LEVEL 163 MG/DL (<200); CHOLESTEROL RISK RATIO 4.36 (<5); CREATININE FOR GFR 0.77 MG/DL (0.55-1.30); FREE T4 1.12 NG/DL (0.89-1.76); GLOMERULAR FILTRATION RATE > 60.0 (>45); GLUCOSE, FASTING 276 MG/DL (74-106); HDL CHOLESTEROL 37.3 MG/DL (>40); LDL CHOLESTEROL 51.5 MG/DL (<100); NON-HDL-C 126 MG/DL; POTASSIUM SERUM 4.4 MMOL/L (3.5-5.1); SODIUM LEVEL 135 MMOL/L (136-145); THYROID STIMULATING HORMONE 1.645 uIU/ML (0.55-4.78); TOTAL PROTEIN 6.4 G/DL (5.7-8.2); TRIGLYCERIDES LEVEL 371 MG/DL (<150)
[2022-02-24 19:02] LABS: HEMOGLOBIN A1c 9.2 % (4.0-6.0)
== END ==
LOC: M SFHCCAPE 08:32
PROVIDERS: ATTEND Family Medicine
DX: E04.0 Nontoxic diffuse goiter (principal); E78.5 Hyperlipidemia, unspecified; I82.90 Acute embolism and thrombosis of unspecified vein; F32.9 Major depressive disorder, single episode, unspecified; E11.9 Type 2 diabetes mellitus without complications; I10 Essential (primary) hypertension

== ENCOUNTER → 2022-06-09 | Outpatient (REF) | payer MEDICARE ==
[2022-06-09 16:22] LABS: HEMATOCRIT 46.3 % (36.0-47.0); HEMOGLOBIN 14.8 g/dl (12.0-15.5); MEAN CORPUSCULAR HEMOGLOBIN 30.6 pg (27.0-33.0); MEAN CORPUSCULAR VOLUME 95.7 fl (80.0-96.0); PLATELET COUNT, AUTOMATED 297 10^3/uL (150-450); RED BLOOD COUNT 4.84 10^6/uL (4.00-5.40); WHITE BLOOD COUNT 8.2 10^3/uL (4.0-10.0)
[2022-06-09 16:40] LABS: ALBUMIN 3.8 G/DL (3.2-5.2); ALKALINE PHOSPHATASE 79 U/L (46-116); ALT/SGPT 75 U/L (7.0-40); AST/SGOT 55 U/L (<34); BILIRUBIN,TOTAL 0.7 MG/DL (0.3-1.2); BLOOD UREA NITROGEN 17 MG/DL (9-23); CALCIUM LEVEL 9.5 MG/DL (8.3-10.6); CARBON DIOXIDE LEVEL 29 MMOL/L (20-31); CHLORIDE LEVEL 102 MMOL/L (98-107); CREATININE FOR GFR 0.53 MG/DL (0.55-1.30); GLOMERULAR FILTRATION RATE > 60.0 (>45); GLUCOSE, FASTING 133 MG/DL (74-106); POTASSIUM SERUM 4.4 MMOL/L (3.5-5.1); SODIUM LEVEL 138 MMOL/L (136-145); TOTAL PROTEIN 7.3 G/DL (5.7-8.2)
[2022-06-09 16:43] LABS: THYROID STIMULATING HORMONE 3.171 uIU/ML (0.55-4.78)
[2022-06-09 16:45] LABS: FREE T4 1.07 NG/DL (0.89-1.76)
[2022-06-09 16:47] LABS: FOLATE 18.17 NG/ML (>5.4); VITAMIN B12 LEVEL 598 PG/ML (211-911)
== END ==
LOC: M SFHCADAM 11:43
PROVIDERS: ATTEND Family Medicine
DX: K76.0 Fatty (change of) liver, not elsewhere classified (principal); E11.9 Type 2 diabetes mellitus without complications; G25.81 Restless legs syndrome; G62.89 Other specified polyneuropathies; Z86.718 Personal history of other venous thrombosis and embolism

== ENCOUNTER → 2022-07-12 | Outpatient (CLI) | payer MEDICARE | LOC: M SOG 08:15 | PROVIDERS: ATTEND Physician Assistant | DX: M19.012 Primary osteoarthritis, left shoulder (principal) ==

== ENCOUNTER → 2022-07-20 | Outpatient (CLI) | payer MEDICARE | LOC: M WUC 13:10 | PROVIDERS: ATTEND Family Medicine | DX: M51.34 Other intervertebral disc degeneration, thoracic region (principal); M51.36 Other intervertebral disc degeneration, lumbar region; M25.78 Osteophyte, vertebrae; M50.322 Other cervical disc degeneration at C5-C6 level; M48.02 Spinal stenosis, cervical region; M43.02 Spondylolysis, cervical region; M43.04 Spondylolysis, thoracic region ==

== ENCOUNTER → 2022-12-01 | Outpatient (REF) | payer MEDICARE ==
[~2022-12-01] MED LIST changes: +DICL100G10 TD; -DICL1GEL3 TD; -ROPI2TAB3 PO; +ROPI2TAB46 PO
[2022-12-01 18:57] LABS: HEMOGLOBIN A1c 7.1 % (4.0-6.0)
[2022-12-01 19:06] LABS: BLOOD UREA NITROGEN 30 MG/DL (9-23); CALCIUM LEVEL 9.2 MG/DL (8.3-10.6); CARBON DIOXIDE LEVEL 23 MMOL/L (20-31); CHLORIDE LEVEL 102 MMOL/L (98-107); CREATININE FOR GFR 0.88 MG/DL (0.55-1.30); GLOMERULAR FILTRATION RATE > 60.0 (>45); GLUCOSE, FASTING 165 MG/DL (74-106); POTASSIUM SERUM 4.7 MMOL/L (3.5-5.1); SODIUM LEVEL 137 MMOL/L (136-145)
== END ==
LOC: M SFHCCAPE 09:44
PROVIDERS: ATTEND Family Medicine
DX: E11.9 Type 2 diabetes mellitus without complications (principal)

== ENCOUNTER → 2022-12-08 | Outpatient (REF) | payer MEDICARE | LOC: M SFHCADAM 14:34 | PROVIDERS: ATTEND Family Medicine | DX: R30.0 Dysuria (principal) ==

== ENCOUNTER → 2023-01-24 | Outpatient (CLI) | payer MEDICARE | LOC: M WHC 11:15 | PROVIDERS: ATTEND Nurse Practitioner Family | DX: N95.0 Postmenopausal bleeding (principal); N85.00 Endometrial hyperplasia, unspecified ==

== ENCOUNTER 2023-01-27 13:16 | Outpatient (RCR) | payer MEDICARE | END 2023-02-08 | LOC: M PT 13:16 | PROVIDERS: ATTEND Family Medicine | DX: M75.00 Adhesive capsulitis of unspecified shoulder (principal) ==

== ENCOUNTER → 2023-02-07 | Outpatient (REF) | payer MEDICARE ==
[2023-02-07 17:39] LABS: INR 1.09; PROTHROMBIN TIME 13.7 SECONDS (12.5-14.5)
[2023-02-07 17:48] LABS: IMMUNOGLOBULIN A 218.6 MG/DL (40-350)
[2023-02-07 17:50] LABS: ALBUMIN 3.5 G/DL (3.2-5.2); ALKALINE PHOSPHATASE 78 U/L (46-116); ALT/SGPT 28 U/L (7.0-40); AST/SGOT 21 U/L (<34); BILIRUBIN,DIRECT 0.2 MG/DL (<0.4); BILIRUBIN,TOTAL 0.7 MG/DL (0.3-1.2); IRON (FE) 50 UG/DL (50-170); PERCENT SATURATION 14.5 % (13.2-45.0); TOTAL IRON BINDING CAPACITY 346 UG/DL (250-425); TOTAL PROTEIN 6.5 G/DL (5.7-8.2)
[2023-02-07 18:30] LABS: HEPATITIS B CORE ANTIBODY IGM NEGATIVE (NEGATIVE); HEPATITIS C VIRUS ABY INDEX 0.04 INDEX (<0.8)
[2023-02-10 15:07] LABS: ANCA-ATYPICAL <1:20 titer (Neg:<1:20); ANTI DOUBLE STRAND-DNA AB 1 IU/mL (0-9); ANTI-MITOCHONDRIAL ANTIBODY <20.0 Units (0.0-20.0); ANTINUCLEAR ANTIBODIES DIRECT Positive (Negative); CERULOPLASMIN 30.8 mg/dL (19.0-39.0); CYTOPLASMIC NEUTROP AB ANCA-C <1:20 titer (Neg:<1:20); LIVER-KIDNEY MICROSOMAL ABY <20.1 Units (0.0-20.0); PERINUCLEAR AB ANCA-P <1:20 titer (Neg:<1:20); RNP ANTIBODIES 1.4 AI (0.0-0.9); SJOGREN'S ANTI SS-A 0.2 AI (0.0-0.9); SJOGREN'S ANTI SS-B <0.2 AI (0.0-0.9); SMITH ANTIBODIES <0.2 AI (0.0-0.9); TISSUE TRANSGLUTAMINASE IgA <2 U/mL (0-3)
== END ==
LOC: M LABDRWCV 16:57
PROVIDERS: ATTEND Internal Medicine Gastroenterology
DX: R93.3 Abnormal findings on diagnostic imaging of other parts of digestive tract (principal); R74.01 Elevation of levels of liver transaminase levels; K74.00 Hepatic fibrosis, unspecified; Z01.89 Encounter for other specified special examinations; Z79.899 Other long term (current) drug therapy; Z86.39 Personal history of other endocrine, nutritional and metabolic disease

== ENCOUNTER → 2023-02-24 | Outpatient (REF) | payer MEDICARE ==
[2023-02-24 14:32] LABS: HEMOGLOBIN A1c 6.3 % (4.0-6.0)
[2023-02-24 14:54] LABS: ALBUMIN 3.6 G/DL (3.2-5.2); ALKALINE PHOSPHATASE 72 U/L (46-116); ALT/SGPT 29 U/L (7.0-40); AST/SGOT 21 U/L (<34); BILIRUBIN,TOTAL 0.5 MG/DL (0.3-1.2); BLOOD UREA NITROGEN 13 MG/DL (9-23); CALCIUM LEVEL 8.7 MG/DL (8.3-10.6); CARBON DIOXIDE LEVEL 31 MMOL/L (20-31); CHLORIDE LEVEL 103 MMOL/L (98-107); CREATININE FOR GFR 0.65 MG/DL (0.55-1.30); GLOMERULAR FILTRATION RATE > 60.0 (>45); GLUCOSE, FASTING 121 MG/DL (74-106); POTASSIUM SERUM 4.6 MMOL/L (3.5-5.1); SODIUM LEVEL 141 MMOL/L (136-145); TOTAL PROTEIN 6.8 G/DL (5.7-8.2)
== END ==
LOC: M SFHCADAM 09:05
PROVIDERS: ATTEND Family Medicine
DX: E11.9 Type 2 diabetes mellitus without complications (principal); L71.8 Other rosacea

== ENCOUNTER → 2023-02-24 | Outpatient (CLI) | payer MEDICARE | LOC: M WHC 07:33 | PROVIDERS: ATTEND Internal Medicine Gastroenterology | DX: R74.01 Elevation of levels of liver transaminase levels (principal); K76.0 Fatty (change of) liver, not elsewhere classified ==

== ENCOUNTER → 2023-03-14 | Outpatient (CLI) | payer MEDICARE | LOC: M WHC 10:30 | PROVIDERS: ATTEND Nurse Practitioner Family | DX: Z13.820 Encounter for screening for osteoporosis (principal); Z78.0 Asymptomatic menopausal state ==

== ENCOUNTER → 2023-03-14 | Outpatient (REF) | payer MEDICARE | LOC: M SFHCWAGY 15:25 | PROVIDERS: ATTEND Nurse Practitioner Family | DX: Z12.4 Encounter for screening for malignant neoplasm of cervix (principal); R87.5 Abnormal microbiological findings in specimens from female genital organs | CPT/HCPCS: 87624; G0123 ==

== ENCOUNTER → 2023-03-22 | Outpatient (REF) | payer MEDICARE | LOC: M SFHCWAGY 09:59 | PROVIDERS: ATTEND Obstetrics & Gynecology | DX: N95.0 Postmenopausal bleeding (principal); N85.8 Other specified noninflammatory disorders of uterus ==

== ENCOUNTER → 2023-07-28 | Outpatient (REF) | payer MEDICARE ==
[~2023-07-28] MED LIST changes: +IRBE150T27 PO; -IRBE150T7 PO
[2023-07-28 18:16] LABS: HEMOGLOBIN A1c 5.5 % (4.0-6.0)
[2023-07-28 18:33] LABS: ALBUMIN 3.5 G/DL (3.2-5.2); ALKALINE PHOSPHATASE 62 U/L (46-116); ALT/SGPT 17 U/L (7.0-40); AST/SGOT 21 U/L (<34); BILIRUBIN,TOTAL 0.6 MG/DL (0.3-1.2); BLOOD UREA NITROGEN 15 MG/DL (9-23); CARBON DIOXIDE LEVEL 30 MMOL/L (20-31); CHLORIDE LEVEL 103 MMOL/L (98-107); CREATININE FOR GFR 0.66 MG/DL (0.55-1.30); GLOMERULAR FILTRATION RATE > 60.0 (>45); GLUCOSE, FASTING 102 MG/DL (74-106); POTASSIUM SERUM 4.1 MMOL/L (3.5-5.1); SODIUM LEVEL 138 MMOL/L (136-145); TOTAL PROTEIN 6.7 G/DL (5.7-8.2)
== END ==
LOC: M SFHCCAPE 10:40
PROVIDERS: ATTEND Family Medicine
DX: E11.9 Type 2 diabetes mellitus without complications (principal)

== ENCOUNTER → 2023-09-28 | Outpatient (REF) | payer MEDICARE ==
[~2023-09-28] MED LIST changes: -GLIM1TAB4 PO; +GLIM1TAB84 PO
== END ==
LOC: M SFHCWAGY 16:54
PROVIDERS: ATTEND Nurse Practitioner Family
DX: B37.49 Other urogenital candidiasis (principal)

== ENCOUNTER → 2024-03-19 | Outpatient (REF) | payer MEDICARE ==
[~2024-03-19] MED LIST changes: +GABA-1172 PO; -GABA-282 PO; -MULT200T7 PO; +MULT200T9 PO
[2024-03-19 18:18] LABS: HEMOGLOBIN 14.3 g/dl (12.0-15.5); MEAN CORPUSCULAR HEMOGLOBIN 32.9 pg (27.0-33.0); MEAN CORPUSCULAR HGB CONC 33.3 g/dl (32.0-36.5); MEAN CORPUSCULAR VOLUME 99.1 fl (80.0-96.0); PLATELET COUNT, AUTOMATED 308 10^3/uL (150-450); RED BLOOD COUNT 4.34 10^6/uL (4.00-5.40); WHITE BLOOD COUNT 10.2 10^3/uL (4.0-10.0)
[2024-03-19 18:19] LABS: AMORPHOUS SEDIMENT SMALL (NEGATIVE); APPEARANCE, URINE CLOUDY (CLEAR); BACTERIA, URINE AUTO 1+ (NEGATIVE); BILIRUBIN, URINE AUTO NEGATIVE (NEGATIVE); BLOOD, URINE BLOOD NEGATIVE (NEGATIVE); COLOR, URINE YELLOW (YELLOW); GLUCOSE, URINE (UA) AUTO 3+ mg/dL (NEGATIVE); KETONE, URINE AUTO NEGATIVE (NEGATIVE); LEUKOCYTE ESTERASE, URINE AUTO 3+ (NEGATIVE); NITRITE, URINE AUTO NEGATIVE (NEGATIVE); PROTEIN, URINE AUTO NEGATIVE (NEGATIVE); RBC, URINE AUTO 7 /HPF (0-3); SPECIFIC GRAVITY URINE AUTO 1.025 (1.002-1.035); SQUAMOUS EPITHELIAL CELL UR AU 0 /HPF (0-6); UROBILINOGEN, URINE AUTO 0.2 mg/dL (0.0-2.0); WBC, URINE AUTO TNTC /HPF (0-3)
[2024-03-19 18:29] LABS: HEMOGLOBIN A1c 5.6 % (4.0-6.0)
[2024-03-19 18:37] LABS: CREATININE, URINE 86.7 MG/DL; MAU/CREAT RATIO 28.8 MCG/MG (0.0-30.0)
[2024-03-19 18:40] LABS: ALBUMIN 3.8 G/DL (3.2-5.2); ALKALINE PHOSPHATASE 63 U/L (35-104); ALT/SGPT 17 U/L (7.0-40); AST/SGOT 12 U/L (<34); BILIRUBIN,TOTAL 0.9 MG/DL (0.3-1.2); BLOOD UREA NITROGEN 24 MG/DL (9-23); CALCIUM LEVEL 9.4 MG/DL (8.3-10.6); CARBON DIOXIDE LEVEL 30 MMOL/L (20-31); CHLORIDE LEVEL 101 MMOL/L (98-107); CHOLESTEROL LEVEL 212 MG/DL (<200); CHOLESTEROL RISK RATIO 4.26 (<5); FREE T4 1.25 NG/DL (0.89-1.76); GLOMERULAR FILTRATION RATE > 60.0 (>45); GLUCOSE, FASTING 135 MG/DL (74-106); HDL CHOLESTEROL 49.7 MG/DL (>40); LDL CHOLESTEROL 123.1 MG/DL (<100); NON-HDL-C 162.3 MG/DL; POTASSIUM SERUM 4.5 MMOL/L (3.5-5.1); SODIUM LEVEL 137 MMOL/L (136-145); TOTAL PROTEIN 7.1 G/DL (5.7-8.2); TRIGLYCERIDES LEVEL 196 MG/DL (<150)
[2024-03-19 18:41] LABS: THYROID STIMULATING HORMONE 2.926 uIU/ML (0.55-4.78)
== END ==
LOC: M SFHCCAPE 09:15
PROVIDERS: ATTEND Family Medicine
DX: E11.9 Type 2 diabetes mellitus without complications (principal); E78.5 Hyperlipidemia, unspecified; N95.0 Postmenopausal bleeding; R30.0 Dysuria

== ENCOUNTER → 2024-03-23 | Outpatient (CLI) | payer MEDICARE | LOC: M ADAMS 14:26 | PROVIDERS: ATTEND Family Medicine | DX: M46.86 Other specified inflammatory spondylopathies, lumbar region (principal); M47.816 Spondylosis without myelopathy or radiculopathy, lumbar region; M54.59 Other low back pain ==

== ENCOUNTER → 2024-04-23 | Outpatient (REF) | payer MEDICARE | LOC: M SFHCCAPE 17:11 | PROVIDERS: ATTEND Physician Assistant Medical | DX: R30.0 Dysuria (principal) ==

== ENCOUNTER → 2024-05-18 | Outpatient (CLI) | payer MEDICARE | LOC: M RAD 15:44 | PROVIDERS: ATTEND Physician Assistant Medical | DX: M71.22 Synovial cyst of popliteal space [Baker], left knee (principal) ==

== ENCOUNTER → 2024-05-31 | Outpatient (CLI) | payer MEDICARE | LOC: M SOG 07:59 | PROVIDERS: ATTEND Physician Assistant | DX: M25.562 Pain in left knee (principal); M17.12 Unilateral primary osteoarthritis, left knee ==

== ENCOUNTER → 2024-12-20 | Outpatient (REF) | payer MEDICARE, MEDICAID ==
[~2024-12-20] MED LIST changes: +ACYC-438 PO; -ACYC1TAB PO; +HYDR12.510 PO; -HYDR12CA PO
[2024-12-20 18:15] LABS: CREATININE, URINE 129.7 MG/DL; MALB URINE SIEMENS < 3.0 MG/L
[2024-12-20 18:16] LABS: ALT/SGPT 22 U/L (7.0-40); AST/SGOT 18 U/L (<34); CALCIUM LEVEL 9.0 MG/DL (8.3-10.6); CARBON DIOXIDE LEVEL 28 MMOL/L (20-31); CHLORIDE LEVEL 101 MMOL/L (98-107); CHOLESTEROL LEVEL 279 MG/DL (<200); CHOLESTEROL RISK RATIO 5.11 (<5); CREATININE FOR GFR 0.65 MG/DL (0.55-1.30); GLOMERULAR FILTRATION RATE > 90.0 (>45); LDL CHOLESTEROL 172.9 MG/DL (<100); NON-HDL-C 224.5 MG/DL; POTASSIUM SERUM 4.1 MMOL/L (3.5-5.1); SODIUM LEVEL 137 MMOL/L (136-145); TRIGLYCERIDES LEVEL 258 MG/DL (<150)
[2024-12-20 18:18] LABS: FREE T4 1.24 NG/DL (0.89-1.76)
[2024-12-20 18:19] LABS: PLATELET COUNT, AUTOMATED 289 10^3/uL (150-450)
[2024-12-20 18:30] LABS: ESTIMATED AVERAGE GLUCOSE 126.0 MG/DL (60-110)
== END ==
LOC: M SFHCCAPE 09:51
PROVIDERS: ATTEND Family Medicine
DX: K76.0 Fatty (change of) liver, not elsewhere classified (principal); G62.89 Other specified polyneuropathies; E11.9 Type 2 diabetes mellitus without complications

== ENCOUNTER 2025-01-29 06:36 | Emergency (ER) | payer MEDICARE, MEDICAID ==
[~2025-01-29] VITALS: Ht 162.6 cm; Wt 92.7 kg
[2025-01-29] MEDS ORDERED: CEPH500C PO (08:23)
[2025-01-29 08:37] VITALS: BP 141/66; TEMP 97.6; O2SAT 97
== END 2025-01-29 08:41 | disposition home or self-care (01) ==
LOC: M ED 06:36
DX: S66.222A Laceration of extensor muscle, fascia and tendon of left thumb at wrist and hand level, initial encounter (principal); W26.0XXA Contact with knife, initial encounter; Y92.009 Unspecified place in unspecified non-institutional (private) residence as the place of occurrence of the external cause; Y93.G3 Activity, cooking and baking; Y99.9 Unspecified external cause status; E11.9 Type 2 diabetes mellitus without complications; I10 Essential (primary) hypertension; J45.909 Unspecified asthma, uncomplicated; K21.9 Gastro-esophageal reflux disease without esophagitis; F41.9 Anxiety disorder, unspecified; F32.A Depression, unspecified; F43.10 Post-traumatic stress disorder, unspecified; Z87.19 Personal history of other diseases of the digestive system; Z98.61 Coronary angioplasty status; Z87.01 Personal history of pneumonia (recurrent); Z79.01 Long term (current) use of anticoagulants; Z79.84 Long term (current) use of oral hypoglycemic drugs; Z79.899 Other long term (current) drug therapy; Z88.0 Allergy status to penicillin; Z88.8 Allergy status to other drugs, medicaments and biological substances

== ENCOUNTER 2025-02-01 09:38 | Day surgery (SDC) | payer MEDICARE, MEDICAID ==
[~2025-02-01] VITALS: Ht 162.6 cm; Wt 92.0 kg
[~2025-02-01 09:38] MED LIST changes: +CEPH500C PO; +KETOROLAC 30 MG/ML 1 ML VIAL As Ordered ONE; +LIDOCAINE 2% 100 MG/5 ML SDV (FOR ANES.) As Ordered ONE; +ONDANSETRON 4MG/2ML VIAL As Ordered ONE; +dexAMETHasone 4 MG/ML 1 ML VIAL As Ordered ONE
[2025-02-01] MEDS ORDERED: MIDAZOLAM INJ 2 MG/2 ML VIAL As Ordered ONE (12:09)
[2025-02-01] MEDS: ceFAZolin SOD 2 GM IV ONCE IV ONE (12:39)
[2025-02-01] MEDS ORDERED: ACETAMINOPHEN 1000MG/100ML IV BAG As Ordered ONE (12:47)
[2025-02-01] MEDS ORDERED: OXYC1TAB23 PO (13:33)
[2025-02-01] MEDS: ONDANSETRON 4MG/2ML VIAL IV PRN (13:50)
[2025-02-01] MEDS: HYDROMORPHONE HCL 0.5 MG/0.5 ML SYRINGE IV PRN (14:14)
[2025-02-01 15:05] VITALS: BP 133/64; TEMP 97.4; O2SAT 98
== END 2025-02-01 15:08 | disposition home or self-care (01) ==
LOC: M SDC 09:38
PROVIDERS: ATTEND Orthopaedic Surgery Hand Surgery
DX: S66.222A Laceration of extensor muscle, fascia and tendon of left thumb at wrist and hand level, initial encounter (principal); S61.012A Laceration without foreign body of left thumb without damage to nail, initial encounter; E11.40 Type 2 diabetes mellitus with diabetic neuropathy, unspecified; I10 Essential (primary) hypertension; W26.0XXA Contact with knife, initial encounter; E78.00 Pure hypercholesterolemia, unspecified; Y93.9 Activity, unspecified; Y92.9 Unspecified place or not applicable; J45.909 Unspecified asthma, uncomplicated; Z79.899 Other long term (current) drug therapy; Z79.84 Long term (current) use of oral hypoglycemic drugs; Z79.01 Long term (current) use of anticoagulants; Z88.0 Allergy status to penicillin; Z88.8 Allergy status to other drugs, medicaments and biological substances; Z87.891 Personal history of nicotine dependence
CPT/HCPCS: 26410; 93005; J0131; J0665; J0688; J1100; J1171; J1885; J2250; J2405; J3010